=== PATIENT | female | born 1930 | race Caucasian/White ===

== ENCOUNTER → 2017-01-14 | Outpatient (CLI) | payer MEDICARE, OTHER ==
[~2017-01-14] MED LIST: AC500T; ASPI-84; BSC10SU; CALMOSEPTINE; CYCL5TAB; ENAL2.5T PO; ENAL5TAB PO; HYDR-3720; LEVO750T24 GT; LVT.025T PO; MAGN-47; METF500T; MTF500T; MTF500T PO; MTP25TSR; MTP25TSR PO; OMG1KC PO; ONDA8TAB9 PO; OXYC-12 PO; OXYC-199 PO; PGLT30T PO; PROP1TAB77; RNT150T PO; ROSI2TAB11; RSG4T PO; SENN1TAB76; SIMV40TA2 PO; TRAM50TA2 PO; TROS60CA4 PO; WRF2.5T
--- OUTSIDE RECORDS SUMMARY | 2017-01-14 09:54 | XMS REPORT | Continuity of Care Document ---
Author Author [facility] Organization [facility] Address Unknown Phone Unavailable Care Team Providers Care Health Teacher Name Role Phone PCP Unavailable Source Comments Some departments are not documenting in the electronic medical record. If you do not see the information that you expected, contact Release of Information in the Health Information Management department at [phone] for further assistance in locating additional records.[facility] Active Allergies and Adverse Reactions Not on File Current Medications Prescription Sig. Disp. Refills Start End Date Status Date metFORMIN (GLUCOPHAGE) Take 500 mg by mouth Active 500 mg tablet twice daily with meals. pioglitazone (ACTOS) 30 Take 30 mg by mouth Active mg tablet daily. enalapril (VASOTEC) 5 mg Take 5 mg by mouth daily. Active tablet metoprolol Take by mouth. Active guajardo-hydrochlorothiaz 25-12.5 mg Tb24 LEVOTHYROXINE SODIUM Take 0.025 mg by mouth Active (LEVOTHYROXINE PO) three times weekly. [place]-3 Fatty Take 1 Cap by mouth twice Active Acids-Vitamin E 1,000 mg daily. cap furosemide (LASIX) 40 mg Take 40 mg by mouth Active tablet daily. FLUTICASONE PROPIONATE Insert into nose as Active (FLONASE NA) directed as Needed. ACETAMINOPHEN (TYLENOL Take by mouth as Needed. Active PO) FEXOFENADINE HCL (MUCINEX Take by mouth as Needed. Active ALLERGY PO) SIMETHICONE (GAS-X PO) Take by mouth as Needed. Active NAPROXEN SODIUM/P-EPHED Take by mouth as Needed. Active HCL (SINUS AND COLD-D PO) trospium ER(+) (SAN[place]URA Take 1 Cap by mouth 60 Cap 3 03/14/20 Active XR) 60 mg capsule daily. Do not cut/ crush/ 16 chew Active Problems Problem Noted Date Mixed stress and urge urinary incontinence 03/14/2016 Overview: UUI>>CHRISTIANA requiring 3-4 thick pads/briefs per day. Urgency, frequency, nocturia 3-4x/night, weak stream, and sensation of incomplete emptying. Present since 2013 and worsening No prior treatments History of T2DM and multiple abdominal operations. 03/14/16: new patient; exam unremarkable PVR: 0 mls L ast Assessment & Plan: 85 year old female with history of T2DM and multiple abdominal operations who presents today for evaluation of TYSON (UUI>>CHRISTIANA) and other bothersome voiding symptoms such as urgency, frequency, nocturia 3-4x/night, weak stream, and sensation of incomplete emptying. She has had no prior treatment for this. Exam was largely unremarkable today. She emptied completely with a PVR of 0 mls today. - Urge suppression technique information provided. - Constipation treatment information provided today. - Decrease caffeine intake as able. - Referral to PFRT w/ biofeedback. - [place] XR 60 mg daily. Potential side effects discussed. - Return to clinic 6 months for symptom check. Social History Tobacco Use Types Packs/Day Years Used Date Never Smoker Smokeless Tobacco: Never Used Alcohol Use Drinks/Week oz/Week Comments Yes 2 Glasses of 1.2 wine Last Filed Vital Signs Vital Sign Reading Time Taken Blood Pressure 147/81 03/14/2016 10:22 AM CDT Pulse 76 03/14/2016 10:22 AM CDT Temperature - - Respiratory Rate - - Height 1.6 m (5' 3") 03/14/2016 10:22 AM CDT Weight 89.812 kg (198 lb) 03/14/2016 10:22 AM CDT Body Mass Index 35.08 03/14/2016 10:22 AM CDT Oxygen Saturation - - Plan of Care Health Maintenance Due Date Last Done Comments Physical (Comprehensive) 1937 Exam Pertussis Vaccine 1942 Tetanus Vaccine 1948 Shingles Vaccine 1991 Osteoporosis Screening 1996 Prevnar/Pneumovax (#1) 1996 Influenza Vaccine 06/28/2016 Results from Last 3 Months Not on file
--- NOTE | 2017-01-14 11:28 | Diagnostic Imaging Report ---
INDICATION: Pain in both hips. TECHNIQUE/COMPARISON: Two views of the right hip are compared to an exam from 03/28/2011. FINDINGS: The right total hip is unchanged from the previous exam. There is no evidence of hardware loosening or fracture present. There is a 2.7 cm calcific density just inferior and medial to the right sacroiliac joint. Degenerative changes of the sacroiliac joint have worsened. IMPRESSION: 1. Stable right total hip. 2. Increasing degenerative changes of the right sacroiliac joint. 3. There is a calcific density measuring 2.7 cm just inferior and medial to the sacroiliac joint. This measured 1.[address] scan. Consider CT scanning for further evaluation. Dictated by: Dictated on workstation # [id number]
== END ==
LOC: RAD 09:47
PROVIDERS: ATTEND Internal Medicine
DX: M25.551 Pain in right hip (principal); R53.1 Weakness
CPT/HCPCS: 73502

== ENCOUNTER 2017-04-17 09:30 | Outpatient (RCR) | payer MEDICARE, OTHER | END 2017-04-17 16:04 | disposition home or self-care (01) | PROVIDERS: ATTEND Orthopaedic Surgery | DX: M47.818 Spondylosis without myelopathy or radiculopathy, sacral and sacrococcygeal region (principal) ==

== ENCOUNTER → 2017-05-21 | Outpatient (CLI) | payer MEDICARE, OTHER ==
[~2017-05-21] MED LIST changes: +LEVO25TA5 PO; +METF500T4 PO; +METO-387 PO; +PIOG30TA26 PO; +SIMV40TA4 PO
--- NOTE | 2017-05-21 12:58 | Diagnostic Imaging Report ---
PROCEDURE: US Thyroid. TECHNIQUE: Multiple real-time grayscale images were obtained of the thyroid in various projections. INDICATION: Thyroid mass. FINDINGS: Ultrasonography of the remaining right lobe of the thyroid gland is performed. The right lobe measures 4.0 x 2.7 x 2.7 cm and contains an approximately 2 cm in diameter solid nodule in the midportion which is similar in appearance when compared to the exam of 07/19/2016. IMPRESSION: Persistent 2 cm solid nodule in the remaining right lobe of the thyroid gland. Left lobe was removed, surgically. Dictated by: Dictated on workstation # [id number]
== END ==
LOC: RAD 11:28
PROVIDERS: ATTEND Otolaryngology Otolaryngology/Facial Plastic Surgery
DX: E04.1 Nontoxic single thyroid nodule (principal)
CPT/HCPCS: 76536

== ENCOUNTER → 2017-08-13 | Outpatient (CLI) | payer MEDICARE, OTHER ==
[~2017-08-13] MED LIST changes: -LEVO25TA5 PO; -METF500T4 PO; -METO-387 PO; -PIOG30TA26 PO; -SIMV40TA4 PO
--- NOTE | 2017-08-14 08:20 | Diagnostic Imaging Report ---
Bilateral screening mammogram 2D views with tomosynthesis The current study was also evaluated with a Computer Aided Detection (CAD) system. INDICATION: Screening. No current complaints stated on the questionnaire. COMPARISON: 12/06/2015. FINDINGS: The breasts are composed of scattered fibroglandular densities. Benign-appearing calcifications are seen. Allowing for technique and positional differences, no suspicious change is seen. IMPRESSION: No significant change. ACR BI-RADS Category 2: Benign findings. Result letter will be mailed to the patient. Note: At least 10% of breast cancer is not imaged by mammography. Dictated by: Dictated on workstation # [id number]
== END ==
LOC: RAD 13:40
PROVIDERS: ATTEND Internal Medicine
DX: Z12.31 Encounter for screening mammogram for malignant neoplasm of breast (principal)
CPT/HCPCS: 77067

== ENCOUNTER 2017-08-19 05:36 | Outpatient (CLI) | payer MEDICARE, OTHER ==
[~2017-08-19] VITALS: Ht 160 cm; Wt 90.3 kg
[2017-08-19] MEDS ORDERED: METO-270 PO (10:56)
[2017-08-19] MEDS ORDERED: LEVO25TA5 PO (10:56)
[2017-08-19] MEDS ORDERED: SIMV40TA4 PO (10:56)
[2017-08-19] MEDS ORDERED: OMG1KC PO (10:56)
[2017-08-19] MEDS ORDERED: METF500T4 PO ×2 (10:56)
[2017-08-19] MEDS ORDERED: PIOG30TA26 PO (10:56)
== END 2017-08-19 10:57 ==
LOC: PREOP 05:36
PROVIDERS: ATTEND Surgery
DX: Z01.818 Encounter for other preprocedural examination (principal); Z85.038 Personal history of other malignant neoplasm of large intestine

== ENCOUNTER 2017-08-21 09:04 | Day surgery (SDC) | payer MEDICARE, OTHER ==
[~2017-08-21] VITALS: Ht 160 cm; Wt 90.3 kg
[~2017-08-21 09:04] MED LIST changes: +LEVO25TA5 PO; +METF500T4 PO; +METO-270 PO; +PIOG30TA26 PO; +SIMV40TA4 PO
--- OUTSIDE RECORDS SUMMARY | 2017-08-21 09:08 | XMS REPORT | Clinical Summary ---
Author Author [facility] Organization [facility] Address Unknown Phone Unavailable Care Team Providers Care Manager Automotive Name Role Phone PCP Unavailable Source Comments Some departments are not documenting in the electronic medical record. If you do not see the information that you expected, contact Release of Information in the Health Information Management department at [phone] for further assistance in locating additional records.[facility] Allergies Not on File Current Medications Prescription Sig. Disp. Refills Start End Date Status Date metFORMIN (GLUCOPHAGE) Take 500 mg by mouth Active 500 mg tablet twice daily with meals. pioglitazone (ACTOS) 30 Take 30 mg by mouth Active mg tablet daily. enalapril (VASOTEC) 5 mg Take 5 mg by mouth daily. Active tablet metoprolol Take by mouth. Active gujaardo-hydrochlorothiaz 25-12.5 mg Tb24 LEVOTHYROXINE SODIUM Take 0.025 mg by mouth Active (LEVOTHYROXINE PO) three times weekly. [place]-3 Fatty Take 1 Cap by mouth twice [...] to clinic 6 months for symptom check. Family History Medical History Relation Name Comments Cancer Other Diabetes Other Heart Attack Other Hypertension Other Relation Name Status Comments Other Social History Tobacco Use Types Packs/Day Years Used Date Never Smoker Smokeless Tobacco: Never Used Alcohol Use Drinks/Week oz/Week Comments Yes 2 Glasses of 1.2 wine Sex Assigned at Date Recorded Not on file Last Filed Vital Signs Vital Sign Reading Time Taken Blood Pressure 147/81 03/14/2016 10:22 AM CDT Pulse 76 03/14/2016 10:22 AM CDT Temperature - - Respiratory Rate - - Oxygen Saturation - - Inhaled Oxygen - - Concentration Weight 89.8 kg (198 lb) 03/14/2016 10:22 AM CDT Height 160 cm (5' 3") 03/14/2016 10:22 AM CDT Body Mass Index 35.07 03/14/2016 10:22 AM CDT Plan of Treatment Health Maintenance Due Date Last Done Comments PHYSICAL (COMPREHENSIVE) 1937 EXAM PERTUSSIS VACCINE 1942 TETANUS VACCINE 1948 SHINGLES VACCINE 1991 OSTEOPOROSIS SCREENING 1996 PREVNAR/PNEUMOVAX (#1) 1996 INFLUENZA VACCINE 05/28/2017 Results Not on filefrom Last 3 Months
[2017-08-21] MEDS ORDERED: NS IV 500 ML 500 ML IV PRN (09:37)
[2017-08-21] MEDS ORDERED: LIDOCAINE JELLY 2% (XYLOCAINE) 5 ML TUBE MM PRN (09:45)
[2017-08-21] MEDS ORDERED: NS IV 500 ML 500 ML ONE (09:46)
[2017-08-21 09:56] VITALS: BP 164/111
[2017-08-21] MEDS ORDERED: MIDAZOLAM 2 MG/2 ML (VERSED) VIAL ONE ×3 (10:59→11:17)
[2017-08-21] MEDS ORDERED: LIDOCAINE JELLY 2% (XYLOCAINE) 5 ML TUBE ONE (10:59)
[2017-08-21] MEDS ORDERED: fentaNYL INJECTION 100 MCG/2 ML AMP ONE (10:59)
--- NOTE | 2017-08-21 11:15 | Conscious Sedation/ASA ---
Conscious Sedation Pre-Proced Time Reviewed: 11:00 ASA Class: 2 Airway Mallampati Classification: ([place] appropriate class) I. II. III, IV Lungs Heart ASA score ASA 1: a normal healthy patient ASA 2: a patient with a mild systemic disease (mid diabetes, controlled hypertension, obesity ASA 3: a patient with a severe systemic disease that limits activity (angina , COPD, prior Myocardial infarction) ASA 4: a patient with an incapacitating disease that is a constant threat to life (CHF, renal failure) ASA 5: a moribund patient not expected to survive 24 hrs. (ruptured aneurysm) ASA 6: a declared brain patient whose organs are being harvested. For emergent operations, add the letter E after the classification Grade 3 Sedation Plan: Analgesia, Amnesia, Plan communicated to team members, Discussed options with patient/fam, Discussed risks with patient/fam Note The patient is an appropriate candidate to undergo the planned procedure, sedation, and anesthesia. The patient immediately re-assessed prior to indication. SHEREEN PRUETT MD Aug 21, 2017 11:15 am
[2017-08-21] MEDS: fentaNYL INJECTION 100 MCG/2 ML AMP IVP PRN ×2 (11:17→11:21)
--- NOTE | 2017-08-21 11:17 | Progress Note-Pre Operative ---
Pre-Operative Progress Note H&P Reviewed The H&P was reviewed, patient examined and no changes noted. Date Seen by Provider: Aug 21, 2017 Time Seen by Provider: 11:00 Date H&P Reviewed: Aug 21, 2017 Time H&P Reviewed: 11:00 Pre-Operative Diagnosis: hx colon polyp SHEREEN PRUETT MD Aug 21, 2017 11:17 am
[2017-08-21] MEDS: MIDAZOLAM 2 MG/2 ML (VERSED) VIAL IVP PRN ×3 (11:18→11:27)
[2017-08-21] MEDS ORDERED: ONDANSETRON 4 MG/2 ML (SDV) Z0FRAN IV PRN (11:30)
[2017-08-21] MEDS ORDERED: morphine INJ 10 MG/ML 1ML (SYR OR VIAL) IV PRN (11:30)
[2017-08-21] MEDS ORDERED: ACETAMINOPHEN 325 MG TABLET/CAPLET (TYLENOL) PO PRN (11:30)
[2017-08-21] MEDS ORDERED: HYDROcodone/APAP 5 MG/325 MG (LORTAB) TAB PO PRN (11:30)
--- NOTE | 2017-08-21 11:55 | Progress Note-Post Operative ---
Post-Operative Progess Note Surgeon (s)/Assembly Technician (s) Surgeon SHEREEN PRUETT MD Assembly Technician: none Pre-Operative Diagnosis hx colon cncer Post-Operative Diagnosis chronic stage 2-3 ext and int hemorrhoids, mod-severe sigmoid diverticulosis, normal ileocolonic anastomosis. Procedure & Operative Findings Date of Procedure 08/21/17 Procedure Performed/Findings Colonoscopy Anesthesia Type CS Estimated Blood Loss Estimated blood loss (mL): minimal Specimens/Packing Specimens Removed none SHEREEN PRUETT MD Aug 21, 2017 11:55 am
--- NOTE | 2017-08-21 11:56 | Discharge Inst-Surgical ---
D/C Lap Instructions-KIDO New, Converted, or Re-Newed RX: RX on Chart Follow Up 5 years. Activity as tolerated High Fiber Diet 25g or more per day Avoid Alcohol, Caffeine, Spicy [place] and Acid foods. Drink 64 fluid oz or more of fluids per day. Symptoms to Report: Fever over 101 degree F, Nausea/Vomiting If any problems/questions: Contact your physician or go to Emergency Room SHEREEN PRUETT MD Aug 21, 2017 11:56 am
[2017-08-21 12:00] VITALS: BP 142/96
[2017-08-21 12:25] VITALS: BP 140/90
[2017-08-21 12:30] VITALS: BP 140/90
--- NOTE | 2017-08-21 22:25 | OPERATIVE REPORT ---
DATE OF SERVICE: 08/21/2017 ATTENDING PRIMARY CARE PHYSICIAN: Dr. Puente. PREOPERATIVE DIAGNOSIS: History of colon cancer. POSTOPERATIVE DIAGNOSES: Chronic between stage II and III external and internal hemorrhoids, igjtynbp-cm-gdiryj sigmoid diverticulosis, normal ileocolonic anastomosis. No tumors identified. PROCEDURE: Colonoscopy. SURGEON: Shereen Pruett MD ANESTHESIA: Conscious sedation. ESTIMATED BLOOD LOSS: Minimal. FINDINGS: Chronic between stage II and III external and internal hemorrhoids, vkguodyn-fk-icamyt sigmoid diverticulosis. The remainder of the colon was normal and the ileocolonic anastomosis was normal with no recurrent tumors. DISPOSITION: The patient tolerated the procedure well. INDICATIONS FOR PROCEDURE: The patient is an 87-year-old female known to us. She underwent a colonoscopy on 05/12/2014. A large circumferential lesion was identified in the splenic flexure, which was suspicious for carcinoma. 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 On 06/12/2014, she underwent an extended right hemicolectomy as well as extensive lysis of adhesions from previous abdominal surgery. She had a followup colonoscopy on 07/13/2015, which did show tkmqufsy-kk-xkrerv sigmoid diverticulosis; however, no other abnormalities. She states that she is doing well and following a high-fiber diet and has bowel movements, which are normally soft. She does not report any red blood per rectum nor any dark, tarry stools. A CEA was recently drawn, which did show a slight elevation. She is otherwise doing well. DESCRIPTION OF PROCEDURE: The patient was brought to the endoscopy suite, laid in the left lateral decubitus position. After adequate IV pain and sedating medications and conscious sedation anesthesia, a digital rectal examination was performed. Chronic between stage II and III external and internal hemorrhoids were identified, which were not actively edematous nor inflamed and no bleeding. Normal sphincter tone was felt and there were no palpable masses. The endoscope was then intubated to the anus and rectum and gently insufflated. The endoscope was then advanced to the valves of [place] in the rectum with no polyps or any neoplasms identified. We then proceeded through the sigmoid and descending colon where jixmbtjf-gn-nxhvmx diverticulosis identified. There were no mucosal inflammatory changes to indicate any active diverticulitis. We then advanced the endoscope to the area of the ileo-descending colonic anastomosis was identified with no polyps or any recurrent neoplasms identified. The endoscope was then slowly withdrawn while taking a second look and suctioning residual air with no additional findings. The patient tolerated the procedure well. We will have her continue with medical management with high-fiber diet with at least 25 to 30 grams of fiber per day as well as at least 64 fluid ounces of water daily to promote soft stools on a daily basis. We feel that it would now be okay to proceed with colonoscopies on a 5-year basis; however, sooner if any problems arise. Job ID: [id number] DocumentID: [id number] Dictated Date: 08/21/2017 11:52:34 Costuming Supervisor Date: 08/21/2017 20:56:21 Dictated By: SHEREEN PRUETT MD
== END 2017-08-21 12:30 | disposition home or self-care (01) ==
LOC: ENDO 09:04
PROVIDERS: ATTEND Surgery
DX: Z08 Encounter for follow-up examination after completed treatment for malignant neoplasm (principal); Z85.038 Personal history of other malignant neoplasm of large intestine; K64.1 Second degree hemorrhoids; K57.32 Diverticulitis of large intestine without perforation or abscess without bleeding; R97.0 Elevated carcinoembryonic antigen [CEA]; Z98.0 Intestinal bypass and anastomosis status; E11.9 Type 2 diabetes mellitus without complications; I10 Essential (primary) hypertension; E78.00 Pure hypercholesterolemia, unspecified; E03.9 Hypothyroidism, unspecified; M19.91 Primary osteoarthritis, unspecified site; Z79.84 Long term (current) use of oral hypoglycemic drugs; Z79.899 Other long term (current) drug therapy

== ENCOUNTER → 2017-11-28 | Outpatient (CLI) | payer MEDICARE, OTHER ==
[~2017-11-28] MED LIST changes: +BARIUM SUSPENSION 2.1% (VANILLA SILQ) 450 ML PO ONE; +CATHETER FLUSH 10 ML SYR IV PRN; +IOHEXOL 350 MG/ML 100 ML (OMNIPAQUE 350) VIAL IV ONE; -METO-270 PO; +METO-387 PO; +NS 250 ML (IVPB) BAG IV ONE
--- NOTE | 2017-11-28 12:01 | Diagnostic Imaging Report ---
INDICATION: Colon carcinoma and partial colectomy. Study is performed for followup. TECHNIQUE: Axial imaging through the neck, chest, abdomen, and pelvis was performed after the administration of intravenous contrast. COMPARISON: No prior CT neck or chest study is available for comparison. Comparison is made with prior CT abdomen and pelvis from 09/16/2015. CT NECK: The visualized intracranial structures are unremarkable. The posterior nasopharynx and oropharynx are unremarkable. The larynx is unremarkable. Submandibular glands appear to be symmetric. There is a slightly lobulated mass located within the deep lobe of the right parotid gland measuring 2.6 x 1.8 cm. The left parotid gland is unremarkable. Low-density mass in the right lobe of the thyroid is noted and correlates to the known mass in the right lobe as seen with ultrasound. No cervical lymphadenopathy is identified. No fluid collections are seen. IMPRESSION: Solid appearing lobulated mass in the right parotid gland. 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 No other significant abnormality is seen apart from stable appearing right lobe thyroid mass described on recent ultrasound. CT CHEST: No axillary lymphadenopathy is detected. No definite hilar or mediastinal lymphadenopathy is identified. No pericardial or pleural fluid is detected. No pulmonary infiltrates are seen. There is a tiny 3 mm nodule in the left lower lobe, image 27. No other nodules or masses are seen. There are some interstitial changes in both lungs. IMPRESSION: No evidence of thoracic lymphadenopathy or effusion. There is a tiny left lower lobe nodule. The study is otherwise unremarkable. CT ABDOMEN AND PELVIS: No focal liver mass is identified. The gallbladder appears to be surgically absent. The pancreas and spleen are unremarkable. No adrenal mass is identified. The right kidney is unremarkable. Left kidney again contains a large cyst in the lower pole measuring 12.0 cm AP x 11.0 cm transverse. This compares with 11.5 x 9.2 cm when measured by the same technique. The aorta is calcified but nonaneurysmal. No central retroperitoneal or mesenteric lymphadenopathy is seen. Bowel loops appear to be normal in caliber. Previously noted peripherally calcified mass in the right lower quadrant appears stable. There is significant sigmoid diverticulosis, but no evidence of acute diverticulitis. There appear to be postsurgical changes of right hemicolectomy. A large amount of artifact is identified in the pelvis from patient's bilateral hip prostheses. No definite pelvic lymphadenopathy is identified. There is some sclerosis of the SI joints bilaterally, similar to prior exam. There is some mild sclerosis of the symphysis as well. IMPRESSION: Overall fairly stable appearance to the abdomen and pelvis when compared with prior CT from 09/16/2015 with the exception of mild enlargement of known large left lower pole renal mass. No abdominal or pelvic lymphadenopathy or evidence of metastatic disease is identified. There is significant uncomplicated diverticulosis. Dictated by: Dictated on workstation # [id number]
== END ==
LOC: RAD 07:52
PROVIDERS: ATTEND Internal Medicine
DX: Z08 Encounter for follow-up examination after completed treatment for malignant neoplasm (principal); K57.90 Diverticulosis of intestine, part unspecified, without perforation or abscess without bleeding; E07.89 Other specified disorders of thyroid; K11.8 Other diseases of salivary glands; E03.9 Hypothyroidism, unspecified; Z85.038 Personal history of other malignant neoplasm of large intestine; Z90.49 Acquired absence of other specified parts of digestive tract
CPT/HCPCS: 70491; 71260; 74176

== ENCOUNTER → 2017-11-28 | Outpatient (CLI) | payer MEDICARE, OTHER ==
[~2017-11-28] MED LIST changes: -BARIUM SUSPENSION 2.1% (VANILLA SILQ) 450 ML PO ONE; -CATHETER FLUSH 10 ML SYR IV PRN; -IOHEXOL 350 MG/ML 100 ML (OMNIPAQUE 350) VIAL IV ONE; -NS 250 ML (IVPB) BAG IV ONE
--- NOTE | 2017-11-28 08:31 | Diagnostic Imaging Report ---
INDICATION: Thyroid mass. Comparison is made with prior thyroid ultrasound from 05/21/2017. The right lobe of the thyroid measures 4.3 x 2.8 x 2.6 cm. The left lobe was not evaluated. There is a solid mass in the right lobe of the thyroid measuring 2.0 x 1.9 x 2.1 cm. This is stable compared with prior ultrasound. No new mass is seen. IMPRESSION: Stable solid mass right lobe of the thyroid when compared with exam from 05/21/2017. Dictated by: Dictated on workstation # [id number]
[2017-11-28 08:39] LABS: CREATININE SERUM 0.92 MG/DL (0.60-1.30)
== END ==
LOC: RAD 07:49
PROVIDERS: ATTEND Nurse Practitioner Family
DX: E07.9 Disorder of thyroid, unspecified (principal)
CPT/HCPCS: 36415; 76536; 82565; 84520

== ENCOUNTER 2017-12-25 12:14 | Outpatient (CLI) | payer MEDICARE, OTHER ==
[~2017-12-25] VITALS: Ht 160 cm; Wt 96.2 kg
[2017-12-25 12:39] VITALS: BP 131/91
[2017-12-25] MEDS ORDERED: TRIM100T PO (13:05)
[2017-12-25] MEDS ORDERED: CRAN1CAP9 PO (13:05)
[2017-12-25] MEDS ORDERED: ASCO500C17 PO (13:05)
[2017-12-25 13:25] LABS: BASOPHILS % (AUTO) 0 % (0-10); EOSINOPHILS # (AUTO) 0.1 10^3/uL (0.0-0.3); EOSINOPHILS % (AUTO) 1 % (0-10); HEMATOCRIT 39 % (35-52); HEMOGLOBIN 13.4 G/DL (11.5-16.0); LYMPHOCYTES # (AUTO) 1.5 X 10^3 (1.0-4.0); LYMPHOCYTES % (AUTO) 29 % (12-44); MEAN CORPUSCULAR HEMOGLOBIN 33 PG (25-34); MEAN CORPUSCULAR HGB CONC 34 G/DL (32-36); MEAN CORPUSCULAR VOLUME 96 FL (80-99); MEAN PLATELET VOLUME 10.9 FL (7.4-10.4); MONOCYTES # (AUTO) 0.4 X 10^3 (0.0-1.0); MONOCYTES % (AUTO) 8 % (0-12); NEUTROPHILS # (AUTO) 3.2 X 10^3 (1.8-7.8); NEUTROPHILS % (AUTO) 62 % (42-75); PLATELET COUNT 174 10^3/uL (130-400); RED BLOOD COUNT 4.07 10^6/uL (4.35-5.85); RED CELL DISTRIBUTION WIDTH 13.2 % (10.0-14.5); WHITE BLOOD COUNT 5.1 10^3/uL (4.3-11.0)
[2017-12-25 13:42] LABS: CALCIUM 8.8 MG/DL (8.5-10.1); CREATININE SERUM 0.91 MG/DL (0.60-1.30); POTASSIUM 4.4 MMOL/L (3.6-5.0)
== END 2017-12-25 15:00 ==
LOC: PREOP 12:14
PROVIDERS: ATTEND Otolaryngology Otolaryngology/Facial Plastic Surgery
DX: Z01.812 Encounter for preprocedural laboratory examination (principal); Z11.2 Encounter for screening for other bacterial diseases; L98.9 Disorder of the skin and subcutaneous tissue, unspecified
CPT/HCPCS: 36415; 80048; 85025; 87081

== ENCOUNTER 2017-12-27 07:08 | Day surgery (SDC) | payer MEDICARE, OTHER ==
[~2017-12-27] VITALS: Ht 160 cm; Wt 96.2 kg
[~2017-12-27 07:08] MED LIST changes: +ASCO500C17 PO; +CRAN1CAP9 PO; +TRIM100T PO
[2017-12-27] MEDS ORDERED: LACTATED RINGERS 1,000 ML IV PRN (07:29)
[2017-12-27 07:34] VITALS: BP 170/103
[2017-12-27] MEDS ORDERED: LIDOCAINE 1% INJ 20 ML (XYLOCAINE) VIAL ONE (07:49)
[2017-12-27] MEDS ORDERED: fentaNYL INJECTION 100 MCG/2 ML AMP ONE (07:58)
--- NOTE | 2017-12-27 08:08 | Progress Note-Pre Operative ---
Pre-Operative Progress Note H&P Reviewed The H&P was reviewed, patient examined and no changes noted. Date Seen by Provider: Dec 27, 2017 Time Seen by Provider: 07:45 Date H&P Reviewed: Dec 27, 2017 Time H&P Reviewed: 07:45 Pre-Operative Diagnosis: Nasal Tip Lesion, Rgith Forehead Lesion MELVA GREEN MD Dec 27, 2017 8:08 am
[2017-12-27] MEDS ORDERED: PHENYLEPHRINE 100 MCG/ML 10 ML (ANESTHESIA) SYR ONE (09:00)
[2017-12-27] MEDS ORDERED: LIDOCAINE PF 2% 5 ML (XYLOCAINE) VIAL ONE (09:00)
[2017-12-27] MEDS ORDERED: proPOfol 200 MG/20 ML (DIPRIVAN) VIAL IV ONE (09:00)
[2017-12-27] MEDS ORDERED: ONDANSETRON 4 MG/2 ML (SDV) Z0FRAN ONE (09:01)
[2017-12-27] MEDS ORDERED: MUPIROCIN 2% OINT 22 GM (BACTROBAN) TUBE ONE (09:01)
--- NOTE | 2017-12-27 09:07 | Progress Note-Post Operative ---
Post-Operative Progess Note Surgeon (s)/Director Of Field Service (s) Surgeon MELVA GREEN MD Director Of Field Service n/a Pre-Operative Diagnosis Nasal Tip Lesion, Rgith Forehead Lesion Post-Operative Diagnosis same Post-Op Procedure Note Date of Procedure: Dec 27, 2017 Name of Procedure Performed: Excision of Nasal Lesion with INterdeidate Repair, Excision of Forehead Lesion with INtermediate repair Description & Findings Description and Findings: n/a Anesthesia Type gen lma Estimated Blood Loss minimal Packing none. Specimen(s) collected/removed nasal tip lesion and forehead lesion-margins clear MELVA GREEN MD Dec 27, 2017 9:07 am
[2017-12-27] MEDS ORDERED: SEVOFLURANE (ULTANE) 15 ML INHAL SOLN ONE (09:14)
[2017-12-27] MEDS ORDERED: HYDROcodone/APAP 5 MG/325 MG (LORTAB) TAB PO PRN (09:15)
[2017-12-27] MEDS ORDERED: ACETAMINOPHEN 325 MG TABLET/CAPLET (TYLENOL) PO PRN (09:15)
[2017-12-27] MEDS: fentaNYL INJECTION 100 MCG/2 ML AMP ONE ×2 (09:35→10:28)
--- NOTE | 2017-12-27 09:50 | Anesthesia-General Post-Op ---
General Patient Condition Mental Status/LOC: Same as Preop Cardiovascular: Satisfactory Nausea/Vomiting: Absent Respiratory: Satisfactory Pain: Controlled Complications: Absent Post Op Complications Complications None Follow Up Care/Instructions Patient Instructions None needed. Anesthesia/Patient Condition Patient Condition Patient is doing well, no complaints, stable vital signs, no apparent adverse anesthesia problems. No complications reported per nursing. PJ KING CRNA Dec 27, 2017 09:50
[2017-12-27 10:10] VITALS: BP 126/94
[2017-12-27] MEDS ORDERED: HYDR-3812 PO (10:22)
[2017-12-27 10:40] VITALS: BP 141/85
[2017-12-27] MEDS ORDERED: HYDROcodone/APAP 5 MG/325 MG (LORTAB) TAB ONE (10:43)
[2017-12-27 11:01] VITALS: BP 141/85
== END 2017-12-27 10:56 | disposition home or self-care (01) ==
LOC: SDC 07:08
PROVIDERS: ATTEND Otolaryngology Otolaryngology/Facial Plastic Surgery
DX: C44.391 Other specified malignant neoplasm of skin of nose (principal); C44.399 Other specified malignant neoplasm of skin of other parts of face; I25.10 Atherosclerotic heart disease of native coronary artery without angina pectoris; I10 Essential (primary) hypertension; E11.9 Type 2 diabetes mellitus without complications; Z79.84 Long term (current) use of oral hypoglycemic drugs; Z79.899 Other long term (current) drug therapy
CPT/HCPCS: 82962

== ENCOUNTER → 2018-03-11 | Outpatient (CLI) | payer MEDICARE, OTHER ==
[~2018-03-11] MED LIST changes: +CATHETER FLUSH 10 ML SYR IV PRN; +HYDR-3812 PO; +IOHEXOL 350 MG/ML 100 ML (OMNIPAQUE 350) VIAL IV ONE; -METF500T4 PO; +METF500T5 PO; +NS 250 ML (IVPB) BAG IV ONE; +RECEIVED CONTRAST (Hold Metformin) IV SCH
[2018-03-11 08:29] LABS: BUN/CREATININE RATIO 23; CREATININE SERUM 0.83 MG/DL (0.60-1.30); GFR ESTIMATED > 60
--- NOTE | 2018-03-11 11:06 | Diagnostic Imaging Report ---
CLINICAL INDICATION: Checkup for nodule of neck. No complaints. Patient thinks some thyroid may be removed. Patient has history of colon cancer. EXAM: CT scan of the neck performed with 75 cc of Omnipaque 350 IV contrast. Coronal and sagittal reformatted images are created. COMPARISON: CT scan of the neck, chest, abdomen, and pelvis with contrast dated 11/28/2017. FINDINGS: There is interval decreased size of the lobulated mass in the region of the tail of the parotid gland which currently measures 2.3 cm x 1.5 cm compared to the prior study measured at 2.6 cm x 1.8 cm. There is no adjacent fat stranding. Otherwise, the salivary glands are unremarkable. Stable appearance of thyroid gland with heterogeneous low-density nodule measuring roughly 1.7 cm in greatest axial dimension. Clip seen inferior to the right thyroid gland. The left thyroid gland is predominantly resected with minimal stable tissue seen in the left thyroid bed. There is no neck lymphadenopathy seen. Visualized portions of the tongue, oral cavity, sublingual and submandibular regions are unremarkable. The neck vascular structures show no significant abnormality. Visualized upper lung hammond show mild dependent atelectasis posteriorly. There is small to moderate amount of fluid in the left mastoid air cells. Visualized portion of the paranasal sinuses, orbits, and intracranial regions are unremarkable. There are degenerative spurs involving the cervical spine. IMPRESSION: 1: There is interval slight decreased size of the lobulated mass in the tail of the right parotid gland. Considerations may include a primary salivary gland neoplasm such as pleomorphic adenoma. A lymphocele and a lymph node is suspected to be less likely. 2: Stable 1.7 cm right thyroid gland nodule. Stable postop changes to the thyroid gland, as described above. 3: The remainder of the neck CT scan shows no significant abnormality. Dictated by: Dictated on workstation # [id number]
== END ==
LOC: RAD 07:58
PROVIDERS: ATTEND Otolaryngology Otolaryngology/Facial Plastic Surgery
DX: E04.1 Nontoxic single thyroid nodule (principal); K11.8 Other diseases of salivary glands; E89.0 Postprocedural hypothyroidism; Z85.038 Personal history of other malignant neoplasm of large intestine
CPT/HCPCS: 36415; 70491; 82565; 84520

== ENCOUNTER → 2018-07-16 | Outpatient (CLI) | payer MEDICARE, OTHER ==
[~2018-07-16] MED LIST changes: -CATHETER FLUSH 10 ML SYR IV PRN; +METF-397 PO; -METF500T5 PO; -PIOG30TA26 PO; +PIOG30TA71 PO; -RECEIVED CONTRAST (Hold Metformin) IV SCH
[2018-07-16 10:41] LABS: BUN/CREATININE RATIO 20; CREATININE SERUM 0.86 MG/DL (0.60-1.30); GFR ESTIMATED > 60
--- NOTE | 2018-07-16 11:53 | Diagnostic Imaging Report ---
PROCEDURE: CT chest, abdomen, and pelvis with contrast. TECHNIQUE: Multiple contiguous axial images were obtained through the chest, abdomen, and pelvis after the administration of intravenous contrast. INDICATION: Colon carcinoma, followup. COMPARISON: Correlation is made with prior CT from 11/28/2017. FINDINGS: CT chest: No axillary, hilar or mediastinal lymphadenopathy is detected. Coronary arterial calcifications are present. No pericardial or pleural fluid is identified. There is a low density nodule on the right thyroid lobe, previously noted tiny nodule on left lower lobe appears stable. No new nodule is seen. IMPRESSION: Stable CT of the chest when compared with examination from 11/28/2017. No thoracic lymphadenopathy or evidence of pulmonary metastatic disease is seen. There is a low-density nodule in the right thyroid, seen previously by ultrasound. CT abdomen and pelvis: The liver is without discrete mass. The gallbladder appears to be absent. No biliary duct dilatation is seen. The pancreas and spleen are unremarkable. No adrenal mass is identified. The right kidney is unremarkable. A lobulated cystic mass involving the lower pole of the left kidney measures 12.3 x 11.5 cm compared with 12.0 x 11.0 cm. Aorta is heavily calcified but not aneurysmal. No central, retroperitoneal or mesenteric lymphadenopathy is seen. Postsurgical changes of right hemicolectomy are again noted. There is moderate stool in the colon. Significant diverticulosis of the sigmoid colon is again seen. No definite findings to suggest acute diverticulitis are identified. There is no ascites. The bladder appears decompressed. There is a large amount of streak artifact from patient's bilateral hip prostheses. No definite pelvic lymphadenopathy is identified. Sclerosis of bilateral SI joints is again seen. There is severe multilevel lumbar facet arthropathy. Previously noted calcified mass in the right lower quadrant appears stable. IMPRESSION: 1. Overall stable CT of the abdomen and pelvis when compared with exam from 11/28/2017. No abdominal or pelvic lymphadenopathy or evidence of metastatic disease is seen. 2. Uncomplicated diverticulosis. 3. Stable left renal cyst. Dictated by: Dictated on workstation # [id number]
== END ==
LOC: RAD 10:06
PROVIDERS: ATTEND Internal Medicine
DX: C18.3 Malignant neoplasm of hepatic flexure (principal); K57.30 Diverticulosis of large intestine without perforation or abscess without bleeding; D34 Benign neoplasm of thyroid gland; R97.0 Elevated carcinoembryonic antigen [CEA]; N28.1 Cyst of kidney, acquired
CPT/HCPCS: 36415; 71260; 74177; 82565; 84520

== ENCOUNTER → 2018-08-28 | Outpatient (CLI) | payer MEDICARE, OTHER ==
[~2018-08-28] MED LIST changes: +RECEIVED CONTRAST (Hold Metformin) IV SCH
[2018-08-28 09:27] LABS: BUN/CREATININE RATIO 19; CREATININE SERUM 0.81 MG/DL (0.60-1.30); GFR ESTIMATED > 60
--- NOTE | 2018-08-28 10:40 | Diagnostic Imaging Report ---
PROCEDURE: CT neck soft tissue with contrast. TECHNIQUE: Multiple contiguous axial images were obtained through the neck after the administration of contrast. INDICATION: Right parotid mass and thyroid nodule. Study is performed for followup. COMPARISON: Correlation is made with prior CT soft tissue neck study from 03/11/2018. FINDINGS: Visualized intracranial structures are unremarkable. Posterior nasopharynx, oropharynx and larynx are unremarkable. The low-density mass involving the right lobe of the thyroid gland appears similar at 17 cm. Left thyroid lobe appears surgically absent. The lobulated homogeneous mass involving the inferior right parotid gland measures 2.2 x 1.3 cm compared with 2.3 x 1.5 cm on prior exam. No new parotid mass is identified. The left parotid and submandibular glands are unremarkable. No cervical lymphadenopathy is seen. IMPRESSION: 1. Stable lobulated right parotid gland mass when compared with prior CT from 03/11/2018. 2. Stable low density mass right lobe of the thyroid when compared with prior examination. No new abnormality is seen. Dictated by: Dictated on workstation # [id number]
== END ==
LOC: RAD 08:28
PROVIDERS: ATTEND Otolaryngology Otolaryngology/Facial Plastic Surgery
DX: E04.1 Nontoxic single thyroid nodule (principal); K11.8 Other diseases of salivary glands
CPT/HCPCS: 36415; 70491; 82565; 84520

== ENCOUNTER 2018-08-31 14:48 | Emergency (ER) | payer MEDICARE, OTHER ==
[~2018-08-31] VITALS: Ht 160 cm; Wt 90.7 kg
[~2018-08-31 14:48] MED LIST changes: -IOHEXOL 350 MG/ML 100 ML (OMNIPAQUE 350) VIAL IV ONE; -NS 250 ML (IVPB) BAG IV ONE; -RECEIVED CONTRAST (Hold Metformin) IV SCH
--- OUTSIDE RECORDS SUMMARY | 2018-08-31 14:53 | XMS REPORT | Clinical Summary ---
Author Author [facility] Organization [facility] Address Unknown Phone Unavailable Care Team Providers Care Salesperson Fashion Accessories Name Role Phone Roberto Carlos Barrientos MD Unavailable Source Comments Some departments are not documenting in the electronic medical record. If you do not see the information that you expected, contact Release of Information in the Health Information Management department at [phone] for further assistance in locating additional records.[facility] Allergies Not on File Current Medications [...] mouth Active (LEVOTHYROXINE PO) three times weekly. [place]-3 Fatty Take 1 Cap by mouth twice [...] PERTUSSIS VACCINE 1942 TETANUS VACCINE 1948 SHINGLES RECOMBINANT 1981 VACCINE (1 of 2) OSTEOPOROSIS SCREENING 1996 PNEUMONIA (PCV13/PPSV23) 1996 VACCINES (1 of 2 - PCV13) INFLUENZA VACCINE 05/28/2018 Results Not on filefrom Last 3 Months
--- OUTSIDE RECORDS SUMMARY | 2018-08-31 14:55 | XMS REPORT | Continuity of Care Document ---
Author Author [facility] Organization [facility] Address Unknown Phone Unavailable Allergies Active Description Code Type Severity Reaction Onset Reported/Identified Relationship to Patient Clinical Status Yes NKDA NKDA Mild N/ A 02/16/2009 Yes warfarin [id number] Drug Allergy Unknown "SEVERE BLEEDIN 12/25/2017 Medications There is no data. 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 06/09/2014 SHEREEN PRUETT MD Ot 250.00 DIAB FADY WO COMPL, TYPE II OR UNSPEC TY 06/09/2014 SHEREEN PRUETT MD Ot 272.0 PURE HYPERCHOLESTEROLEM 06/09/2014 SHEREEN PRUETT MD Ot 285.1 AC POSTHEMORRHAG ANEMIA 06/09/2014 SHEREEN PRUETT MD Ot 401.9 HYPERTENSION NOS 06/09/2014 SHEREEN PRUETT MD Ot 578.1 BLOOD IN STOOL 06/09/2014 SHEREEN PRUETT MD Ot 593.9 RENAL URETERAL DIS NOS 06/09/2014 SHEREEN PRUETT MD Ot 716.90 ARTHROPATHY NOS-UNSPEC 06/09/2014 SHEREEN PRUETT MD Ot V12.69 PERSONAL HISTORY, OTHER DISEASES OF RESP 06/09/2014 SHEREEN PRUETT MD Ot V16.0 FAMILY HX-GI MALIGNANCY 06/09/2014 FLYNN PEREZ, SHEREEN Hernandez V43.64 HIP JOINT REPLACEMENT STATUS 09/09/2014 FLYNN PEREZ, SHEREEN Ot 153.9 09/09/2014 SHEREEN PRUETT MD Ot V72.63 09/09/2014 SHEREEN PRUETT MD Ot V72.83 09/09/2014 SHEREEN PRUETT MD Ot V74.8 03/04/2015 LAWSON PEREZ, CAESAR Pak Ot 272.4 03/04/2015 CAESAR PATHAK MD Ot 785.1 03/18/2015 CAESAR PATHAK MD Ot 272.4 03/18/2015 CAESAR PATHAK MD Ot 785.1 07/13/2015 SHEREEN PRUETT MD Ot 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 W/O COMPL 07/13/2015 SHEREEN PRUETT MD Ot 455.3 EXT HEMORRHOID W/O COMPL 07/13/2015 SHEREEN PRUETT MD Ot 562.10 DIVERTICULOSIS COLON (W/O MENT OF HEMORR 07/13/2015 SHEREEN PRUETT MD Ot V10.05 HX OF COLONIC MALIGNANCY 07/13/2015 SHEREEN PRUETT MD Ot V12.72 PERSONAL HISTORY OF COLONIC POLYPS 07/13/2015 SHEREEN PRUETT MD Ot V67.09 SURGERY FOLLOW-UP, OTHER SURGERY 09/16/2015 MICHAEL GIL MD Ot K57.90 DVRTCLOS OF INTEST, PART UNSP, W/O PERF 09/16/2015 MICHAEL GIL MD Ot R11.2 NAUSEA WITH VOMITING, UNSPECIFIED 09/16/2015 MICHAEL GIL MD Ot R19.7 DIARRHEA, UNSPECIFIED 09/16/2015 MICHAEL GIL MD Ot Z85.038 PERSONAL HISTORY OF MALIGNANT NEOPLASM O 09/16/2015 MICHAEL GIL MD Ot Z90.49 ACQUIRED ABSENCE OF OTHER SPECIFIED PART 12/06/2015 Ot V76.12 12/06/2015 Ot 211.3 12/06/2015 Ot 455.3 12/06/2015 Ot 562.10 12/06/2015 Ot V16.0 12/06/2015 Ot V67.09 12/06/2015 Ot 719.45 12/06/2015 Ot V43.64 12/06/2015 Ot V76.12 12/06/2015 Ot 726.10 12/06/2015 Ot V72.84 12/06/2015 Ot V74.8 12/06/2015 Ot 250.00 12/06/2015 Ot 401.9 12/06/2015 Ot 715.91 12/06/2015 Ot 726.10 12/06/2015 Ot 726.19 12/06/2015 Ot 726.2 12/06/2015 Ot V58.69 12/06/2015 Ot 250.00 12/06/2015 Ot 401.9 12/06/2015 Ot 426.11 12/06/2015 Ot 426.2 12/06/2015 Ot 727.61 12/06/2015 Ot V72.83 12/06/2015 Ot V74.8 12/06/2015 Ot V76.12 12/06/2015 CASI LOVE APRN Ot V76.12 12/06/2015 FLYNN PEREZ, SHEREEN Ot 211.3 12/06/2015 FLYNN PEREZ, SHEREEN Ot 244.9 12/06/2015 FLYNN PEREZ, SHEREEN Ot 250.00 12/06/2015 FLYNN PEREZ, ARYANKI Ot 272.0 12/06/2015 FLYNN PEREZ, MARCELAAAKI Ot 401.9 12/06/2015 FLYNN PEREZ, TAKAAKI Ot 455.0 12/06/2015 FLYNN PEREZ, TAKAAKI Ot 455.3 12/06/2015 FLYNN PEREZ, TAKAAKI Ot 562.10 12/06/2015 FLYNN PEREZ, TAKAAKI Ot 569.3 12/06/2015 FLYNN PEREZ, TAKAAKI Ot V16.0 12/06/2015 FLYNN PEREZ, MARCELAAAKI Ot V72.84 12/06/2015 FLYNN PEREZ, TAKAAKI Ot 153.9 12/06/2015 FLYNN PEREZ, TAKAAKI Ot 573.8 12/06/2015 FLYNN PEREZ, TAKAAKI Ot 793.4 12/06/2015 FLYNN PEREZ, TAKAAKI Ot 153.9 12/06/2015 FLYNN PEREZ, MARCELAAAKI Ot V72.63 12/06/2015 FLYNN PEREZ, MARCELAAAKI Ot V72.83 12/06/2015 FLYNN PEREZ, MARCELAAAKI Ot V74.8 12/06/2015 SHEREEN PREUTT MD Ot 153.9 12/06/2015 FLYNN PEREZ, SHEREEN Ot 791.9 12/06/2015 SHEREEN PRUETT MD Ot V45.89 12/06/2015 LAWSON PEREZ, CAESAR Pak Ot 272.4 12/06/2015 CAESAR PATHAK MD Ot 785.1 12/06/2015 FLYNN PEREZ, SHEREEN Ot V10.05 12/06/2015 SHEREEN PRUETT MD Ot V72.84 12/28/2015 TAZ PEREZ, WM Chou Ot Z12.31 07/20/2016 TAZ PEREZ, WM Chou Ot E04.2 NONTOXIC MULTINODULAR GOITER 07/20/2016 WM MCGHEE MD Ot E04.2 NONTOXIC MULTINODULAR GOITER 07/25/2016 WM MCGHEE MD Ot E04.2 NONTOXIC MULTINODULAR GOITER 08/06/2016 Ot 719.45 JOINT PAIN- PELVIS 08/06/2016 Ot V43.64 HIP JOINT REPLACEMENT STATUS 08/06/2016 Ot V76.12 OT SCREEN MAMMO-MALIGN NEOPLASM OF OMA 08/06/2016 Ot 726.10 BURSAE TENDONS DIS SHLDER NOS 08/06/2016 Ot V72.84 EXAM PRE- OPERATIVE NOS 08/06/2016 Ot V74.8 SCREEN- BACTERIAL DIS NEC 08/06/2016 Ot 250.00 DIAB FADY WO COMPL, TYPE II OR UNSPEC TY 08/06/2016 Ot 401.9 HYPERTENSION NOS 08/06/2016 Ot 715.91 OSTEOARTHROS NOS-SHLDER 08/06/2016 Ot 726.10 BURSAE TENDONS DIS SHLDER NOS 08/06/2016 Ot 726.19 ROTATOR CUFF DIS NEC 08/06/2016 Ot 726.2 SHOULDER REGION DIS NEC 08/06/2016 Ot V58.69 OTH MED,LT, CURRENT USE 08/06/2016 Ot 250.00 DIAB FADY WO COMPL, TYPE II OR UNSPEC TY 08/06/2016 Ot 401.9 HYPERTENSION NOS 08/06/2016 Ot 426.11 ATRIOVENT BLOCK-1ST DEGR 08/06/2016 Ot 426.2 LEFT BB HEMIBLOCK 08/06/2016 Ot 727.61 ROTATOR CUFF RUPTURE 08/06/2016 Ot V72.83 EXAM PRE- OPERATIVE NEC 08/06/2016 Ot V74.8 SCREEN- BACTERIAL DIS NEC 08/06/2016 Ot V76.12 OTH SCREEN MAMMO-MALIGN NEOPLASM OF OMA 08/06/2016 CASI LOVE [employer] MANAGER Ot V76.12 OTH SCREEN MAMMO-MALIGN NEOPLASM OF OMA 08/06/2016 SHEREEN PRUETT MD Ot 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 08/06/2016 SHEREEN PRUETT MD Ot 244.9 HYPOTHYROIDISM NOS 08/06/2016 SHEREEN PRUETT MD Ot 250.00 DIAB FADY WO COMPL, TYPE II OR UNSPEC TY 08/06/2016 SHEREEN PRUETT MD Ot 272.0 PURE HYPERCHOLESTEROLEM 08/06/2016 SHEREEN PRUETT MD Ot 401.9 HYPERTENSION NOS 08/06/2016 SHEREEN PRUETT MD Ot 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 W/O COMPL 08/06/2016 SHEREEN PRUETT MD Ot 455.3 EXT HEMORRHOID W/O COMPL 08/06/2016 SHEREEN PRUETT MD Ot 562.10 DIVERTICULOSIS COLON (W/O MENT OF HEMORR 08/06/2016 SHEREEN PRUETT MD Ot 569.3 RECTAL ANAL HEMORRHAGE 08/06/2016 SHEREEN PRUETT MD Ot V16.0 FAMILY HX-GI MALIGNANCY 08/06/2016 SHEREEN PRUETT MD Ot V72.84 EXAM PRE-OPERATIVE NOS 08/06/2016 SHEREEN PRUETT MD Ot 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 08/06/2016 SHEREEN PRUETT MD Ot 573.8 LIVER DISORDERS NEC 08/06/2016 SHEREEN PRUETT MD Ot 793.4 NOSP (ABN) FINDINGS ON RADIOLOGICAL OT 08/06/2016 SHEREEN PRUETT MD Ot 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 08/06/2016 SHEREEN PRUETT MD Ot V72.63 PRE-PROCEDURAL LABORATORY EXAMINATION 08/06/2016 SHEREEN PRUETT MD Ot V72.83 EXAM PRE-OPERATIVE NEC 08/06/2016 SHEREEN PRUETT MD Ot V74.8 SCREEN-BACTERIAL DIS NEC 08/06/2016 SHEREEN PRUETT MD Ot 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 08/06/2016 SHEREEN PRUETT MD Ot 791.9 ABN URINE FINDINGS NEC 08/06/2016 SHEREEN PRUETT MD Ot V45.89 POSTSURGICAL STATES NEC 08/06/2016 CAESAR PATHAK MD Ot 272.4 HYPERLIPIDEMIA NEC/NOS 08/06/2016 CAESAR PATHAK MD Ot 785.1 PALPITATIONS 08/06/2016 SHEREEN PRUETT MD Ot V10.05 HX OF COLONIC MALIGNANCY 08/06/2016 SHEREEN PRUETT MD Ot V72.84 EXAM PRE-OPERATIVE NOS 08/06/2016 TAZ PEREZ, WM Chou Ot Z12.31 ENCNTR SCREEN MAMMOGRAM FOR MALIGNANT NE 08/06/2016 WM MCGHEE MD Ot E04.2 NONTOXIC MULTINODULAR GOITER 08/09/2016 WM MCGHEE MD Ot E04.2 NONTOXIC MULTINODULAR GOITER 08/15/2016 WM MCGHEE MD Ot E04.2 NONTOXIC MULTINODULAR GOITER 08/16/2016 NORMA PEREZ, MELVA Hernandez Ot E04.1 NONTOXIC SINGLE THYROID NODULE 09/04/2016 NORMA PEREZ, MELVA P Ot E04.1 NONTOXIC SINGLE THYROID NODULE 09/10/2016 NORMA PEREZ, MELVA P Ot E04.1 NONTOXIC SINGLE THYROID NODULE 10/12/2016 MELVA GREEN MD P Ot E04.9 NONTOXIC GOITER, UNSPECIFIED 10/12/2016 MELVA GREEN MD P Ot Z01.812 ENCOUNTER FOR PREPROCEDURAL LABORATORY E 10/12/2016 MELVA GREEN MD P Ot Z01.818 ENCOUNTER FOR OTHER PREPROCEDURAL EXAMIN 10/12/2016 MELVA GREEN MD Ot Z11.2 ENCOUNTER FOR SCREENING FOR OTHER BACTER 10/15/2016 MELVA GREEN MD P Ot E04.9 NONTOXIC GOITER, UNSPECIFIED 10/15/2016 MELVA GREEN MD P Ot Z01.812 ENCOUNTER FOR PREPROCEDURAL LABORATORY E 10/15/2016 MELVA GREEN MD P Ot Z01.818 ENCOUNTER FOR OTHER PREPROCEDURAL EXAMIN 10/15/2016 MELVA GREEN MD P Ot Z11.2 ENCOUNTER FOR SCREENING FOR OTHER BACTER 10/16/2016 MELVA GREEN MD P Ot E04.9 NONTOXIC GOITER, UNSPECIFIED 10/16/2016 MELVA GREEN MD P Ot Z01.812 ENCOUNTER FOR PREPROCEDURAL LABORATORY E 10/16/2016 MELVA GREEN MD P Ot Z01.818 ENCOUNTER FOR OTHER PREPROCEDURAL EXAMIN 10/16/2016 MELVA GREEN MD P Ot Z11.2 ENCOUNTER FOR SCREENING FOR OTHER BACTER 10/20/2016 MELVA GREEN MD Ot D34 BENIGN NEOPLASM OF THYROID GLAND 10/20/2016 MELVA GREEN MD Ot R11.0 NAUSEA 10/24/2016 MELVA GREEN MD Ot D34 BENIGN NEOPLASM OF THYROID GLAND 10/24/2016 MELVA GREEN MD Ot R11.0 NAUSEA 10/26/2016 MELVA GREEN MD Ot D34 BENIGN NEOPLASM OF THYROID GLAND 10/26/2016 MELVA GREEN MD Ot R11.0 NAUSEA 11/27/2016 MELVA GREEN MD Ot E04.1 NONTOXIC SINGLE THYROID NODULE 02/06/2017 WM MCGHEE MD Ot M25.551 PAIN IN RIGHT HIP 02/06/2017 WM MCGHEE MD Ot R53.1 WEAKNESS 02/15/2017 WM MCGHEE MD Ot M25.551 PAIN IN RIGHT HIP 02/15/2017 WM MCGHEE MD Ot R53.1 WEAKNESS 03/08/2017 ASTRID MEYER DO Ot 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, 04/17/2017 ASTRID MEYER DO Ot 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, 05/21/2017 Ot 250.00 DIAB FADY WO COMPL, TYPE II OR UNSPEC TY 05/21/2017 Ot 401.9 HYPERTENSION NOS 05/21/2017 Ot 715.91 OSTEOARTHROS NOS-SHLDER 05/21/2017 Ot 726.10 BURSAE TENDONS DIS SHLDER NOS 05/21/2017 Ot 726.19 ROTATOR CUFF DIS NEC 05/21/2017 Ot 726.2 SHOULDER REGION DIS NEC 05/21/2017 Ot V58.69 OT MED,LT, CURRENT USE 05/21/2017 Ot 727.61 ROTATOR CUFF RUPTURE 05/21/2017 Ot V72.83 EXAM PRE- OPERATIVE NEC 05/21/2017 Ot V74.8 SCREEN- BACTERIAL DIS NEC 05/21/2017 Ot V76.12 OTH SCREEN MAMMO-MALIGN NEOPLASM OF OMA 05/21/2017 CASI LOVE APRN Ot V76.12 OTH SCREEN MAMMO-MALIGN NEOPLASM OF OMA 05/21/2017 SHEREEN PRUETT MD Ot 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 05/21/2017 SHEREEN PRUETT MD Ot 244.9 HYPOTHYROIDISM NOS 05/21/2017 SHEREEN PRUETT MD Ot 250.00 DIAB FADY WO COMPL, TYPE II OR UNSPEC TY 05/21/2017 SHEREEN PRUETT MD Ot 272.0 PURE HYPERCHOLESTEROLEM 05/21/2017 SHEREEN PRUETT MD Ot 401.9 HYPERTENSION NOS 05/21/2017 SHEREEN PRUETT MD Ot 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 W/O COMPL 05/21/2017 SHEREEN PRUETT MD Ot 455.3 EXT HEMORRHOID W/O COMPL 05/21/2017 SHEREEN PRUETT MD Ot 562.10 DIVERTICULOSIS COLON (W/O MENT OF HEMORR 05/21/2017 SHEREEN PRUETT MD Ot 569.3 RECTAL ANAL HEMORRHAGE 05/21/2017 SHEREEN PRUETT MD Ot V16.0 FAMILY HX-GI MALIGNANCY 05/21/2017 SHEREEN PRUETT MD Ot V72.84 EXAM PRE-OPERATIVE NOS 05/21/2017 SHEREEN PRUETT MD Ot 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 05/21/2017 SHEREEN PRUETT MD Ot 573.8 LIVER DISORDERS NEC 05/21/2017 SHEREEN PRUETT MD Ot 793.4 NOSP (ABN) FINDINGS ON RADIOLOGICAL OT 05/21/2017 SHEREEN PRUETT MD Ot 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 05/21/2017 SHEREEN PRUETT MD Ot V72.63 PRE-PROCEDURAL LABORATORY EXAMINATION 05/21/2017 SHEREEN PRUETT MD Ot V72.83 EXAM PRE-OPERATIVE NEC 05/21/2017 SHEREEN PRUETT MD Ot V74.8 SCREEN-BACTERIAL DIS NEC 05/21/2017 SHEREEN PRUETT MD Ot 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 05/21/2017 SHEREEN PRUETT MD Ot 791.9 ABN URINE FINDINGS NEC 05/21/2017 SHEREEN PRUETT MD Ot V45.89 POSTSURGICAL STATES NEC 05/21/2017 CAESAR PATHAK MD Ot 272.4 HYPERLIPIDEMIA NEC/NOS 05/21/2017 CAESAR PATHAK MD Ot 785.1 PALPITATIONS 05/21/2017 SHEREEN PRUETT MD Ot V10.05 HX OF COLONIC MALIGNANCY 05/21/2017 SHEREEN PRUETT MD Ot V72.84 EXAM PRE-OPERATIVE NOS 05/21/2017 TAZ PEREZ, WM Chou Ot Z12.31 ENCNTR SCREEN MAMMOGRAM FOR MALIGNANT NE 05/21/2017 TAZ PEREZ, WM Chou Ot E04.2 NONTOXIC MULTINODULAR GOITER 05/21/2017 MELVA GREEN MD Ot E04.1 NONTOXIC SINGLE THYROID NODULE 05/21/2017 WM MCGHEE MD, Ot M25.551 PAIN IN RIGHT HIP 05/21/2017 WM MCGHEE MD, Ot R53.1 WEAKNESS 05/22/2017 MELVA GREEN MD Ot E04.1 NONTOXIC SINGLE THYROID NODULE 05/22/2017 MELVA GREEN MD Ot E04.1 NONTOXIC SINGLE THYROID NODULE 05/22/2017 MELVA GREEN MD P Ot E04.1 NONTOXIC SINGLE THYROID NODULE 06/11/2017 MELVA GREEN MD Ot E04.1 NONTOXIC SINGLE THYROID NODULE 06/25/2017 MELVA GREEN MD Ot E04.1 NONTOXIC SINGLE THYROID NODULE 07/31/2017 YAN PEREZ, JOYCE Christiansen Ot Z12.31 ENCNTR SCREEN MAMMOGRAM FOR MALIGNANT NE 08/19/2017 SHEREEN PRUETT MD Ot Z01.818 ENCOUNTER FOR OTHER PREPROCEDURAL EXAMIN 08/19/2017 SHEREEN PRUETT MD Ot Z85.038 PERSONAL HISTORY OF MALIGNANT NEOPLASM O 08/19/2017 SHEREEN PRUETT MD Ot Z01.818 ENCOUNTER FOR OTHER PREPROCEDURAL EXAMIN 08/19/2017 SHEREEN PRUETT MD, Ot Z85.038 PERSONAL HISTORY OF MALIGNANT NEOPLASM O 08/20/2017 SHEREEN PRUETT MD Ot Z01.818 ENCOUNTER FOR OTHER PREPROCEDURAL EXAMIN 08/20/2017 SHEREEN PRUETT MD Ot Z85.038 PERSONAL HISTORY OF MALIGNANT NEOPLASM O 08/21/2017 SHEREEN PRUETT MD Ot E03.9 HYPOTHYROIDISM, UNSPECIFIED 08/21/2017 SHEREEN PRUETT MD Ot E11.9 TYPE 2 DIABETES MELLITUS WITHOUT COMPLIC 08/21/2017 SHEREEN PRUETT MD Ot E78.00 PURE HYPERCHOLESTEROLEMIA, UNSPECIFIED 08/21/2017 SHEREEN PRUETT MD Ot I10 ESSENTIAL (PRIMARY) HYPERTENSION 08/21/2017 SHEREEN PRUETT MD, Ot K57.32 DVTRCLI OF LG INT W/O PERFORATION OR ABS 08/21/2017 SHEREEN PRUETT MD, Ot K64.1 SECOND DEGREE HEMORRHOIDS 08/21/2017 SHEREEN PRUETT MD, Ot M19.91 PRIMARY OSTEOARTHRITIS, UNSPECIFIED SITE 08/21/2017 SHEREEN PRUETT MD, Ot R97.0 ELEVATED CARCINOEMBRYONIC ANTIGEN [CEA] 08/21/2017 SHEREEN PRUETT MD, Ot Z08 ENCNTR FOR FOLLOW-UP EXAM AFTER TRTMT FO 08/21/2017 SHEREEN PRUETT MD, Ot Z79.84 BUILDING CERTIFIER (CURRENT) USE OF ORAL HYPOGLYC 08/21/2017 SHEREEN PRUETT MD, Ot Z79.899 OTHER BUILDING CERTIFIER (CURRENT) DRUG THERAPY 08/21/2017 SHEREEN PRUETT MD, Ot Z85.038 PERSONAL HISTORY OF MALIGNANT NEOPLASM O 08/21/2017 SHEREEN PRUETT MD, Ot 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 08/22/2017 SHEREEN PRUETT MD, Ot E03.9 HYPOTHYROIDISM, UNSPECIFIED 08/22/2017 SHEREEN PRUETT MD, Ot E11.9 TYPE 2 DIABETES MELLITUS WITHOUT COMPLIC 08/22/2017 SHEREEN PRUETT MD, Ot E78.00 PURE HYPERCHOLESTEROLEMIA, UNSPECIFIED 08/22/2017 SHEREEN PRUETT MD, Ot I10 ESSENTIAL (PRIMARY) HYPERTENSION 08/22/2017 SHEREEN PRUETT MD, Ot K57.32 DVTRCLI OF LG INT W/O PERFORATION OR ABS 08/22/2017 SHEREEN PRUETT MD, Ot K64.1 SECOND DEGREE HEMORRHOIDS 08/22/2017 SHEREEN PRUETT MD, Ot M19.91 PRIMARY OSTEOARTHRITIS, UNSPECIFIED SITE 08/22/2017 SHEREEN PRUETT MD, Ot R97.0 ELEVATED CARCINOEMBRYONIC ANTIGEN [CEA] 08/22/2017 SHEREEN PRUETT MD, Ot Z08 ENCNTR FOR FOLLOW-UP EXAM AFTER TRTMT FO 08/22/2017 SHEREEN PRUETT MD, Ot Z79.84 BUILDING CERTIFIER (CURRENT) USE OF ORAL HYPOGLYC 08/22/2017 SHEREEN PRUETT MD, Ot Z79.899 OTHER BUILDING CERTIFIER (CURRENT) DRUG THERAPY 08/22/2017 SHEREEN PRUETT MD, Ot Z85.038 PERSONAL HISTORY OF MALIGNANT NEOPLASM O 08/22/2017 KIDO MD, TAKAAKI Ot 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 09/04/2017 YAN PEREZ, FLORENTINOSixto Kuldip Ot Z12.31 ENCNTR SCREEN MAMMOGRAM FOR MALIGNANT NE 09/09/2017 SHEREEN PRUETT MD, Ot E03.9 HYPOTHYROIDISM, UNSPECIFIED 09/09/2017 SHEREEN PRUETT MD, Ot E11.9 TYPE 2 DIABETES MELLITUS WITHOUT COMPLIC 09/09/2017 SHEREEN PRUETT MD, Ot E78.00 PURE HYPERCHOLESTEROLEMIA, UNSPECIFIED 09/09/2017 SHEREEN PRUETT MD, Ot I10 ESSENTIAL (PRIMARY) HYPERTENSION 09/09/2017 SHEREEN PRUETT MD, Ot K57.32 DVTRCLI OF LG INT W/O PERFORATION OR ABS 09/09/2017 SHEREEN PRUETT MD, Ot K64.1 SECOND DEGREE HEMORRHOIDS 09/09/2017 SHEREEN PRUETT MD, Ot M19.91 PRIMARY OSTEOARTHRITIS, UNSPECIFIED SITE 09/09/2017 SHEREEN PRUETT MD, Ot R97.0 ELEVATED CARCINOEMBRYONIC ANTIGEN [CEA] 09/09/2017 SHEREEN PRUETT MD, Ot Z08 ENCNTR FOR FOLLOW-UP EXAM AFTER TRTMT FO 09/09/2017 SHEREEN PRUETT MD Ot Z79.84 BUILDING CERTIFIER (CURRENT) USE OF ORAL HYPOGLYC 09/09/2017 SHEREEN PRUETT MD, Ot Z79.899 OTHER BUILDING CERTIFIER (CURRENT) DRUG THERAPY 09/09/2017 SHEREEN PRUETT MD, Ot Z85.038 PERSONAL HISTORY OF MALIGNANT NEOPLASM O 09/09/2017 SHEREEN PRUETT MD Ot 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 11/26/2017 Ot V76.12 OTH SCREEN MAMMO-MALIGN NEOPLASM OF OMA 11/26/2017 CASI LOVE APRN Ot V76.12 OTH SCREEN MAMMO-MALIGN NEOPLASM OF OMA 11/26/2017 SHEREEN PRUETT MD Ot 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 11/26/2017 SHEREEN PRUETT MD Ot 244.9 HYPOTHYROIDISM NOS 11/26/2017 SHEREEN PRUETT MD Ot 250.00 DIAB FADY WO COMPL, TYPE II OR UNSPEC TY 11/26/2017 SHEREEN PRUETT MD Ot 272.0 PURE HYPERCHOLESTEROLEM 11/26/2017 SHEREEN PRUETT MD Ot 401.9 HYPERTENSION NOS 11/26/2017 SHEREEN PRUETT MD Ot 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 W/O COMPL 11/26/2017 SHEREEN PRUETT MD Ot 455.3 EXT HEMORRHOID W/O COMPL 11/26/2017 SHEREEN PRUETT MD Ot 562.10 DIVERTICULOSIS COLON (W/O MENT OF HEMORR 11/26/2017 SHEREEN PRUETT MD Ot 569.3 RECTAL ANAL HEMORRHAGE 11/26/2017 SHEREEN PRUETT MD Ot V16.0 FAMILY HX-GI MALIGNANCY 11/26/2017 SHEREEN PRUETT MD Ot V72.84 EXAM PRE-OPERATIVE NOS 11/26/2017 SHEREEN PRUETT MD Ot 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 11/26/2017 SHEREEN PRUETT MD Ot 573.8 LIVER DISORDERS NEC 11/26/2017 SHEREEN PRUETT MD Ot 793.4 NOSP (ABN) FINDINGS ON RADIOLOGICAL OT 11/26/2017 SHEREEN PRUETT MD Ot 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 11/26/2017 SHEREEN PRUETT MD Ot V72.63 PRE-PROCEDURAL LABORATORY EXAMINATION 11/26/2017 SHEREEN PRUETT MD Ot V72.83 EXAM PRE-OPERATIVE NEC 11/26/2017 SHEREEN PRUETT MD Ot V74.8 SCREEN-BACTERIAL DIS NEC 11/26/2017 SHEREEN PREUTT MD Ot 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 11/26/2017 SHEREEN PRUETT MD Ot 791.9 ABN URINE FINDINGS NEC 11/26/2017 SHEREEN PRUETT MD Ot V45.89 POSTSURGICAL STATES NEC 11/26/2017 CAESAR PATHAK MD Ot 272.4 HYPERLIPIDEMIA NEC/NOS 11/26/2017 CAESAR PATHAK MD Ot 785.1 PALPITATIONS 11/26/2017 SHEREEN PRUETT MD Ot V10.05 HX OF COLONIC MALIGNANCY 11/26/2017 SHEREEN PRUETT MD Ot V72.84 EXAM PRE-OPERATIVE NOS 11/26/2017 WM MCGHEE MD Ot Z12.31 ENCNTR SCREEN MAMMOGRAM FOR MALIGNANT NE 11/26/2017 WM MCGHEE MD Ot E04.2 NONTOXIC MULTINODULAR GOITER 11/26/2017 NORMA PEREZ, MELVA Hernandez Ot E04.1 NONTOXIC SINGLE THYROID NODULE 11/26/2017 WM MCGHEE MD Ot M25.551 PAIN IN RIGHT HIP 11/26/2017 TAZ PEREZ, WM Chou Ot R53.1 WEAKNESS 11/26/2017 NORMA PEREZ, MELVA Hernandez Ot E04.1 NONTOXIC SINGLE THYROID NODULE 11/26/2017 YAN PEREZ, JOYCE Christiansen Ot Z12.31 ENCNTR SCREEN MAMMOGRAM FOR MALIGNANT NE 11/26/2017 Ot V76.12 OTH SCREEN MAMMO-MALIGN NEOPLASM OF OMA 11/26/2017 CASI LOVE APRN Ot V76.12 OTH SCREEN MAMMO-MALIGN NEOPLASM OF OMA 11/26/2017 SHEREEN PRUETT MD Ot 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 11/26/2017 SHEREEN PRUETT MD Ot 244.9 HYPOTHYROIDISM NOS 11/26/2017 SHEREEN PRUETT MD Ot 250.00 DIAB FADY WO COMPL, TYPE II OR UNSPEC TY 11/26/2017 SHEREEN PRUETT MD Ot 272.0 PURE HYPERCHOLESTEROLEM 11/26/2017 SHEREEN PRUETT MD Ot 401.9 HYPERTENSION NOS 11/26/2017 SHEREEN PRUETT MD Ot 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 W/O COMPL 11/26/2017 SHEREEN PRUETT MD Ot 455.3 EXT HEMORRHOID W/O COMPL 11/26/2017 SHEREEN PRUETT MD Ot 562.10 DIVERTICULOSIS COLON (W/O MENT OF HEMORR 11/26/2017 SHEREEN PRUETT MD Ot 569.3 RECTAL ANAL HEMORRHAGE 11/26/2017 SHEREEN PRUETT MD Ot V16.0 FAMILY HX-GI MALIGNANCY 11/26/2017 SHEREEN PRUETT MD Ot V72.84 EXAM PRE-OPERATIVE NOS 11/26/2017 SHEREEN PRUETT MD Ot 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 11/26/2017 SHEREEN PRUETT MD Ot 573.8 LIVER DISORDERS NEC 11/26/2017 SHEREEN PRUETT MD Ot 793.4 NOSP (ABN) FINDINGS ON RADIOLOGICAL OT 11/26/2017 SHEREEN PRUETT MD Ot 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 11/26/2017 SHEREEN PRUETT MD Ot V72.63 PRE-PROCEDURAL LABORATORY EXAMINATION 11/26/2017 SHEREEN PRUETT MD Ot V72.83 EXAM PRE-OPERATIVE NEC 11/26/2017 SHEREEN PRUETT MD, Ot V74.8 SCREEN-BACTERIAL DIS NEC 11/26/2017 SHEREEN PRUETT MD Ot 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 11/26/2017 SHEREEN PRUETT MD Ot 791.9 ABN URINE FINDINGS NEC 11/26/2017 SHEREEN PRUETT MD Ot V45.89 POSTSURGICAL STATES NEC 11/26/2017 CAESAR PATHAK MD Ot 272.4 HYPERLIPIDEMIA NEC/NOS 11/26/2017 CAESAR PATHAK MD Ot 785.1 PALPITATIONS 11/26/2017 SHEREEN PRUETT MD Ot V10.05 HX OF COLONIC MALIGNANCY 11/26/2017 SHEREEN PRUETT MD, Ot V72.84 EXAM PRE-OPERATIVE NOS 11/26/2017 WM MCGHEE MD Ot Z12.31 ENCNTR SCREEN MAMMOGRAM FOR MALIGNANT NE 11/26/2017 WM MCGHEE MD Ot E04.2 NONTOXIC MULTINODULAR GOITER 11/26/2017 MELVA GREEN MD Ot E04.1 NONTOXIC SINGLE THYROID NODULE 11/26/2017 WM MCGHEE MD Ot M25.551 PAIN IN RIGHT HIP 11/26/2017 WM MCGHEE MD Ot R53.1 WEAKNESS 11/26/2017 MELVA GREEN MD Ot E04.1 NONTOXIC SINGLE THYROID NODULE 11/26/2017 YAN PEREZ, JOYCE Christiansen Ot Z12.31 ENCNTR SCREEN MAMMOGRAM FOR MALIGNANT NE 11/28/2017 Ot V76.12 OTH SCREEN MAMMO-MALIGN NEOPLASM OF OMA 11/28/2017 CASI LOVE APRN Ot V76.12 OTH SCREEN MAMMO-MALIGN NEOPLASM OF OMA 11/28/2017 SHEREEN PRUETT MD Ot 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 11/28/2017 SHEREEN PRUETT MD Ot 244.9 HYPOTHYROIDISM NOS 11/28/2017 SHEREEN PRUETT MD Ot 250.00 DIAB FADY WO COMPL, TYPE II OR UNSPEC TY 11/28/2017 SHEREEN PRUETT MD Ot 272.0 PURE HYPERCHOLESTEROLEM 11/28/2017 SHEREEN PRUETT MD Ot 401.9 HYPERTENSION NOS 11/28/2017 SHEREEN PRUETT MD Ot 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 W/O COMPL 11/28/2017 SHEREEN PRUETT MD Ot 455.3 EXT HEMORRHOID W/O COMPL 11/28/2017 SHEREEN PRUETT MD Ot 562.10 DIVERTICULOSIS COLON (W/O MENT OF HEMORR 11/28/2017 SHEREEN PRUETT MD Ot 569.3 RECTAL ANAL HEMORRHAGE 11/28/2017 SHEREEN PRUETT MD Ot V16.0 FAMILY HX-GI MALIGNANCY 11/28/2017 SHEREEN PRUETT MD Ot V72.84 EXAM PRE-OPERATIVE NOS 11/28/2017 SHEREEN PRUETT MD Ot 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 11/28/2017 SHEREEN PRUETT MD Ot 573.8 LIVER DISORDERS NEC 11/28/2017 SHEREEN PRUETT MD Ot 793.4 NOSP (ABN) FINDINGS ON RADIOLOGICAL OT 11/28/2017 SHEREEN PRUETT MD Ot 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 11/28/2017 SHEREEN PRUETT MD Ot V72.63 PRE-PROCEDURAL LABORATORY EXAMINATION 11/28/2017 SHEREEN PRUETT MD Ot V72.83 EXAM PRE-OPERATIVE NEC 11/28/2017 SHEREEN PRUETT MD Ot V74.8 SCREEN-BACTERIAL DIS NEC 11/28/2017 SHEREEN PRUETT MD Ot 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 11/28/2017 SHEREEN PRUETT MD Ot 791.9 ABN URINE FINDINGS NEC 11/28/2017 SHEREEN PRUETT MD Ot V45.89 POSTSURGICAL STATES NEC 11/28/2017 CAESAR PATHAK MD Ot 272.4 HYPERLIPIDEMIA NEC/NOS 11/28/2017 CAESAR PATHAK MD Ot 785.1 PALPITATIONS 11/28/2017 SHEREEN PRUETT MD Ot V10.05 HX OF COLONIC MALIGNANCY 11/28/2017 SHEREEN PRUETT MD Ot V72.84 EXAM PRE-OPERATIVE NOS 11/28/2017 WM MCGHEE MD Ot Z12.31 ENCNTR SCREEN MAMMOGRAM FOR MALIGNANT NE 11/28/2017 WM MCGHEE MD Ot E04.2 NONTOXIC MULTINODULAR GOITER 11/28/2017 MELVA GREEN MD Ot E04.1 NONTOXIC SINGLE THYROID NODULE 11/28/2017 WM MCGHEE MD Ot M25.551 PAIN IN RIGHT HIP 11/28/2017 WM MCGHEE MD Ot R53.1 WEAKNESS 11/28/2017 MELVA GREEN MD Ot E04.1 NONTOXIC SINGLE THYROID NODULE 11/28/2017 JOYCE HEREDIA MD, Ot Z12.31 ENCNTR SCREEN MAMMOGRAM FOR MALIGNANT NE 11/29/2017 RUI ISLAS OYSTER SHIPPER Ot E07.9 DISORDER OF THYROID, UNSPECIFIED 12/25/2017 JOYCE HEREDIA MD, Ot E03.9 HYPOTHYROIDISM, UNSPECIFIED 12/25/2017 JOYCE HEREDIA MD Ot E07.89 OTHER SPECIFIED DISORDERS OF THYROID 12/25/2017 JOYCE HEREDIA MD Ot K11.8 OTHER DISEASES OF SALIVARY [place]S 12/25/2017 JOYCE HEREDIA MD, Ot K57.90 DVRTCLOS OF INTEST, PART UNSP, W/O PERF 12/25/2017 JOYCE HEREDIA MD, Ot Z08 ENCNTR FOR FOLLOW-UP EXAM AFTER TRTMT FO 12/25/2017 JOYCE HEREDIA MD Ot Z85.038 PERSONAL HISTORY OF MALIGNANT NEOPLASM O 12/25/2017 JOYCE HEREDIA MD Ot Z90.49 ACQUIRED ABSENCE OF OTHER SPECIFIED PART 12/25/2017 MELVA GREEN MD Ot L98.9 DISORDER OF THE SKIN AND SUBCUTANEOUS TI 12/25/2017 MELVA GREEN MD Ot Z01.812 ENCOUNTER FOR PREPROCEDURAL LABORATORY E 12/25/2017 MELVA GREEN MD Ot Z11.2 ENCOUNTER FOR SCREENING FOR OTHER BACTER 12/25/2017 Ot V76.12 OTH SCREEN MAMMO-MALIGN NEOPLASM OF OMA 12/25/2017 CASI LOVE APRN Ot V76.12 OTH SCREEN MAMMO-MALIGN NEOPLASM OF OMA 12/25/2017 SHEREEN PRUETT MD Ot 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 12/25/2017 SHEREEN PRUETT MD Ot 244.9 HYPOTHYROIDISM NOS 12/25/2017 SHEEREN PRUETT MD Ot 250.00 DIAB FADY WO COMPL, TYPE II OR UNSPEC TY 12/25/2017 SHEREEN PRUETT MD Ot 272.0 PURE HYPERCHOLESTEROLEM 12/25/2017 SHEREEN PRUETT MD Ot 401.9 HYPERTENSION NOS 12/25/2017 SHEREEN PRUETT MD Ot 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 W/O COMPL 12/25/2017 SHEREEN PRUETT MD Ot 455.3 EXT HEMORRHOID W/O COMPL 12/25/2017 SHEREEN PRUETT MD Ot 562.10 DIVERTICULOSIS COLON (W/O MENT OF HEMORR 12/25/2017 SHEREEN PRUETT MD Ot 569.3 RECTAL ANAL HEMORRHAGE 12/25/2017 SHEREEN PRUETT MD Ot V16.0 FAMILY HX-GI MALIGNANCY 12/25/2017 SHEREEN PRUETT MD Ot V72.84 EXAM PRE-OPERATIVE NOS 12/25/2017 SHEREEN PRUETT MD Ot 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 12/25/2017 SHEREEN PRUETT MD Ot 573.8 LIVER DISORDERS NEC 12/25/2017 SHEREEN PRUETT MD Ot 793.4 NOSP (ABN) FINDINGS ON RADIOLOGICAL OT 12/25/2017 SHEREEN PRUETT MD Ot 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 12/25/2017 SHEREEN PRUETT MD Ot V72.63 PRE-PROCEDURAL LABORATORY EXAMINATION 12/25/2017 SHEREEN PRUETT MD Ot V72.83 EXAM PRE-OPERATIVE NEC 12/25/2017 SHEREEN PRUETT MD Ot V74.8 SCREEN-BACTERIAL DIS NEC 12/25/2017 SHEREEN PRUETT MD Ot 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 12/25/2017 SHEREEN PRUETT MD Ot 791.9 ABN URINE FINDINGS NEC 12/25/2017 SHEREEN PRUETT MD Ot V45.89 POSTSURGICAL STATES NEC 12/25/2017 CAESAR PATHAK MD Ot 272.4 HYPERLIPIDEMIA NEC/NOS 12/25/2017 CAESAR PATHAK MD Ot 785.1 PALPITATIONS 12/25/2017 SHEREEN PRUETT MD Ot V10.05 HX OF COLONIC MALIGNANCY 12/25/2017 SHEREEN PRUETT MD Ot V72.84 EXAM PRE-OPERATIVE NOS 12/25/2017 WM MCGHEE MD Ot Z12.31 ENCNTR SCREEN MAMMOGRAM FOR MALIGNANT NE 12/25/2017 WM MCGHEE MD Ot E04.2 NONTOXIC MULTINODULAR GOITER 12/25/2017 MELVA GREEN MD Ot E04.1 NONTOXIC SINGLE THYROID NODULE 12/25/2017 WM MCGHEE MD Ot M25.551 PAIN IN RIGHT HIP 12/25/2017 WM MCGHEE MD Ot R53.1 WEAKNESS 12/25/2017 MELVA GREEN MD Ot E04.1 NONTOXIC SINGLE THYROID NODULE 12/25/2017 JOYCE HEREDIA MD, Ot Z12.31 ENCNTR SCREEN MAMMOGRAM FOR MALIGNANT NE 12/25/2017 JOYCE HEREDIA MD, Ot E03.9 HYPOTHYROIDISM, UNSPECIFIED 12/25/2017 JOYCE HEREDIA MD Ot E07.89 OTHER SPECIFIED DISORDERS OF THYROID 12/25/2017 JOYCE HEREDIA MD, Ot K11.8 OTHER DISEASES OF [place] 12/25/2017 JOYCE HEREDIA MD, Ot K57.90 DVRTCLOS OF INTEST, PART UNSP, W/O PERF 12/25/2017 JOYCE HEREIDA MD, Ot Z08 ENCNTR FOR FOLLOW-UP EXAM AFTER TRTMT FO 12/25/2017 JOYCE HEREDIA MD, Ot Z85.038 PERSONAL HISTORY OF MALIGNANT NEOPLASM O 12/25/2017 JOYCE HEREDIA MD, Ot Z90.49 ACQUIRED ABSENCE OF OTHER SPECIFIED PART 12/25/2017 RUI ISLAS OYSTER SHIPPER Ot E07.9 DISORDER OF THYROID, UNSPECIFIED 12/26/2017 MELVA GREEN MD Ot L98.9 DISORDER OF THE SKIN AND SUBCUTANEOUS TI 12/26/2017 MELVA GREEN MD Ot Z01.812 ENCOUNTER FOR PREPROCEDURAL LABORATORY E 12/26/2017 MELVA GREEN MD Ot Z11.2 ENCOUNTER FOR SCREENING FOR OTHER BACTER 12/27/2017 MELVA GREEN MD Ot 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 12/27/2017 MELVA GREEN MD Ot 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 12/27/2017 MELVA GREEN MD Ot E11.9 TYPE 2 DIABETES MELLITUS WITHOUT COMPLIC 12/27/2017 MELVA GREEN MD Ot I10 ESSENTIAL (PRIMARY) HYPERTENSION 12/27/2017 MELVA GREEN MD Ot I25.10 ATHSCL HEART DISEASE OF [place] CORONARY 12/27/2017 MELVA GREEN MD Ot Z79.84 ALF (CURRENT) USE OF ORAL HYPOGLYC 12/27/2017 MELVA GREEN MD Ot Z79.899 OTHER BUILDING CERTIFIER (CURRENT) DRUG THERAPY 12/31/2017 MELVA GREEN MD Ot 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 12/31/2017 MELVA GREEN MD Ot 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 12/31/2017 MELVA GREEN MD Ot E11.9 TYPE 2 DIABETES MELLITUS WITHOUT COMPLIC 12/31/2017 MELVA GREEN MD P Ot I10 ESSENTIAL (PRIMARY) HYPERTENSION 12/31/2017 MELVA GREEN MD Ot I25.10 ATHSCL HEART DISEASE OF [place] CORONARY 12/31/2017 MELVA GREEN MD Ot Z79.84 ALF (CURRENT) USE OF ORAL HYPOGLYC 12/31/2017 MELVA GREEN MD P Ot Z79.899 OTHER BUILDING CERTIFIER (CURRENT) DRUG THERAPY 12/31/2017 MELVA GREEN MD Ot 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 12/31/2017 MELVA GREEN MD Ot 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 12/31/2017 MELVA GREEN MD Ot E11.9 TYPE 2 DIABETES MELLITUS WITHOUT COMPLIC 12/31/2017 MELVA GREEN MD Ot I10 ESSENTIAL (PRIMARY) HYPERTENSION 12/31/2017 MELVA GREEN MD Ot I25.10 ATHSCL HEART DISEASE OF [place] CORONARY 12/31/2017 MELVA GREEN MD Ot Z79.84 BUILDING CERTIFIER (CURRENT) USE OF ORAL HYPOGLYC 12/31/2017 MELVA GREEN MD Ot Z79.899 OTHER ALF (CURRENT) DRUG THERAPY 01/03/2018 MELVA GREEN MD Ot 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 01/03/2018 MELVA GREEN MD Ot 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 01/03/2018 MELVA GREEN MD Ot E11.9 TYPE 2 DIABETES MELLITUS WITHOUT COMPLIC 01/03/2018 MELVA GREEN MD Ot I10 ESSENTIAL (PRIMARY) HYPERTENSION 01/03/2018 MELVA GREEN MD P Ot I25.10 ATHSCL HEART DISEASE OF [place] CORONARY 01/03/2018 MELVA GREEN MD Ot Z79.84 ALF (CURRENT) USE OF ORAL HYPOGLYC 01/03/2018 MELVA GREEN MD P Ot Z79.899 OTHER ALF (CURRENT) DRUG THERAPY 03/11/2018 CASI LOVE APRN Ot V76.12 OTH SCREEN MAMMO-MALIGN NEOPLASM OF OMA 03/11/2018 SHEREEN PRUETT MD Ot 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 03/11/2018 SHEREEN PRUETT MD Ot 244.9 HYPOTHYROIDISM NOS 03/11/2018 SHEREEN PRUETT MD Ot 250.00 DIAB FADY WO COMPL, TYPE II OR UNSPEC TY 03/11/2018 SHEREEN PRUETT MD Ot 272.0 PURE HYPERCHOLESTEROLEM 03/11/2018 SHEREEN PRUETT MD Ot 401.9 HYPERTENSION NOS 03/11/2018 SHEREEN PRUETT MD Ot 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 W/O COMPL 03/11/2018 SHEREEN PRUETT MD Ot 455.3 EXT HEMORRHOID W/O COMPL 03/11/2018 SHEREEN PRUETT MD Ot 562.10 DIVERTICULOSIS COLON (W/O MENT OF HEMORR 03/11/2018 SHEREEN PRUETT MD Ot 569.3 RECTAL ANAL HEMORRHAGE 03/11/2018 SHEREEN PRUETT MD Ot V16.0 FAMILY HX-GI MALIGNANCY 03/11/2018 SHEREEN PRUETT MD Ot V72.84 EXAM PRE-OPERATIVE NOS 03/11/2018 SHEREEN PRUETT MD Ot 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 03/11/2018 SHEREEN PRUETT MD Ot 573.8 LIVER DISORDERS NEC 03/11/2018 SHEREEN PRUETT MD Ot 793.4 NOSP (ABN) FINDINGS ON RADIOLOGICAL OT 03/11/2018 SHEREEN PRUETT MD Ot 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 03/11/2018 SHEREEN PRUETT MD Ot V72.63 PRE-PROCEDURAL LABORATORY EXAMINATION 03/11/2018 SHEREEN PRUETT MD Ot V72.83 EXAM PRE-OPERATIVE NEC 03/11/2018 SHEREEN PRUETT MD Ot V74.8 SCREEN-BACTERIAL DIS NEC 03/11/2018 SHEREEN PRUETT MD Ot 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 03/11/2018 SHEREEN PRUETT MD Ot 791.9 ABN URINE FINDINGS NEC 03/11/2018 SHEREEN PRUETT MD Ot V45.89 POSTSURGICAL STATES NEC 03/11/2018 CAESAR PATHAK MD Ot 272.4 HYPERLIPIDEMIA NEC/NOS 03/11/2018 CAESAR PATHAK MD Ot 785.1 PALPITATIONS 03/11/2018 SHEREEN PRUETT MD Ot V10.05 HX OF COLONIC MALIGNANCY 03/11/2018 SHEREEN PRUETT MD Ot V72.84 EXAM PRE-OPERATIVE NOS 03/11/2018 WM MCGHEE MD Ot Z12.31 ENCNTR SCREEN MAMMOGRAM FOR MALIGNANT NE 03/11/2018 WM MCGHEE MD Ot E04.2 NONTOXIC MULTINODULAR GOITER 03/11/2018 MELVA GREEN MD Ot E04.1 NONTOXIC SINGLE THYROID NODULE 03/11/2018 WM MCGHEE MD Ot M25.551 PAIN IN RIGHT HIP 03/11/2018 WM MCGHEE MD Ot R53.1 WEAKNESS 03/11/2018 MELVA GREEN MD Ot E04.1 NONTOXIC SINGLE THYROID NODULE 03/11/2018 JOYCE HEREDIA MD, Ot Z12.31 ENCNTR SCREEN MAMMOGRAM FOR MALIGNANT NE 03/11/2018 JOYCE HEREDIA MD Ot E03.9 HYPOTHYROIDISM, UNSPECIFIED 03/11/2018 JOYCE HEREDIA MD Ot E07.89 OTHER SPECIFIED DISORDERS OF THYROID 03/11/2018 JOYCE HEREDIA MD Ot K11.8 OTHER DISEASES OF [place] 03/11/2018 JOYCE HEREDIA MD Ot K57.90 DVRTCLOS OF INTEST, PART UNSP, W/O PERF 03/11/2018 JOYCE HEREDIA MD, Ot Z08 ENCNTR FOR FOLLOW-UP EXAM AFTER TRTMT FO 03/11/2018 JOYCE HEREDIA MD Ot Z85.038 PERSONAL HISTORY OF MALIGNANT NEOPLASM O 03/11/2018 JOYCE HEREDIA MD Ot Z90.49 ACQUIRED ABSENCE OF OTHER SPECIFIED PART 03/11/2018 RUI ISLAS OYSTER SHIPPER Ot E07.9 DISORDER OF THYROID, UNSPECIFIED 03/12/2018 MELVA GREEN MD Ot E04.1 NONTOXIC SINGLE THYROID NODULE 03/12/2018 MELVA GREEN MD Ot E89.0 POSTPROCEDURAL HYPOTHYROIDISM 03/12/2018 MELVA GREEN MD Ot K11.8 OTHER DISEASES OF [place] 03/12/2018 MELVA GREEN MD Ot Z85.038 PERSONAL HISTORY OF MALIGNANT NEOPLASM O 04/01/2018 MELVA GREEN MD Ot E04.1 NONTOXIC SINGLE THYROID NODULE 04/01/2018 MELVA GREEN MD Ot E89.0 POSTPROCEDURAL HYPOTHYROIDISM 04/01/2018 MELVA GREEN MD Ot K11.8 OTHER DISEASES OF [place] 04/01/2018 NORMA PEREZ, MELVA Hernandez Ot Z85.038 PERSONAL HISTORY OF MALIGNANT NEOPLASM O 07/16/2018 CASI LOVE APRN Ot V76.12 OTH SCREEN MAMMO-MALIGN NEOPLASM OF OMA 07/16/2018 SHEREEN PRUETT MD Ot 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 07/16/2018 SHEREEN PRUETT MD Ot 244.9 HYPOTHYROIDISM NOS 07/16/2018 SHEREEN PRUETT MD Ot 250.00 DIAB FADY WO COMPL, TYPE II OR UNSPEC TY 07/16/2018 SHEREEN PRUETT MD Ot 272.0 PURE HYPERCHOLESTEROLEM 07/16/2018 SHEREEN PRUETT MD Ot 401.9 HYPERTENSION NOS 07/16/2018 SHEREEN PRUETT MD Ot 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 W/O COMPL 07/16/2018 SHEREEN PRUETT MD Ot 455.3 EXT HEMORRHOID W/O COMPL 07/16/2018 SHEREEN PRUETT MD Ot 562.10 DIVERTICULOSIS COLON (W/O MENT OF HEMORR 07/16/2018 SHEREEN PRUETT MD Ot 569.3 RECTAL ANAL HEMORRHAGE 07/16/2018 SHEREEN PRUETT MD Ot V16.0 FAMILY HX-GI MALIGNANCY 07/16/2018 SHEREEN PRUETT MD Ot V72.84 EXAM PRE-OPERATIVE NOS 07/16/2018 SHEREEN PRUETT MD Ot 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 07/16/2018 SHEREEN PRUETT MD Ot 573.8 LIVER DISORDERS NEC 07/16/2018 SHEREEN PRUETT MD Ot 793.4 NOSP (ABN) FINDINGS ON RADIOLOGICAL OT 07/16/2018 SHEREEN PRUETT MD Ot 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 07/16/2018 SHEREEN PRUETT MD Ot V72.63 PRE-PROCEDURAL LABORATORY EXAMINATION 07/16/2018 SHEREEN PRUETT MD Ot V72.83 EXAM PRE-OPERATIVE NEC 07/16/2018 SHEREEN PRUETT MD Ot V74.8 SCREEN-BACTERIAL DIS NEC 07/16/2018 SHEREEN PRUETT MD Ot 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 07/16/2018 SHEREEN PRUETT MD Ot 791.9 ABN URINE FINDINGS NEC 07/16/2018 SHEREEN PRUETT MD Ot V45.89 POSTSURGICAL STATES NEC 07/16/2018 CAESAR PATHAK MD Ot 272.4 HYPERLIPIDEMIA NEC/NOS 07/16/2018 CAESAR PATHAK MD Ot 785.1 PALPITATIONS 07/16/2018 SHEREEN PRUETT MD Ot V10.05 HX OF COLONIC MALIGNANCY 07/16/2018 SHEREEN PRUETT MD Ot V72.84 EXAM PRE-OPERATIVE NOS 07/16/2018 WM MCGHEE MD Ot Z12.31 ENCNTR SCREEN MAMMOGRAM FOR MALIGNANT NE 07/16/2018 WM MCGHEE MD Ot E04.2 NONTOXIC MULTINODULAR GOITER 07/16/2018 MELVA GREEN MD Ot E04.1 NONTOXIC SINGLE THYROID NODULE 07/16/2018 WM MCGHEE MD Ot M25.551 PAIN IN RIGHT HIP 07/16/2018 WM MCGHEE MD Ot R53.1 WEAKNESS 07/16/2018 MELVA GREEN MD Ot E04.1 NONTOXIC SINGLE THYROID NODULE 07/16/2018 JOYCE HEREDIA MD Ot Z12.31 ENCNTR SCREEN MAMMOGRAM FOR MALIGNANT NE 07/16/2018 JOYCE HEREDIA MD Ot E03.9 HYPOTHYROIDISM, UNSPECIFIED 07/16/2018 JOYCE HEREDIA MD Ot E07.89 OTHER SPECIFIED DISORDERS OF THYROID 07/16/2018 JOYCE HEREDIA MD Ot K11.8 OTHER DISEASES OF [place] 07/16/2018 JOYCE HEREDIA MD Ot K57.90 DVRTCLOS OF INTEST, PART UNSP, W/O PERF 07/16/2018 JOYCE HEREDIA MD, Ot Z08 ENCNTR FOR FOLLOW-UP EXAM AFTER TRTMT FO 07/16/2018 JOYCE HEREDIA MD Ot Z85.038 PERSONAL HISTORY OF MALIGNANT NEOPLASM O 07/16/2018 JOYCE HEREDIA MD Ot Z90.49 ACQUIRED ABSENCE OF OTHER SPECIFIED PART 07/16/2018 RUI ISLAS OYSTER SHIPPER Ot E07.9 DISORDER OF THYROID, UNSPECIFIED 07/16/2018 MELVA GREEN MD Ot E04.1 NONTOXIC SINGLE THYROID NODULE 07/16/2018 MELVA GREEN MD Ot E89.0 POSTPROCEDURAL HYPOTHYROIDISM 07/16/2018 MELVA GREEN MD Ot K11.8 OTHER DISEASES OF [place] 07/16/2018 MELVA GREEN MD, Ot Z85.038 PERSONAL HISTORY OF MALIGNANT NEOPLASM O 07/17/2018 JOYCE HEREDIA MD Ot 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 07/17/2018 JOYCE HEREDIA MD Ot D34 BENIGN NEOPLASM OF THYROID GLAND 07/17/2018 JOYCE HEREDIA MD, Ot 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 LG INT W/O PERFORATION OR AB 07/17/2018 JOYCE HEREDIA MD Ot N28.1 CYST OF KIDNEY, ACQUIRED 07/17/2018 JOYCE HEREDIA MD Ot R97.0 ELEVATED CARCINOEMBRYONIC ANTIGEN [CEA] 08/06/2018 JOYCE HEREDIA MD, Ot 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 08/06/2018 JOYCE HEREDIA MD, Ot D34 BENIGN NEOPLASM OF THYROID GLAND 08/06/2018 JOYCE HEREDIA MD, Ot 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 LG INT W/O PERFORATION OR AB 08/06/2018 JOYCE HEREDIA MD, Ot N28.1 CYST OF KIDNEY, ACQUIRED 08/06/2018 JOYCE HEREDIA MD, Ot R97.0 ELEVATED CARCINOEMBRYONIC ANTIGEN [CEA] 08/29/2018 MELVA GREEN MD, Ot E04.1 NONTOXIC SINGLE THYROID NODULE 08/29/2018 MELVA GREEN MD, Ot K11.8 OTHER DISEASES OF [place] Procedures Code Description Performed By Performed On 38.93 VENOUS CATHETERIZATION NEC 06/03/2014 45.73 OPEN AND OTHER RIGHT HEMICOLECTOMY 06/03/2014 Results Test Result Range Complete blood count (CBC) with automated white blood cell (WBC) differential - 10/12/16 09:45 Blood leukocytes automated count (number/volume) 5.9 10*3/uL 4.3-11.0 Blood erythrocytes automated count (number/volume) 4.26 10*6/uL 4.35-5.85 Venous blood hemoglobin measurement (mass/volume) 13.5 g/dL 11.5-16.0 Blood hematocrit (volume fraction) 41 % 35-52 Automated erythrocyte mean corpuscular volume 97 [foz_us] 80-99 Automated erythrocyte mean corpuscular hemoglobin (mass per erythrocyte) 32 pg 25-34 Automated erythrocyte mean corpuscular hemoglobin concentration measurement ( mass/volume) 33 g/dL 32-36 Automated erythrocyte distribution width ratio 13.4 % 10.0-14.5 Automated blood platelet count (count/volume) 178 10*3/uL 130-400 Automated blood platelet mean volume measurement 10.6 [foz_us] 7.4-10.4 Automated blood neutrophils/100 leukocytes 68 % 42-75 Automated blood lymphocytes/100 leukocytes 23 % 12-44 Blood monocytes/100 leukocytes 8 % 0-12 Automated blood eosinophils/100 leukocytes 1 % 0-10 Automated blood basophils/100 leukocytes 0 % 0-10 Blood neutrophils automated count (number/volume) 4.0 10*3 1.8-7.8 Blood lymphocytes automated count (number/volume) 1.3 10*3 1.0-4.0 Blood monocytes automated count (number/volume) 0.5 10*3 0.0-1.0 Automated eosinophil count 0.1 10*3/uL 0.0-0.3 Automated blood basophil count (count/volume) 0.0 10*3/uL 0.0-0.1 Whole blood basic metabolic panel - 10/12/16 09:45 Serum or plasma sodium measurement (moles/volume) 137 mmol/L 135-145 Serum or plasma potassium measurement (moles/volume) 4.4 mmol/L 3.6-5.0 Serum or plasma chloride measurement (moles/volume) 104 mmol/L 98-107 Carbon dioxide 24 mmol/L 21-32 Serum or plasma anion gap determination (moles/volume) 9 mmol/L 5-14 Serum or plasma urea nitrogen measurement (mass/volume) 21 mg/dL 7-18 Serum or plasma creatinine measurement (mass/volume) 0.82 mg/dL 0.60-1.30 Serum or plasma urea nitrogen/creatinine mass ratio 26 NRG Serum or plasma creatinine measurement with calculation of estimated glomerular filtration rate > NRG Serum or plasma glucose measurement (mass/volume) 156 mg/dL 70-105 Serum or plasma calcium measurement (mass/volume) 8.8 mg/dL 8.5-10.1 Methicillin resistant Staphylococcus aureus (MRSA) screening culture - 09:45 Methicillin resistant Staphylococcus aureus (MRSA) screening culture NEG NRG Capillary blood glucose measurement by glucometer (mass/volume) - 10/19/16 08: 31 Capillary blood glucose measurement by glucometer (mass/volume) 142 mg/dL 70-110 Serum or plasma calcium measurement (mass/volume) - 10/19/16 15:07 Serum or plasma calcium measurement (mass/volume) 8.3 mg/dL 8.5-10.1 Serum or plasma calcium measurement (mass/volume) - 10/20/16 05:25 Serum or plasma calcium measurement (mass/volume) 7.9 mg/dL 8.5-10.1 [id number] - 11/28/17 08:17 Serum or plasma urea nitrogen measurement (mass/volume) 20 mg/dL 7-18 Serum or plasma creatinine measurement (mass/volume) 0.92 mg/dL 0.60-1.30 Serum or plasma urea nitrogen/creatinine mass ratio 22 NRG Serum or plasma creatinine measurement with calculation of estimated glomerular filtration rate 58 NRG Complete blood count (CBC) with automated white blood cell (WBC) differential - 12/25/17 13:10 Blood leukocytes automated count (number/volume) 5.1 10*3/uL 4.3-11.0 Blood erythrocytes automated count (number/volume) 4.07 10*6/uL 4.35-5.85 Venous blood hemoglobin measurement (mass/volume) 13.4 g/dL 11.5-16.0 Blood hematocrit (volume fraction) 39 % 35-52 Automated erythrocyte mean corpuscular volume 96 [foz_us] 80-99 Automated erythrocyte mean corpuscular hemoglobin (mass per erythrocyte) 33 pg 25-34 Automated erythrocyte mean corpuscular hemoglobin concentration measurement ( mass/volume) 34 g/dL 32-36 Automated erythrocyte distribution width ratio 13.2 % 10.0-14.5 Automated blood platelet count (count/volume) 174 10*3/uL 130-400 Automated blood platelet mean volume measurement 10.9 [foz_us] 7.4-10.4 Automated blood neutrophils/100 leukocytes 62 % 42-75 Automated blood lymphocytes/100 leukocytes 29 % 12-44 Blood monocytes/100 leukocytes 8 % 0-12 Automated blood eosinophils/100 leukocytes 1 % 0-10 Automated blood basophils/100 leukocytes 0 % 0-10 Blood neutrophils automated count (number/volume) 3.2 10*3 1.8-7.8 Blood lymphocytes automated count (number/volume) 1.5 10*3 1.0-4.0 Blood monocytes automated count (number/volume) 0.4 10*3 0.0-1.0 Automated eosinophil count 0.1 10*3/uL 0.0-0.3 Automated blood basophil count (count/volume) 0.0 10*3/uL 0.0-0.1 Whole blood basic metabolic panel - 12/25/17 13:10 Serum or plasma sodium measurement (moles/volume) 135 mmol/L 135-145 Serum or plasma potassium measurement (moles/volume) 4.4 mmol/L 3.6-5.0 Serum or plasma chloride measurement (moles/volume) 103 mmol/L 98-107 Carbon dioxide 23 mmol/L 21-32 Serum or plasma anion gap determination (moles/volume) 9 mmol/L 5-14 Serum or plasma urea nitrogen measurement (mass/volume) 19 mg/dL 7-18 Serum or plasma creatinine measurement (mass/volume) 0.91 mg/dL 0.60-1.30 Serum or plasma urea nitrogen/creatinine mass ratio 21 NRG Serum or plasma creatinine measurement with calculation of estimated glomerular filtration rate 59 NRG Serum or plasma glucose measurement (mass/volume) 138 mg/dL 70-105 Serum or plasma calcium measurement (mass/volume) 8.8 mg/dL 8.5-10.1 Methicillin resistant Staphylococcus aureus (MRSA) screening culture - 13:10 Methicillin resistant Staphylococcus aureus (MRSA) screening culture NEG NRG Capillary blood glucose measurement by glucometer (mass/volume) - 12/27/17 07: 20 Capillary blood glucose measurement by glucometer (mass/volume) 160 mg/dL 70-110 [id number] - 03/11/18 08:08 Serum or plasma urea nitrogen measurement (mass/volume) 19 mg/dL 7-18 Serum or plasma creatinine measurement (mass/volume) 0.83 mg/dL 0.60-1.30 Serum or plasma urea nitrogen/creatinine mass ratio 23 NRG Serum or plasma creatinine measurement with calculation of estimated glomerular filtration rate > NRG [id number] - 07/16/18 10:20 Serum or plasma urea nitrogen measurement (mass/volume) 17 mg/dL 7-18 Serum or plasma creatinine measurement (mass/volume) 0.86 mg/dL 0.60-1.30 Serum or plasma urea nitrogen/creatinine mass ratio 20 NRG Serum or plasma creatinine measurement with calculation of estimated glomerular filtration rate > NRG [id number] - 08/28/18 09:05 Serum or plasma urea nitrogen measurement (mass/volume) 15 mg/dL 7-18 Serum or plasma creatinine measurement (mass/volume) 0.81 mg/dL 0.60-1.30 Serum or plasma urea nitrogen/creatinine mass ratio 19 NRG Serum or plasma creatinine measurement with calculation of estimated glomerular filtration rate > NRG Encounters ACCT No. Visit Date/Time Discharge Status Pt. Type Provider Facility Loc./Unit Complaint [id number] 08/28/2018 08:28:00 08/28/2018 23:59:59 CLS Outpatient MELVA GREEN MD [facility] RAD DEEP LOBE PAROTID MASS/ THYROID NODULE [id number] 07/16/2018 10:06:00 07/16/2018 23:59:59 CLS Outpatient JOYCE HEREDIA MD [facility] RAD MALIGNANT NEOPLASM OF HEPATIC FLEXURE,ELEVATED CEA [id number] 03/11/2018 07:58:00 03/11/2018 23:59:59 CLS Outpatient MELVA GREEN MD [facility] RAD RT THYROID NODULE,HX OF LT THYROID LABECTOMY [id number] 02/04/2018 14:51:00 02/04/2018 23:59:59 CLS Preadmit JOYCE HEREDIA MD [facility] RAD MALIGNANT NEOPLASM OF HEPATIC FLEXURE [id number] 12/27/2017 07:08:00 12/27/2017 10:56:00 DIS Outpatient MELVA GREEN MD [facility] SDC NASAL TIP LESION, LESION RIGHT FOREHEAD [id number] 12/25/2017 12:14:00 12/25/2017 15:00:00 DIS Outpatient MELVA GREEN MD [facility] PREOP NASAL TIP LESION, LESION RIGHT FOREHEAD [id number] 11/28/2017 07:52:00 11/28/2017 23:59:59 CLS Outpatient JOYCE HEREDIA MD [facility] RAD MALIGNANT NEOPLASM OF HEPATIC FLEXURE [id number] 11/28/2017 07:49:00 11/28/2017 23:59:59 CLS Outpatient RUI ISLAS [facility] RAD THYROID MASS [id number] 08/21/2017 09:04:00 08/21/2017 12:30:00 DIS Outpatient SHEREEN PRUETT MD [facility] ENDO HX COLON [place] [id number] 08/19/2017 05:36:00 08/19/2017 10:57:00 DIS Outpatient SHEREEN PRUETT MD [facility] PREOP HX COLON CA [id number] 08/13/2017 13:40:00 08/13/2017 23:59:59 CLS Outpatient JOYCE HEREDIA MD [facility] RAD SCREENING [id number] 05/21/2017 11:28:00 05/21/2017 23:59:59 CLS Outpatient MELVA GREEN MD [facility] RAD THYROID MASS [id number] 04/17/2017 09:30:00 04/17/2017 16:04:00 DIS Outpatient ASTRID MEYER DO [facility] 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 [id number] 01/14/2017 09:47:00 01/14/2017 23:59:59 CLS Outpatient WM MCGHEE MD [facility] RAD RT HIP PAIN/WEAKNESS [id number] 10/19/2016 07:42:00 10/20/2016 07:45:00 DIS Outpatient MELVA GREEN MD [facility] SDC LEFT THYROID NODULE [id number] 10/12/2016 09:13:00 10/12/2016 10:05:00 DIS Outpatient MELVA GREEN MD [facility] PREOP LEFT THYROID NODULE [id number] 08/06/2016 09:09:00 08/06/2016 23:59:59 CLS Outpatient MELVA GREEN MD [facility] RAD THYROID NODULE LT [id number] 07/19/2016 13:52:00 07/19/2016 23:59:59 CLS Outpatient WM MCGHEE MD [facility] RAD LT THYROID MASS [id number] 12/06/2015 11:32:00 12/06/2015 23:59:59 CLS Outpatient WM MCGHEE MD [facility] RAD SCREENING [id number] 09/16/2015 07:53:00 09/16/2015 10:50:00 DIS Emergency MICHAEL GIL MD [facility] ER NAUSEA/VOMITING [id number] 07/13/2015 08:36:00 07/13/2015 12:20:00 DIS Outpatient SHEREEN PRUETT MD [facility] HX COLON CANCER [id number] 07/07/2015 05:42:00 07/07/2015 23:59:59 CLS Outpatient SHEREEN PRUETT MD [facility] PREOP HX COLON CANCER [id number] 01/24/2015 08:30:00 01/24/2015 23:59:59 CLS Outpatient CAESAR PATHAK MD [facility] CARD HYPERLIPADEMIA, PALPITATIONS [id number] 06/11/2014 09:00:00 06/11/2014 23:59:59 CLS Outpatient SHEREEN PRUETT MD [facility] HH R/O UTI [id number] 06/02/2014 22:45:00 06/09/2014 14:00:00 DIS Inpatient SHEREEN PRUETT MD [facility] SURGICAL GI BLEED,COLON CA [id number] 05/27/2014 11:34:00 05/27/2014 23:59:59 CLS Outpatient SHEREEN PRUETT MD [facility] PREOP COLON CANCER [id number] 05/27/2014 11:29:00 05/27/2014 23:59:59 CLS Outpatient SHEREEN PRUETT MD [facility] RAD COLON CANCER [id number] 05/12/2014 08:14:00 05/12/2014 23:59:59 CLS Outpatient SHEREEN PRUETT MD [facility] HX POLYPS [id number] 05/06/2014 07:33:00 05/06/2014 23:59:59 CLS Outpatient SHEREEN PRUETT MD [facility] PREOP HX POLYPS [id number] 04/26/2014 20:33:00 04/26/2014 22:25:00 DIS Emergency OMID VILCHIS [facility] ER R ANKLE PAIN [id number] 09/22/2013 10:55:00 09/22/2013 23:59:59 CLS Outpatient CASI LOVE APRN [facility] RAD ROUTINE [id number] 08/31/2018 14:49:00 ACT Emergency JENNIFER CASTELLANO MD [facility] ER L LEG PAIN [id number] 12/06/2015 11:33:00 Document Registration [id number] 07/13/2015 08:44:00 Document Registration [id number] 07/13/2015 08:44:00 Document Registration [id number] 08/05/2012 11:06:00 Document Registration [id number] 02/20/2012 05:38:00 Document Registration [id number] 02/14/2012 07:46:00 Document Registration [id number] 11/28/2011 08:10:00 Document Registration [id number] 11/21/2011 10:04:00 Document Registration [id number] 07/11/2011 13:21:00 Document Registration [id number] 06/20/2011 13:21:00 Document Registration [id number] 03/28/2011 09:24:00 Document Registration [id number] 01/31/2011 07:35:00 Document Registration [id number] 06/29/2010 10:56:00 Document Registration
[2018-08-31] MEDS ORDERED: ACETAMINOPHEN 500 MG TAB (TYLENOL) PO ONE (15:45)
[2018-08-31] MEDS ORDERED: KETOROLAC 30 MG/ML VIAL IM ONE (15:45)
--- NOTE | 2018-08-31 16:37 | ED Lower Extremity ---
General Chief Complaint: Lower Extremity Stated Complaint: L LEG PAIN Nursing Triage Note: PATIENT TO ER VIA WHEELCHAIR FROM HOME COMPLAINING OF LEFT KNEE PAIN. PATIENT DENIES ANY RECENT INJURIES AND STATES SHE WALKED AROUND [place] ALL DAY YESTERDAY. TODAY WHEN SHE GOT UP SHE WAS UNABLE TO WALK OR BEAR WEIGHT ON THE LEFT KNEE. SHE HAS PAIN AND INCREASED SWELLING TO THE LEFT KNEE. IT IS TENDER TO PALPATION. PATIENT DOES HAVE STRONG PEDAL PULSES PRESENT TO LEFT FOOT. PATIENT STATES POLICE OFFICES CAME TO HER RESIDENCE TODAY AND ASSISTED HER TO THE VEHICLE. Nursing Sepsis Screen: No Definite Risk Source: patient Exam Limitations: no limitations History of Present Illness Date Seen by Provider: Sep 01, 2018 Time Seen by Provider: 15:29 Initial Comments This 88-year-old woman presents to the emergency room with exacerbation of chronic pain and swelling in the left knee. She does have osteoarthritis and has had a knee replacement on the right. She walked around [place] all day yesterday and began having some trouble. She had to sit in the car for a while and rest due to the pain. Today she had to have police come to her home to help her up because she was unable to ambulate due to the pain. She is normally independently ambulatory with a walker. She sometimes takes Tylenol but has not taken any analgesics today. She did try ice which did not improve her function. She denies any injury. Allergies and Home Medications Allergies Coded Allergies: warfarin (Verified Allergy, Unknown, "SEVERE BLEEDING", 12/25/17) Home Medications Ascorbic Acid 500 Mg Capsule, 500 MG PO BID, (Reported) Cranberry Conc/Ascorbic Acid 1 Each Capsule, 1 EACH PO BID, (Reported) Enalapril Maleate 5 Mg Tablet, 5 MG PO DAILY, (Reported) Hydrocodone/Acetaminophen 1 Each Tablet, 1 EACH PO Q4H Prescribed by: TEREZA BENTON on 12/27/17 1022 Levothyroxine Sodium 25 Mcg Tablet, 25 MCG PO DAILY, (Reported) Metformin HCl 500 Mg Tablet, 500 MG PO DAILY, (Reported) Metformin HCl 500 Mg Tablet, 1,000 MG PO DAILY@1900, (Reported) take 2 (500mg) tabs Metoprolol Succinate 25 Mg Tab.er.24h, 12.5 MG PO HS, (Reported) take 1/2 of 25mg tab Baker 3 Polyunsat Fatty Acids 1,000 Mg Cap, 1,000 MG PO BID, (Reported) Pioglitazone HCl 30 Mg Tablet, 30 MG PO DAILY, (Reported) Simvastatin 40 Mg Tablet, 40 MG PO HS, (Reported) Trimethoprim 100 Mg Tablet, 100 MG PO HS, (Reported) Trospium Chloride 60 Mg Cap.er.24h, 60 MG PO DAILY, (Reported) Patient Home Medication List Home Medication List Reviewed: Yes Review of Systems Constitutional: no symptoms reported EENTM: no symptoms reported Respiratory: no symptoms reported Cardiovascular: no symptoms reported Gastrointestinal: no symptoms reported Genitourinary: no symptoms reported : No Musculoskeletal: see HPI Skin: no symptoms reported Psychiatric/Neurological: No Symptoms Reported Past Roqmsdm-Kuoefs-Nrewqm Hx Past Med/Social Hx: Reviewed and Corrections made Patient Social History Alcohol Use: Denies Use Recreational Drug Use: No Smoking Status: Never a Smoker 2nd Hand Smoke Exposure: No Recent Foreign Travel: No Contact w/Someone Who Travel: No Recent Infectious Disease Expo: No Recent Hopitalizations: No Immunizations Up To Date Tetanus Booster (TDap): Unknown PED Vaccines UTD: No Date of Pneumonia Vaccine: Jul 28, 2015 Date of Influenza Vaccine: Aug 13, 2018 Seasonal Allergies Seasonal Allergies: Yes (MILD) Past Medical History Surgeries: Yes (LAURIE TOTAL HIP,R TKR, BILAT SHOULDER, colon resectionX2, CTR, R thyroidectom) Gallbladder, Hysterectomy, Joint Replacement, Thyroidectomy Respiratory: No Currently Using CPAP: No Currently Using BIPAP: No Cardiac: Yes High Cholesterol, Hypertension, Palpitations Neurological: Yes Headaches /Migraines : No 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 Disorders: No 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 Sexually Transmitted Disease: No HIV/AIDS: No Gastrointestinal: Yes (GI BLEED IN 2008, colon resection x2, ) Diverticulosis, Polyps Musculoskeletal: Yes (general arthritis) Arthritis Endocrine: Yes (L THYROIDECTOMY) Hypothyroidsim, Diabetes, 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 Hearing Impairment: Denies Cancer: 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 2014) Colon Did You Recieve Any Treatments: No What Type of Treatment Did You: Surgical Intervention Psychosocial: No Integumentary: No Blood Disorders: No Adverse Reaction/Blood Tranf: No (HAS HAD BLOOD WITH NO REACTION) Family Medical History Reviewed Nursing Family Hx Cardiovascular disease 19 MOTHER G8 BROTHER Colon cancer 19 FATHER G8 SISTER Parkinson's disease G8 SISTER Psychosocial problem G8 BROTHER Respiratory disorder G8 BROTHER Physical Exam Vital Signs Vital Signs - First Documented 08/31/18 08/31/18 14:58 16:47 Temp 98.4 Pulse 106 Resp 16 B/P (MAP) 147/105 (119) Pulse Ox 96 O2 Delivery Room Air Capillary Refill : Less Than 3 Seconds Height, Weight, BMI Height: 5'3.00" Weight: 200lbs. 0.0oz. 90.755451ky; 37.6 BMI Method:Stated General Appearance: WD/WN, no apparent distress HEENT: normal ENT inspection Neck: normal inspection Respiratory: normal breath sounds, no respiratory distress Knees: right knee non-tender, right knee normal inspection; bilateral knee normal range of motion, bilateral knee no evidence of injury; left knee bone tenderness (along the joint line), left knee swelling, left knee other ( moderate tenderness around the joint line. Mildly warm when compared to the right. No erythema or obvious inflammation. 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, no motor/sensory deficits, alert, normal mood/affect, oriented x 3 Skin: normal color, warm/dry Progress/Results/Core Measures Results/Orders My Orders Orders - JENNIFER CASTELLANO MD Ketorolac Injection (Toradol Injection) (08/31/18 15:45) Acetaminophen Tablet (Tylenol Tablet) (08/31/18 15:45) Medications Given in ED Vital Signs/I&O 08/31/18 08/31/18 14:58 16:47 Temp 98.4 97.8 Pulse 106 87 Resp 16 16 B/P (MAP) 147/105 (119) 148/89 (108) Pulse Ox 96 O2 Delivery Room Air Room Air Blood Pressure Mean: 119 Progress Progress Note : Progress Note Patient had minimal swelling and mild warmth about the knee. There was no erythema. There is no significant increase in pain with passive range of motion. Pain was felt to be most likely from an arthritic flare. Patient had not taken any analgesics today. She was given Tylenol 1000 mg orally along with Toradol 15 mg by IM route. She was then able to ambulate without assistance. She was feeling improved and felt like she could function at home with her walker. Her knee was also wrapped with an Armen bandage for compression and stability. She was discharged into the care of her companions. Departure Impression Primary Impression: Left knee pain Qualified Codes: M25.562 - Pain in left knee; G89.29 - Other chronic pain Additional Impression: Arthritis of knee Disposition: HOME, SELF-CARE Condition: Improved Departure-Patient Inst. Decision time for Depature: 16:27 Referrals: WM MCGHEE MD (PCP/Family) Primary Care Physician Patient Instructions: Osteoarthritis Add. Discharge Instructions: Use Tylenol (acetaminophen) up to 1000 mg every 6 hours as needed for pain. For pain not controlled by Tylenol, add ibuprofen up to 400 mg 3 times a day. Take ibuprofen with food or milk to avoid irritation on your stomach. Ibuprofen should not be used for long-term treatment of pain but may be used for a week or two. Follow-up with your primary care provider or orthopedic provider soon as possible. You may use the Armen bandage as needed to help provide support and reduce swelling. Elevation and ice in 20 minute intervals may also help reduce pain and swelling. Continue to use your walker. Return to care if symptoms are worsening despite these treatments. All discharge instructions reviewed with patient and/or family. Voiced understanding. Copy Copies To 1: WM MCGHEE MD, JOSHUA T MD Aug 31, 2018 16:37
[2018-08-31 16:47] VITALS: BP 148/89
== END 2018-08-31 16:48 | disposition home or self-care (01) ==
LOC: EDUNIT# 14:48 → ER 14:49
DX: M17.12 Unilateral primary osteoarthritis, left knee (principal); E78.00 Pure hypercholesterolemia, unspecified; I10 Essential (primary) hypertension; G43.909 Migraine, unspecified, not intractable, without status migrainosus; E03.9 Hypothyroidism, unspecified; E11.9 Type 2 diabetes mellitus without complications; Z85.038 Personal history of other malignant neoplasm of large intestine; Z80.0 Family history of malignant neoplasm of digestive organs; Z96.651 Presence of right artificial knee joint; Z79.84 Long term (current) use of oral hypoglycemic drugs; Z90.710 Acquired absence of both cervix and uterus; Z88.8 Allergy status to other drugs, medicaments and biological substances
CPT/HCPCS: 96372; 99284

== ENCOUNTER → 2018-09-01 | Outpatient (CLI) | payer MEDICARE, OTHER ==
--- NOTE | 2018-09-01 15:58 | Diagnostic Imaging Report ---
INDICATION: Left knee pain and weakness. COMPARISON: None available. FINDINGS: Joint spaces are well preserved for patient's age. Small knee joint effusion. No fracture. Vascular calcifications are present. IMPRESSION: No acute osseous abnormality of the left knee. Dictated by: Dictated on workstation # [id number]
== END ==
LOC: RAD 10:41
PROVIDERS: ATTEND Nurse Practitioner
DX: M25.562 Pain in left knee (principal); R53.1 Weakness
CPT/HCPCS: 73562

== ENCOUNTER → 2018-10-14 | Outpatient (CLI) | payer MEDICARE, OTHER ==
--- NOTE | 2018-10-14 12:35 | Diagnostic Imaging Report ---
EXAMINATION: Magnetic resonance imaging of the left knee without intravenous contrast DATE: October 14, 2018. COMPARISON: Left knee radiographs September 01, 2018. INDICATION: 88-year-old female, left knee pain. Difficulty standing or walking. TECHNIQUE: Multiplanar, multisequence non contrast enhanced MR imaging was accomplished. FINDINGS: MENISCI: The medial meniscus is intact. There is extensive abnormal signal within the anterior horn of the lateral meniscus compatible with tear of the lateral meniscus at this location. There is also a longitudinal horizontal type tear involving the body and posterior horn of the lateral meniscus. There is extrusion of the lateral meniscus measuring 3.2 mm. LIGAMENTS AND TENDONS: The anterior and posterior cruciate ligaments are intact. The medial collateral ligament is intact. The iliotibial band, mid third lateral capsular ligament, fibular collateral ligament, biceps femoris tendon and conjoined tendon are intact. The quadriceps tendon and patella ligament are intact. JOINT: There are broad areas of full-thickness and near full-thickness patellofemoral compartment cartilage loss. There are broad areas of full-thickness cartilage loss of the weightbearing portions of the lateral femoral condyle and lateral tibial plateau. The medial compartment cartilage appears grossly intact. There is a moderate-sized knee joint effusion without identified intra-articular body or prominent synovitis. BONE: There is extensive edema-like signal within the lateral femoral condyle without identified fracture line. There is also prominent edema-like signal in the lateral tibial plateau with subchondral area of low signal in the lateral tibial plateau such as on sagittal PD sequence image 7. This potentially could relate to a nondisplaced subchondral fracture. There are no pathognomonic signal changes of osteonecrosis. The additional bone marrow signal is unremarkable. BURSAE AND SOFT TISSUES: There is a Umanzor's cyst measuring 2.7 x 2.1 x 5.5 cm in size. There is nonspecific prepatellar subcutaneous edema and very mild generalized subcutaneous edema. IMPRESSION: 1. Extensive tear involving the anterior horn of the lateral meniscus with additional longitudinal horizontal type tear involving the body and posterior horn of the lateral meniscus. Approximately 3.2 mm lateral meniscal extrusion. 2. Intact medial meniscus. 3. Intact anterior and posterior cruciate ligaments. Additional ligaments and tendons are intact. 4. Prominent marrow edema in the lateral femoral condyle and lateral tibial plateau with probable nondisplaced subchondral fracture of the lateral tibial plateau. This is likely stress or insufficiency related. 5. Severe patellofemoral and lateral compartment osteoarthritis. Moderate knee joint effusion without identified intraarticular body or prominent synovitis. Dictated by: Dictated on workstation # [id number]
== END ==
LOC: RAD 09:45
PROVIDERS: ATTEND Orthopaedic Surgery
DX: M23.242 Derangement of anterior horn of lateral meniscus due to old tear or injury, left knee (principal); M23.252 Derangement of posterior horn of lateral meniscus due to old tear or injury, left knee; M17.12 Unilateral primary osteoarthritis, left knee
CPT/HCPCS: 73721

== ENCOUNTER 2018-11-18 10:36 | Inpatient (IN) | payer MEDICARE, OTHER | END 2018-11-21 14:30 | disposition home or self-care (01) | LOC: ER 10:36 → 4TH 13:14 | DX: A41.9 Sepsis, unspecified organism (principal); N30.00 Acute cystitis without hematuria; B96.20 Unspecified Escherichia coli [E. coli] as the cause of diseases classified elsewhere; J06.9 Acute upper respiratory infection, unspecified; I10 Essential (primary) hypertension; E78.00 Pure hypercholesterolemia, unspecified; E89.0 Postprocedural hypothyroidism; E11.9 Type 2 diabetes mellitus without complications; J30.2 Other seasonal allergic rhinitis; G43.909 Migraine, unspecified, not intractable, without status migrainosus; M19.91 Primary osteoarthritis, unspecified site; Z79.84 Long term (current) use of oral hypoglycemic drugs; Z85.038 Personal history of other malignant neoplasm of large intestine; Z86.19 Personal history of other infectious and parasitic diseases; Z20.828 Contact with and (suspected) exposure to other viral communicable diseases; Z86.010 Personal history of colon polyps; Z87.19 Personal history of other diseases of the digestive system; Z90.49 Acquired absence of other specified parts of digestive tract; Z96.643 Presence of artificial hip joint, bilateral; Z96.611 Presence of right artificial shoulder joint; Z96.612 Presence of left artificial shoulder joint ==

== ENCOUNTER → 2018-11-26 | Outpatient (CLI) | payer MEDICARE, OTHER ==
[~2018-11-26] MED LIST changes: +ENAL10TA PO; +FURO20TA4 PO; +GABA-486 PO; +LEVO25TA2 PO; +METF-478 PO; +METF500T8 PO; +METO-333 PO; +NITR-65 PO; +POTA10TA10 PO; +SULF-222 PO
--- NOTE | 2018-11-26 14:27 | Diagnostic Imaging Report ---
EXAMINATION: PA and lateral chest at 1:59 p.m. INDICATION: Cough. FINDINGS: The mild cardiomegaly noted on the prior exam of 11/18/2018 is again evident and no different. The chronic pulmonary changes seen previously are also stable. There is no sign of failure, pneumonia, or pleural effusion to indicate an acute abnormality. The mediastinum is not widened. The osseous structures are intact. Surgical clips are evident overlying the right humeral head. IMPRESSION: Stable chest. There has been no adverse change since the prior exam. Dictated by: Dictated on workstation # [id number]
== END ==
LOC: RAD 13:50
PROVIDERS: ATTEND Internal Medicine
DX: R05 Cough (principal)
CPT/HCPCS: 71046

== ENCOUNTER → 2019-03-02 | Outpatient (CLI) | payer MEDICARE, OTHER ==
--- NOTE | 2019-03-02 14:26 | Diagnostic Imaging Report ---
INDICATION: Routine screening. COMPARISON: 08/13/2017 and 12/06/2015. TECHNIQUE: 2D and 3D bilateral screening mammography was performed with CAD. FINDINGS: Scattered fibroglandular densities are identified bilaterally. The parenchymal pattern is stable. No mass or malignant appearing microcalcifications are seen. There are occasional benign calcifications. The axillae are unremarkable. IMPRESSION: No mammographic features suspicious for malignancy are identified. ACR BI-RADS Category 2: Benign findings. Result letter will be mailed to the patient. Note: At least 10% of breast cancer is not imaged by mammography. Dictated by: Dictated on workstation # [id number]
== END ==
LOC: RAD 10:56
PROVIDERS: ATTEND Physician Assistant
DX: Z12.31 Encounter for screening mammogram for malignant neoplasm of breast (principal)
CPT/HCPCS: 77067

== ENCOUNTER 2019-03-08 00:56 | Inpatient (IN) | payer MEDICARE, OTHER | END 2019-03-10 14:35 | disposition home or self-care (01) | LOC: ER 00:56 → 4TH 02:12 | DX: A41.51 Sepsis due to Escherichia coli [E. coli] (principal); N30.00 Acute cystitis without hematuria; E87.1 Hypo-osmolality and hyponatremia; K57.90 Diverticulosis of intestine, part unspecified, without perforation or abscess without bleeding; E11.9 Type 2 diabetes mellitus without complications; I10 Essential (primary) hypertension; E78.00 Pure hypercholesterolemia, unspecified; J30.2 Other seasonal allergic rhinitis; M19.91 Primary osteoarthritis, unspecified site; Z90.49 Acquired absence of other specified parts of digestive tract; E89.0 Postprocedural hypothyroidism; G43.909 Migraine, unspecified, not intractable, without status migrainosus; Z79.84 Long term (current) use of oral hypoglycemic drugs; Z85.038 Personal history of other malignant neoplasm of large intestine; Z16.24 Resistance to multiple antibiotics; Z86.010 Personal history of colon polyps; Z96.643 Presence of artificial hip joint, bilateral ==

== ENCOUNTER 2019-05-18 21:01 | Emergency (ER) | payer MEDICARE, OTHER ==
[~2019-05-18] VITALS: Ht 160 cm; Wt 90.7 kg
[~2019-05-18 21:01] MED LIST changes: +GLUC-219 PO; +LEVO500T2 PO; +OMEG-105 PO
--- NOTE | 2019-05-18 21:08 | NUR ---
pt reports less pain while sitting up, requested to stay in wheelchair.
[2019-05-18] MEDS ORDERED: GABA-488 (21:17)
[2019-05-18] MEDS ORDERED: CYCL5TAB (21:17)
[2019-05-18] MEDS ORDERED: ACHD5005 PO (21:55)
--- NOTE | 2019-05-18 21:55 | ED Neck-Back Pain/Injury ---
General Chief Complaint: Head/Cervical Problems Stated Complaint: R SHOULDER PAIN Nursing Triage Note: right sided neck pain no injury Nursing Sepsis Screen: No Definite Risk Source of Information: Patient Exam Limitations: No Limitations History of Present Illness Date Seen by Provider: May 18, 2019 Time Seen by Provider: 21:40 Initial Comments This 88-year-old woman presents to the emergency room with complaints of right lateral neck pain. This started on May 15. She has been using hot and cold therapy with some improvement. On May 17 she went to urgent care and was prescribed muscle relaxers. She did have some improvement but today the pain intensified. She could not sleep. The pain is a sharp and hot feeling and sometimes itchy. She rates it as 10 out of 10. She took a muscle relaxer and Tylenol this afternoon followed by hydrocodone at 20:00. She had a similar episode in October. There was some suspicion that time that she had shingles. Allergies and Home Medications Allergies Coded Allergies: warfarin (Verified Allergy, Unknown, "SEVERE BLEEDING", 12/25/17) Home Medications Ascorbic Acid 500 Mg Capsule, 500 MG PO BID, (Reported) Cranberry Conc/Ascorbic Acid 1 Each Capsule, 1 CAP PO BID, (Reported) Enalapril Maleate 10 Mg Tablet, 10 MG PO BID, (Reported) Glucosamine/D3/Boswellia Ban 1 Each Tablet, 1 TAB PO BID, (Reported) Hydrocodone Bit/Acetaminophen 1 Tab Tab, 1 EACH PO Q6H PRN for PAIN-MODERATE TO SEVERE Prescribed by: JENNIFER ROBLES on 05/18/192154 Hydrocodone/Acetaminophen 1 Each Tablet, 1 TAB PO Q8H PRN for PAIN-MODERATE, (Reported) Levothyroxine Sodium 25 Mcg Tablet, 25 MCG PO DAILY, (Reported) Metformin HCl 500 Mg Tab.er.24h, 500 MG PO DAILY, (Reported) Metformin HCl 500 Mg Tab.er.24, 1,000 MG PO 1900, (Reported) TAKES 2 (500MG) TABLETS Metoprolol Succinate 25 Mg Tab.er.24h, 12.5 MG PO HS, (Reported) TAKES 1/2 (25MG) TABLET [place]-3 Acid Ethyl Esters 1 Gm Capsule, 1 GM PO BID, (Reported) Pioglitazone HCl 30 Mg Tablet, 30 MG PO DAILY, (Reported) Simvastatin 40 Mg Tablet, 40 MG PO HS, (Reported) Trospium Chloride 60 Mg Cap.er.24h, 60 MG PO DAILY, (Reported) Patient Home Medication List Home Medication List Reviewed: Yes Review of Systems Constitutional: no symptoms reported EENTM: no symptoms reported Respiratory: no symptoms reported Cardiovascular: no symptoms reported Gastrointestinal: no symptoms reported Genitourinary: no symptoms reported Musculoskeletal: see HPI Skin: no symptoms reported Psychiatric/Neurological: No Symptoms Reported Past Vjeuxkr-Wqtgcp-Zrfajz Hx Patient Social History Alcohol Use: Rarely Uses Alcohol Beverage of Choice: Wine Recreational Drug Use: No Smoking Status: Never a Smoker 2nd Hand Smoke Exposure: No Recent Foreign Travel: No Contact w/Someone Who Travel: No Recent Infectious Disease Expo: No Recent Hopitalizations: No Physical Abuse: No Sexual Abuse: No Mistreated: No Fear: No Immunizations Up To Date Tetanus Booster (TDap): Unknown PED Vaccines UTD: Yes Date of Pneumonia Vaccine: Jul 28, 2015 Date of Influenza Vaccine: Aug 28, 2018 Seasonal Allergies Seasonal Allergies: Yes Past Medical History Surgeries: Yes (LAURIE TOTAL HIP,R TKR, BILAT SHOULDER, colon resectionX2, CTR, R thyroidectom) Gallbladder, Hysterectomy, Joint Replacement, Thyroidectomy Respiratory: No Currently Using CPAP: No Currently Using BIPAP: No Cardiac: Yes High Cholesterol, Hypertension, Palpitations Neurological: Yes Headaches /Migraines : No 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 Disorders: No 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, 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 Sexually Transmitted Disease: No HIV/AIDS: No Genitourinary: Yes Bladder Infection, UTI-Chronic Gastrointestinal: Yes (GI BLEED IN 2008, colon resection x2, ) Diverticulosis, Polyps Musculoskeletal: Yes Arthritis Endocrine: Yes (L THYROIDECTOMY) Hypothyroidsim, Diabetes, 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 Hearing Impairment: Denies Cancer: 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 2014) Colon Did You Recieve Any Treatments: No What Type of Treatment Did You: Surgical Intervention Psychosocial: No Integumentary: No Blood Disorders: No Adverse Reaction/Blood Tranf: No Family Medical History Cardiovascular disease 19 MOTHER G8 BROTHER Colon cancer 19 FATHER G8 SISTER Parkinson's disease G8 SISTER Psychosocial problem G8 BROTHER Respiratory disorder G8 BROTHER Physical Exam Vital Signs Vital Signs - First Documented 05/18/19 21:08 Temp 98.4 Pulse 93 Resp 18 B/P (MAP) 161/101 (121) Pulse Ox 95 O2 Delivery Room Air Capillary Refill : Less Than 3 Seconds Height, Weight, BMI Height: 5'3.00" Weight: 200lbs. 0.0oz. 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 as Tested Skin: Normal Color, Warm/Dry, Erythema (mild around the area of concern, likely due to massage and lidocaine patch use) Progress/Results/Core Measures Results/Orders My Orders Orders - JENNIFER CASTELLANO MD Ketorolac Injection (Toradol Injection) (05/18/19 22:00) Medications Given in ED Current Medications Medications Dose Ordered Sig/Shadi Route Start Time Stop Time Status Last Admin Dose Admin Ketorolac Tromethamine 30 mg ONCE ONCE IM 05/18/19 22:00 05/18/19 22:00 DC 05/18/19 21:57 30 MG Vital Signs/I&O 05/18/19 05/18/19 21:08 21:58 Temp 98.4 98.4 Pulse 93 93 Resp 18 18 B/P (MAP) 161/101 (121) 161/101 (121) Pulse Ox 95 95 O2 Delivery Room Air Blood Pressure Mean: 121 Progress Progress Note : Progress Note Patient's tenderness seem to be in the deep muscles. She was not tender to light touch which makes shingles less likely. She is treated with a Toradol injection. See discharge instructions for discussion with patient. Departure Impression Primary Impression: Neck muscle strain Qualified Codes: S16.1XXA - Strain of muscle, fascia and tendon at neck level, initial encounter Disposition: 01 HOME, SELF-CARE Condition: Improved Departure-Patient Inst. Decision time for Depature: 21:52 Referrals: WM PUENTE MD (PCP/Family) Primary Care Physician Patient Instructions: Muscle Strain Add. Discharge Instructions: Your neck pain is likely due to muscle strain or spasm. You may continue using the muscle relaxers as prescribed. For primary pain control over the next 2 or 3 days try ibuprofen up to 400 mg every 6 hours. Take with food or milk to prevent stomach upset. Ibuprofen should only be used for short-term or occasional treatment of pain. You may add either Tylenol (acetaminophen) or hydrocodone for additional pain relief if needed. If you use hydrocodone, you may wish to use a stool softener as well as hydrocodone may sometimes cause constipation. Gentle heat and gentle massage may be helpful. If you develop a blistering rash over the painful area, please contact Dr. Puente and requests treatment for shingles. Return to care if you have worsening symptoms or your symptoms are not improving after a couple of days. All discharge instructions reviewed with patient and/or family. Voiced understanding. Scripts Hydrocodone Bit/Acetaminophen (Hydrocodone/Acetaminophen 5/325mg Tablet) 1 Tab Tab 1 EACH PO Q6H PRN for PAIN-MODERATE TO SEVERE MDD 10, #10 TAB Prov: JENNIFER CASTELLANO MD 05/18/19 Copy Copies To 1: WM PUENTE MD, JOSHUA T MD May 18, 2019 21:55
[2019-05-18 21:58] VITALS: BP 161/101
[2019-05-18] MEDS ORDERED: KETOROLAC 30 MG/ML VIAL IM ONE (22:00)
== END 2019-05-18 21:59 | disposition home or self-care (01) ==
LOC: EDUNIT# 21:01 → ER 21:02
DX: S16.1XXA Strain of muscle, fascia and tendon at neck level, initial encounter (principal); I10 Essential (primary) hypertension; E78.00 Pure hypercholesterolemia, unspecified; G43.909 Migraine, unspecified, not intractable, without status migrainosus; E03.9 Hypothyroidism, unspecified; E11.9 Type 2 diabetes mellitus without complications; Z85.038 Personal history of other malignant neoplasm of large intestine; Z86.010 Personal history of colon polyps; Z90.710 Acquired absence of both cervix and uterus; Z96.651 Presence of right artificial knee joint; Z79.84 Long term (current) use of oral hypoglycemic drugs; Z88.8 Allergy status to other drugs, medicaments and biological substances; Z82.49 Family history of ischemic heart disease and other diseases of the circulatory system; Z80.0 Family history of malignant neoplasm of digestive organs; X50.1XXA Overexertion from prolonged static or awkward postures, initial encounter
CPT/HCPCS: 96372; 99284

== ENCOUNTER 2020-05-10 10:09 | Inpatient (IN) | payer MEDICARE, OTHER ==
[~2020-05-10] VITALS: Ht 160 cm; Wt 89.9 kg
[~2020-05-10 10:09] MED LIST changes: +ACHD5005 PO; +ENLP5T PO; +GABA-488; -HYDR-3812 PO; +METF-865 PO; -METF500T8 PO; -METO-387 PO; +SIMV40TA25 PO; -SIMV40TA4 PO; +TROS60CA PO; -TROS60CA4 PO
[2020-05-10] MEDS ORDERED: LACTATED RINGERS 1,000 ML IV ONE ×3 (10:20→12:43)
--- NOTE | 2020-05-10 10:28 | ED GI ---
General Stated Complaint: VOMITING;WEAKNESS Source of Information: Patient Exam Limitations: No Limitations History of Present Illness Date Seen by Provider: May 10, 2020 Time Seen by Provider: 10:05 Initial Comments Patient presents ER by private conveyance from home with chief complaint that around midnight she woke up having some nausea and vomiting. She's had some acid reflux and had a long-standing history of GERD. She's had no fevers chills diarrhea. She had a normal sized bowel movement on Saturday and a small one on Saturday yesterday. She tried taking some baking soda for her acid reflux and vomited it up immediately. She's not having any chest pain shortness of breath cough. No sick contacts. She's had 2 bowel resections related to colon cancer, cholecystectomy, hysterectomy in the past. No blood in the vomit she says just liquid bile after the first episode of food. She's not having any abdominal pain but she does feel some acid reflux sensation in her epigastric region. Allergies and Home Medications Allergies Coded Allergies: warfarin (Verified Allergy, Unknown, "SEVERE BLEEDING", 12/25/17) Home Medications Ascorbic Acid 500 Mg Capsule, 500 MG PO BID, (Reported) Cranberry Conc/Ascorbic Acid 1 Each Capsule, 1 CAP PO BID, (Reported) Enalapril Maleate 10 Mg Tablet, 10 MG PO BID, (Reported) Glucosamine/D3/Boswellia Ban 1 Each Tablet, 1 TAB PO BID, (Reported) Hydrocodone Bit/Acetaminophen 1 Each Tablet, 1 TAB PO Q8H PRN for PAIN-MODERATE, (Reported) Hydrocodone Bit/Acetaminophen 1 Tab Tab, 1 EACH PO Q6H PRN for PAIN-MODERATE TO SEVERE Prescribed by: JENNIFER ROBLES on 05/18/192154 Levothyroxine Sodium 25 Mcg Tablet, 25 MCG PO DAILY, (Reported) Metformin HCl 500 Mg Tab.er.24h, 500 MG PO DAILY, (Reported) Metformin HCl 500 Mg Tab.er.24, 1,000 MG PO 1900, (Reported) TAKES 2 (500MG) TABLETS Metoprolol Succinate 25 Mg Tab.er.24h, 12.5 MG PO HS, (Reported) TAKES 1/2 (25MG) TABLET [place]-3 Acid Ethyl Esters 1 Gm Capsule, 1 GM PO BID, (Reported) Pioglitazone HCl 30 Mg Tablet, 30 MG PO DAILY, (Reported) Simvastatin 40 Mg Tablet, 40 MG PO HS, (Reported) Trospium Chloride 60 Mg Cap.er.24h, 60 MG PO DAILY, (Reported) Patient Home Medication List Home Medication List Reviewed: Yes Review of Systems Review of Systems Constitutional: No chills, No fever, No malaise EENTM: No Blurred Vision, No Double Vision Respiratory: Denies Cough, Denies Shortness of Air Cardiovascular: Denies Chest Pain, Denies Edema Gastrointestinal: See HPI; Denies Abdomen Distended, Denies Abdominal Pain, Denies Constipated, Denies Diarrhea; Nausea, Vomiting Genitourinary: Denies Burning, Denies Discharge Musculoskeletal: No back pain, No joint pain Skin: No pruritus, No rash All Other Systems Reviewed Negative Unless Noted: Yes Past Paayzgl-Iovphp-Smofpg Hx Patient Social History Alcohol Use: Occasionally Uses Alcohol Beverage of Choice: Wine Recreational Drug Use: No Smoking Status: Never a Smoker 2nd Hand Smoke Exposure: No Recent Hopitalizations: No Immunizations Up To Date Tetanus Booster (TDap): Unknown PED Vaccines UTD: Yes Date of Pneumonia Vaccine: Jul 28, 2015 Date of Influenza Vaccine: Aug 28, 2018 Seasonal Allergies Seasonal Allergies: Yes Past Medical History Surgeries: Yes (LAURIE TOTAL HIP,R TKR, BILAT SHOULDER, colon resectionX2, CTR, R thyroidectom) Gallbladder, Hysterectomy, Joint Replacement, Thyroidectomy Respiratory: No Currently Using CPAP: No Currently Using BIPAP: No Cardiac: Yes High Cholesterol, Hypertension, Palpitations Neurological: Yes Headaches /Migraines 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 Disorders: No 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 Disorders: Denies 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, Menopausal Sexually Transmitted Disease: No HIV/AIDS: No Genitourinary: Yes Bladder Infection, UTI-Chronic Gastrointestinal: Yes (GI BLEED IN 2008, colon resection x2, ) Diverticulosis, Polyps Musculoskeletal: Yes Arthritis Endocrine: Yes (L THYROIDECTOMY) Hypothyroidsim, Diabetes, 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 Hearing Impairment: Denies Cancer: 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 2014) Colon Did You Recieve Any Treatments: No What Type of Treatment Did You: Surgical Intervention Psychosocial: No Integumentary: No Blood Disorders: No Adverse Reaction/Blood Tranf: No Family Medical History Cardiovascular disease 19 MOTHER G8 BROTHER Colon cancer 19 FATHER G8 SISTER Parkinson's disease G8 SISTER Psychosocial problem G8 BROTHER Respiratory disorder G8 BROTHER Physical Exam Vital Signs Vital Signs - First Documented 7/14/20 10:11 Temp 36.9 Pulse 118 Resp 18 B/P (MAP) 151/94 (113) Pulse Ox 97 Capillary Refill : Height/Weight/BMI Height: 5'3.00" Weight: 200lbs. 0.0oz. 90.303108xf; 36.9 BMI Method:Stated General Appearance: WD/WN, no apparent distress HEENT: PERRL/EOMI, pharynx normal Neck: full range of motion, normal inspection Respiratory: lungs clear, normal breath sounds, no respiratory distress, no accessory muscle use Cardiovascular: normal peripheral pulses, regular rate, rhythm Peripheral Pulses: 2+ Radial Pulses (R), 2+ Radial Pulses (L) (quiescent) Gastrointestinal: non tender, soft, no organomegaly Extremities: normal range of motion, normal capillary refill Neurologic/Psychiatric: alert, normal mood/affect, oriented x 3 Skin: normal color, warm/dry (.) Progress/Results/Core Measures Results/Orders Lab Results Laboratory Tests Test 05/10/20 10:20 05/10/20 10:44 Range/Units White Blood Count 13.1 H 4.3-11.0 10^3/uL Red Blood Count 4.71 4.35-5.85 10^6/uL Hemoglobin 15.0 11.5-16.0 G/DL Hematocrit 45 35-52 % Mean Corpuscular Volume 95 80-99 FL Mean Corpuscular Hemoglobin 32 25-34 PG Mean Corpuscular Hemoglobin Concent 34 32-36 G/DL Red Cell Distribution Width 13.6 10.0-14.5 % Platelet Count 232 130-400 10^3/uL Mean Platelet Volume 10.3 7.4-10.4 FL Neutrophils (%) (Auto) 82 H 42-75 % Lymphocytes (%) (Auto) 12 12-44 % Monocytes (%) (Auto) 6 0-12 % Eosinophils (%) (Auto) 0 0-10 % Basophils (%) (Auto) 0 0-10 % Neutrophils # (Auto) 10.7 H 1.8-7.8 X 10^3 Lymphocytes # (Auto) 1.5 1.0-4.0 X 10^3 Monocytes # (Auto) 0.8 0.0-1.0 X 10^3 Eosinophils # (Auto) 0.1 0.0-0.3 10^3/uL Basophils # (Auto) 0.0 0.0-0.1 10^3/uL Prothrombin Time 13.4 12.2-14.7 SEC INR Comment 1.0 0.8-1.4 Activated Partial Thromboplast Time 28 24-35 SEC Sodium Level 134 L 135-145 MMOL/L Potassium Level 4.3 3.6-5.0 MMOL/L Chloride Level 94 L 98-107 MMOL/L Carbon Dioxide Level 24 21-32 MMOL/L Anion Gap 16 H 5-14 MMOL/L Blood Urea Nitrogen 36 H 7-18 MG/DL Creatinine 1.22 0.60-1.30 MG/DL Estimat Glomerular Filtration Rate 42 BUN/Creatinine Ratio 30 Glucose Level 192 H 70-105 MG/DL Calcium Level 9.8 8.5-10.1 MG/DL Corrected Calcium 9.5 8.5-10.1 MG/DL Total Bilirubin 0.9 0.1-1.0 MG/DL Aspartate Amino Transf (AST/SGOT) 18 5-34 U/L Alanine Aminotransferase (ALT/SGPT) 15 0-55 U/L Alkaline Phosphatase 55 40-136 U/L Troponin I < 0.028 <0.028 NG/ML Total Protein 7.5 6.4-8.2 GM/DL Albumin 4.4 3.2-4.5 GM/DL Urine Color YELLOW Urine Clarity CLEAR Urine pH 6.5 5-9 Urine Specific [place] 1.015 L 1.016-1.022 Urine Protein 1+ H NEGATIVE Urine Glucose (UA) NEGATIVE NEGATIVE Urine Ketones TRACE H NEGATIVE Urine Nitrite NEGATIVE NEGATIVE Urine Bilirubin NEGATIVE NEGATIVE Urine Urobilinogen 1.0 < = 1.0 MG/DL Urine Leukocyte Esterase 1+ H NEGATIVE Urine RBC (Auto) NEGATIVE NEGATIVE Urine RBC NONE /HPF Urine WBC 25-50 H /HPF Urine Squamous Epithelial Cells 10-25 H /HPF Urine Crystals NONE /LPF Urine Bacteria FEW H /HPF Urine Casts PRESENT /LPF Urine Hyaline Casts 2-5 H /LPF Urine Mucus SMALL H /LPF Urine Culture Indicated YES My Orders Orders - CHRISTINA HUSAIN Ondansetron Injection (Zofran Injectio (05/10/20 10:30) Ed Iv/Invasive Line Start (05/10/20 10:20) Lactated Ringers (Lr 1000 Ml Iv Solution (05/10/20 10:20) Cbc With Automated Diff (05/10/20 10:20) Comprehensive Metabolic Panel (05/10/20 10:20) Blood Culture (05/10/20 10:20) Urinalysis (05/10/20 10:20) Urine Culture (05/10/20 10:20) Protime With Inr (05/10/20 10:20) Partial Thromboplastin Time (05/10/20 10:20) Ed Iv/Invasive Line Start (05/10/20 10:20) Ed Iv/Invasive Line Start (05/10/20 10:20) Vital Signs Adult Sepsis Patie Q15M (05/10/20 10:20) Remove Rings In Anticipation O (05/10/20 10:20) Lactated Ringers (Lr 1000 Ml Iv Solution (05/10/20 10:20) Pantoprazole Injection (Protonix Injecti (05/10/20 10:30) Ct Abdomen/Pelvis W (05/10/20 10:20) Ekg Tracing (05/10/20 10:29) Continuous Ekg Monitoring (05/10/20 10:29) Chest 1 View, Ap/Pa Only (05/10/20 10:29) Troponin I (05/10/20 10:20) Aspirin Chewable Tablet (Baby Aspirin Ch (05/10/20 10:45) Ekg Tracing (05/10/20 10:52) Iohexol Injection (Omnipaque 350 Mg/Ml 1 (05/10/20 11:15) Received Contrast (Hold Metformin- Contr (05/10/20 11:15) Ns (Ivpb) (Sodium Chloride 0.9% Ivpb Bag (05/10/20 11:15) Medications Given in ED Current Medications Medications Dose Ordered Sig/Shadi Route Start Time Stop Time Status Last Admin Dose Admin Aspirin 81 mg STK-MED ONCE .ROUTE 05/10/20 10:45 05/10/20 10:48 DC 05/10/20 10:50 81 MG Iohexol 75 ml ONCE ONCE IV 05/10/20 11:15 05/10/20 11:16 DC 05/10/20 11:24 60 ML Lactated Ringer's 1,000 ml @ 0 mls/hr Q0M ONCE IV 7/14/20 10:20 05/10/20 10:25 DC 05/10/20 10:34 1,000 MLS/HR Ondansetron HCl 8 mg ONCE ONCE IVP 05/10/20 10:30 05/10/20 10:31 DC 05/10/20 10:34 8 MG Pantoprazole 40 mg ONCE ONCE IV 05/10/20 10:30 05/10/20 10:31 DC 05/10/20 10:34 40 MG Sodium Chloride 100 ml ONCE ONCE IV 05/10/20 11:15 05/10/20 11:16 DC 05/10/20 11:24 80 ML Vital Signs/I&O 05/10/20 10:11 Temp 36.9 Pulse 118 Resp 18 B/P (MAP) 151/94 (113) Pulse Ox 97 Progress Progress Note #1: Time: 10:26 Progress Note 2 L of lactated Ringer's, labs to include blood cultures. Could potentially be an atypical angina so we'll get an EKG troponin and chest x-ray. Urinalysis. Zofran for her nausea and pantoprazole for her GERD. Progress Note #2: Time: 10:53 Progress Note First EKG shows a little elevation in the right lead that's probably more from the right bundle-branch block however there is no significant reciprocal depression except for maybe V1 and V2. Since this is questionable we did for a copy over to Dr. Villafana and he will review the EKG and call us back. Patient's not having any chest pain right now. I do not strongly feel that this is a STEMI however we did give her some aspirin to chew and swallow. Delta EKG was obtained which demonstrated similar findings. Still probably not a STEMI. Progress Note #3: Time: 11:20 Progress Note After reviewing previous EKGs which are unchanged from 2019 as well as negative troponin, no chest pain and symptoms for 11 hours cardiology agrees that this does not represent a heart attack although they would be more than willing to consult on the patient if she goes in to the hospital. Initial ECG Impression Date: May 10, 2020 Initial ECG Impression Time: 10:41 Initial ECG Rate: 112 Initial ECG Rhythm: S.Tach Initial ECG Intervals: QT (545) Initial ECG Impression: Nonspecific Changes Comment ST depression in aVR with no concurrent bleed versus fascicular block. Perhaps one half block depression in the ST segment of V1 and V2. Sinus tachycardia. Unchanged compared to 2019 EKG. EKG : EKG Time: 10:42 Rate: 112 Rhythm: S.Tach Intervals: QT (545) ECG Comparisson: Unchanged ECG Impression: Nonspecific Changes Comment No ST elevation MA. Negative for the relevant ST elevation or depression. Sinus tachycardia. Diagnostic Imaging Diagonstic Imaging: Xray Plain Films/CT/US/NM/MRI: chest (1v) Reviewed: Reviewed by Me Diagonstic Imaging: CT (with IV contrast) Plain Films/CT/US/NM/MRI: abdomen, pelvis Comments NAME: KENNY GUTIERREZ MED REC#: [id number] PT STATUS: REG ER : 1930 PHYSICIAN: CHRISTINA HUSAIN MD ADMIT DATE: 05/10/20/ER Draft Date of Exam:05/10/20 CT ABDOMEN/PELVIS W PROCEDURE: CT abdomen and pelvis with contrast. TECHNIQUE: Multiple contiguous axial images were obtained through the abdomen and pelvis after administration of intravenous contrast. Auto Exposure Controls were utilized during the CT exam to meet ALARA standards for radiation dose reduction. INDICATION: History of colon cancer, now with diarrhea and weakness. Exam compared with the CT abdomen and pelvis performed 06/01/2009. FINDINGS: Postsurgical changes of a right hemicolectomy again noted. There is a mild fluid distention of the stomach and duodenum with mild to moderate dilatation of the proximal through mid small bowel. The most dilated small bowel loops show differential air-fluid levels with maximal transverse diameter of 3.8 cm. The distal small bowel is decompressed. The transition appears near the midline deep to the abdominal wall where there are matted loops of small bowel abutting the abdominal wall. There is a small fatty umbilical hernia. This does not appear to be itself contributing. Etiology of the suspected obstruction likely owing to adhesions. There is some mild rectal constipation with noninflamed colonic diverticulosis of the sigmoid. There are multiple renal cysts, the largest dominant cyst exophytic off the lower pole of the left kidney and measures 13 cm unchanged. There is no hydroureteronephrosis. The bilateral hips are replaced. There is degenerative change to the spine. 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 There are no pathological appearing lymph nodes and there is no evidence for liver mass. No bile duct dilatation. IMPRESSION: 1. Small bowel obstruction. Transition in the midline near the umbilicus where there is a noncontributing fatty umbilical hernia. There are matted loops of small bowel abutting the intra-abdominal wall and adhesions likely account for the transition with distal decompressed small bowel and mild rectosigmoidal constipation. 2. No findings suggestive of metastatic disease. 3. Chronic renal cysts. Dictated on workstation # [id number] Dict: 05/10/20 1138 Trans: 05/10/20 1150 [facility] [id number] Interpreted by: CAESAR FLORES Electronically signed by: Reviewed: Reviewed by Me Departure Communication (Admissions) Time/Spoke to Admitting Phy: 12:23 Dr. Marquez agrees take patient MedSurg with surgical consult. Time/Spoke to Consulting Phy: 12:14 Dr. Zamora agrees to consult. Impression Primary Impression: Bowel obstruction Qualified Codes: K56.601 - Complete intestinal obstruction, unspecified as to cause Additional Impression: Dehydration Disposition: 01 HOME, SELF-CARE Condition: Stable Admissions Decision to Admit Reason: Admit from ER (General) Decision to Admit/Date: May 10, 2020 Time/Decision to Admit Time: 12:00 Departure-Patient Inst. Referrals: WM MCGHEE MD (PCP/Family) Primary Care Physician CHRISTINA HUSAIN May 10, 2020 10:28
[2020-05-10 10:29] LABS: BASOPHILS % (AUTO) 0 % (0-10); EOSINOPHILS # (AUTO) 0.1 10^3/uL (0.0-0.3); EOSINOPHILS % (AUTO) 0 % (0-10); HEMATOCRIT 45 % (35-52); LYMPHOCYTES # (AUTO) 1.5 X 10^3 (1.0-4.0); LYMPHOCYTES % (AUTO) 12 % (12-44); MEAN CORPUSCULAR HEMOGLOBIN 32 PG (25-34); MEAN CORPUSCULAR HGB CONC 34 G/DL (32-36); MEAN CORPUSCULAR VOLUME 95 FL (80-99); MEAN PLATELET VOLUME 10.3 FL (7.4-10.4); MONOCYTES # (AUTO) 0.8 X 10^3 (0.0-1.0); MONOCYTES % (AUTO) 6 % (0-12); NEUTROPHILS # (AUTO) 10.7 X 10^3 (1.8-7.8); NEUTROPHILS % (AUTO) 82 % (42-75); PLATELET COUNT 232 10^3/uL (130-400); RED CELL DISTRIBUTION WIDTH 13.6 % (10.0-14.5); WHITE BLOOD COUNT 13.1 10^3/uL (4.3-11.0)
[2020-05-10] MEDS ORDERED: PANTOPRAZOLE 40 MG (PROTONIX) VIAL IV ONE (10:30)
[2020-05-10] MEDS ORDERED: ONDANSETRON 4 MG/2 ML (SDV) Z0FRAN IVP ONE (10:30)
[2020-05-10 10:42] LABS: ALBUMIN 4.4 GM/DL (3.2-4.5); CHLORIDE 94 MMOL/L (98-107); POTASSIUM 4.3 MMOL/L (3.6-5.0); SODIUM 134 MMOL/L (135-145)
[2020-05-10 10:43] LABS: CALCIUM 9.8 MG/DL (8.5-10.1); PROTHROMBIN TIME PATIENT 13.4 SEC (12.2-14.7)
[2020-05-10 10:44] LABS: GLUCOSE 192 MG/DL (70-105); TOTAL PROTEIN 7.5 GM/DL (6.4-8.2)
[2020-05-10 10:45] LABS: CARBON DIOXIDE 24 MMOL/L (21-32)
[2020-05-10] MEDS ORDERED: ASPIRIN 81 MG CHEW (CHILDREN'S ASA) ONE (10:45)
[2020-05-10 10:46] LABS: BILIRUBIN,TOTAL 0.9 MG/DL (0.1-1.0)
[2020-05-10 10:48] LABS: BILIRUBIN,URINE NEGATIVE (NEGATIVE); CLARITY,URINE CLEAR; COLOR,URINE YELLOW; GLUCOSE, URINE (UA) NEGATIVE (NEGATIVE); KETONES,URINE TRACE (NEGATIVE); LEUKOCYTE ESTERASE ,URINE 1+ (NEGATIVE); NITRITE,URINE NEGATIVE (NEGATIVE); PH,URINE 6.5 (5-9); PROTEIN,URINE 1+ (NEGATIVE)
[2020-05-10 10:48] LABS: ALKALINE PHOSPHATASE 55 U/L (40-136); CREATININE SERUM 1.22 MG/DL (0.60-1.30); GFR ESTIMATED 42
[2020-05-10 10:49] LABS: BUN/CREATININE RATIO 30
[2020-05-10 10:51] LABS: ALANINE AMINOTRANSFERASE 15 U/L (0-55)
[2020-05-10 10:58] LABS: BACTERIA,URINE FEW /HPF; WBC,URINE 25-50 /HPF
--- OUTSIDE RECORDS SUMMARY | 2020-05-10 11:02 | XMS REPORT | Clinical Summary ---
Author Author [facility] Organization [facility] Address Unknown Phone Unavailable Care Team Providers Care Five Piece Expansion Maker Hand Name Role Phone Roberto Carlos Barrientos MD Unavailable Source Comments Some departments are not documenting in the electronic medical record. If you d o not see the information that you expected, contact Release of Information in [facility] [employer] Information Management department at [phone] for further assistan ce in locating additional records.[facility] Allergies Not on File Medications End Date Status Medication Sig Dispensed Refills Start Date Active metFORMIN (GLUCOPHAGE) Take 500 mg 0 500 mg tablet by mouth twice daily with meals. Active pioglitazone (ACTOS) 30 Take 30 mg by 0 mg tablet mouth daily. Active enalapril (VASOTEC) 5 mg Take 5 mg by 0 tablet mouth daily. Active metoprolol Take by 0 guajardo-hydrochlorothiaz mouth. 25-12.5 mg Tb24 Active LEVOTHYROXINE SODIUM Take 0.025 mg 0 (LEVOTHYROXINE PO) by mouth three times weekly. Active [place]-3 Fatty Take 1 Cap by 0 Acids-Vitamin E 1,000 mg mouth twice cap daily. Active furosemide (LASIX) 40 mg Take 40 mg by 0 tablet mouth daily. Active FLUTICASONE PROPIONATE Insert into 0 (FLONASE NA) nose as directed as Needed. Active ACETAMINOPHEN (TYLENOL Take by 0 PO) mouth as Needed. Active FEXOFENADINE HCL (MUCINEX Take by 0 ALLERGY PO) mouth as Needed. Active SIMETHICONE (GAS-X PO) Take by 0 mouth as Needed. Active NAPROXEN SODIUM/P-EPHED Take by 0 HCL (SINUS AND COLD-D PO) mouth as Needed. Active trospium ER(+) (SANCTURA Take 1 Cap by 60 Cap 3 XR) 60 mg capsule mouth daily. 6 Do not cut/ crush/ chew Active Problems Problem Noted Date Mixed stress and urge urinary incontinence 6 Overview: UUI>>CHRISTIANA requiring 3-4 thick pads/brief s per day. Urgency, frequency, nocturia 3-4x/night , weak stream, and sensation of incomplete emptying. Present since 2013 and worsening No prior treatments History of T2DM and multiple abdominal operations. 03/14/16: new patient; exam unremarkable PVR: 0 mls L ast Assessment & Plan: 85 year old female with history of T2DM and multiple abdominal operations who presents today for evaluation of MU I (UUI>>CHRISTIANA) and other bothersome voiding symptoms such as urgency, frequ ency, nocturia 3-4x/night, weak stream, and sensation of incomplete emp tying. She has had no prior treatment for this . Exam was largely unremarkable today. She emptied completely with a PVR of 0 mls today. - Urge suppression technique informatio n provided. - Constipation treatment information pr ovided today. - Decrease caffeine intake as able. - Referral to PFRT w/ biofeedback. - [place] XR 60 mg daily. Potential s keny effects discussed. - Return to clinic 6 months for symptom check. Family History Medical History Relation Name Comments Cancer Other Diabetes Other Heart Attack Other Hypertension Other Relation Name Status Comments Other Social History Date Tobacco Use Types Packs/Day Years Used Never Smoker Smokeless Tobacco: Never Used Drinks/Week oz/Week Comments Alcohol Use 2 Glasses of wine 2.0 Yes Sex Assigned at Date Recorded Not on file Industry Job Start Date Occupation Not on file Not on file Not on file Travel End Travel History Travel Start No recent travel history available. Last Filed Vital Signs Reading Time Taken Comments Vital Sign 147/81 03/14/2016 10:22 AM CDT Blood Pressure 76 03/14/2016 10:22 AM CDT Pulse - - Temperature - - Respiratory Rate - - Oxygen Saturation - - Inhaled Oxygen Concentration 89.8 kg (198 lb) 03/14/2016 10:22 AM CDT Weight 160 cm (5' 3") 03/14/2016 10:22 AM CDT Height 35.07 03/14/2016 10:22 AM CDT Body Mass Index Plan of Treatment Health Maintenance Due Date Last Done Comments DTAP/TDAP VACCINES ( - 1948 Tdap) PHYSICAL (COMPREHENSIVE) 1948 EXAM SHINGLES RECOMBINANT 1981 VACCINE (1 of 2) OSTEOPOROSIS 1996 SCREENING/MONITORING PNEUMONIA (PPSV23) 1996 VACCINE (1 of 1 - PPSV23) INFLUENZA VACCINE 07/28/2020 Results Not on filefrom Last 3 Months
--- OUTSIDE RECORDS SUMMARY | 2020-05-10 11:03 | XMS REPORT | Continuity of Care Document ---
Author Organization Unknown Address Unknown Phone Unavailable Allergies Active Description Code Type Severity Reaction Onset Reported/Identified Relationship to Patient Clinical Status Yes NKDA NKDA Mild N/A 02/16/2009 Yes warfarin [id number] Drug Allergy Unknown "SEVERE BLEEDIN 12/25/2017 Medications There is no data. 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 4 03/04/2015 CAESAR PATHAK MD Ot 785. 1 03/18/2015 CAESAR PATHAK MD Ot 272. 4 03/18/2015 CAESAR PATHAK MD Ot 785. 1 07/13/2015 SHEREEN PRUETT MD Ot 455.0 INT [...] W/O PERF 09/16/2015 MICHAEL GIL MD Ot R11 .2 NAUSEA WITH VOMITING, UNSPECIFIED 09/16/2015 MICHAEL GIL MD Ot R19 .7 DIARRHEA, UNSPECIFIED 09/16/2015 MICHAEL GIL MD Ot [...] PEREZ, MARCELAAAKI Ot 401.9 12/06/2015 FLYNN PEREZ, MARCELAAAKI Ot 455.0 12/06/2015 FLYNN PEREZ, MARCELAAAKI Ot 455.3 12/06/2015 FLYNN PEREZ, MARCELAAAKI Ot 562.10 12/06/2015 FLYNN PEREZ, MARCELAAAKI Ot 569.3 12/06/2015 FLYNN PEREZ, MARCELAAAKI Ot V16.0 12/06/2015 FLYNN PEREZ, MARCELAAAKI Ot V72.84 12/06/2015 FLYNN PEREZ, MARCELAAAKI Ot 153.9 12/06/2015 FLYNN PEREZ, TAKAAKI Ot 573.8 12/06/2015 FLYNN PEREZ, MARCELAAAKI Ot 793.4 12/06/2015 FLYNN PEREZ, MARCELAAAKI Ot 153.9 12/06/2015 FLYNN PEREZ, MARCELAAAKI Ot V72.63 12/06/2015 FLYNN PEREZ, MARCELAAAKI Ot V72.83 12/06/2015 FLYNN PEREZ, MARCELAAAKI Ot V74.8 12/06/2015 FLYNN PEREZ, MARCELAAAKI Ot 153.9 12/06/2015 FLYNN PEREZ, SHEREEN Ot 791.9 12/06/2015 SHEREEN PRUETT MD Ot V45.89 12/06/2015 LAWSON PEREZ, CAESAR Pak Ot 272. 4 12/06/2015 CAESAR PATHAK MD Ot 785. 1 12/06/2015 FLYNN PEREZ, SHEREEN Ot V10.05 12/06/2015 SHEREEN PRUETT MD Ot V72.84 12/28/2015 TAZ PEREZ, WM Chou Ot Z12.3 1 07/20/2016 TAZ PEREZ, WM Chou Ot E04.2 NONTOXIC MULTINODULAR GOITER 07/20/2016 TAZ PEREZ, WM Chou Ot E04.2 NONTOXIC MULTINODULAR GOITER 07/25/2016 WM MCGHEE MD Ot E04.2 NONTOXIC MULTINODULAR GOITER 08/06/2016 Ot 719.45 JUVENTINO NT PAIN-PELVIS 08/06/2016 Ot V43.64 HIP JOINT REPLACEMENT STATUS 08/06/2016 Ot V76.12 OT SCREEN MAMMO- MALIGN NEOPLASM OF [place] 08/06/2016 Ot 726.10 BUR DAV TENDONS DIS SHLDER NOS 08/06/2016 Ot V72.84 EXA M PRE- OPERATIVE NOS 08/06/2016 Ot V74.8 SCRE EN-BACTERIAL DIS NEC 08/06/2016 Ot 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, TYPE II OR UNSPEC TY 08/06/2016 Ot 401.9 HYPE RTENSION NOS 08/06/2016 Ot 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 08/06/2016 Ot 726.10 BUR DAV TENDONS DIS SHLDER NOS 08/06/2016 Ot 726.19 ROT ATOR CUFF DIS NEC 08/06/2016 Ot 726.2 SHOU LDER REGION DIS NEC 08/06/2016 Ot V58.69 OT MED,LT,CURRENT USE 08/06/2016 Ot 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 4 HYPERLIPIDEMIA NEC/NOS 08/06/2016 CAESAR PATHAK MD Ot 785. 1 PALPITATIONS 08/06/2016 SHEREEN PRUETT MD Ot V10.05 HX OF COLONIC MALIGNANCY 08/06/2016 SHEREEN PRUETT MD Ot V72.84 EXAM PRE-OPERATIVE NOS 08/06/2016 WM MCGHEE MD Ot Z12.3 1 ENCNTR SCREEN MAMMOGRAM FOR MALIGNANT NE 08/06/2016 WM MCGHEE MD Ot E04.2 NONTOXIC MULTINODULAR GOITER 08/09/2016 WM MCGHEE MD Ot E04.2 NONTOXIC MULTINODULAR GOITER 08/15/2016 WM MCGHEE MD Ot E04.2 NONTOXIC MULTINODULAR GOITER 08/16/2016 NORMA PEREZ, MELVA P Ot E04 .1 NONTOXIC SINGLE THYROID NODULE 09/04/2016 MELVA GREEN MD P Ot E04 .1 NONTOXIC SINGLE THYROID NODULE 09/10/2016 MELVA GREEN MD P Ot E04 .1 NONTOXIC SINGLE THYROID NODULE 10/12/2016 MELVA GREEN MD P Ot E04 .9 NONTOXIC GOITER, UNSPECIFIED 10/12/2016 MELVA GREEN MD P Ot Z01.812 ENCOUNTER FOR PREPROCEDURAL LABORATORY E 10/12/2016 MELVA GREEN MD P Ot Z01.818 ENCOUNTER FOR OTHER PREPROCEDURAL EXAMIN 10/12/2016 MELVA GREEN MD P Ot Z11 .2 ENCOUNTER FOR SCREENING FOR OTHER BACTER 10/15/2016 MELVA GREEN MD P Ot E04 .9 NONTOXIC GOITER, UNSPECIFIED 10/15/2016 MELVA GREEN MD P Ot Z01.812 ENCOUNTER FOR PREPROCEDURAL LABORATORY E 10/15/2016 MELVA GREEN MD P Ot Z01.818 ENCOUNTER FOR OTHER PREPROCEDURAL EXAMIN 10/15/2016 MELVA GREEN MD P Ot Z11 .2 ENCOUNTER FOR SCREENING FOR OTHER BACTER 10/16/2016 MELVA GREEN MD P Ot E04 .9 NONTOXIC GOITER, UNSPECIFIED 10/16/2016 MELVA GREEN MD P Ot Z01.812 ENCOUNTER FOR PREPROCEDURAL LABORATORY E 10/16/2016 MELVA GREEN MD P Ot Z01.818 ENCOUNTER FOR OTHER PREPROCEDURAL EXAMIN 10/16/2016 MELAV GREEN MD Ot Z11 .2 ENCOUNTER FOR SCREENING FOR OTHER BACTER 10/20/2016 MELVA GREEN MD Ot 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 BENIGN NEOPLASM OF THYROID GLAND 10/20/2016 MELVA GREEN MD Ot R11 .0 NAUSEA 10/24/2016 MELVA GREEN MD Ot D34 BENIGN NEOPLASM OF THYROID GLAND 10/24/2016 MELVA GREEN MD Ot R11 .0 NAUSEA 10/26/2016 MELVA GREEN MD Ot D34 BENIGN NEOPLASM OF THYROID GLAND 10/26/2016 MELVA GREEN MD Ot R11 .0 NAUSEA 11/27/2016 MELVA GREEN MD Ot E04 .1 NONTOXIC SINGLE THYROID NODULE 02/06/2017 WM MCGHEE MD Ot M25.5 51 PAIN IN RIGHT HIP 02/06/2017 WM MCGHEE MD Ot R53.1 WEAKNESS 02/15/2017 WM MCGHEE MD Ot M25.5 51 PAIN IN RIGHT HIP 02/15/2017 WM MCGHEE MD Ot R53.1 WEAKNESS 03/08/2017 ASTRID MEYER DO Ot 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, 04/17/2017 ASTRID MEYER DO Ot 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, 05/21/2017 Ot 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 4 HYPERLIPIDEMIA NEC/NOS 05/21/2017 CAESAR PATHAK MD Ot 785. 1 PALPITATIONS 05/21/2017 SHEREEN PRUETT MD Ot V10.05 HX OF COLONIC MALIGNANCY 05/21/2017 SHEREEN PRUETT MD, Ot V72.84 EXAM PRE-OPERATIVE NOS 05/21/2017 TAZ PEREZ, WM Chou Ot Z12.3 1 ENCNTR SCREEN MAMMOGRAM FOR MALIGNANT NE 05/21/2017 WM MCGHEE MD Ot E04.2 NONTOXIC MULTINODULAR GOITER 05/21/2017 NORMA PEREZ, MELVA P Ot E04 .1 NONTOXIC SINGLE THYROID NODULE 05/21/2017 WM MCGHEE MD Ot M25.5 51 PAIN IN RIGHT HIP 05/21/2017 WM MCGHEE MD Ot R53.1 WEAKNESS 05/22/2017 NORMA PEREZ, MELVA P Ot E04 .1 NONTOXIC SINGLE THYROID NODULE 05/22/2017 MELVA GREEN MD P Ot E04 .1 NONTOXIC SINGLE THYROID NODULE 05/22/2017 NORMA PEREZ, MELVA P Ot E04 .1 NONTOXIC SINGLE THYROID NODULE 06/11/2017 MELVA GREEN MD P Ot E04 .1 NONTOXIC SINGLE THYROID NODULE 06/25/2017 MELVA GREEN MD P Ot E04 .1 NONTOXIC SINGLE THYROID NODULE 07/31/2017 YAN PEREZ, JOYCE Christiansen Ot Z12.31 ENCNTR SCREEN MAMMOGRAM FOR MALIGNANT NE 08/19/2017 SHEREEN PRUETT MD Ot Z01.81 8 ENCOUNTER FOR OTHER PREPROCEDURAL EXAMIN 08/19/2017 SHEREEN PRUETT MD Ot Z85.03 8 PERSONAL HISTORY OF MALIGNANT NEOPLASM O 08/19/2017 SHEREEN PRUETT MD Ot Z01.81 8 ENCOUNTER FOR OTHER PREPROCEDURAL EXAMIN 08/19/2017 SHEREEN PRUETT MD Ot Z85.03 8 PERSONAL HISTORY OF MALIGNANT NEOPLASM O 08/20/2017 SHEREEN PRUETT MD Ot Z01.81 8 ENCOUNTER FOR OTHER PREPROCEDURAL EXAMIN 08/20/2017 SHEREEN PRUETT MD Ot Z85.03 8 PERSONAL HISTORY OF MALIGNANT NEOPLASM O 08/21/2017 [...] FO 08/21/2017 SHEREEN PRUETT MD, Ot Z79.84 PAN HELPER (CURRENT) USE OF ORAL HYPOGLYC 08/21/2017 SHEREEN PRUETT MD, Ot Z79.89 9 OTHER PAN HELPER (CURRENT) DRUG THERAPY 08/21/2017 SHEREEN PRUETT MD, Ot Z85.03 8 PERSONAL HISTORY OF MALIGNANT NEOPLASM O 08/21/2017 SHEREEN PRUETT MD, Ot 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 08/22/2017 SHEREEN PRUETT MD, Ot E03.9 HYPOTHYROIDISM, UNSPECIFIED 08/22/2017 SHEREEN PRUETT MD Ot E11.9 TYPE 2 DIABETES MELLITUS WITHOUT COMPLIC 08/22/2017 SHEREEN PRUETT MD, Ot E78.00 PURE HYPERCHOLESTEROLEMIA, UNSPECIFIED 08/22/2017 SHEREEN PRUETT MD Ot I10 ESSENTIAL (PRIMARY) HYPERTENSION 08/22/2017 SHEREEN [...] FO 08/22/2017 SHEREEN PRUETT MD, Ot Z79.84 FDC (CURRENT) USE OF ORAL HYPOGLYC 08/22/2017 SHEREEN PRUETT MD, Ot Z79.89 9 OTHER FDC (CURRENT) DRUG THERAPY 08/22/2017 SHEREEN PRUETT MD, Ot Z85.03 8 PERSONAL HISTORY OF MALIGNANT NEOPLASM O 08/22/2017 SHEREEN PRUETT MD, Ot 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 09/04/2017 JOYCE HEREDIA MD Ot Z12.31 ENCNTR SCREEN [...] EXAM AFTER TRTMT FO 09/09/2017 SHEREEN PRUETT MD, Ot Z79.84 FDC (CURRENT) USE OF ORAL HYPOGLYC 09/09/2017 SHEREEN PRUETT MD, Ot Z79.89 9 OTHER FDC (CURRENT) DRUG THERAPY 09/09/2017 SHEREEN PRUETT MD, Ot Z85.03 8 PERSONAL HISTORY OF MALIGNANT NEOPLASM O 09/09/2017 SHEREEN PRUETT MD, Ot 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 4 HYPERLIPIDEMIA NEC/NOS 11/26/2017 CAESAR PATHAK MD Ot 785. 1 PALPITATIONS 11/26/2017 SHEREEN PRUETT MD Ot V10.05 HX OF COLONIC MALIGNANCY 11/26/2017 SHEREEN PRUETT MD Ot V72.84 EXAM PRE-OPERATIVE NOS 11/26/2017 WM MCGHEE MD Ot Z12.3 1 ENCNTR SCREEN MAMMOGRAM FOR MALIGNANT NE 11/26/2017 WM MCGHEE MD Ot E04.2 NONTOXIC MULTINODULAR GOITER 11/26/2017 NORMA PEREZ, MELVA Hernandez Ot E04 .1 NONTOXIC SINGLE THYROID NODULE 11/26/2017 TAZ PEREZ, WM Chou Ot M25.5 51 PAIN IN RIGHT HIP 11/26/2017 WM MCGHEE MD Ot R53.1 WEAKNESS 11/26/2017 MELVA GREEN MD Ot E04 .1 NONTOXIC SINGLE THYROID NODULE 11/26/2017 YAN PEREZ, JOYCE Christiansen Ot Z12.31 ENCNTR SCREEN MAMMOGRAM FOR MALIGNANT NE 11/26/2017 Ot V76.12 OTH SCREEN MAMMO- MALIGN NEOPLASM OF OMA 11/26/2017 CASI LOVE RN CIRCULATING Ot V76.12 OTH SCREEN MAMMO-MALIGN NEOPLASM OF [...] MD Ot V72.84 EXAM PRE-OPERATIVE NOS 11/26/2017 SHERENE PRUETT MD Ot 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 4 HYPERLIPIDEMIA NEC/NOS 11/26/2017 CAESAR PATHAK MD Ot 785. 1 PALPITATIONS 11/26/2017 SHEREEN PRUETT MD Ot V10.05 HX OF COLONIC MALIGNANCY 11/26/2017 SHEREEN PRUETT MD Ot V72.84 EXAM PRE-OPERATIVE NOS 11/26/2017 TAZ PEREZ, WM Chou Ot Z12.3 1 ENCNTR SCREEN MAMMOGRAM FOR MALIGNANT NE 11/26/2017 TAZ PEREZ, WM Chou Ot E04.2 NONTOXIC MULTINODULAR GOITER 11/26/2017 MELVA GREEN MD Ot E04 .1 NONTOXIC SINGLE THYROID NODULE 11/26/2017 WM MCGHEE MD Ot M25.5 51 PAIN IN RIGHT HIP 11/26/2017 WM MCGHEE MD Ot R53.1 WEAKNESS 11/26/2017 MELVA GREEN MD Ot E04 .1 NONTOXIC SINGLE THYROID NODULE 11/26/2017 YAN PEREZ, JOYCE Christiansen Ot Z12.31 ENCNTR SCREEN MAMMOGRAM FOR MALIGNANT NE 11/28/2017 Ot V76.12 OTH SCREEN MAMMO- MALIGN NEOPLASM OF OMA 11/28/2017 CASI LOVE APRN [...] MD Ot V45.89 POSTSURGICAL STATES NEC 11/28/2017 CAEASR PATHAK MD Ot 272. 4 HYPERLIPIDEMIA NEC/NOS 11/28/2017 CEASAR PATHAK MD Ot 785. 1 PALPITATIONS 11/28/2017 SHEREEN PRUTET MD Ot V10.05 HX OF COLONIC MALIGNANCY 11/28/2017 SHEREEN PRUETT MD Ot V72.84 EXAM PRE-OPERATIVE NOS 11/28/2017 WM MCGHEE MD Ot Z12.3 1 ENCNTR SCREEN MAMMOGRAM FOR MALIGNANT NE 11/28/2017 WM MCGHEE MD Ot E04.2 NONTOXIC MULTINODULAR GOITER 11/28/2017 NORMA PEREZ, MELVA Hernandez Ot E04 .1 NONTOXIC SINGLE THYROID NODULE 11/28/2017 WM MCGHEE MD Ot M25.5 51 PAIN IN RIGHT HIP 11/28/2017 WM MCGHEE MD Ot R53.1 WEAKNESS 11/28/2017 MELVA GREEN MD Ot E04 .1 NONTOXIC SINGLE THYROID NODULE 11/28/2017 JOYCE HEREDIA MD Ot Z12.31 ENCNTR SCREEN MAMMOGRAM FOR MALIGNANT NE 11/29/2017 RUI ISLAS LICENSED STAFF MFT Ot E07.9 DISORDER OF THYROID, UNSPECIFIED 12/25/2017 JOYCE HEREDIA MD Ot E03 .9 HYPOTHYROIDISM, UNSPECIFIED 12/25/2017 JOYCE HEREDIA MD Ot E07.89 OTHER SPECIFIED DISORDERS OF THYROID 12/25/2017 JOYCE HEREDIA MD Ot K11 .8 OTHER DISEASES OF SALIVARY [place]S 12/25/2017 JOYCE HEREDIA MD Ot K57.90 DVRTCLOS OF INTEST, PART UNSP, W/O PERF 12/25/2017 JOYCE HEREDIA MD, Ot Z08 ENCNTR FOR FOLLOW-UP EXAM AFTER TRTMT FO 12/25/2017 JOYCE HEREDIA MD Ot Z85.038 PERSONAL HISTORY OF MALIGNANT NEOPLASM O 12/25/2017 JOYCE HEREDIA MD Ot Z90.49 ACQUIRED ABSENCE OF OTHER SPECIFIED PART 12/25/2017 MELVA GREEN MD Ot L98 .9 DISORDER OF THE SKIN AND SUBCUTANEOUS TI 12/25/2017 MELVA GREEN MD Ot Z01.812 ENCOUNTER FOR PREPROCEDURAL LABORATORY E 12/25/2017 MELVA GREEN MD Ot Z11 .2 ENCOUNTER FOR SCREENING FOR OTHER BACTER 12/25/2017 Ot V76.12 OTH SCREEN MAMMO- MALIGN NEOPLASM OF OMA 12/25/2017 CASI LOVE APRN Ot V76.12 OTH SCREEN MAMMO-MALIGN NEOPLASM OF OMA 12/25/2017 SHEREEN PRUETT MD Ot 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 12/25/2017 SHEREEN PRUETT MD Ot 244.9 HYPOTHYROIDISM NOS 12/25/2017 SHEREEN PRUETT MD Ot 250.00 DIAB FADY [...] STATES NEC 12/25/2017 CAESAR PATHAK MD Ot 272. 4 HYPERLIPIDEMIA NEC/NOS 12/25/2017 CAESAR PATHAK MD Ot 785. 1 PALPITATIONS 12/25/2017 SHEREEN PRUETT MD Ot V10.05 HX OF COLONIC MALIGNANCY 12/25/2017 SHEREEN PRUETT MD Ot V72.84 EXAM PRE-OPERATIVE NOS 12/25/2017 TAZ PEREZ, WM Chou Ot Z12.3 1 ENCNTR SCREEN MAMMOGRAM FOR MALIGNANT NE 12/25/2017 WM MCGHEE MD Ot E04.2 NONTOXIC MULTINODULAR GOITER 12/25/2017 NORMA PEREZ, MELVA Hernandez Ot E04 .1 NONTOXIC SINGLE THYROID NODULE 12/25/2017 WM MCGHEE MD Ot M25.5 51 PAIN IN RIGHT HIP 12/25/2017 WM MCGHEE MD Ot R53.1 WEAKNESS 12/25/2017 MELVA GREEN MD, Ot E04 .1 NONTOXIC SINGLE THYROID NODULE 12/25/2017 JOYCE HEREDIA MD, Ot Z12.31 ENCNTR SCREEN MAMMOGRAM FOR MALIGNANT NE 12/25/2017 JOYCE HEREDIA MD, Ot E03 .9 HYPOTHYROIDISM, UNSPECIFIED 12/25/2017 JOYCE HEREDIA MD, Ot E07.89 OTHER SPECIFIED DISORDERS OF THYROID 12/25/2017 JOYCE HEREDIA MD, Ot K11 .8 OTHER DISEASES OF SALIVARY [place]ANDS 12/25/2017 JOYCE HEREDIA MD, Ot K57.90 DVRTCLOS OF INTEST, PART UNSP, W/O PERF 12/25/2017 JOYCE HEREDIA MD, Ot Z08 ENCNTR FOR FOLLOW-UP EXAM AFTER TRTMT FO 12/25/2017 JOYCE HEREDIA MD, Ot Z85.038 PERSONAL HISTORY OF MALIGNANT NEOPLASM O 12/25/2017 JOYCE HEREDIA MD, Ot Z90.49 ACQUIRED ABSENCE OF OTHER SPECIFIED PART 12/25/2017 RUI ISLAS LICENSED STAFF MFT Ot E07.9 DISORDER OF THYROID, UNSPECIFIED 12/26/2017 MELVA GREEN MD Ot L98 .9 DISORDER OF THE SKIN AND SUBCUTANEOUS TI 12/26/2017 MELVA GREEN MD Ot Z01.812 ENCOUNTER FOR PREPROCEDURAL LABORATORY E 12/26/2017 MELVA GREEN MD Ot Z11 .2 ENCOUNTER FOR SCREENING FOR OTHER BACTER 12/27/2017 MELVA GREEN MD Ot 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 12/27/2017 MELVA GREEN MD, Ot 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 12/27/2017 MELVA GREEN MD Ot E11 .9 TYPE 2 DIABETES MELLITUS WITHOUT COMPLIC 12/27/2017 MELVA GREEN MD Ot I10 ESSENTIAL (PRIMARY) HYPERTENSION 12/27/2017 MELVA GREEN MD Ot I25.10 ATHSCL HEART DISEASE OF [place] CORONARY 12/27/2017 MELVA GREEN MD Ot Z79.84 FDC (CURRENT) USE OF ORAL HYPOGLYC 12/27/2017 GREEN MD, MELVA P Ot Z79.899 OTHER PAN HELPER (CURRENT) DRUG THERAPY 12/31/2017 MELVA GREEN MD P Ot 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 12/31/2017 MELVA GREEN MD P Ot 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 12/31/2017 MELVA GREEN MD P Ot E11 .9 TYPE 2 DIABETES MELLITUS WITHOUT COMPLIC 12/31/2017 MELVA GREEN MD P Ot I10 ESSENTIAL (PRIMARY) HYPERTENSION 12/31/2017 MELVA GREEN MD P Ot I25.10 ATHSCL HEART DISEASE OF [place] CORONARY 12/31/2017 MELVA GREEN MD P Ot Z79.84 PAN HELPER (CURRENT) USE OF ORAL HYPOGLYC 12/31/2017 MELVA GREEN MD Ot Z79.899 OTHER PAN HELPER (CURRENT) DRUG THERAPY 12/31/2017 MELVA GREEN MD Ot 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 12/31/2017 MELVA GREEN MD Ot 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 12/31/2017 MELVA GREEN MD P Ot E11 .9 TYPE 2 DIABETES MELLITUS WITHOUT COMPLIC 12/31/2017 MELVA GREEN MD P Ot I10 ESSENTIAL (PRIMARY) HYPERTENSION 12/31/2017 MELVA GREEN MD P Ot I25.10 ATHSCL HEART DISEASE OF [place] CORONARY 12/31/2017 MELVA GREEN MD P Ot Z79.84 FDC (CURRENT) USE OF ORAL HYPOGLYC 12/31/2017 MELVA GREEN MD P Ot Z79.899 OTHER PAN HELPER (CURRENT) DRUG THERAPY 01/03/2018 MELVA GREEN MD Ot 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 4 HYPERLIPIDEMIA NEC/NOS 03/11/2018 CAESAR PATHAK MD Ot 785. 1 PALPITATIONS 03/11/2018 SHEREEN PRUETT MD Ot V10.05 HX OF COLONIC MALIGNANCY 03/11/2018 SHEREEN PRUETT MD Ot V72.84 EXAM PRE-OPERATIVE NOS 03/11/2018 WM MCGHEE MD Ot Z12.3 1 ENCNTR SCREEN MAMMOGRAM FOR MALIGNANT NE 03/11/2018 WM MCGHEE MD Ot E04.2 NONTOXIC MULTINODULAR GOITER 03/11/2018 MELVA GREEN MD Ot E04 .1 NONTOXIC SINGLE THYROID NODULE 03/11/2018 WM MCGHEE MD Ot M25.5 51 PAIN IN RIGHT HIP 03/11/2018 WM MCGHEE MD Ot R53.1 WEAKNESS 03/11/2018 MELVA GREEN MD Ot E04 .1 NONTOXIC SINGLE THYROID NODULE 03/11/2018 JOYCE HEREDIA MD, Ot Z12.31 ENCNTR SCREEN MAMMOGRAM FOR MALIGNANT NE 03/11/2018 JOYCE HEREDIA MD Ot E03 .9 HYPOTHYROIDISM, UNSPECIFIED 03/11/2018 JOYCE HEREDIA MD Ot E07.89 OTHER SPECIFIED DISORDERS OF THYROID 03/11/2018 JOYCE HEREDIA MD Ot K11 .8 OTHER DISEASES OF [place] 03/11/2018 JOYCE HEREDIA MD, Ot K57.90 DVRTCLOS OF INTEST, PART UNSP, W/O PERF 03/11/2018 JOYCE HEREDIA MD, Ot Z08 ENCNTR FOR FOLLOW-UP EXAM AFTER TRTMT FO 03/11/2018 JOYCE HEREDIA MD Ot Z85.038 PERSONAL HISTORY OF MALIGNANT NEOPLASM O 03/11/2018 JOYCE HEREDIA MD, Ot Z90.49 ACQUIRED ABSENCE OF OTHER SPECIFIED PART 03/11/2018 RUI ISLAS LICENSED STAFF MFT Ot E07.9 DISORDER OF THYROID, UNSPECIFIED 03/12/2018 MELVA GREEN MD Ot E04 .1 NONTOXIC SINGLE THYROID NODULE 03/12/2018 MELVA GREEN MD Ot E89 .0 POSTPROCEDURAL HYPOTHYROIDISM 03/12/2018 MELVA GREEN MD Ot K11 .8 OTHER DISEASES OF [place] 03/12/2018 MELVA GREEN MD Ot Z85.038 PERSONAL HISTORY OF MALIGNANT NEOPLASM O 04/01/2018 MELVA GREEN MD Ot E04 .1 NONTOXIC SINGLE THYROID NODULE 04/01/2018 MELVA GREEN MD Ot E89 .0 POSTPROCEDURAL HYPOTHYROIDISM 04/01/2018 MELVA GREEN MD Ot K11 .8 OTHER DISEASES OF [place] 04/01/2018 MELVA GREEN MD Ot Z85.038 PERSONAL HISTORY [...] STATES NEC 07/16/2018 CAESAR PATHAK MD Ot 272. 4 HYPERLIPIDEMIA NEC/NOS 07/16/2018 CAESAR PATHAK MD Ot 785. 1 PALPITATIONS 07/16/2018 SHEREEN PRUETT MD Ot V10.05 HX OF COLONIC MALIGNANCY 07/16/2018 SHEREEN PRUETT MD Ot V72.84 EXAM PRE-OPERATIVE NOS 07/16/2018 WM MCGHEE MD Ot Z12.3 1 ENCNTR SCREEN MAMMOGRAM FOR MALIGNANT NE 07/16/2018 WM MCGHEE MD Ot E04.2 NONTOXIC MULTINODULAR GOITER 07/16/2018 MELVA GREEN MD Ot E04 .1 NONTOXIC SINGLE THYROID NODULE 07/16/2018 WM MCGHEE MD Ot M25.5 51 PAIN IN RIGHT HIP 07/16/2018 WM MCGHEE MD Ot R53.1 WEAKNESS 07/16/2018 MELVA GREEN MD Ot E04 .1 NONTOXIC SINGLE THYROID NODULE 07/16/2018 JOYCE HEREDIA MD Ot Z12.31 ENCNTR SCREEN MAMMOGRAM FOR MALIGNANT NE 07/16/2018 JOYCE HEREDIA MD Ot E03 .9 HYPOTHYROIDISM, UNSPECIFIED 07/16/2018 JOYCE HEREDIA MD Ot E07.89 OTHER SPECIFIED DISORDERS OF THYROID 07/16/2018 JOYCE HEREDIA MD Ot K11 .8 OTHER DISEASES OF [place] 07/16/2018 JOYCE HEREDIA MD Ot K57.90 DVRTCLOS OF INTEST, PART UNSP, W/O PERF 07/16/2018 JOYCE HEREDIA MD Ot Z08 ENCNTR FOR FOLLOW-UP EXAM AFTER TRTMT FO 07/16/2018 JOYCE HEREDIA MD Ot Z85.038 PERSONAL HISTORY OF MALIGNANT NEOPLASM O 07/16/2018 JOYCE HEREDIA MD Ot Z90.49 ACQUIRED ABSENCE OF OTHER SPECIFIED PART 07/16/2018 RUI ISLAS LICENSED STAFF MFT Ot E07.9 DISORDER OF THYROID, UNSPECIFIED 07/16/2018 MELVA GREEN MD Ot E04 .1 NONTOXIC SINGLE THYROID NODULE 07/16/2018 MELVA GREEN MD Ot E89 .0 POSTPROCEDURAL HYPOTHYROIDISM 07/16/2018 MELVA GREEN MD Ot K11 .8 OTHER DISEASES OF [place] 07/16/2018 MELVA GREEN MD Ot Z85.038 PERSONAL HISTORY OF MALIGNANT NEOPLASM O 07/17/2018 JOYCE HEREDIA MD Ot 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 07/17/2018 JOYCE HEREDIA MD Ot D34 BENIGN NEOPLASM OF THYROID GLAND 07/17/2018 JOYCE HEREDIA MD F Ot 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 LG INT W/O PERFORATION OR AB 07/17/2018 JOYCE HEREDIA MD Ot N28 .1 CYST OF KIDNEY, ACQUIRED 07/17/2018 JOYCE HEREDIA MD F Ot R97 .0 ELEVATED CARCINOEMBRYONIC ANTIGEN [CEA] 08/06/2018 JOYCE HEREDIA MD Ot 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 08/06/2018 JOYCE HEREDIA MD F Ot D34 BENIGN NEOPLASM OF THYROID GLAND 08/06/2018 JOYCE HEREDIA MD F Ot 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 LG INT W/O PERFORATION OR AB 08/06/2018 JOYCE HEREDIA MD F Ot N28 .1 CYST OF KIDNEY, ACQUIRED 08/06/2018 JOYCE HEREDIA MD Ot R97 .0 ELEVATED CARCINOEMBRYONIC ANTIGEN [CEA] 08/29/2018 MELVA GREEN MD Ot E04 .1 NONTOXIC SINGLE THYROID NODULE 08/29/2018 MELVA GREEN MD Ot K11 .8 OTHER DISEASES OF [place] 09/02/2018 CASI LOVE RN CIRCULATING Ot M25.562 PAIN IN LEFT KNEE 09/02/2018 CASI LOVE RN CIRCULATING Ot R53.1 WEAKNESS 09/02/2018 JENNIFER CASTELLANO MD Ot E03.9 HYPOTHYROIDISM, UNSPECIFIED 09/02/2018 JENNIFER CASTELLANO MD Ot E11.9 TYPE 2 DIABETES MELLITUS WITHOUT COMPLIC 09/02/2018 JENNIFER CASTELLANO MD Ot E78.00 PURE HYPERCHOLESTEROLEMIA, UNSPECIFIED 09/02/2018 JENNIFER CASTELLANO MD Ot G43.909 MIGRAINE, UNSP, NOT INTRACTABLE, WITHOUT 09/02/2018 JENNIFER CASTELLANO MD Ot I10 ESSENTIAL (PRIMARY) HYPERTENSION 09/02/2018 JENNIFER CASTELLANO MD Ot M17.12 UNILATERAL PRIMARY OSTEOARTHRITIS, LEFT 09/02/2018 JENNIFER CASTELLANO MD, Ot M25.562 PAIN IN LEFT KNEE 09/02/2018 JENNIFER CASTELLANO MD Ot Z79.84 PAN HELPER (CURRENT) USE OF ORAL HYPOGLYC 09/02/2018 JENNIFER CASTELLANO MD Ot Z80.0 FAMILY HISTORY OF MALIGNANT NEOPLASM OF 09/02/2018 JENNIFER CASTELLANO MD Ot Z85.038 PERSONAL HISTORY OF MALIGNANT NEOPLASM O 09/02/2018 JENNIFER CASTELLANO MD Ot Z88.8 ALLERGY STATUS TO OTH DRUG/MEDS/BIOL SUB 09/02/2018 JENNIFER CASTELLANO MD Ot Z90.710 ACQUIRED ABSENCE OF BOTH CERVIX AND UTER 09/02/2018 JENNIFER CASTELLANO MD Ot Z96.651 PRESENCE OF RIGHT ARTIFICIAL KNEE JOINT 09/07/2018 JENNIFER CASTELLANO MD Ot E03.9 HYPOTHYROIDISM, UNSPECIFIED 09/07/2018 JENNIFER CASTELLANO MD Ot E11.9 TYPE 2 DIABETES MELLITUS WITHOUT COMPLIC 09/07/2018 JENNIFER CASTELLANO MD Ot E78.00 PURE HYPERCHOLESTEROLEMIA, UNSPECIFIED 09/07/2018 JENNIFER CASTELLANO MD Ot G43.909 MIGRAINE, UNSP, NOT INTRACTABLE, WITHOUT 09/07/2018 JENNIFER CASTELLANO MD Ot I10 ESSENTIAL (PRIMARY) HYPERTENSION 09/07/2018 JENNIFER CASTELLANO MD Ot M17.12 UNILATERAL PRIMARY OSTEOARTHRITIS, LEFT 09/07/2018 JENNIFER CASTELLANO MD Ot M25.562 PAIN IN LEFT KNEE 09/07/2018 JENNIFER CASTELLANO MD Ot Z79.84 PAN HELPER (CURRENT) USE OF ORAL HYPOGLYC 09/07/2018 JENNIFER CASTELLANO MD Ot Z80.0 FAMILY HISTORY OF MALIGNANT NEOPLASM OF 09/07/2018 JENNIFER CASTELLANO MD Ot Z85.038 PERSONAL HISTORY OF MALIGNANT NEOPLASM O 09/07/2018 NONA PEREZ, JENNIFER Douglas Ot Z88.8 ALLERGY STATUS TO OTH DRUG/MEDS/BIOL SUB 09/07/2018 NONA PEREZ, JENNIFER Douglas Ot Z90.710 ACQUIRED ABSENCE OF BOTH CERVIX AND UTER 09/07/2018 NONA PEREZ, JENNIFER Douglas Ot Z96.651 PRESENCE OF RIGHT ARTIFICIAL KNEE JOINT 09/22/2018 NORMA PEREZ, MELVA Hernandez Ot E04 .1 NONTOXIC SINGLE THYROID NODULE 09/22/2018 MELVA GREEN MD Ot K11 .8 OTHER DISEASES OF [place] 09/24/2018 CASI LOVE RN CIRCULATING Ot M25.562 PAIN IN LEFT KNEE 09/24/2018 CASI LOVE RN CIRCULATING Ot R53.1 WEAKNESS 10/15/2018 MITCH DO, ASTRID F Ot M17.12 UNILATERAL PRIMARY OSTEOARTHRITIS, LEFT 10/15/2018 MITCH DO, ASTRID F Ot M23.242 DERANG OF ANT HORN OF LAT MENSC DUE TO O 10/15/2018 MITCH DO, ASTRID F Ot M23.252 DERANG OF POST HORN OF LAT MENSC DUE TO 11/05/2018 MITCH DO, ASTRID F Ot M17.12 UNILATERAL PRIMARY OSTEOARTHRITIS, LEFT 11/05/2018 MITCH DO, ASTRID F Ot M23.242 DERANG OF ANT HORN OF LAT MENSC DUE TO O 11/05/2018 MITCH DO, ASTRID F Ot M23.252 DERANG OF POST HORN OF LAT MENSC DUE TO 11/21/2018 MICHAEL GIL MD Ot 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 11/21/2018 MICHAEL GIL MD Ot E11 .9 TYPE 2 DIABETES MELLITUS WITHOUT COMPLIC 11/21/2018 MICHAEL GIL MD Ot E78.00 PURE HYPERCHOLESTEROLEMIA, UNSPECIFIED 11/21/2018 MICHAEL GIL MD Ot E87.70 FLUID OVERLOAD, UNSPECIFIED 11/21/2018 MICHAEL GIL MD Ot E89 .0 POSTPROCEDURAL HYPOTHYROIDISM 11/21/2018 MICHAEL GIL MD Ot G43.909 MIGRAINE, UNSP, NOT INTRACTABLE, WITHOUT 11/21/2018 MICHAEL GIL MD Ot G47.30 SLEEP APNEA, UNSPECIFIED 11/21/2018 MICHAEL GIL MD Ot I10 ESSENTIAL (PRIMARY) HYPERTENSION 11/21/2018 MICHAEL GIL MD, Ot J06 .9 ACUTE UPPER RESPIRATORY INFECTION, UNSPE 11/21/2018 MICHAEL GIL MD, Ot J30 .2 OTHER SEASONAL ALLERGIC RHINITIS 11/21/2018 MICHAEL GIL MD, Ot M19.91 PRIMARY OSTEOARTHRITIS, UNSPECIFIED SITE 11/21/2018 MICHAEL GIL MD Ot N30.00 ACUTE CYSTITIS WITHOUT HEMATURIA 11/21/2018 MICHAEL GIL MD, Ot Z20.828 CONTACT W AND EXPOSURE TO OTH VIRAL COMM 11/21/2018 MICHAEL GIL MD Ot Z79.84 PAN HELPER (CURRENT) USE OF ORAL HYPOGLYC 11/21/2018 MICHAEL GIL MD, Ot Z85.038 PERSONAL HISTORY OF MALIGNANT NEOPLASM O 11/21/2018 MICHAEL GIL MD, Ot Z86.010 PERSONAL HISTORY OF COLONIC POLYPS 11/21/2018 MICHAEL GIL MD, Ot Z86.19 PERSONAL HISTORY OF OTHER INFECTIOUS AND 11/21/2018 MICHAEL GIL MD, Ot Z87.19 PERSONAL HISTORY OF OTHER DISEASES OF TH 11/21/2018 MICHAEL GLI MD, Ot Z90.49 ACQUIRED ABSENCE OF OTHER SPECIFIED PART 11/21/2018 MICHAEL GIL MD Ot Z96.611 PRESENCE OF RIGHT ARTIFICIAL SHOULDER DEJUAN 11/21/2018 MICHAEL GIL MD Ot Z96.612 PRESENCE OF LEFT ARTIFICIAL SHOULDER JUVENTINO 11/21/2018 MICHAEL GIL MD Ot Z96.643 PRESENCE OF ARTIFICIAL HIP JOINT, BILATE 12/17/2018 WM MCGHEE MD Ot R05 COUGH 03/02/2019 OMID VILCHIS Ot Z12.31 ENCNTR SCREEN MAMMOGRAM FOR MALIGNANT NE 03/03/2019 OMID VILCHIS Ot Z12.31 ENCNTR SCREEN MAMMOGRAM FOR MALIGNANT NE 03/08/2019 OMID VILCHIS Ot Z12.31 ENCNTR SCREEN MAMMOGRAM FOR MALIGNANT NE 03/10/2019 ANTONIETA SAHA MD Ot A41. 51 SEPSIS DUE TO ESCHERICHIA COLI [E. COLI] 03/10/2019 ANTONIETA SAHA MD Ot B96. 20 UNSP ESCHERICHIA COLI THE CAUSE OF DI 03/10/2019 ANTONIETA SAHA MD Ot E11. 9 TYPE 2 DIABETES MELLITUS WITHOUT COMPLIC 03/10/2019 ANTONIETA SAHA MD Ot E78. 00 PURE HYPERCHOLESTEROLEMIA, UNSPECIFIED 03/10/2019 ANTONIETA SAHA MD Ot E87. 1 HYPO-OSMOLALITY AND HYPONATREMIA 03/10/2019 ANTONIETA SAHA MD Ot E89. 0 POSTPROCEDURAL HYPOTHYROIDISM 03/10/2019 ANTONIETA ASHA MD Ot G43.909 MIGRAINE, UNSP, NOT INTRACTABLE, WITHOUT 03/10/2019 ANTONIETA SAHA MD Ot I10 ESSENTIAL (PRIMARY) HYPERTENSION 03/10/2019 ANTONIETA SAHA MD Ot J30. 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 91 PRIMARY OSTEOARTHRITIS, UNSPECIFIED SITE 03/10/2019 ANTONIETA SAHA MD Ot N30. 00 ACUTE CYSTITIS WITHOUT HEMATURIA 03/10/2019 ANTONIETA SAHA MD Ot Z16. 12 EXTENDED SPECTRUM BETA LACTAMASE (ESBL) 03/10/2019 ANTONIETA SAHA MD Ot Z16. 24 RESISTANCE TO MULTIPLE ANTIBIOTICS 03/10/2019 ANTONIETA SAHA MD Ot Z79. 84 FDC (CURRENT) USE OF ORAL HYPOGLYC 03/10/2019 ANTONIETA SAHA MD Ot Z85.038 PERSONAL HISTORY OF MALIGNANT NEOPLASM O 03/10/2019 ANTONIETA SAHA MD Ot Z86.010 PERSONAL HISTORY OF COLONIC POLYPS 03/10/2019 ANTONIETA SAHA MD Ot Z87.440 PERSONAL HISTORY OF URINARY (TRACT) INFE 03/10/2019 ANTONIETA SAHA MD Ot Z90. 49 ACQUIRED ABSENCE OF OTHER SPECIFIED PART 03/10/2019 ANTONIETA SAHA MD Ot Z96.643 PRESENCE OF ARTIFICIAL HIP JOINT, BILATE 03/25/2019 OMID VILCHIS Ot Z12.31 ENCNTR SCREEN MAMMOGRAM FOR MALIGNANT NE 05/18/2019 JENNIFER CASTELLANO MD Ot E03.9 HYPOTHYROIDISM, UNSPECIFIED 05/18/2019 JENNIFER CASTELLANO MD Ot E11.9 TYPE 2 DIABETES MELLITUS WITHOUT COMPLIC 05/18/2019 JENNIFER CASTELLANO MD Ot E78.00 PURE HYPERCHOLESTEROLEMIA, UNSPECIFIED 05/18/2019 JENNIFER CASTELLANO MD, Ot G43.909 MIGRAINE, UNSP, NOT INTRACTABLE, WITHOUT 05/18/2019 JENNIFER CASTELLANO MD, Ot I10 ESSENTIAL (PRIMARY) HYPERTENSION 05/18/2019 JENNIFER CASTELLANO MD, Ot M54.2 CERVICALGIA 05/18/2019 JENNIFER CASTELLANO MD, Ot S16.1XXA STRAIN OF MUSCLE, FASCIA AND TENDON AT N 05/18/2019 JENNIFER CASTELLANO MD, Ot X50.1XXA OVEREXERTION FROM PROLONGED STATIC OR AW 05/18/2019 JENNIFER CASTELLANO MD, Ot Z79.84 PAN HELPER (CURRENT) USE OF ORAL HYPOGLYC 05/18/2019 JENNIFER CASTELLANO MD, Ot Z80.0 FAMILY HISTORY OF MALIGNANT NEOPLASM OF 05/18/2019 JENNIFER CASTELLANO MD, Ot Z82.49 FAMILY HX OF ISCHEM HEART DIS AND OTH DI 05/18/2019 JENNIFER CASTELLANO MD, Ot Z85.038 PERSONAL HISTORY OF MALIGNANT NEOPLASM O 05/18/2019 JENNIFER CASTELLANO MD, Ot Z86.010 PERSONAL HISTORY OF COLONIC POLYPS 05/18/2019 JENNIFER CASTELLANO MD, Ot Z88.8 ALLERGY STATUS TO OT DRUG/MEDS/BIOL SUB 05/18/2019 JENNIFER CASTELLANO MD, Ot Z90.710 ACQUIRED ABSENCE OF BOTH CERVIX AND UTER 05/18/2019 JENNIFER CASTELLANO MD, Ot Z96.651 PRESENCE OF RIGHT ARTIFICIAL KNEE JOINT 05/25/2019 JENNIFER CASTELLANO MD, Ot E03.9 HYPOTHYROIDISM, UNSPECIFIED 05/25/2019 JENNIFER CASTELLANO MD, Ot E11.9 TYPE 2 DIABETES MELLITUS WITHOUT COMPLIC 05/25/2019 JENNIFER CASTELLANO MD, Ot E78.00 PURE HYPERCHOLESTEROLEMIA, UNSPECIFIED 05/25/2019 JENNIFER CASTELLANO MD, Ot G43.909 MIGRAINE, UNSP, NOT INTRACTABLE, WITHOUT 05/25/2019 JENNIFER CASTELLANO MD, Ot I10 ESSENTIAL (PRIMARY) HYPERTENSION 05/25/2019 JENNIFER CASTELLANO MD, Ot M54.2 CERVICALGIA 05/25/2019 JENNIFER CASTELLANO MD, Ot S16.1XXA STRAIN OF MUSCLE, FASCIA AND TENDON AT N 05/25/2019 JENNIFER CASTELLANO MD, Ot X50.1XXA OVEREXERTION FROM PROLONGED STATIC OR AW 05/25/2019 JENNIFER CASTELLANO MD, Ot Z79.84 PAN HELPER (CURRENT) USE OF ORAL HYPOGLYC 05/25/2019 JENNIFER CASTELLANO MD, Ot Z80.0 FAMILY HISTORY OF MALIGNANT NEOPLASM OF 05/25/2019 JENNIFER CASTELLANO MD, Ot Z82.49 FAMILY HX OF ISCHEM HEART DIS AND OTH DI 05/25/2019 JENNIFER CASTELLANO MD, Ot Z85.038 PERSONAL HISTORY OF MALIGNANT NEOPLASM O 05/25/2019 JENNIFER CASTELLANO MD, Ot Z86.010 PERSONAL HISTORY OF COLONIC POLYPS 05/25/2019 JENNIFER CASTELLANO MD, Ot Z88.8 ALLERGY STATUS TO OT DRUG/MEDS/BIOL SUB 05/25/2019 JENNIFER CASTELLANO MD, Ot Z90.710 ACQUIRED ABSENCE OF BOTH CERVIX AND UTER 05/25/2019 JENNIFER CASTELLANO MD, Ot Z96.651 PRESENCE OF RIGHT ARTIFICIAL KNEE JOINT 06/03/2019 JOYCE HEREDIA MD, Ot 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 06/03/2019 JOYCE HEREDIA MD, Ot D34 BENIGN NEOPLASM OF THYROID GLAND 06/03/2019 JOYCE HEREDIA MD, Ot 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 LG INT W/O PERFORATION OR AB 06/03/2019 JOYCE HEREDIA MD, Ot N28 .1 CYST OF KIDNEY, ACQUIRED 06/03/2019 JOYCE HEREDIA MD, Ot R97 .0 ELEVATED CARCINOEMBRYONIC ANTIGEN [CEA] 06/03/2019 MELVA GREEN MD, Ot E04 .1 NONTOXIC SINGLE THYROID NODULE 06/03/2019 MELVA GREEN MD, Ot K11 .8 OTHER DISEASES OF SALIVARY GLANDS 06/11/2019 JOYCE HEREDIA MD, Ot 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 06/11/2019 HAWAMDEH MD, RANA F Ot D34 BENIGN NEOPLASM OF THYROID GLAND 06/11/2019 JOYCE HEREDIA MD Ot E04 .1 NONTOXIC SINGLE THYROID NODULE 06/11/2019 JOYCE HEREDIA MD Ot K11 .8 OTHER DISEASES OF SALIVARY GLANDS 06/11/2019 JOYCE HEREDIA MD Ot 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 LG INT W/O PERFORATION OR AB 06/11/2019 JOYCE HEREDIA MD Ot N28 .1 CYST OF KIDNEY, ACQUIRED 06/11/2019 JOYCE HEREDIA MD Ot R97 .0 ELEVATED CARCINOEMBRYONIC ANTIGEN [CEA] 06/18/2019 JOYCE HEREDIA MD Ot 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 06/18/2019 JOYCE HEREDIA MD Ot D34 BENIGN NEOPLASM OF THYROID GLAND 06/18/2019 JOYCE HEREDIA MD Ot E04 .1 NONTOXIC SINGLE THYROID NODULE 06/18/2019 JOYCE HEREDIA MD Ot K11 .8 OTHER DISEASES OF SALIVARY GLANDS 06/18/2019 JOYCE HEREDIA MD Ot 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 LG INT W/O PERFORATION OR AB 06/18/2019 JOYCE HEREDIA MD Ot N28 .1 CYST OF KIDNEY, ACQUIRED 06/18/2019 JOYCE HEREDIA MD Ot R97 .0 ELEVATED CARCINOEMBRYONIC ANTIGEN [CEA] 06/24/2019 MELVA GREEN MD Ot E04 .1 NONTOXIC SINGLE THYROID NODULE 06/24/2019 MELVA GREEN MD Ot K11 .8 OTHER DISEASES OF SALIVARY GLANDS Procedures Code Description Performed By Per abbey On 38.93 VENO US CATHETERIZATION NEC 06/03/2014 45.73 OPEN AND OTHER RIGHT HEMICOLECTOMY 06/03/2014 Results Test Result Range Complete blood count (CBC) with automate d white blood cell (WBC) differential - 10/12/16 09:45 Blood leukocytes automated count (number/volume) 5.9 10*3/uL 4.3-11.0 Blood erythrocytes automated count (number/volume) 4.26 10*6/uL 4.35-5.85 Venous blood hemoglobin measurement (mass/volume) 13.5 g/dL 11.5-16.0 Blood hematocrit (volume fraction) 41 % 35-52 Automated erythrocyte mean corpuscular volume 97 [ foz_us] 80-99 Automated erythrocyte mean corpuscular h emoglobin (mass per erythrocyte) 32 pg 25-34 Automated erythrocyte mean corpuscular h emoglobin concentration measurement (mass/volume) 33 g/dL 32-36 Automated erythrocyte distribution width ratio 13. 4 % 10.0- 14.5 Automated blood platelet count (count/volume) 178 10*3/uL [...] 10*3 1.0-4.0 Blood monocytes automated count (number/volume) 0. 5 10*3 0.0-1.0 Automated eosinophil count 0.1 10*3/uL 0 .0-0.3 Automated blood basophil count (count/volume) 0.0 10*3/uL 0.0-0.1 Whole blood basic metabolic panel - 09/27 04/12 09:45 Serum or plasma sodium measurement (moles/volume) 137 mmol/L 135-145 Serum or plasma potassium measurement (moles/volume) 4.4 mmol/L 3.6-5.0 Serum or plasma chloride measurement (moles/volume) 104 mmol/L 98-107 Carbon dioxide 24 mmol/L 21-32 Serum or plasma anion gap determination (moles/volume) 9 mmol/L 5-14 Serum or plasma urea nitrogen measurement (mass/volume ) 21 mg/dL 7-18 Serum or plasma creatinine measurement (mass/volume) 0.82 mg/dL 0.60-1.30 Serum or plasma urea nitrogen/creatinine mass ratio 26 NRG Serum or plasma creatinine measurement w ith calculation of estimated glomerular filtration rate > NRG Serum or plasma glucose measurement (mass/volume) 156 mg/dL 70-105 Serum or plasma calcium measurement (mass/volume) 8.8 mg/dL 8.5-10.1 Methicillin resistant Staphylococcus aur eus (MRSA) screening culture - 10/12/16 09:45 Methicillin resistant Staphylococcus aureus (MRSA) scr eening culture NEG NRG Capillary blood glucose measurement by g lucometer (mass/volume) - 10/19/16 08:31 Capillary blood glucose measurement by glucometer (mas s/volume) 142 mg/dL 70-110 Serum or plasma calcium measurement (mas s/volume) - 10/19/16 15:07 Serum or plasma calcium measurement (mass/volume) 8.3 mg/dL 8.5-10.1 Serum or plasma calcium measurement (mas s/volume) - 10/20/16 05:25 Serum or plasma calcium measurement (mass/volume) 7.9 mg/dL 8.5-10.1 [id number] - 11/28/17 08:17 Serum or plasma urea nitrogen measurement (mass/volume ) 20 mg/dL 7-18 Serum or plasma creatinine measurement (mass/volume) 0.92 mg/dL 0.60-1.30 Serum or plasma urea nitrogen/creatinine mass ratio 22 NRG Serum or plasma creatinine measurement w ith calculation of estimated glomerular filtration rate 58 NRG Complete blood count (CBC) with automate d white blood cell (WBC) differential - 12/25/17 13:10 Blood leukocytes automated count (number/volume) 5.1 10*3/uL 4.3-11.0 Blood erythrocytes automated count (number/volume) 4.07 10*6/uL 4.35-5.85 Venous blood hemoglobin measurement (mass/volume) 13.4 g/dL 11.5-16.0 Blood hematocrit (volume fraction) 39 % 35-52 Automated erythrocyte mean corpuscular volume 96 [ foz_us] 80-99 Automated erythrocyte mean corpuscular h emoglobin (mass per erythrocyte) 33 pg 25-34 Automated erythrocyte mean corpuscular h emoglobin concentration measurement (mass/volume) 34 g/dL 32-36 Automated erythrocyte distribution width ratio 13. 2 % 10.0- 14.5 Automated blood platelet count (count/volume) 174 10*3/uL [...] 10*3 1.0-4.0 Blood monocytes automated count (number/volume) 0. 4 10*3 0.0-1.0 Automated eosinophil count 0.1 10*3/uL 0 .0-0.3 Automated blood basophil count (count/volume) 0.0 10*3/uL 0.0-0.1 Whole blood basic metabolic panel - 11/29 06/14 13:10 Serum or plasma sodium measurement (moles/volume) 135 mmol/L 135-145 Serum or plasma potassium measurement (moles/volume) 4.4 mmol/L 3.6-5.0 Serum or plasma chloride measurement (moles/volume) 103 mmol/L 98-107 Carbon dioxide 23 mmol/L 21-32 Serum or plasma anion gap determination (moles/volume) 9 mmol/L 5-14 Serum or plasma urea nitrogen measurement (mass/volume ) 19 mg/dL 7-18 Serum or plasma creatinine measurement (mass/volume) 0.91 mg/dL 0.60-1.30 Serum or plasma urea nitrogen/creatinine mass ratio 21 NRG Serum or plasma creatinine measurement w ith calculation of estimated glomerular filtration rate 59 NRG Serum or plasma glucose measurement (mass/volume) 138 mg/dL 70-105 Serum or plasma calcium measurement (mass/volume) 8.8 mg/dL 8.5-10.1 Methicillin resistant Staphylococcus aur eus (MRSA) screening culture - 12/25/17 13:10 Methicillin resistant Staphylococcus aureus (MRSA) scr eening culture NEG NRG Capillary blood glucose measurement by g lucometer (mass/volume) - 12/27/17 07:20 Capillary blood glucose measurement by glucometer (mas s/volume) 160 mg/dL 70-110 [id number] - 03/11/18 08:08 Serum or plasma urea nitrogen measurement (mass/volume ) 19 mg/dL 7-18 Serum or plasma creatinine measurement (mass/volume) 0.83 mg/dL 0.60-1.30 Serum or plasma urea nitrogen/creatinine mass ratio 23 NRG Serum or plasma creatinine measurement w ith calculation of estimated glomerular filtration rate > NRG [id number] - 07/16/18 10:20 Serum or plasma urea nitrogen measurement (mass/volume ) 17 mg/dL 7-18 Serum or plasma creatinine measurement (mass/volume) 0.86 mg/dL 0.60-1.30 Serum or plasma urea nitrogen/creatinine mass ratio 20 NRG Serum or plasma creatinine measurement w ith calculation of estimated glomerular filtration rate > NRG [id number] - 08/28/18 09:05 Serum or plasma urea nitrogen measurement (mass/volume ) 15 mg/dL 7-18 Serum or plasma creatinine measurement (mass/volume) 0.81 mg/dL 0.60-1.30 Serum or plasma urea nitrogen/creatinine mass ratio 19 NRG Serum or plasma creatinine measurement w ith calculation of estimated glomerular filtration rate > NRG Complete blood count (CBC) with automate d white blood cell (WBC) differential - 11/18/18 10:45 Blood leukocytes automated count (number/volume) 7.2 10*3/uL 4.3-11.0 Blood erythrocytes automated count (number/volume) 3.99 10*6/uL 4.35-5.85 Venous blood hemoglobin measurement (mass/volume) 12.9 g/dL 11.5-16.0 Blood hematocrit (volume fraction) 38 % 35-52 Automated erythrocyte mean corpuscular volume 95 [ foz_us] 80-99 Automated erythrocyte mean corpuscular h emoglobin (mass per erythrocyte) 32 pg 25-34 Automated erythrocyte mean corpuscular h emoglobin concentration measurement (mass/volume) 34 g/dL 32-36 Automated erythrocyte distribution width ratio 14. 1 % 10.0- 14.5 Automated blood platelet count (count/volume) 199 10*3/uL 130-400 Automated blood platelet mean volume measurement 9.8 [foz_us] 7.4-10.4 Automated blood neutrophils/100 leukocytes 68 % 42-75 Automated blood lymphocytes/100 leukocytes 14 % 12-44 Blood monocytes/100 leukocytes 17 % 0-12 Automated blood eosinophils/100 leukocytes 0 % 0-10 Automated blood basophils/100 leukocytes 0 % 0-10 Blood neutrophils automated count (number/volume) 4.9 10*3 1.8-7.8 Blood lymphocytes automated count (number/volume) 1.0 10*3 1.0-4.0 Blood monocytes automated count (number/volume) 1. 2 10*3 0.0-1.0 Automated eosinophil count 0.0 10*3/uL 0 .0-0.3 Automated blood basophil count (count/volume) 0.0 10*3/uL 0.0-0.1 Blood lactic acid measurement (moles/vol ume) - 11/18/18 10:45 Blood lactic acid measurement (moles/volume) 1.58 mmol/L 0.50-2.00 Comprehensive metabolic panel - 11/18/18 10:45 Serum or plasma sodium measurement (moles/volume) 126 mmol/L 135-145 Serum or plasma potassium measurement (moles/volume) 4.3 mmol/L 3.6-5.0 Serum or plasma chloride measurement (moles/volume) 91 mmol/L 98-107 Carbon dioxide 23 mmol/L 21-32 Serum or plasma anion gap determination (moles/volume) 12 mmol/L 5-14 Serum or plasma urea nitrogen measurement (mass/volume ) 10 mg/dL 7-18 Serum or plasma creatinine measurement (mass/volume) 0.95 mg/dL 0.60-1.30 Serum or plasma urea nitrogen/creatinine mass ratio 11 NRG Serum or plasma creatinine measurement w ith calculation of estimated glomerular filtration rate 56 NRG Serum or plasma glucose measurement (mass/volume) 174 mg/dL 70-105 Serum or plasma calcium measurement (mass/volume) 8.8 mg/dL 8.5-10.1 Serum or plasma total bilirubin measurement (mass/volu me) 0.5 mg/dL 0.1-1.0 Serum or plasma alkaline phosphatase sandee surement (enzymatic activity/volume) 49 U/L 40-136 Serum or plasma aspartate aminotransfera se measurement (enzymatic activity/volume) 20 U/L 5-34 Serum or plasma alanine aminotransferase measurement (enzymatic activity/volume) 11 U/L 0-55 Serum or plasma protein measurement (mass/volume) 6.9 g/dL 6.4-8.2 Serum or plasma albumin measurement (mass/volume) 4.0 g/dL 3.2-4.5 CALCIUM CORRECTED 8.8 mg/dL 8.5-10.1 Influenza virus A and B antigen detectio n - 11/18/18 10:45 FLU RESULT NEGATIVE FOR INFLUENZA A AND B ANTIGENS BY IA NRG Bacterial blood culture - 11/18/18 10:45 Bacterial blood culture NG NRG Complete urinalysis with reflex to cultu re - 11/18/18 10:55 Urine color determination YELLOW NRG Urine clarity determination SLIGHTLY CLOUDY NRG Urine pH measurement by test strip 6 5-9 Specific gravity of urine by test strip 1.020 1.016-1.022 Urine protein assay by test strip, semi-quantitative 3+ NEGATIVE Urine glucose detection by automated test strip NE GATIVE NEGATIVE Erythrocytes detection in urine sediment by light micr oscopy 2+ NEGATIVE Urine ketones detection by automated test strip 1+ NEGATIVE Urine nitrite detection by test strip POSITIVE NEGATIVE Urine total bilirubin detection by test strip NEGA TIVE NEGATIVE Urine urobilinogen measurement by automated test strip (mass/volume) NORMAL NORMAL Urine leukocyte esterase detection by dipstick 3+ NEGATIVE Automated urine sediment erythrocyte cou nt by microscopy (number/high power field) [HPF] NRG Automated urine sediment leukocyte count by microscopy (number/high power field) > [HPF] NRG Bacteria detection in urine sediment by light microsco py LARGE NRG Squamous epithelial cells detection in u rine sediment by light microscopy 0-2 NRG Crystals detection in urine sediment by light microsco py NONE NRG Casts detection in urine sediment by light microscopy NONE NRG Mucus detection in urine sediment by light microscopy NEGATIVE NRG Complete urinalysis with reflex to culture CULTURE PENDING NRG Bacterial urine culture - 11/18/18 10:55 Bacterial urine culture SEE COMMEN NRG COLONY COUNT . NRG FTX;REPORTABLE SUSCEPTIBILITY REPORTED 11-21-2018, 0905 NR FREE TEXT ENTRY 2 RESISTANT ORGANISM/CONTACT PRECA UTIONS NRG FREE TEXT ENTRY 3 ID REPORTED 11/19 11:05 NR RML Sensitivity Panel - 11/18/18 10:55 Gentamicin susceptibility test by minimum inhibitory c oncentration <= NRG Trimethoprim/sulfamethoxazole susceptibi lity test by minimum inhibitoryconcentration > NRG Levofloxacin susceptibility test by minimum inhibitory concentration <= NRG Ampicillin susceptibility test by minimum inhibitory c oncentration > NRG Cefazolin susceptibility test by minimum inhibitory co ncentration > NRG Ceftriaxone susceptibility test by minimum inhibitory concentration > NRG Ciprofloxacin susceptibility test by minimum inhibitor y concentration <= NRG Meropenem susceptibility test by minimum inhibitory co ncentration <= NRG Nitrofurantoin susceptibility test by mi nimum inhibitory concentration <= NRG Amoxicillin and clavulanate potassium susc CHRISTY > NRG PT panel in platelet poor plasma by coag ulation assay - 11/18/18 11:15 Prothrombin time (PT) in platelet poor plasma by coagu lation assay 14.7 s 12.2-14.7 INR in platelet poor plasma or blood by coagulation as say 1.2 0.8-1.4 Activated partial thromboplastin time (a PTT) in platelet poor plasma bycoagulation assay - 11/18/18 11:15 Activated partial thromboplastin time (a PTT) in platelet poor plasma bycoagulation assay 29 s 24-35 Serum or plasma troponin i.cardiac measu rement (mass/volume) - 11/18/18 11:15 Serum or plasma troponin i.cardiac measurement (mass/v olume) < ng/mL <0.028 THYROID STIMULATING HORMONE - 11/18/18 1 1:15 THYROID STIMULATING HORMONE 1.19 u[iU]/mL 0.35-4.94 Bacterial blood culture - 11/18/18 11:26 Bacterial blood culture NG NRG Complete blood count (CBC) with automate d white blood cell (WBC) differential - 11/19/18 06:15 Blood leukocytes automated count (number/volume) 3.9 10*3/uL 4.3-11.0 Blood erythrocytes automated count (number/volume) 3.44 10*6/uL 4.35-5.85 Venous blood hemoglobin measurement (mass/volume) 11.1 g/dL 11.5-16.0 Blood hematocrit (volume fraction) 34 % 35-52 Automated erythrocyte mean corpuscular volume 98 [ foz_us] 80-99 Automated erythrocyte mean corpuscular h emoglobin (mass per erythrocyte) 32 pg 25-34 Automated erythrocyte mean corpuscular h emoglobin concentration measurement (mass/volume) 33 g/dL 32-36 Automated erythrocyte distribution width ratio 14. 3 % 10.0- 14.5 Automated blood platelet count (count/volume) 157 10*3/uL 130-400 Automated blood platelet mean volume measurement 9.5 [foz_us] 7.4-10.4 Automated blood neutrophils/100 leukocytes 67 % 42-75 Automated blood lymphocytes/100 leukocytes 15 % 12-44 Blood monocytes/100 leukocytes 17 % 0-12 Automated blood eosinophils/100 leukocytes 1 % 0-10 Automated blood basophils/100 leukocytes 1 % 0-10 Blood neutrophils automated count (number/volume) 2.6 10*3 1.8-7.8 Blood lymphocytes automated count (number/volume) 0.6 10*3 1.0-4.0 Blood monocytes automated count (number/volume) 0. 7 10*3 0.0-1.0 Automated eosinophil count 0.0 10*3/uL 0 .0-0.3 Automated blood basophil count (count/volume) 0.0 10*3/uL 0.0-0.1 Comprehensive metabolic panel - 11/19/18 06:15 Serum or plasma sodium measurement (moles/volume) 127 mmol/L 135-145 Serum or plasma potassium measurement (moles/volume) 4.2 mmol/L 3.6-5.0 Serum or plasma chloride measurement (moles/volume) 98 mmol/L 98-107 Carbon dioxide 20 mmol/L 21-32 Serum or plasma anion gap determination (moles/volume) 9 mmol/L 5-14 Serum or plasma urea nitrogen measurement (mass/volume ) 11 mg/dL 7-18 Serum or plasma creatinine measurement (mass/volume) 0.83 mg/dL 0.60-1.30 Serum or plasma urea nitrogen/creatinine mass ratio 13 NRG Serum or plasma creatinine measurement w ith calculation of estimated glomerular filtration rate > NRG Serum or plasma glucose measurement (mass/volume) 162 mg/dL 70-105 Serum or plasma calcium measurement (mass/volume) 8.1 mg/dL 8.5-10.1 Serum or plasma total bilirubin measurement (mass/volu me) 0.2 mg/dL 0.1-1.0 Serum or plasma alkaline phosphatase sandee surement (enzymatic activity/volume) 39 U/L 40-136 Serum or plasma aspartate aminotransfera se measurement (enzymatic activity/volume) 24 U/L 5-34 Serum or plasma alanine aminotransferase measurement (enzymatic activity/volume) 11 U/L 0-55 Serum or plasma protein measurement (mass/volume) 5.6 g/dL 6.4-8.2 Serum or plasma albumin measurement (mass/volume) 3.3 g/dL 3.2-4.5 CALCIUM CORRECTED 8.7 mg/dL 8.5-10.1 Capillary blood glucose measurement by g lucometer (mass/volume) - 11/19/18 16:39 Capillary blood glucose measurement by glucometer (mas s/volume) 127 mg/dL 70-110 Capillary blood glucose measurement by g lucometer (mass/volume) - 11/19/18 21:07 Capillary blood glucose measurement by glucometer (mas s/volume) 149 mg/dL 70-110 Capillary blood glucose measurement by g lucometer (mass/volume) - 11/20/18 05:30 Capillary blood glucose measurement by glucometer (mas s/volume) 138 mg/dL 70-110 Complete blood count (CBC) with automate d white blood cell (WBC) differential - 11/20/18 09:25 Blood leukocytes automated count (number/volume) 3.8 10*3/uL 4.3-11.0 Blood erythrocytes automated count (number/volume) 3.51 10*6/uL 4.35-5.85 Venous blood hemoglobin measurement (mass/volume) 11.6 g/dL 11.5-16.0 Blood hematocrit (volume fraction) 34 % 35-52 Automated erythrocyte mean corpuscular volume 97 [ foz_us] 80-99 Automated erythrocyte mean corpuscular h emoglobin (mass per erythrocyte) 33 pg 25-34 Automated erythrocyte mean corpuscular h emoglobin concentration measurement (mass/volume) 34 g/dL 32-36 Automated erythrocyte distribution width ratio 14. 6 % 10.0- 14.5 Automated blood platelet count (count/volume) 178 10*3/uL 130-400 Automated blood platelet mean volume measurement 9.6 [foz_us] 7.4-10.4 Automated blood neutrophils/100 leukocytes 46 % 42-75 Automated blood lymphocytes/100 leukocytes 36 % 12-44 Blood monocytes/100 leukocytes 16 % 0-12 Automated blood eosinophils/100 leukocytes 1 % 0-10 Automated blood basophils/100 leukocytes 1 % 0-10 Blood neutrophils automated count (number/volume) 1.8 10*3 1.8-7.8 Blood lymphocytes automated count (number/volume) 1.4 10*3 1.0-4.0 Blood monocytes automated count (number/volume) 0. 6 10*3 0.0-1.0 Automated eosinophil count 0.0 10*3/uL 0 .0-0.3 Automated blood basophil count (count/volume) 0.0 10*3/uL 0.0-0.1 Comprehensive metabolic panel - 11/20/18 09:25 Serum or plasma sodium measurement (moles/volume) 133 mmol/L 135-145 Serum or plasma potassium measurement (moles/volume) 3.9 mmol/L 3.6-5.0 Serum or plasma chloride measurement (moles/volume) 100 mmol/L 98-107 Carbon dioxide 24 mmol/L 21-32 Serum or plasma anion gap determination (moles/volume) 9 mmol/L 5-14 Serum or plasma urea nitrogen measurement (mass/volume ) 10 mg/dL 7-18 Serum or plasma creatinine measurement (mass/volume) 0.75 mg/dL 0.60-1.30 Serum or plasma urea nitrogen/creatinine mass ratio 13 NRG Serum or plasma creatinine measurement w ith calculation of estimated glomerular filtration rate > NRG Serum or plasma glucose measurement (mass/volume) 166 mg/dL 70-105 Serum or plasma calcium measurement (mass/volume) 8.2 mg/dL 8.5-10.1 Serum or plasma total bilirubin measurement (mass/volu me) 0.2 mg/dL 0.1-1.0 Serum or plasma alkaline phosphatase sandee surement (enzymatic activity/volume) 46 U/L 40-136 Serum or plasma aspartate aminotransfera se measurement (enzymatic activity/volume) 22 U/L 5-34 Serum or plasma alanine aminotransferase measurement (enzymatic activity/volume) 14 U/L 0-55 Serum or plasma protein measurement (mass/volume) 6.0 g/dL 6.4-8.2 Serum or plasma albumin measurement (mass/volume) 3.6 g/dL 3.2-4.5 CALCIUM CORRECTED 8.5 mg/dL 8.5-10.1 Capillary blood glucose measurement by g lucometer (mass/volume) - 11/20/18 11:59 Capillary blood glucose measurement by glucometer (mas s/volume) 147 mg/dL 70-110 Capillary blood glucose measurement by g lucometer (mass/volume) - 11/20/18 16:00 Capillary blood glucose measurement by glucometer (mas s/volume) 160 mg/dL 70-110 Capillary blood glucose measurement by g lucometer (mass/volume) - 11/20/18 21:51 Capillary blood glucose measurement by glucometer (mas s/volume) 116 mg/dL 70-110 Complete blood count (CBC) with automate d white blood cell (WBC) differential - 11/21/18 05:36 Blood leukocytes automated count (number/volume) 2.8 10*3/uL 4.3-11.0 Blood erythrocytes automated count (number/volume) 3.45 10*6/uL 4.35-5.85 Venous blood hemoglobin measurement (mass/volume) 11.0 g/dL 11.5-16.0 Blood hematocrit (volume fraction) 34 % 35-52 Automated erythrocyte mean corpuscular volume 98 [ foz_us] 80-99 Automated erythrocyte mean corpuscular h emoglobin (mass per erythrocyte) 32 pg 25-34 Automated erythrocyte mean corpuscular h emoglobin concentration measurement (mass/volume) 32 g/dL 32-36 Automated erythrocyte distribution width ratio 14. 4 % 10.0- 14.5 Automated blood platelet count (count/volume) 163 10*3/uL 130-400 Automated blood platelet mean volume measurement 9.3 [foz_us] 7.4-10.4 Automated blood neutrophils/100 leukocytes 55 % 42-75 Automated blood lymphocytes/100 leukocytes 29 % 12-44 Blood monocytes/100 leukocytes 13 % 0-12 Automated blood eosinophils/100 leukocytes 2 % 0-10 Automated blood basophils/100 leukocytes 0 % 0-10 Blood neutrophils automated count (number/volume) 1.6 10*3 1.8-7.8 Blood lymphocytes automated count (number/volume) 0.8 10*3 1.0-4.0 Blood monocytes automated count (number/volume) 0. 4 10*3 0.0-1.0 Automated eosinophil count 0.1 10*3/uL 0 .0-0.3 Automated blood basophil count (count/volume) 0.0 10*3/uL 0.0-0.1 Comprehensive metabolic panel - 11/21/18 05:36 Serum or plasma sodium measurement (moles/volume) 131 mmol/L 135-145 Serum or plasma potassium measurement (moles/volume) 4.4 mmol/L 3.6-5.0 Serum or plasma chloride measurement (moles/volume) 97 mmol/L 98-107 Carbon dioxide 26 mmol/L 21-32 Serum or plasma anion gap determination (moles/volume) 8 mmol/L 5-14 Serum or plasma urea nitrogen measurement (mass/volume ) 12 mg/dL 7-18 Serum or plasma creatinine measurement (mass/volume) 0.70 mg/dL 0.60-1.30 Serum or plasma urea nitrogen/creatinine mass ratio 17 NRG Serum or plasma creatinine measurement w ith calculation of estimated glomerular filtration rate > NRG Serum or plasma glucose measurement (mass/volume) 114 mg/dL 70-105 Serum or plasma calcium measurement (mass/volume) 8.3 mg/dL 8.5-10.1 Serum or plasma total bilirubin measurement (mass/volu me) 0.2 mg/dL 0.1-1.0 Serum or plasma alkaline phosphatase sandee surement (enzymatic activity/volume) 46 U/L 40-136 Serum or plasma aspartate aminotransfera se measurement (enzymatic activity/volume) 22 U/L 5-34 Serum or plasma alanine aminotransferase measurement (enzymatic activity/volume) 13 U/L 0-55 Serum or plasma protein measurement (mass/volume) 5.7 g/dL 6.4-8.2 Serum or plasma albumin measurement (mass/volume) 3.4 g/dL 3.2-4.5 CALCIUM CORRECTED 8.8 mg/dL 8.5-10.1 Capillary blood glucose measurement by g lucometer (mass/volume) - 11/21/18 06:05 Capillary blood glucose measurement by glucometer (mas s/volume) 126 mg/dL 70-110 Capillary blood glucose measurement by g lucometer (mass/volume) - 11/21/18 10:56 Capillary blood glucose measurement by glucometer (mas s/volume) 139 mg/dL 70-110 Complete blood count (CBC) with automate d white blood cell (WBC) differential - 03/08/19 01:10 Blood leukocytes automated count (number/volume) 6.9 10*3/uL 4.3-11.0 Blood erythrocytes automated count (number/volume) 4.05 10*6/uL 4.35-5.85 Venous blood hemoglobin measurement (mass/volume) 13.2 g/dL 11.5-16.0 Blood hematocrit (volume fraction) 38 % 35-52 Automated erythrocyte mean corpuscular volume 94 [ foz_us] 80-99 Automated erythrocyte mean corpuscular h emoglobin (mass per erythrocyte) 33 pg 25-34 Automated erythrocyte mean corpuscular h emoglobin concentration measurement (mass/volume) 35 g/dL 32-36 Automated erythrocyte distribution width ratio 13. 5 % 10.0- 14.5 Automated blood platelet count (count/volume) 175 10*3/uL 130-400 Automated blood platelet mean volume measurement 9.9 [foz_us] 7.4-10.4 Automated blood neutrophils/100 leukocytes 82 % 42-75 Automated blood lymphocytes/100 leukocytes 9 % 12-44 Blood monocytes/100 leukocytes 9 % 0-12 Automated blood eosinophils/100 leukocytes 0 % 0-10 Automated blood basophils/100 leukocytes 0 % 0-10 Blood neutrophils automated count (number/volume) 5.7 10*3 1.8-7.8 Blood lymphocytes automated count (number/volume) 0.6 10*3 1.0-4.0 Blood monocytes automated count (number/volume) 0. 6 10*3 0.0-1.0 Automated eosinophil count 0.0 10*3/uL 0 .0-0.3 Automated blood basophil count (count/volume) 0.0 10*3/uL 0.0-0.1 Blood lactic acid measurement (moles/vol ume) - 03/08/19 01:10 Blood lactic acid measurement (moles/volume) 1.18 mmol/L 0.50-2.00 PT panel in platelet poor plasma by coag ulation assay - 03/08/19 01:10 Prothrombin time (PT) in platelet poor plasma by coagu lation assay 14.1 s 12.2-14.7 INR in platelet poor plasma or blood by coagulation as say 1.0 0.8-1.4 Activated partial thromboplastin time (a PTT) in platelet poor plasma bycoagulation assay - 03/08/19 01:10 Activated partial thromboplastin time (a PTT) in platelet poor plasma bycoagulation assay 32 s 24-35 Comprehensive metabolic panel - 03/08/19 01:10 Serum or plasma sodium measurement (moles/volume) 127 mmol/L 135-145 Serum or plasma potassium measurement (moles/volume) 4.4 mmol/L 3.6-5.0 Serum or plasma chloride measurement (moles/volume) 92 mmol/L 98-107 Carbon dioxide 20 mmol/L 21-32 Serum or plasma anion gap determination (moles/volume) 15 mmol/L 5-14 Serum or plasma urea nitrogen measurement (mass/volume ) 20 mg/dL 7-18 Serum or plasma creatinine measurement (mass/volume) 0.92 mg/dL 0.60-1.30 Serum or plasma urea nitrogen/creatinine mass ratio 22 NRG Serum or plasma creatinine measurement w ith calculation of estimated glomerular filtration rate 58 NRG Serum or plasma glucose measurement (mass/volume) 187 mg/dL 70-105 Serum or plasma calcium measurement (mass/volume) 9.6 mg/dL 8.5-10.1 Serum or plasma total bilirubin measurement (mass/volu me) 0.5 mg/dL 0.1-1.0 Serum or plasma alkaline phosphatase sandee surement (enzymatic activity/volume) 63 U/L 40-136 Serum or plasma aspartate aminotransfera se measurement (enzymatic activity/volume) 20 U/L 5-34 Serum or plasma alanine aminotransferase measurement (enzymatic activity/volume) 22 U/L 0-55 Serum or plasma protein measurement (mass/volume) 6.7 g/dL 6.4-8.2 Serum or plasma albumin measurement (mass/volume) 4.0 g/dL 3.2-4.5 CALCIUM CORRECTED 9.6 mg/dL 8.5-10.1 Bacterial blood culture - 03/08/19 01:10 Bacterial blood culture NG NRG Complete urinalysis with reflex to cultu re - 03/08/19 01:17 Urine color determination YELLOW NRG Urine clarity determination SLIGHTLY CLOUDY NRG Urine pH measurement by test strip 6 5-9 Specific gravity of urine by test strip 1.015 1.016-1.022 Urine protein assay by test strip, semi-quantitative 3+ NEGATIVE Urine glucose detection by automated test strip NE GATIVE NEGATIVE Erythrocytes detection in urine sediment by light micr oscopy 5+ NEGATIVE Urine ketones detection by automated test strip NE GATIVE NEGATIVE Urine nitrite detection by test strip POSITIVE NEGATIVE Urine total bilirubin detection by test strip NEGA TIVE NEGATIVE Urine urobilinogen measurement by automated test strip (mass/volume) NORMAL NORMAL Urine leukocyte esterase detection by dipstick 3+ NEGATIVE Automated urine sediment erythrocyte cou nt by microscopy (number/high power field) [HPF] NRG Automated urine sediment leukocyte count by microscopy (number/high power field) [HPF] NRG Bacteria detection in urine sediment by light microsco py LARGE NRG Squamous epithelial cells detection in u rine sediment by light microscopy 0-2 NRG Crystals detection in urine sediment by light microsco py NONE NRG Casts detection in urine sediment by light microscopy NONE NRG Mucus detection in urine sediment by light microscopy NEGATIVE NRG Complete urinalysis with reflex to culture CULTURE PENDING NRG Bacterial urine culture - 03/08/19 01:17 Bacterial urine culture [id number] NRG COLONY COUNT >100,000/ML NRG FTX;REPORTABLE SUSCEPTIBILITY REPORT [facility] 03/09 15:0 5 NRG FREE TEXT ENTRY 2 NOTE ESBL POSITIVE NR G FREE TEXT ENTRY 3 ORGANISM ID REPORT [facility] 03/09 06:0 5 NRG RML Sensitivity Panel - 03/08/19 01:17 Gentamicin susceptibility test by minimum inhibitory c oncentration <= NRG Trimethoprim/sulfamethoxazole susceptibi lity test by minimum inhibitoryconcentration > NRG Levofloxacin susceptibility test by minimum inhibitory concentration <= NRG Ampicillin susceptibility test by minimum inhibitory c oncentration > NRG Cefazolin susceptibility test by minimum inhibitory co ncentration > NRG Ceftriaxone susceptibility test by minimum inhibitory concentration > NRG Ciprofloxacin susceptibility test by minimum inhibitor y concentration <= NRG Meropenem susceptibility test by minimum inhibitory co ncentration <= NRG Nitrofurantoin susceptibility test by mi nimum inhibitory concentration <= NRG Amoxicillin and clavulanate potassium susc CHRISTY R NRG Bacterial blood culture - 03/08/19 01:24 Bacterial blood culture NG NRG Capillary blood glucose measurement by g lucometer (mass/volume) - 03/08/19 05:29 Capillary blood glucose measurement by glucometer (mas s/volume) 166 mg/dL 70-110 Complete blood count (CBC) with automate d white blood cell (WBC) differential - 03/08/19 05:39 Blood leukocytes automated count (number/volume) 5.7 10*3/uL 4.3-11.0 Blood erythrocytes automated count (number/volume) 3.71 10*6/uL 4.35-5.85 Venous blood hemoglobin measurement (mass/volume) 12.0 g/dL 11.5-16.0 Blood hematocrit (volume fraction) 36 % 35-52 Automated erythrocyte mean corpuscular volume 97 [ foz_us] 80-99 Automated erythrocyte mean corpuscular h emoglobin (mass per erythrocyte) 32 pg 25-34 Automated erythrocyte mean corpuscular h emoglobin concentration measurement (mass/volume) 34 g/dL 32-36 Automated erythrocyte distribution width ratio 13. 7 % 10.0- 14.5 Automated blood platelet count (count/volume) 156 10*3/uL 130-400 Automated blood platelet mean volume measurement 9.7 [foz_us] 7.4-10.4 Automated blood neutrophils/100 leukocytes 80 % 42-75 Automated blood lymphocytes/100 leukocytes 12 % 12-44 Blood monocytes/100 leukocytes 8 % 0-12 Automated blood eosinophils/100 leukocytes 0 % 0-10 Automated blood basophils/100 leukocytes 0 % 0-10 Blood neutrophils automated count (number/volume) 4.6 10*3 1.8-7.8 Blood lymphocytes automated count (number/volume) 0.7 10*3 1.0-4.0 Blood monocytes automated count (number/volume) 0. 5 10*3 0.0-1.0 Automated eosinophil count 0.0 10*3/uL 0 .0-0.3 Automated blood basophil count (count/volume) 0.0 10*3/uL 0.0-0.1 Comprehensive metabolic panel - 03/08/19 05:39 Serum or plasma sodium measurement (moles/volume) 129 mmol/L 135-145 Serum or plasma potassium measurement (moles/volume) 4.4 mmol/L 3.6-5.0 Serum or plasma chloride measurement (moles/volume) 97 mmol/L 98-107 Carbon dioxide 22 mmol/L 21-32 Serum or plasma anion gap determination (moles/volume) 10 mmol/L 5-14 Serum or plasma urea nitrogen measurement (mass/volume ) 17 mg/dL 7-18 Serum or plasma creatinine measurement (mass/volume) 0.85 mg/dL 0.60-1.30 Serum or plasma urea nitrogen/creatinine mass ratio 20 NRG Serum or plasma creatinine measurement w ith calculation of estimated glomerular filtration rate > NRG Serum or plasma glucose measurement (mass/volume) 172 mg/dL 70-105 Serum or plasma calcium measurement (mass/volume) 8.9 mg/dL 8.5-10.1 Serum or plasma total bilirubin measurement (mass/volu me) 0.5 mg/dL 0.1-1.0 Serum or plasma alkaline phosphatase sandee surement (enzymatic activity/volume) 52 U/L 40-136 Serum or plasma aspartate aminotransfera se measurement (enzymatic activity/volume) 17 U/L 5-34 Serum or plasma alanine aminotransferase measurement (enzymatic activity/volume) 18 U/L 0-55 Serum or plasma protein measurement (mass/volume) 5.9 g/dL 6.4-8.2 Serum or plasma albumin measurement (mass/volume) 3.6 g/dL 3.2-4.5 CALCIUM CORRECTED 9.2 mg/dL 8.5-10.1 Capillary blood glucose measurement by g lucometer (mass/volume) - 03/08/19 10:22 Capillary blood glucose measurement by glucometer (mas s/volume) 171 mg/dL 70-110 Capillary blood glucose measurement by g lucometer (mass/volume) - 03/08/19 15:31 Capillary blood glucose measurement by glucometer (mas s/volume) 171 mg/dL 70-110 Capillary blood glucose measurement by g lucometer (mass/volume) - 03/08/19 21:04 Capillary blood glucose measurement by glucometer (mas s/volume) 200 mg/dL 70-110 Capillary blood glucose measurement by g lucometer (mass/volume) - 03/09/19 05:27 Capillary blood glucose measurement by glucometer (mas s/volume) 148 mg/dL 70-110 Whole blood basic metabolic panel - 02/25 01/13 06:50 Serum or plasma sodium measurement (moles/volume) 134 mmol/L 135-145 Serum or plasma potassium measurement (moles/volume) 4.5 mmol/L 3.6-5.0 Serum or plasma chloride measurement (moles/volume) 98 mmol/L 98-107 Carbon dioxide 24 mmol/L 21-32 Serum or plasma anion gap determination (moles/volume) 12 mmol/L 5-14 Serum or plasma urea nitrogen measurement (mass/volume ) 10 mg/dL 7-18 Serum or plasma creatinine measurement (mass/volume) 0.77 mg/dL 0.60-1.30 Serum or plasma urea nitrogen/creatinine mass ratio 13 NRG Serum or plasma creatinine measurement w ith calculation of estimated glomerular filtration rate > NRG Serum or plasma glucose measurement (mass/volume) 151 mg/dL 70-105 Serum or plasma calcium measurement (mass/volume) 9.3 mg/dL 8.5-10.1 Capillary blood glucose measurement by g lucometer (mass/volume) - 03/09/19 09:31 Capillary blood glucose measurement by glucometer (mas s/volume) 164 mg/dL 70-110 Capillary blood glucose measurement by g lucometer (mass/volume) - 03/09/19 14:28 Capillary blood glucose measurement by glucometer (mas s/volume) 213 mg/dL 70-110 Capillary blood glucose measurement by g lucometer (mass/volume) - 03/09/19 22:01 Capillary blood glucose measurement by glucometer (mas s/volume) 133 mg/dL 70-110 Capillary blood glucose measurement by g lucometer (mass/volume) - 03/10/19 05:28 Capillary blood glucose measurement by glucometer (mas s/volume) 141 mg/dL 70-110 Capillary blood glucose measurement by g lucometer (mass/volume) - 03/10/19 10:26 Capillary blood glucose measurement by glucometer (mas s/volume) 133 mg/dL 70-110 Comprehensive metabolic panel - 06/01/19 11:28 Serum or plasma sodium measurement (moles/volume) 137 mmol/L 135-145 Serum or plasma potassium measurement (moles/volume) 4.2 mmol/L 3.6-5.0 Serum or plasma chloride measurement (moles/volume) 103 mmol/L 98-107 Carbon dioxide 24 mmol/L 21-32 Serum or plasma anion gap determination (moles/volume) 10 mmol/L 5-14 Serum or plasma urea nitrogen measurement (mass/volume ) 22 mg/dL 7-18 Serum or plasma creatinine measurement (mass/volume) 0.85 mg/dL 0.60-1.30 Serum or plasma urea nitrogen/creatinine mass ratio 26 NRG Serum or plasma creatinine measurement w ith calculation of estimated glomerular filtration rate > NRG Serum or plasma glucose measurement (mass/volume) 140 mg/dL 70-105 Serum or plasma calcium measurement (mass/volume) 9.5 mg/dL 8.5-10.1 Serum or plasma total bilirubin measurement (mass/volu me) 0.5 mg/dL 0.1-1.0 Serum or plasma alkaline phosphatase sandee surement (enzymatic activity/volume) 59 U/L 40-136 Serum or plasma aspartate aminotransfera se measurement (enzymatic activity/volume) 18 U/L 5-34 Serum or plasma alanine aminotransferase measurement (enzymatic activity/volume) 17 U/L 0-55 Serum or plasma protein measurement (mass/volume) 7.3 g/dL 6.4-8.2 Serum or plasma albumin measurement (mass/volume) 4.1 g/dL 3.2-4.5 CALCIUM CORRECTED 9.4 mg/dL 8.5-10.1 Encounters ACCT No. Visit Date/Time Discharge Status Pt. 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,ELEVATED CEA [id number] 06/01/2019 11:13:00 23:59:59 CLS Outpatient MELVA GREEN MD [facility] RAD DEEP LOB PAROTID MASS,R IGHT THYROID NODULE [id number] 05/18/2019 21:02:00 21:59:00 DIS Emergency NONA PEREZ, JENNIFER Douglas [facility] ER R SHOULDER PAIN [id number] 03/08/2019 02:12:00 14:35:00 DIS Inpatient YIFAN PEREZ, ANTONIETA Chou [facility] 4TH UTI [id number] 03/02/2019 10:56:00 23:59:59 CLS Outpatient OMID VILCHIS [facility] RAD SCREENING [id number] 11/26/2018 13:50:00 23:59:59 CLS Outpatient WM MCGHEE MD [facility] RAD R05 [id number] 11/18/2018 13:14:00 14:30:00 DIS Outpatient JEFFERY PEREZ, MICHAEL Enriquez [facility] 4TH UTI [id number] 10/14/2018 09:45:00 23:59:59 CLS Outpatient ASTRID MEYER DO [facility] RAD PAIN AND MMT [id number] 09/01/2018 10:41:00 23:59:59 CLS Outpatient CASI LOVE RN CIRCULATING [facility] RAD LT SIDED KNEE P AIN,WEAKNESS [id number] 08/31/2018 14:49:00 018 16:48:00 DIS Outpatient NONA PEREZ, JENNIFER Douglas [facility] ER L LEG PAIN [id number] 08/28/2018 08:28:00 018 23:59:59 CLS Outpatient MELVA GREEN MD [facility] RAD DEEP LOBE PAROTID MASS/ THYROID NODULE [id number] 07/16/2018 10:06:00 018 23:59:59 CLS Outpatient JOYCE HEREDIA MD [facility] 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,ELEVATED CEA [id number] 03/11/2018 07:58:00 018 23:59:59 CLS Outpatient MELVA GREEN MD [facility] RAD RT THYROID NODULE,HX OF LT THYROID LABECTOMY [id number] 02/04/2018 14:51:00 018 23:59:59 CLS Preadmit JOYCE HEREDIA MD [facility] 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 [id number] 12/27/2017 07:08:00 018 10:56:00 DIS Outpatient MELVA GREEN MD [facility] SDC NASAL TIP LESION, LESIO N RIGHT FOREHEAD [id number] 12/25/2017 12:14:00 018 15:00:00 DIS Outpatient MELVA GREEN MD [facility] PREOP NASAL TIP LESION,LESION RIGHT FOREHEAD [id number] 11/28/2017 07:52:00 018 23:59:59 CLS Outpatient JOYCE HEREDIA MD [facility] 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 [id number] 11/28/2017 07:49:00 018 23:59:59 CLS Outpatient RUI ISLAS LICENSED STAFF MFT [facility] RAD THYROID MASS [id number] 08/21/2017 09:04:00 017 12:30:00 DIS Outpatient SHEREEN PRUETT MD [facility] ENDO HX COLON CA [id number] 08/19/2017 05:36:00 017 10:57:00 DIS Outpatient SHEREEN PRUETT MD [facility] PREOP HX COLON CA [id number] 08/13/2017 13:40:00 23:59:59 CLS Outpatient JOYCE HEREDIA MD [facility] RAD SCREENING [id number] 05/21/2017 11:28:00 23:59:59 CLS Outpatient MELVA GREEN MD [facility] RAD THYROID MASS [id number] 04/17/2017 09:30:00 16:04:00 DIS Outpatient ASTRID MEYER DO [facility] 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 [id number] 01/14/2017 09:47:00 23:59:59 CLS Outpatient WM MCGHEE MD [facility] RAD RT HIP PAIN/WEAKNESS [id number] 10/19/2016 07:42:00 07:45:00 DIS Outpatient MELVA GREEN MD [facility] SDC LEFT THYROID NODULE [id number] 10/12/2016 09:13:00 016 10:05:00 DIS Outpatient MELVA GREEN MD [facility] PREOP LEFT THYROID NODULE [id number] 08/06/2016 09:09:00 016 23:59:59 CLS Outpatient MELVA GREEN MD [facility] RAD THYROID NODULE LT [id number] 07/19/2016 13:52:00 016 23:59:59 CLS Outpatient WM MCGHEE MD [facility] RAD LT THYROID MASS [id number] 12/06/2015 11:32:00 016 23:59:59 CLS Outpatient WM MCGHEE MD [facility] RAD SCREENING [id number] 09/16/2015 07:53:00 015 10:50:00 DIS Emergency MICHAEL GIL MD [facility] ER NAUSEA/VOMITING [id number] 07/13/2015 08:36:00 015 12:20:00 DIS Outpatient SHEREEN PRUETT MD [facility] HX COLON CANCER [id number] 07/07/2015 05:42:00 015 23:59:59 CLS Outpatient SHEREEN PRUETT MD [facility] PREOP HX COLON CANCER [id number] 01/24/2015 08:30:00 015 23:59:59 CLS Outpatient CAESAR PATHAK MD [facility] CARD HYPERLIPADEMIA,PALPITAT IONS [id number] 06/11/2014 09:00:00 23:59:59 CLS Outpatient SHEREEN PRUETT MD [facility] HH R/O UTI [id number] 06/02/2014 22:45:00 14:00:00 DIS Inpatient SHEREEN PRUETT MD, [facility] SURGICAL GI BLEED,COLON CA [id number] 05/27/2014 11:34:00 014 23:59:59 CLS Outpatient SHEREEN PRUETT MD [facility] PREOP COLON CANCER [id number] 05/27/2014 11:29:00 014 23:59:59 CLS Outpatient SHEREEN PRUETT MD [facility] RAD COLON CANCER [id number] 05/12/2014 08:14:00 014 23:59:59 CLS Outpatient SHEREEN PRUETT MD [facility] HX POLYPS [id number] 05/06/2014 07:33:00 014 23:59:59 CLS Outpatient SHEREEN PRUETT MD [facility] PREOP HX POLYPS [id number] 04/26/2014 20:33:00 014 22:25:00 DIS Emergency OMID VILCHIS [facility] ER R ANKLE PAIN [id number] 09/22/2013 10:55:00 013 23:59:59 CLS Outpatient CASI LOVE APRN [facility] RAD ROUTINE [id number] 05/10/2020 10:10:[address] Emergency RODRIGUE PEREZ, CHRISTINA Tolbert [facility] ER VOMITING;WEAKNESS [id number] 12/06/2015 11:33:00 Document Registration [id number] 07/13/2015 08:44:00 Document Registration [id number] 07/13/2015 08:44:00 Document Registration [id number] 08/05/2012 11:06:00 Document Registration [id number] 02/20/2012 05:38:00 Document Registration [id number] 02/14/2012 07:46:00 Document Registration [id number] 11/28/2011 08:10:00 Document Registration [id number] 11/21/2011 10:04:00 Document Registration [id number] 07/11/2011 13:21:00 Document Registration [id number] 06/20/2011 13:21:00 Document Registration [id number] 03/28/2011 09:24:00 Document Registration [id number] 01/31/2011 07:35:00 Document Registration [id number] 06/29/2010 10:56:00 Document Registration
--- NOTE | 2020-05-10 11:07 | NUR ---
Recieved report from RIGOBERTO Garzon to assume care of pt at this time.
[2020-05-10] MEDS ORDERED: NS 100 ML (IVPB) BAG IV ONE (11:15)
[2020-05-10] MEDS ORDERED: HOLD METFORMIN - RECEIVED CONTRAST 20 ML VIAL IV SCH (11:15)
[2020-05-10] MEDS ORDERED: IOHEXOL 350 MG/ML 100 ML (OMNIPAQUE 350) VIAL IV ONE (11:15)
--- NOTE | 2020-05-10 11:51 | Diagnostic Imaging Report ---
PROCEDURE: CT abdomen and pelvis with contrast. TECHNIQUE: Multiple contiguous axial images were obtained through the abdomen and pelvis after administration of intravenous contrast. Auto Exposure Controls were utilized during the CT exam to meet ALARA standards for radiation dose reduction. INDICATION: History of colon cancer, now with diarrhea and weakness. Exam compared with the CT abdomen and pelvis performed 06/01/2009. FINDINGS: Postsurgical changes of a right hemicolectomy again noted. There is a mild fluid distention of the stomach and duodenum with mild to moderate dilatation of the proximal through mid small bowel. The most dilated small bowel loops show differential air-fluid levels with maximal transverse diameter of 3.8 cm. The distal small bowel is decompressed. The transition appears near the midline deep to the abdominal wall where there are matted loops of small bowel abutting the abdominal wall. There is a small fatty umbilical hernia. This does not appear to be itself contributing. Etiology of the suspected obstruction likely owing to adhesions. There is some mild rectal constipation with noninflamed colonic diverticulosis of the sigmoid. There are multiple renal cysts, the largest dominant cyst exophytic off the lower pole of the left kidney and measures 13 cm unchanged. There is no hydroureteronephrosis. The bilateral hips are replaced. There is degenerative change to the spine. 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 There are no pathological appearing lymph nodes and there is no evidence for liver mass. No bile duct dilatation. IMPRESSION: 1. Small bowel obstruction. Transition in the midline near the umbilicus where there is a noncontributing fatty umbilical hernia. There are matted loops of small bowel abutting the intra-abdominal wall and adhesions likely account for the transition with distal decompressed small bowel and mild rectosigmoidal constipation. 2. No findings suggestive of metastatic disease. 3. Chronic renal cysts. Dictated by: Dictated on workstation # [id number]
--- NOTE | 2020-05-10 12:07 | NUR ---
TO ROOM PATIENT SITTING UP IN W/C FLUIDS CON'T TO INFUSE.
--- NOTE | 2020-05-10 12:19 | Diagnostic Imaging Report ---
INDICATION: Nausea and vomiting since midnight, dull pain across the epigastric area. TECHNIQUE: Single view chest 11:52 AM. CORRELATION STUDY: 03/08/2019 FINDINGS: Heart size and mediastinum generally stable. Calcification of the aortic arch. Vasculature appearing within normal limits. Likely largely chronic type change about lung parenchyma. No consolidating infiltrate. Prior right rotator cuff surgery. Advanced degenerative changes both shoulders. IMPRESSION: 1. Borderline cardiac enlargement without failure otherwise acute findings the chest. Dictated by: Dictated on workstation # [id number]
--- NOTE | 2020-05-10 12:54 | NUR ---
PATIENT REPORTS FEELING BETTER
--- NOTE | 2020-05-10 13:00 | NUR ---
RECEIVED REPORT FROM ASHKAN ENAMELER. PT IN ROOM RESTING NO PAIN
[2020-05-10] MEDS ORDERED: fentaNYL INJECTION 100 MCG/2 ML AMP IV PRN ×2 (13:30)
[2020-05-10] MEDS ORDERED: CATHETER FLUSH 10 ML SYR IV PRN (13:30)
[2020-05-10] MEDS ORDERED: ACETAMINOPHEN 325 MG TABLET PO PRN (13:30)
[2020-05-10] MEDS ORDERED: PROMETHAZINE INJ 25 MG/ML (PHENERGAN) AMP IM PRN (13:30)
[2020-05-10] MEDS ORDERED: ONDANSETRON 4 MG/2 ML (SDV) Z0FRAN IV PRN (13:30)
--- OUTSIDE RECORDS SUMMARY | 2020-05-10 14:07 | XMS REPORT | Clinical Summary ---
Author Author [facility] Organization [facility] Address Unknown Phone Unavailable Care Team Providers Care [employer] Inspector Name Role Phone Roberto Carlos Barrientos MD Unavailable Source Comments Some departments are not documenting in the electronic medical record. If you d o not see the information that you expected, contact Release of Information in [facility] [employer] Information Management department at [phone] for further assistan ce in locating additional records.[facility] Allergies Not on File Medications End Date [...] PO) by mouth three times weekly. Active [place]-3 Fatty Take 1 Cap by 0 Acids-Vitamin [...]
--- OUTSIDE RECORDS SUMMARY | 2020-05-10 14:09 | XMS REPORT | Continuity of Care Document ---
Author Organization Unknown Address Unknown Phone Unavailable Allergies Active Description Code Type Severity Reaction Onset Reported/Identified Relationship to Patient Clinical Status Yes NKDA NKDA Mild N/A 02/16/2009 Yes warfarin [id number] Drug Allergy Unknown "SEVERE BLEEDIN 12/25/2017 Medications [...] 09/09/2014 SHEREEN PRUETT MD Ot V72.83 09/09/2014 SHERENE PRUETT MD Ot V74.8 03/04/2015 LAWSON PEREZ, [...] E04 .1 NONTOXIC SINGLE THYROID NODULE 10/12/2016 MLEVA GREEN MD P Ot E04 .9 NONTOXIC [...] ENCOUNTER FOR PREPROCEDURAL LABORATORY E 10/16/2016 MELVA GRENE MD P Ot Z01.818 ENCOUNTER FOR OTHER PREPROCEDURAL EXAMIN 10/16/2016 MELVA GREEN MD Ot Z11 .2 ENCOUNTER FOR SCREENING FOR OTHER BACTER 10/20/2016 MELVA GREEN MD Ot D34 BENIGN NEOPLASM OF THYROID GLAND 10/20/2016 MELVA GREEN MD Ot R11 .0 NAUSEA 10/24/2016 MELVA GREEN MD Ot D34 BENIGN NEOPLASM OF THYROID GLAND 10/24/2016 MELAV GREEN MD Ot R11 .0 NAUSEA 10/26/2016 [...] MD Ot V45.89 POSTSURGICAL STATES NEC 05/21/2017 CAEASR PATHAK MD Ot 272. 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 08/22/2017 HSEREEN PRUETT MD, Ot E03.9 HYPOTHYROIDISM, UNSPECIFIED 08/22/2017 [...] FO 08/22/2017 SHEREEN PRUETT MD, Ot Z79.84 HALF-WAY (CURRENT) USE OF ORAL HYPOGLYC 08/22/2017 SHEREEN PRUETT MD, Ot Z79.89 9 OTHER HALF-WAY (CURRENT) DRUG THERAPY 08/22/2017 SHEREEN PRUETT MD, [...] FO 09/09/2017 SHEREEN PRUETT MD, Ot Z79.84 HALF-WAY (CURRENT) USE OF ORAL HYPOGLYC 09/09/2017 SHEREEN PRUETT MD, Ot Z79.89 9 OTHER HALF-WAY (CURRENT) DRUG THERAPY 09/09/2017 SHEREEN PRUETT MD, [...] MALIGN NEOPLASM OF OMA 11/26/2017 CASI LOVE BUSINESS ACCOUNT MANAGER Ot V76.12 OTH SCREEN MAMMO-MALIGN NEOPLASM [...] Ot V10.05 HX OF COLONIC MALIGNANCY 11/26/2017 SEHREEN PRUETT MD Ot V72.84 EXAM PRE-OPERATIVE NOS [...] STATES NEC 11/28/2017 CAESAR PATHAK MD Ot 272. 4 HYPERLIPIDEMIA NEC/NOS 11/28/2017 CAESAR PATHAK MD Ot 785. 1 PALPITATIONS 11/28/2017 SHEREEN PRUETT MD Ot V10.05 [...] MAMMOGRAM FOR MALIGNANT NE 11/29/2017 RUI ISLAS RUG DYER Ot E07.9 DISORDER OF THYROID, UNSPECIFIED 12/25/2017 [...] NONTOXIC MULTINODULAR GOITER 12/25/2017 NORMA PEREZ, MELVA Hernnadez Ot E04 .1 NONTOXIC SINGLE THYROID NODULE [...] OF OTHER SPECIFIED PART 12/25/2017 RUI ISLAS RUG DYER Ot E07.9 DISORDER OF THYROID, UNSPECIFIED 12/26/2017 [...] MD Ot I25.10 ATHSCL HEART DISEASE OF [place] CORONARY 12/27/2017 MELVA GREEN MD Ot Z79.84 HALF-WAY (CURRENT) USE OF ORAL HYPOGLYC 12/27/2017 GREEN MD, MELVA P Ot Z79.899 OTHER LABORATORY CUREMAN (CURRENT) DRUG THERAPY 12/31/2017 MELVA GREEN MD [...] P Ot I25.10 ATHSCL HEART DISEASE OF [place] CORONARY 12/31/2017 MELVA GREEN MD P Ot Z79.84 LABORATORY CUREMAN (CURRENT) USE OF ORAL HYPOGLYC 12/31/2017 MELVA GREEN MD Ot Z79.899 OTHER LABORATORY CUREMAN (CURRENT) DRUG THERAPY 12/31/2017 MELVA GREEN MD Ot 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 12/31/2017 MELVA GREEN MD Ot 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 12/31/2017 MELVA GREEN MD P Ot E11 .9 TYPE 2 DIABETES MELLITUS WITHOUT COMPLIC 12/31/2017 MELVA GREEN MD P Ot I10 ESSENTIAL (PRIMARY) HYPERTENSION 12/31/2017 MELVA GREEN MD P Ot I25.10 ATHSCL HEART DISEASE OF [place] CORONARY 12/31/2017 MELVA GREEN MD P Ot Z79.84 HALF-WAY (CURRENT) USE OF ORAL HYPOGLYC 12/31/2017 MELVA GREEN MD P Ot Z79.899 OTHER LABORATORY CUREMAN (CURRENT) DRUG THERAPY 01/03/2018 MELVA GREEN MD [...] P Ot I25.10 ATHSCL HEART DISEASE OF [place] CORONARY 01/03/2018 MELVA GREEN MD P Ot Z79.84 LABORATORY CUREMAN (CURRENT) USE OF ORAL HYPOGLYC 01/03/2018 MELVA GREEN MD P Ot Z79.899 OTHER HALF-WAY (CURRENT) DRUG THERAPY 03/11/2018 CASI LOVE APRN [...] MD Ot V74.8 SCREEN-BACTERIAL DIS NEC 03/11/2018 SEHREEN PRUETT MD Ot 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 COLON [...] OF OTHER SPECIFIED PART 03/11/2018 RUI ISLAS RUG DYER Ot E07.9 DISORDER OF THYROID, UNSPECIFIED 03/12/2018 [...] OF OTHER SPECIFIED PART 07/16/2018 RUI ISLAS RUG DYER Ot E07.9 DISORDER OF THYROID, UNSPECIFIED 07/16/2018 [...] D34 BENIGN NEOPLASM OF THYROID GLAND 07/17/2018 JOCYE HEREDIA MD F Ot 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 [...] DISEASES OF SALIVARY GLANDS 09/02/2018 CASI LOVE BUSINESS ACCOUNT MANAGER Ot M25.562 PAIN IN LEFT KNEE 09/02/2018 CASI LOVE BUSINESS ACCOUNT MANAGER Ot R53.1 WEAKNESS 09/02/2018 JENNIFER CASTELLANO MD [...] KNEE 09/02/2018 JENNIFER CASTELLANO MD Ot Z79.84 LABORATORY CUREMAN (CURRENT) USE OF ORAL HYPOGLYC 09/02/2018 JENNIFER [...] KNEE 09/07/2018 JENNIFER CASTELLANO MD Ot Z79.84 LABORATORY CUREMAN (CURRENT) USE OF ORAL HYPOGLYC 09/07/2018 JENNIFER [...] DISEASES OF SALIVARY [place]ANDS 09/24/2018 CASI LOVE BUSINESS ACCOUNT MANAGER Ot M25.562 PAIN IN LEFT KNEE 09/24/2018 CASI [employer] BUSINESS ACCOUNT MANAGER Ot R53.1 WEAKNESS 10/15/2018 MITCH DO, ASTRID [...] COMM 11/21/2018 MICHAEL GIL MD Ot Z79.84 LABORATORY CUREMAN (CURRENT) USE OF ORAL HYPOGLYC 11/21/2018 MICHAEL IGL MD, Ot Z85.038 PERSONAL HISTORY OF MALIGNANT NEOPLASM O 11/21/2018 MICHAEL GIL MD, Ot Z86.010 PERSONAL HISTORY OF COLONIC POLYPS 11/21/2018 MICHAEL GIL MD, Ot Z86.19 PERSONAL HISTORY OF OTHER INFECTIOUS AND 11/21/2018 MICHAEL GIL MD, Ot Z87.19 PERSONAL HISTORY OF OTHER DISEASES OF TH 11/21/2018 MICHAEL GIL MD, Ot Z90.49 ACQUIRED ABSENCE OF OTHER [...] Ot E89. 0 POSTPROCEDURAL HYPOTHYROIDISM 03/10/2019 ANTONIETA SAHA MD Ot G43.909 MIGRAINE, UNSP, NOT INTRACTABLE, [...] 03/10/2019 ANTONIETA SAHA MD Ot Z79. 84 HALF-WAY (CURRENT) USE OF ORAL HYPOGLYC 03/10/2019 ANTONIETA [...] AW 05/18/2019 JENNIFER CASTELLANO MD, Ot Z79.84 LABORATORY CUREMAN (CURRENT) USE OF ORAL HYPOGLYC 05/18/2019 JENNIFER [...] AW 05/25/2019 JENNIFER CASTELLANO MD, Ot Z79.84 LABORATORY CUREMAN (CURRENT) USE OF ORAL HYPOGLYC 05/25/2019 JENNIFER [...] plasma calcium measurement (mass/volume) 7.9 mg/dL 8.5-10.1 [id number] - 11/28/17 08:17 Serum or plasma urea [...] by glucometer (mas s/volume) 160 mg/dL 70-110 [id number] - 03/11/18 08:08 Serum or plasma urea nitrogen measurement (mass/volume ) 19 mg/dL 7-18 Serum or plasma creatinine measurement (mass/volume) 0.83 mg/dL 0.60-1.30 Serum or plasma urea nitrogen/creatinine mass ratio 23 NRG Serum or plasma creatinine measurement w ith calculation of estimated glomerular filtration rate > NRG [id number] - 07/16/18 10:20 Serum or plasma urea nitrogen measurement (mass/volume ) 17 mg/dL 7-18 Serum or plasma creatinine measurement (mass/volume) 0.86 mg/dL 0.60-1.30 Serum or plasma urea nitrogen/creatinine mass ratio 20 NRG Serum or plasma creatinine measurement w ith calculation of estimated glomerular filtration rate > NRG [id number] - 08/28/18 09:05 Serum or plasma urea [...] culture - 03/08/19 01:17 Bacterial urine culture [id number] NRG COLONY COUNT >100,000/ML NRG FTX;REPORTABLE SUSCEPTIBILITY REPORT [facility] 03/09 15:0 5 NRG FREE TEXT ENTRY 2 NOTE ESBL POSITIVE NR G FREE TEXT ENTRY 3 ORGANISM ID REPORT [facility] 03/09 06:0 5 NRG RML Sensitivity Panel [...] Status Pt. Type Provider Facility Loc./Unit Complaint [id number] 12/09/2019 13:00:00 12/09/2019 23:59: 59 CLS Outpatient ALEA PALM [facility] [id number] 06/01/2019 11:15:00 23:59:59 CLS Outpatient YAN PEREZ, JOYCE Christiansen [facility] 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,ELEVATED CEA [id number] 06/01/2019 11:13:00 23:59:59 CLS Outpatient MELVA GREEN MD [facility] RAD DEEP LOB PAROTID MASS,R IGHT THYROID NODULE [id number] 05/18/2019 21:02:00 21:59:00 DIS Emergency NONA PEREZ, JENNIFER Dougals [facility] ER R SHOULDER PAIN [id number] 03/08/2019 02:12:00 14:35:00 DIS Inpatient YIFAN PEREZ, ANTONIETA Chou [facility] 4TH UTI [id number] 03/02/2019 10:56:00 23:59:59 CLS Outpatient OMID VILCHIS [facility] RAD SCREENING [id number] 11/26/2018 13:50:00 23:59:59 CLS Outpatient WM MCGHEE MD [facility] RAD R05 [id number] 11/18/2018 13:14:00 14:30:00 DIS Outpatient JEFFERY PEREZ, MICHAEL Enriquez [facility] 4TH UTI [id number] 10/14/2018 09:45:00 23:59:59 CLS Outpatient ASTRID MEYER DO [facility] RAD PAIN AND MMT [id number] 09/01/2018 10:41:00 23:59:59 CLS Outpatient CASI LOVE BUSINESS ACCOUNT MANAGER [facility] RAD LT SIDED KNEE P AIN,WEAKNESS [id number] 08/31/2018 14:49:00 018 16:48:00 DIS Outpatient NONA PEREZ, JENNIFER Douglas [facility] ER L LEG PAIN [id number] 08/28/2018 08:28:00 018 23:59:59 CLS Outpatient MELVA GREEN MD [facility] RAD DEEP LOBE PAROTID MASS/ THYROID NODULE [id number] 07/16/2018 10:06:00 018 23:59:59 CLS Outpatient JOYCE HEREDIA MD [facility] 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,ELEVATED CEA [id number] 03/11/2018 07:58:00 018 23:59:59 CLS Outpatient MELVA GREEN MD [facility] RAD RT THYROID NODULE,HX OF LT THYROID LABECTOMY [id number] 02/04/2018 14:51:00 018 23:59:59 CLS Preadmit JOYCE HEREDIA MD [facility] 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 [id number] 12/27/2017 07:08:00 018 10:56:00 DIS Outpatient MELVA GREEN MD [facility] SDC NASAL TIP LESION, LESIO N RIGHT FOREHEAD [id number] 12/25/2017 12:14:00 018 15:00:00 DIS Outpatient MELVA GREEN MD [facility] PREOP NASAL TIP LESION,LESION RIGHT FOREHEAD [id number] 11/28/2017 07:52:00 018 23:59:59 CLS Outpatient JOYCE HEREDIA MD [facility] 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 [id number] 11/28/2017 07:49:00 018 23:59:59 CLS Outpatient RUI ISLAS RUG DYER [facility] RAD THYROID MASS [id number] 08/21/2017 09:04:00 017 12:30:00 DIS Outpatient SHEREEN PRUETT MD [facility] ENDO HX COLON [place] [id number] 08/19/2017 05:36:00 017 10:57:00 DIS Outpatient SHEREEN PRUETT MD [facility] PREOP HX COLON CA [id number] 08/13/2017 13:40:00 23:59:59 CLS Outpatient JOYCE HEREDIA MD [facility] RAD SCREENING [id number] 05/21/2017 11:28:00 23:59:59 CLS Outpatient MELVA GREEN MD [facility] RAD THYROID MASS [id number] 04/17/2017 09:30:00 16:04:00 DIS Outpatient ASTRID MEYER DO [facility] 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 [id number] 01/14/2017 09:47:00 23:59:59 CLS Outpatient WM MCGHEE MD [facility] RAD RT HIP PAIN/WEAKNESS [id number] 10/19/2016 07:42:00 07:45:00 DIS Outpatient MELVA GREEN MD [facility] SDC LEFT THYROID NODULE [id number] 10/12/2016 09:13:00 016 10:05:00 DIS Outpatient MELVA GREEN MD [facility] PREOP LEFT THYROID NODULE [id number] 08/06/2016 09:09:00 016 23:59:59 CLS Outpatient MELVA GREEN MD [facility] RAD THYROID NODULE LT [id number] 07/19/2016 13:52:00 016 23:59:59 CLS Outpatient WM MCGHEE MD [facility] RAD LT THYROID MASS [id number] 12/06/2015 11:32:00 016 23:59:59 CLS Outpatient WM MCGHEE MD [facility] RAD SCREENING [id number] 09/16/2015 07:53:00 015 10:50:00 DIS Emergency MICHAEL GIL MD [facility] ER NAUSEA/VOMITING [id number] 07/13/2015 08:36:00 015 12:20:00 DIS Outpatient SHEREEN PRUETT MD [facility] HX COLON CANCER [id number] 07/07/2015 05:42:00 015 23:59:59 CLS Outpatient SHEREEN PRUETT MD [facility] PREOP HX COLON CANCER [id number] 01/24/2015 08:30:00 015 23:59:59 CLS Outpatient CAESAR PATHAK MD [facility] CARD HYPERLIPADEMIA,PALPITAT IONS [id number] 06/11/2014 09:00:00 23:59:59 CLS Outpatient SHEREEN PRUETT MD [facility] HH R/O UTI [id number] 06/02/2014 22:45:00 14:00:00 DIS Inpatient SHEREEN PRUETT MD, [facility] SURGICAL GI BLEED,COLON CA [id number] 05/27/2014 11:34:00 014 23:59:59 CLS Outpatient SHEREEN PRUETT MD [facility] PREOP COLON CANCER [id number] 05/27/2014 11:29:00 014 23:59:59 CLS Outpatient SHEREEN PRUETT MD [facility] RAD COLON CANCER [id number] 05/12/2014 08:14:00 014 23:59:59 CLS Outpatient SHEREEN PRUETT MD [facility] HX POLYPS [id number] 05/06/2014 07:33:00 014 23:59:59 CLS Outpatient SHEREEN PRUETT MD [facility] PREOP HX POLYPS [id number] 04/26/2014 20:33:00 014 22:25:00 DIS Emergency OMID VILCHIS [facility] ER R ANKLE PAIN [id number] 09/22/2013 10:55:00 013 23:59:59 CLS Outpatient CASI LOVE APRN [facility] RAD ROUTINE [id number] 05/10/2020 12:36:[address] Inpatient TAMICA CUEAV MD [facility] 4TH BOWEL OBSTRUCTION [id number] 12/06/2015 11:33:00 Document Registration [id number] 07/13/2015 08:44:00 Document Registration [id number] 07/13/2015 08:44:00 Document Registration [id number] 08/05/2012 11:06:00 Document Registration [id number] 02/20/2012 05:38:00 Document Registration [id number] 02/14/2012 07:46:00 Document Registration [id number] 11/28/2011 08:10:00 Document Registration [id number] 11/21/2011 10:04:00 Document Registration [id number] 07/11/2011 13:21:00 Document Registration [id number] 06/20/2011 13:21:00 Document Registration [id number] 03/28/2011 09:24:00 Document Registration [id number] 01/31/2011 07:35:00 Document Registration [id number] 06/29/2010 10:56:00 Document Registration
[2020-05-10 14:21] VITALS: BP 131/81
[2020-05-10] MEDS: LACTATED RINGERS 1,000 ML IV SCH (14:42)
--- NOTE | 2020-05-10 15:26 | History & Physical-Hospitalist ---
History of Present Illness HPI/Chief Complaint Pt is an 89yoCF with a PMH of NIDDMII, HTN, Hypothyroidism, and colon cancer s/p resection who presented to the ER due to nausea and vomiting. She states it started around midnight today. She had a normal BM 2 days ago and a small one yesterday. She continued to vomit so she decided to seek care in the ER. CT Abdomen was done and reveal a small bowel obstruction. By the time she made it to the floor she states she is already feeling better and passed a small BM when she was giving a urine sample. She denies any pain still and now denies nausea. Source: patient Date Seen 05/10/20 Time Seen by a Provider: 15:20 Attending Physician Tamica Marquez MD PCP Kevin Puente MD Referring Physician Date of Admission May 10, 2020 at 12:36 Home Medications & Allergies Home Medications Reviewed patient Home Medication Reconciliation performed by pharmacy medication reconciliations breeder hen service technician and/or nursing. Patients Allergies have been reviewed. Allergies Allergies Coded Allergies warfarin (Verified Allergy, Unknown, "SEVERE BLEEDING", 12/25/17) Past Ccgzmmc-Scfxlb-Gwunmo Hx Past Med/Social Hx: Reviewed Nursing Past Med/Soc Hx Patient Social History Employed/Student: retired Alcohol Use: Occasionally Uses Alcohol Beverage of Choice: Wine Recreational Drug Use: No Smoking Status: Never a Smoker 2nd Hand Smoke Exposure: No Recent Foreign Travel: No Contact w/other who traveled: No Recent Hopitalizations: No Recent Infectious Disease Expo: No Immunizations Up To Date Tetanus Booster (TDap): Unknown Pediatric: Yes Date of Pneumonia Vaccine: Aug 10, 2018 Date of Influenza Vaccine: Aug 28, 2018 Seasonal Allergies Seasonal Allergies: Yes Past Medical History Surgeries: Gallbladder, Hysterectomy, Joint Replacement, Thyroidectomy Currently Using CPAP: No Currently Using BIPAP: No Cardiac: High Cholesterol, Hypertension, Palpitations Neurological: Headaches /Migraines 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: No Sexually Transmitted Disease: No HIV/AIDS: No 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 Disorders: Denies Hysterectomy, Menopausal Genitourinary: Bladder Infection, UTI-Chronic Gastrointestinal: Diverticulosis, Polyps Musculoskeletal: Arthritis Endocrine: Hypothyroidsim, Diabetes, Non-Insulin dep HEENT: Cataract Loss of Vision: Bilateral Hearing Impairment: Denies Cancer: Colon Did You Recieve Any Treatments: No What Type of Treatment Did You: Surgical Intervention History of Blood Disorders: No Adverse Reaction to Blood Acuna: No Family History Reviewed Nursing Family Hx Cardiovascular disease 19 MOTHER G8 BROTHER Colon cancer 19 FATHER G8 SISTER Parkinson's disease G8 SISTER Psychosocial problem G8 BROTHER Respiratory disorder G8 BROTHER Review of Systems Constitutional: No chills, No fever EENTM: no symptoms reported Respiratory: No cough, No short of breath Cardiovascular: No chest pain, No edema, No palpitations Gastrointestinal: see HPI, abdominal pain, nausea, vomiting Genitourinary: no symptoms reported Musculoskeletal: no symptoms reported Skin: no symptoms reported Psychiatric/Neurological: No Symptoms Reported Physical Exam Physical Exam Vital Signs Vital Signs - First Documented 05/10/20 05/10/20 10:11 13:00 Temp 36.9 Pulse 118 Resp 18 B/P (MAP) 151/94 (113) Pulse Ox 97 O2 Delivery Room Air Capillary Refill : Less Than 3 SecondsLess Than 3 Seconds Height, Weight, BMI Height: 5'3.00" Weight: 200lbs. 0.0oz. 90.778946mo; 35.11 BMI Method:Stated General Appearance: No Apparent Distress, WD/WN, Obese HEENT: PERRL/EOMI, Moist Mucous Membranes; No Scleral Icterus (L), No Scleral Icterus (R) Neck: Normal Inspection, Supple; No Thyromegaly Respiratory: Lungs Clear, No Accessory Muscle Use, No Respiratory Distress Cardiovascular: Regular Rate, Rhythm, No Murmur Gastrointestinal: Non Tender, Soft, Abnormal Bowel Sounds (quiet); No Distended, No Guarding Extremity: No Calf Tenderness, No Pedal Edema Neurologic/Psychiatric: Alert, Oriented x3, Normal Mood/Affect Skin: Normal Color, Warm/Dry Results Results/Procedures Labs Laboratory Tests 05/10/20 10:20 Patient resulted labs reviewed. Imaging: Reviewed Imaging Report Imaging [facility], [place] NAME: KENNY GUTIERREZ [facility] REC#: [id number] PT STATUS: REG ER : 1930 PHYSICIAN: CHRISTINA HUSAIN MD ADMIT DATE: 05/10/20/ER Draft Date of Exam:05/10/20 CT ABDOMEN/PELVIS W PROCEDURE: CT abdomen and pelvis with contrast. TECHNIQUE: Multiple contiguous axial images were obtained through the abdomen and pelvis after administration of intravenous contrast. Auto Exposure Controls were utilized during the CT exam to meet ALARA standards for radiation dose reduction. INDICATION: History of colon cancer, now with diarrhea and weakness. Exam compared with the CT abdomen and pelvis performed 06/01/2009. FINDINGS: Postsurgical changes of a right hemicolectomy again noted. There is a mild fluid distention of the stomach and duodenum with mild to moderate dilatation of the proximal through mid small bowel. The most dilated small bowel loops show differential air-fluid levels with maximal transverse diameter of 3.8 cm. The distal small bowel is decompressed. The transition appears near the midline deep to the abdominal wall where there are matted loops of small bowel abutting the abdominal wall. There is a small fatty umbilical hernia. This does not appear to be itself contributing. Etiology of the suspected obstruction likely owing to adhesions. There is some mild rectal constipation with noninflamed colonic diverticulosis of the sigmoid. There are multiple renal cysts, the largest dominant cyst exophytic off the lower pole of the left kidney and measures 13 cm unchanged. There is no hydroureteronephrosis. The bilateral hips are replaced. There is degenerative change to the spine. 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 There are no pathological appearing lymph nodes and there is no evidence for liver mass. No bile duct dilatation. IMPRESSION: 1. Small bowel obstruction. Transition in the midline near the umbilicus where there is a noncontributing fatty umbilical hernia. There are matted loops of small bowel abutting the intra-abdominal wall and adhesions likely account for the transition with distal decompressed small bowel and mild rectosigmoidal constipation. 2. No findings suggestive of metastatic disease. 3. Chronic renal cysts. Dictated on workstation # [id number] Dict: 05/10/20 1138 Trans: 05/10/20 1150 [facility] [id number] Interpreted by: CAESAR FLORES Electronically signed by: Assessment/Plan Admission Diagnosis SBO Admission Status: Inpatient Order (span 2 midnights) Reason for Inpatient Admission: see below Assessment and Plan SBO Await return of bowel function CLD ordered Surgery consulted, appreciate recs Zofran prn nausea Fentanyl for pain ? small bowel follow through in the AM JORY Creatinine 1.22 Baseline around 0.85 Continue IVF HTN BP well controlled, trend NIDDMII SSI Hold home meds Hypothyroidism Hold Synthroid while NPO Clinical Quality Measures DVT/VTE Risk/Contraindication: Risk Factor Score Per Nursin RFS Level Per Nursing on Admit: 4+=Very High TAMICA MARQUEZ MD May 10, 2020 15:26
[2020-05-10 15:40] VITALS: BP 121/86
[2020-05-10] MEDS ORDERED: DOCU-238 PO (15:49)
[2020-05-10] MEDS ORDERED: ACET325C7 PO (15:49)
[2020-05-10] MEDS ORDERED: METF-397 PO ×2 (15:49)
[2020-05-10] MEDS ORDERED: HYDR12.56 PO (15:49)
--- NOTE | 2020-05-10 15:51 | NUR ---
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
[2020-05-10] MEDS: inSUlin ASPART (NovoLOG) 1 UNIT/0.01 ML (CHARGE PER UNIT) SC SCH (16:29)
--- NOTE | 2020-05-10 18:23 | Consultation - Surgery ---
History of Present Illness History of Present Illness Patient Consulted On(gracia/time) 05/10/20 18:18 Date Seen by Provider: May 10, 2020 Time Seen by Provider: 15:50 History of Present Illness Consult requested by Dr. Marquez for small bowel obstruction. patient is an 89 year old female with history of colon resection x 2 and open cholecystectomy. Last night about midnight began having nausea and vomiting. Patient states nothing made worse or better. Continued today and was having epigastric abdominal pain that she states was like reflux. She had a normal bowel movement 2 days ago. Had a small bm today as well. She since coming to her room she states that she is feeling significantly better. She is not having any nausea or emesis currently. She is not having abdominal discomfort at this time. She is tolerating clear liquids at this time. She had a ct abd/pelvis done demonstrating: small bowel obstruction, umbilical hernia, left renal cyst. Allergies and Home Medications Allergies Coded Allergies: warfarin (Verified Allergy, Unknown, "SEVERE BLEEDING", 12/25/17) Home Medications Acetaminophen 325 Mg Capsule, 650 MG PO Q8H PRN for PAIN-MILD (1-4), (Reported) Ascorbic Acid 500 Mg Capsule, 500 MG PO BID, (Reported) Docusate Sodium 100 Mg Capsule, 100 MG PO DAILY PRN for CONSTIPATION-1ST LINE, (Reported) Enalapril Maleate 10 Mg Tablet, 10 MG PO BID, (Reported) Hydrochlorothiazide 12.5 Mg Tablet, 12.5 MG PO DAILY, (Reported) Levothyroxine Sodium 25 Mcg Tablet, 25 MCG PO DAILY, (Reported) Metformin HCl 500 Mg Tablet, 500 MG PO DAILY, (Reported) Metformin HCl 500 Mg Tablet, 1,000 MG PO HS, (Reported) TAKES 2 (500MG) TABS Metoprolol Succinate 25 Mg Tab.er.24h, 12.5 MG PO HS, (Reported) TAKES 1/2 (25MG) TABLET Hidalgo-3 Acid Ethyl Esters 1 Gm Capsule, 1 GM PO BID, (Reported) Pioglitazone HCl 30 Mg Tablet, 30 MG PO DAILY, (Reported) Simvastatin 40 Mg Tablet, 40 MG PO HS, (Reported) Trospium Chloride 60 Mg Cap.er.24h, 60 MG PO DAILY, (Reported) Patient Home Medication List Home Medication List Reviewed: Yes Past Vdlubpd-Wmxodw-Fvzkuq Hx Patient Social History Alcohol Use: Occasionally Uses Recreational Drug Use: No Smoking Status: Never a Smoker 2nd Hand Smoke Exposure: No Recent Foreign Travel: No Contact w/Someone Who Travel: No Recent Infectious Disease Expo: No Recent Hopitalizations: No Immunizations Up To Date Tetanus Booster (TDap): Unknown PED Vaccines UTD: Yes Date of Pneumonia Vaccine: Aug 10, 2018 Date of Influenza Vaccine: Aug 28, 2018 Seasonal Allergies Seasonal Allergies: Yes Surgeries History of Surgeries: Yes (LAURIE TOTAL HIP,R TKR, BILAT SHOULDER, colon resectionX2, CTR, R thyroidectom) Surgeries: Gallbladder, Hysterectomy, Joint Replacement, Thyroidectomy Respiratory History of Respiratory Disorde: No Cardiovascular History of Cardiac Disorders: Yes Cardiac Disorders: High Cholesterol, Hypertension, Palpitations Neurological History of Neurological Disord: Yes Neurological Disorders: Headaches /Migraines 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 System Hx 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 Disorders: No Sexually Transmitted Disease: No HIV/AIDS: No 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 Disorders: Denies 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, Menopausal Genitourinary History of Genitourinary Disor: Yes Genitourinary Disorders: Bladder Infection, UTI-Chronic Gastrointestinal History of Gastrointestinal Di: Yes (GI BLEED IN 2008, colon resection x2, ) Gastrointestinal Disorders: Diverticulosis, Polyps Musculoskeletal History of Musculoskeletal Dis: Yes Musculoskeletal Disorders: Arthritis Endocrine History of Endocrine Disorders: Yes (L THYROIDECTOMY) Endocrine Disorders: Hypothyroidsim, Diabetes, Non-Insulin dep HEENT HEENT Disorders: Cataract Loss of Vision: Bilateral Hearing Impairment: Denies Cancer History of Cancer: 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 2014) Cancer: Colon Psychosocial History of Psychiatric Problem: No Integumentary History of Skin or Integumenta: No Blood Transfusions History of Blood Disorders: No Adverse Reaction to a Blood Tr: No Reviewed Nursing Assessment Reviewed/Agree w Nursing PMH: Yes Family Medical History Significant Family History: No Pertinent Family Hx Family Medial History: Cardiovascular disease 19 MOTHER G8 BROTHER Colon cancer 19 FATHER G8 SISTER Parkinson's disease G8 SISTER Psychosocial problem G8 BROTHER Respiratory disorder G8 BROTHER Review of Systems-General Constitutional: No chills, No diaphoresis, No fever, No weakness EENTM: No hearing loss, No blurred vision Respiratory: No dyspnea on exertion, No short of breath Cardiovascular: No chest pain, No palpitations Gastrointestinal: abdominal pain (epigastric), nausea, vomiting Genitourinary: No decreased output, No hematuria Musculoskeletal: No back pain, No joint pain Skin: No change in color, No change in hair/nails Psychiatric/Neurological: Denies Anxiety, Denies Depressed, Denies Emotional Problems All Other Systems Reviewed Negative Unless Noted: Yes (Negative excepted noted.) Physical Exam-General Problems Physical Exam Vital Signs Vital Signs - First Documented 05/10/20 05/10/20 10:11 13:00 Temp 36.9 Pulse 118 Resp 18 B/P (MAP) 151/94 (113) Pulse Ox 97 O2 Delivery Room Air Capillary Refill : Less Than 3 SecondsLess Than 3 Seconds General Appearance: WD/WN, no apparent distress HEENT: PERRL/EOMI, normal ENT inspection Neck: non-tender, supple, normal inspection Respiratory: chest non-tender, no respiratory distress, no accessory muscle use Cardiovascular: regular rate, rhythm, no edema Gastrointestinal: non tender, soft, distended (minimal); No guarding, No rebound Rectal: deferred Back: no CVA tenderness, no vertebral tenderness Extremities: non-tender, normal inspection Neurologic/Psychiatric: line service attendant II-XII nml as tested, no motor/sensory deficits, al ert, normal mood/affect, oriented x 3 Skin: normal color, warm/dry Lymphatic: no adenopathy Data Review Labs Laboratory Tests 05/10/20 10:20: White Blood Count 13.1H, Red Blood Count 4.71, Hemoglobin 15.0, Hematocrit 45, Mean Corpuscular Volume 95, Mean Corpuscular Hemoglobin 32, Mean Corpuscular Hemoglobin Concent 34, Red Cell Distribution Width 13.6, Platelet Count 232, Mean Platelet Volume 10.3, Neutrophils (%) (Auto) 82H, Lymphocytes (%) (Auto) 12, Monocytes (%) (Auto) 6, Eosinophils (%) (Auto) 0, Basophils (%) (Auto) 0, Neutrophils # (Auto) 10.7H, Lymphocytes # (Auto) 1.5, Monocytes # (Auto) 0.8, Eosinophils # (Auto) 0.1, Basophils # (Auto) 0.0, Prothrombin Time 13.4, INR Comment 1.0, Activated Partial Thromboplast Time 28, Sodium Level 134L, Potassium Level 4.3, Chloride Level 94L, Carbon Dioxide Level 24, Anion Gap 16H, Blood Urea Nitrogen 36H, Creatinine 1.22, Estimat Glomerular Filtration Rate 42, BUN/Creatinine Ratio 30, Glucose Level 192H, Calcium Level 9.8, Corrected Calcium 9.5, Total Bilirubin 0.9, Aspartate Amino Transf (AST/SGOT) 18, Alanine Aminotransferase (ALT/SGPT) 15, Alkaline Phosphatase 55, Troponin I < 0.028, Total Protein 7.5, Albumin 4.4 05/10/20 10:44: Urine Color YELLOW, Urine Clarity CLEAR, Urine pH 6.5, Urine Specific Odd 1.015L, Urine Protein 1+H, Urine Glucose (UA) NEGATIVE, Urine Ketones TRACEH, Urine Nitrite NEGATIVE, Urine Bilirubin NEGATIVE, Urine Urobilinogen 1.0, Urine Leukocyte Esterase 1+H, Urine RBC (Auto) NEGATIVE, Urine RBC NONE, Urine WBC 25- 50H, Urine Squamous Epithelial Cells 10-25H, Urine Crystals NONE, Urine Bacteria FEWH, Urine Casts PRESENT, Urine Hyaline Casts 2-5H, Urine Mucus SMALLH, Urine Culture Indicated YES 05/10/20 16:13: Glucometer 161H Assessment/Plan Assessment/Plan Assessment/Plan small bowel obstruction nausea and vomiting patient ct consistent with small bowel obstruction, since coming to the floor, feeling better and tolerating clears. will keep on clears and get small bowel follow through in the morning if has nausea/emesis would place ng tube no surgical intervention at this time will follow. Clinical Quality Measures DVT/VTE Risk/Contraindication: Risk Factor Score Per Nursin RFS Level Per Nursing on Admit: 4+=Very High MARLIN JOHNSON DO May 10, 2020 18:23
[2020-05-10 20:12] VITALS: BP 121/69
[2020-05-11] VITALS: BP 124/71
[2020-05-11] MEDS: LACTATED RINGERS 1,000 ML IV SCH ×2 (00:29→09:34)
[2020-05-11 04:25] VITALS: BP 124/73
--- NOTE | 2020-05-11 05:49 | NUR ---
PT'S IV INFILTRATED THIS AM. PT REFUSES TO HAVE A NEW IV PLACED AND STATES, "I DON'T NEED ANOTHER IV BECAUSE I AM GOING HOME TODAY. I FEEL FINE."
[2020-05-11 06:17] LABS: BASOPHILS % (AUTO) 0 % (0-10); EOSINOPHILS # (AUTO) 0.2 10^3/uL (0.0-0.3); EOSINOPHILS % (AUTO) 2 % (0-10); HEMATOCRIT 37 % (35-52); HEMOGLOBIN 12.7 G/DL (11.5-16.0); LYMPHOCYTES # (AUTO) 1.6 X 10^3 (1.0-4.0); LYMPHOCYTES % (AUTO) 24 % (12-44); MEAN CORPUSCULAR HEMOGLOBIN 33 PG (25-34); MEAN CORPUSCULAR HGB CONC 34 G/DL (32-36); MEAN CORPUSCULAR VOLUME 96 FL (80-99); MONOCYTES # (AUTO) 0.6 X 10^3 (0.0-1.0); MONOCYTES % (AUTO) 9 % (0-12); NEUTROPHILS # (AUTO) 4.3 X 10^3 (1.8-7.8); NEUTROPHILS % (AUTO) 64 % (42-75); PLATELET COUNT 178 10^3/uL (130-400); RED CELL DISTRIBUTION WIDTH 13.8 % (10.0-14.5); WHITE BLOOD COUNT 6.6 10^3/uL (4.3-11.0)
[2020-05-11 06:33] LABS: ALBUMIN 3.7 GM/DL (3.2-4.5)
[2020-05-11 06:34] LABS: CHLORIDE 96 MMOL/L (98-107); POTASSIUM 3.7 MMOL/L (3.6-5.0); SODIUM 132 MMOL/L (135-145)
[2020-05-11 06:35] LABS: CALCIUM 8.4 MG/DL (8.5-10.1)
[2020-05-11 06:36] LABS: GLUCOSE 153 MG/DL (70-105)
[2020-05-11 06:37] LABS: CARBON DIOXIDE 24 MMOL/L (21-32)
[2020-05-11] MEDS: inSUlin ASPART (NovoLOG) 1 UNIT/0.01 ML (CHARGE PER UNIT) SC SCH ×3 (06:37→11:00)
[2020-05-11 06:38] LABS: BILIRUBIN,TOTAL 0.9 MG/DL (0.1-1.0)
[2020-05-11 06:39] LABS: ALKALINE PHOSPHATASE 50 U/L (40-136)
[2020-05-11 06:40] LABS: CREATININE SERUM 0.83 MG/DL (0.60-1.30); GFR ESTIMATED > 60
[2020-05-11 06:41] LABS: BUN/CREATININE RATIO 24
[2020-05-11 06:43] LABS: ALANINE AMINOTRANSFERASE 11 U/L (0-55)
[2020-05-11 07:58] VITALS: BP 128/69
[2020-05-11] MEDS ORDERED: PANTOPRAZOLE 40 MG (PROTONIX) VIAL IV SCH (09:00)
--- NOTE | 2020-05-11 09:00 | NUR ---
Patient taken by radiology for procedure at this time.
[2020-05-11] MEDS ORDERED: DIATRIZOATE MEGLUM/SODIUM 37% 120 ML (GASTROGRAFIN) PO ONE (09:15)
--- NOTE | 2020-05-11 11:00 | Discharge Inst-Simple/Standard ---
Discharge Inst-Standard Patient Instructions/Follow Up Plan of Care/Instructions/FU: Please continue to take your medications as written. Please follow up with your primary care doctor in the next week. Activity as Tolerated: Yes Discharge Diet: Eat Small Frequent Meals Return to The Hospital For: Chest pain, shortness of breath, abdominal pain, vomiting, no gas of BM for >24 hours, if you feel you are getting worse. TAMICA CUEVA MD May 11, 2020 11:00
--- NOTE | 2020-05-11 11:03 | Discharge Summary ---
Diagnosis/Chief Complaint Date of Admission May 10, 2020 at 12:36 Date of Discharge Discharge Date: May 11, 2020 Admission Diagnosis SBO Primary Care Kevin Puente MD Discharge Summary Discharge Physical Exam Allergies: Coded Allergies: warfarin (Verified Allergy, Unknown, "SEVERE BLEEDING", 12/25/17) Vitals & I&Os Vital Signs Date Time Temp Pulse Resp B/P (MAP) Pulse Ox O2 Delivery O2 Flow Rate FiO2 05/11/20 08:00 98 Room Air 05/11/20 07:58 36.5 99 20 128/69 (88) General Appearance: No Apparent Distress, WD/WN Respiratory: Lungs Clear, No Respiratory Distress Cardiovascular: Regular Rate, Rhythm, No Murmur Gastrointestinal: Normal Bowel Sounds, Soft Neurologic/Psychiatric: Alert, Oriented x3 Hospital Course Pt was admitted due to small bowel obstruction. She was treated conservatively with bowel rest and did not require decompression with NGT. She underwent small bowel follow through and started to have bowl movements. She had an uneventful hospital stay and was discharged home in stable condition. Labs (last 24 hrs) Laboratory Tests 05/10/20 16:13: Glucometer 161H 05/10/20 20:38: Glucometer 202H 05/11/20 05:52: White Blood Count 6.6, Red Blood Count 3.89L, Hemoglobin 12.7, Hematocrit 37, Mean Corpuscular Volume 96, Mean Corpuscular Hemoglobin 33, Mean Corpuscular Hemoglobin Concent 34, Red Cell Distribution Width 13.8, Platelet Count 178, Mean Platelet Volume 10.0, Neutrophils (%) (Auto) 64, Lymphocytes (%) (Auto) 24, Monocytes (%) (Auto) 9, Eosinophils (%) (Auto) 2, Basophils (%) (Auto) 0, Neutrophils # (Auto) 4.3, Lymphocytes # (Auto) 1.6, Monocytes # (Auto) 0.6, Eosinophils # (Auto) 0.2, Basophils # (Auto) 0.0, Sodium Level 132L, Potassium Level 3.7, Chloride Level 96L, Carbon Dioxide Level 24, Anion Gap 12, Blood Urea Nitrogen 20H, Creatinine 0.83, Estimat Glomerular Filtration Rate > 60, BUN/Creatinine Ratio 24, Glucose Level 153H, Calcium Level 8.4L, Corrected Calcium 8.6, Total Bilirubin 0.9, Aspartate Amino Transf (AST/SGOT) 19, Alanine Aminotransferase (ALT/SGPT) 11, Alkaline Phosphatase 50, Total Protein 6.0L, Albumin 3.7 05/11/20 05:54: Glucometer 161H Patient resulted labs reviewed. Pending Labs Laboratory Tests 05/11/20 05:52: White Blood Count 6.6, Red Blood Count 3.89, Hemoglobin 12.7, Hematocrit 37, Mean Corpuscular Volume 96, Mean Corpuscular Hemoglobin 33, Mean Corpuscular Hemoglobin Concent 34, Red Cell Distribution Width 13.8, Platelet Count 178, Mean Platelet Volume 10.0, Neutrophils (%) (Auto) 64, Lymphocytes (%) (Auto) 24, Monocytes (%) (Auto) 9, Eosinophils (%) (Auto) 2, Basophils (%) (Auto) 0, Neutrophils # (Auto) 4.3, Lymphocytes # (Auto) 1.6, Monocytes # (Auto) 0.6, Eosinophils # (Auto) 0.2, Basophils # (Auto) 0.0, Sodium Level 132, Potassium Level 3.7, Chloride Level 96, Carbon Dioxide Level 24, Anion Gap 12, Blood Urea Nitrogen 20, Creatinine 0.83, Estimat Glomerular Filtration Rate > 60, BUN/Cre atinine Ratio 24, Glucose Level 153, Calcium Level 8.4, Corrected Calcium 8.6, Total Bilirubin 0.9, Aspartate Amino Transf (AST/SGOT) 19, Alanine Aminotransferase (ALT/SGPT) 11, Alkaline Phosphatase 50, Total Protein 6.0, Albumin 3.7 05/11/20 05:54: Glucometer 161 Imaging: Reviewed Imaging Report Discussion & Recommendations Discharge Planning: >30 minutes discharge planning Discharge Home Medications: Active Scripts Active Reported Stool Softener (Docusate Sodium) 100 Mg Capsule 100 Mg PO DAILY PRN Tylenol (Acetaminophen) 325 Mg Capsule 650 Mg PO Q8H PRN Metformin HCl 500 Mg Tablet 1,000 Mg PO HS TAKES 2 (500MG) TABS Metformin HCl 500 Mg Tablet 500 Mg PO DAILY Hydrochlorothiazide 12.5 Mg Tablet 12.5 Mg PO DAILY Enloe-3 Acid Ethyl Esters 1 Gm Capsule 1 Gm PO BID Metoprolol Succinate 25 Mg Tab.er.24h 12.5 Mg PO HS TAKES 1/2 (25MG) TABLET Synthroid (Levothyroxine Sodium) 25 Mcg Tablet 25 Mcg PO DAILY Enalapril Maleate 10 Mg Tablet 10 Mg PO BID Vitamin C (Ascorbic Acid) 500 Mg Capsule 500 Mg PO BID Pioglitazone HCl 30 Mg Tablet 30 Mg PO DAILY Simvastatin 40 Mg Tablet 40 Mg PO HS Trospium Chloride ER (Trospium Chloride) 60 Mg Cap.er.24h 60 Mg PO DAILY Instructions to patient/family Please see electronic discharge instructions given to patient. Clinical Quality Measures DVT/VTE Risk/Contraindication: Risk Factor Score Per Nursin RFS Level Per Nursing on Admit: 4+=Very High TAMICA CUEVA MD May 11, 2020 11:03
[2020-05-11 11:37] VITALS: BP 126/82
--- NOTE | 2020-05-11 12:29 | Diagnostic Imaging Report ---
INDICATION: Bowel obstruction. TECHNIQUE: Patient ingested 120 mL of Gastrografin contrast mixed with 120 mL of water and serial radiographs of the abdomen were obtained. FINDINGS: Preliminary radiograph of the abdomen demonstrates an unremarkable bowel gas pattern. Postingestion films demonstrate contrast within the stomach. Contrast flows freely into the proximal small bowel loops. Small bowel loops appear to be normal in caliber. Mucosal fold pattern appears unremarkable. There appears to be normal progression of contrast to the large bowel loops. No obstruction is identified. IMPRESSION: Unremarkable small bowel study. Dictated by: Dictated on workstation # [id number]
--- NOTE | 2020-05-11 20:07 | Progress Note - Surgery ---
Subjective Date Seen by a Provider: May 11, 2020 Time Seen by a Provider: 08:21 Subjective/Events-last exam Patient tolerating clears. Not having any abdominal pain. Had a bm. No more nausea or vomiting. Denies fever sweats chills shortness of breath or chest pain. small bowel follow through planned for today. Patient wanting to go home. Objective Exam Vital Signs Date Time Temp Pulse Resp B/P (MAP) Pulse Ox O2 Delivery O2 Flow Rate FiO2 05/11/20 14:52 05/11/20 11:37 36.5 95 20 126/82 (97) 93 Room Air 05/11/20 08:00 98 Room Air 05/11/20 07:58 36.5 99 20 128/69 (88) 98 Room Air 05/11/20 04:25 36.3 102 18 124/73 (90) 95 Room Air 05/11/20 00:00 36.3 90 20 124/71 (88) 92 Room Air 05/10/20 20:12 36.1 93 18 121/69 (86) 96 Room Air I & O 05/11/20 07:00 Intake Total 2870 ml Output Total 4 ml Balance 2866 ml Capillary Refill : Less Than 3 SecondsLess Than 3 Seconds General Appearance: No Apparent Distress, WD/WN HEENT: PERRL/EOMI, Moist Mucous Membranes; No Scleral Icterus (L), No Scleral Icterus (R) Neck: Normal Inspection, Supple; No Thyromegaly Respiratory: Chest Non Tender, No Accessory Muscle Use, No Respiratory Distress Cardiovascular: Regular Rate, Rhythm, Normal Peripheral Pulses Peripheral Pulses: 2+ Radial Pulses (R), 2+ Radial Pulses (L) (quiescent) Gastrointestinal: non tender, soft, distended (minimal); No guarding, No rebound Extremity: Non Tender, No Calf Tenderness, No Pedal Edema Neurologic/Psychiatric: Alert, Oriented x3 Skin: Normal Color, Warm/Dry Lymphatic: No Adenopathy Results Lab Laboratory Tests 05/10/20 20:38: Glucometer 05/11/20 05:52: White Blood Count 6.6, Red Blood Count 3.89L, Hemoglobin 12.7, Hematocrit 37, Mean Corpuscular Volume 96, Mean Corpuscular Hemoglobin 33, Mean Corpuscular Hemoglobin Concent 34, Red Cell Distribution Width 13.8, Platelet Count 178, Mean Platelet Volume 10.0, Neutrophils (%) (Auto) 64, Lymphocytes (%) (Auto) 24, Monocytes (%) (Auto) 9, Eosinophils (%) (Auto) 2, Basophils (%) (Auto) 0, Neutrophils # (Auto) 4.3, Lymphocytes # (Auto) 1.6, Monocytes # (Auto) 0.6, Eosinophils # (Auto) 0.2, Basophils # (Auto) 0.0, Sodium Level 132L, Potassium Level 3.7, Chloride Level 96L, Carbon Dioxide Level 24, Anion Gap 12, Blood Urea Nitrogen 20H, Creatinine 0.83, Estimat Glomerular Filtration Rate > 60, BUN/Creatinine Ratio 24, Glucose Level 153H, Calcium Level 8.4L, Corrected Calcium 8.6, Total Bilirubin 0.9, Aspartate Amino Transf (AST/SGOT) 19, Alanine Aminotransferase (ALT/SGPT) 11, Alkaline Phosphatase 50, Total Protein 6.0L, Albumin 3.7 05/11/20 05:54: Glucometer 161H 05/11/20 11:36: Glucometer 144H Microbiology 05/10/20 Blood Culture - Preliminary, Resulted No growth 05/10/20 Urine Culture - Final, Complete 3 or more isolates Assessment/Plan Assessment/Plan Assessment/Plan small bowel obstruction nausea and vomiting patient ct consistent with small bowel obstruction, since coming to the floor, feeling better and tolerating clears. will keep on clears and get small bowel follow through today if small bowel follow through is normal patient is wanting to go home Clinical Quality Measures DVT/VTE Risk/Contraindication: Risk Factor Score Per Nursin RFS Level Per Nursing on Admit: 4+=Very High MARLIN JOHNSON DO May 11, 2020 20:07
--- NOTE | 2020-05-12 16:58 | Physician Query Clarification ---
"Physician Query-General Query to Physician: The medical record reflects the following clinical scenario: History/Risk factors: Bowel obstruction, N/V Clinical Findings: HR Consistently 90 to 100, WBC 13.1, Cr above baseline as 1.22 Treatment: IVF, Monitoring, Question: What condition best reflects the above clinical scenario? Please document response in the Progress notes or Discharge Summary. 1. Non infectious SIRS with organ Dysfunction - Acute Kidney Injury 2. JORY (as currently documented) 3. Other , with explanation of the clinical findings 4. Clinically undetermined, no explanation for the clinical findings Please remember a lack of response to the above will prompt a phone page by CDI/coding staff In responding to this query, please exercise your independent professional judgment. The purpose of this communication is to more accurately reflect the complexity of your patients condition. The fact that a question is asked does not imply that any particular answer is desired or expected. Thank you for timely response to this clarification. Natali Campbell, MSN, RN RN Specialist-Clinical Doc Improvement CD -Health Info [facility] [address] [facility] t: [phone] | f: [phone] If you are unable to reach me at my extension, I may be working from home. Please contact me at [phone] PHYSICIAN RESPONSE: Based on the clinical findings in the record, please respond to the query above on this document as an addendum. Physician Response: Physician Response 2 If you have questions please contact: Spa Host: Ext: Thank you for your time and cooperation. Clinical Porcelain Enamel Sprayer/Spa Host This is a permanent part of the medical record NATALI CAMPBELL May 12, 2020 16:58 TAMICA CUEVA MD May 14, 2020 11:33"
== END 2020-05-11 14:53 | disposition home or self-care (01) | DRG 389 ==
LOC: EDUNIT# 10:09 → ER 10:10 → 4TH 12:36
PROVIDERS: ADMIT Family Medicine; ATTEND Family Medicine
DX: K56.699 Other intestinal obstruction unspecified as to partial versus complete obstruction (principal); N17.9 Acute kidney failure, unspecified; E86.0 Dehydration; K21.9 Gastro-esophageal reflux disease without esophagitis; E11.9 Type 2 diabetes mellitus without complications; I10 Essential (primary) hypertension; E89.0 Postprocedural hypothyroidism; J30.2 Other seasonal allergic rhinitis; E78.00 Pure hypercholesterolemia, unspecified; G43.919 Migraine, unspecified, intractable, without status migrainosus; E66.9 Obesity, unspecified; M19.91 Primary osteoarthritis, unspecified site; K42.9 Umbilical hernia without obstruction or gangrene; N28.1 Cyst of kidney, acquired; Z85.038 Personal history of other malignant neoplasm of large intestine; Z90.49 Acquired absence of other specified parts of digestive tract; Z68.35 Body mass index [BMI] 35.0-35.9, adult; Z96.643 Presence of artificial hip joint, bilateral; Z96.651 Presence of right artificial knee joint; Z79.84 Long term (current) use of oral hypoglycemic drugs; Z87.19 Personal history of other diseases of the digestive system
CPT/HCPCS: 36415; 71045; 74177; 74250; 80053; 81000; 82962; 84484; 85025; 85610; 85730; 87040; 87088; 93005; 96361; 96374; 96375

== ENCOUNTER 2020-05-13 21:51 | Emergency (ER) | payer MEDICARE, OTHER ==
[~2020-05-13] VITALS: Ht 160 cm; Wt 90.0 kg
[~2020-05-13 21:51] MED LIST changes: +ACET325C7 PO; +DOCU-238 PO; +HYDR12.56 PO
[2020-05-13] MEDS ORDERED: ONDANSETRON 4 MG/2 ML (SDV) Z0FRAN IVP ONE (22:00)
[2020-05-13] MEDS ORDERED: NS IV 1000 ML 1,000 ML IV SCH (22:00)
--- NOTE | 2020-05-13 22:01 | ED GI ---
General Chief Complaint: Abdominal/GI Problems Stated Complaint: N/V,DIARRHEA Nursing Triage Note: Pt to RM 6 via WC with c/o N/V/D this evening. Sepsis Screen: No Definite Risk Source of Information: Patient Exam Limitations: No Limitations (JUDY ESTES APRN) History of Present Illness Date Seen by Provider: May 13, 2020 Time Seen by Provider: 21:59 Initial Comments To ER by private vehicle from home with reports of nausea vomiting diarrhea. She was admitted on Saturday of last week for small bowel obstruction, had a small bowel follow-through on Saturday and discharged home. The diarrhea that she noticed after the small bowel follow-through on Saturday has not stopped, vomiting returned tonight at 9 PM. She denies any abdominal pain. Timing/Duration: 1-2 Days Severity/Quality: Moderate Location: Generalized Abdomen Radiation: No Radiation Activities at Onset: None Associated Symptoms: Nausea/Vomiting (JUDY ESTES APRN) Allergies and Home Medications Allergies Coded Allergies: warfarin (Verified Allergy, Unknown, "SEVERE BLEEDING", 12/25/17) Home Medications Acetaminophen 325 Mg Capsule, 650 MG PO Q8H PRN for PAIN-MILD (1-4), (Reported) Ascorbic Acid 500 Mg Capsule, 500 MG PO BID, (Reported) Docusate Sodium 100 Mg Capsule, 100 MG PO DAILY PRN for CONSTIPATION-1ST LINE, (Reported) Enalapril Maleate 10 Mg Tablet, 10 MG PO BID, (Reported) Hydrochlorothiazide 12.5 Mg Tablet, 12.5 MG PO DAILY, (Reported) Levothyroxine Sodium 25 Mcg Tablet, 25 MCG PO DAILY, (Reported) Metformin HCl 500 Mg Tablet, 500 MG PO DAILY, (Reported) Metformin HCl 500 Mg Tablet, 1,000 MG PO HS, (Reported) TAKES 2 (500MG) TABS Metoprolol Succinate 25 Mg Tab.er.24h, 12.5 MG PO HS, (Reported) TAKES 1/2 (25MG) TABLET [place]-3 Acid Ethyl Esters 1 Gm Capsule, 1 GM PO BID, (Reported) Pioglitazone HCl 30 Mg Tablet, 30 MG PO DAILY, (Reported) Simvastatin 40 Mg Tablet, 40 MG PO HS, (Reported) Trospium Chloride 60 Mg Cap.er.24h, 60 MG PO DAILY, (Reported) Patient Home Medication List Home Medication List Reviewed: Yes (JUDY ESTES APRN) Review of Systems Review of Systems Constitutional: see HPI EENTM: No Symptoms Reported Respiratory: No Symptoms Reported Cardiovascular: No Symptoms Reported Gastrointestinal: See HPI, Diarrhea, Nausea, Vomiting Genitourinary: No Symptoms Reported Musculoskeletal: no symptoms reported Skin: no symptoms reported Psychiatric/Neurological: No Symptoms Reported Endocrine: No Symptoms Reported Hematologic/Lymphatic: No Symptoms Reported (JUDY ESTES APRN) Past Hyzxjwd-Jedlou-Hmqdgd Hx Patient Social History Alcohol Beverage of Choice: Wine 2nd Hand Smoke Exposure: No Recent Foreign Travel: No Contact w/Someone Who Travel: No Recent Infectious Disease Expo: No Recent Hopitalizations: No (JUDY ESTES APRN) Immunizations Up To Date Tetanus Booster (TDap): Unknown PED Vaccines UTD: Yes Date of Pneumonia Vaccine: Aug 10, 2018 Date of Influenza Vaccine: Aug 28, 2018 (JUDY ESTES APRN) Seasonal Allergies Seasonal Allergies: Yes (JUDY ESTES APRN) Past Medical History Surgeries: Yes (LAURIE TOTAL HIP,R TKR, BILAT SHOULDER, colon resectionX2, CTR, R thyroidectom) Gallbladder, Hysterectomy, Joint Replacement, Thyroidectomy Respiratory: No Currently Using CPAP: No Currently Using BIPAP: No Cardiac: Yes High Cholesterol, Hypertension, Palpitations Neurological: Yes Headaches /Migraines 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 Disorders: No 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 Disorders: Denies 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, 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 Sexually Transmitted Disease: No HIV/AIDS: No Genitourinary: Yes Bladder Infection, UTI-Chronic Gastrointestinal: Yes (GI BLEED IN 2008, colon resection x2, ) Diverticulosis, Polyps Musculoskeletal: Yes Arthritis Endocrine: Yes (L THYROIDECTOMY) Hypothyroidsim, Diabetes, 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 Hearing Impairment: Denies Cancer: 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 2014) Colon Did You Recieve Any Treatments: No What Type of Treatment Did You: Surgical Intervention Psychosocial: No Integumentary: No Blood Disorders: No Adverse Reaction/Blood Tranf: No (JUDY ESTES APRN) Family Medical History Cardiovascular disease 19 MOTHER G8 BROTHER Colon cancer 19 FATHER G8 SISTER Parkinson's disease G8 SISTER Psychosocial problem G8 BROTHER Respiratory disorder G8 BROTHER No Pertinent Family Hx (JUDY ESTES APRN) Physical Exam Vital Signs Vital Signs - First Documented 05/13/20 21:56 Temp 36.4 Pulse 121 Resp 19 B/P (MAP) 151/101 (118) Pulse Ox 97 O2 Delivery Room Air (EVELIA KWON MD) Vital Signs Capillary Refill : Less Than 3 Seconds (JUDY ESTES APRN) Height/Weight/BMI Height: 5'3.00" Weight: 200lbs. 0.0oz. 90.812086dn; 35.00 BMI Method:Stated General Appearance: WD/WN, no apparent distress HEENT: PERRL/EOMI, normal ENT inspection Respiratory: normal breath sounds, no respiratory distress, no accessory muscle use Gastrointestinal: normal bowel sounds, non tender, soft; No tenderness Extremities: normal range of motion, non-tender Neurologic/Psychiatric: alert, normal mood/affect, oriented x 3 Skin: normal color, warm/dry (JUDY ESTES APRN) Progress/Results/Core Measures Results/Orders Lab Results Laboratory Tests Test 05/13/20 22:03 Range/Units White Blood Count 12.3 H 4.3-11.0 10^3/uL Red Blood Count 4.41 4.35-5.85 10^6/uL Hemoglobin 14.3 11.5-16.0 G/DL Hematocrit 42 35-52 % Mean Corpuscular Volume 95 80-99 FL Mean Corpuscular Hemoglobin 32 25-34 PG Mean Corpuscular Hemoglobin Concent 34 32-36 G/DL Red Cell Distribution Width 13.6 10.0-14.5 % Platelet Count 198 130-400 10^3/uL Mean Platelet Volume 10.2 7.4-10.4 FL Neutrophils (%) (Auto) 86 H 42-75 % Lymphocytes (%) (Auto) 7 L 12-44 % Monocytes (%) (Auto) 6 0-12 % Eosinophils (%) (Auto) 1 0-10 % Basophils (%) (Auto) 0 0-10 % Neutrophils # (Auto) 10.6 H 1.8-7.8 X 10^3 Lymphocytes # (Auto) 0.9 L 1.0-4.0 X 10^3 Monocytes # (Auto) 0.7 0.0-1.0 X 10^3 Eosinophils # (Auto) 0.1 0.0-0.3 10^3/uL Basophils # (Auto) 0.0 0.0-0.1 10^3/uL Neutrophils % (Manual) 80 % Lymphocytes % (Manual) 11 % Monocytes % (Manual) 2 % Eosinophils % (Manual) 1 % Band Neutrophils 6 % Blood Morphology Comment NORMAL Sodium Level 135 135-145 MMOL/L Potassium Level 3.5 L 3.6-5.0 MMOL/L Chloride Level 97 L 98-107 MMOL/L Carbon Dioxide Level 22 21-32 MMOL/L Anion Gap 16 H 5-14 MMOL/L Blood Urea Nitrogen 22 H 7-18 MG/DL Creatinine 1.15 0.60-1.30 MG/DL Estimat Glomerular Filtration Rate 45 BUN/Creatinine Ratio 19 Glucose Level 159 H 70-105 MG/DL Calcium Level 9.1 8.5-10.1 MG/DL Corrected Calcium 9.0 8.5-10.1 MG/DL Total Bilirubin 0.8 0.1-1.0 MG/DL Aspartate Amino Transf (AST/SGOT) 19 5-34 U/L Alanine Aminotransferase (ALT/SGPT) 15 0-55 U/L Alkaline Phosphatase 72 40-136 U/L Total Protein 7.0 6.4-8.2 GM/DL Albumin 4.1 3.2-4.5 GM/DL Lipase 16 8-78 U/L (EVELIA KWON MD) My Orders Orders - EVELIA KWON MD Loperamide Tablet (Imodium Tablet) (05/14/20 00:04) (EVELIA KWON MD) Medications Given in ED Current Medications Medications Dose Ordered Sig/Shadi Route Start Time Stop Time Status Last Admin Dose Admin Ondansetron HCl 4 mg ONCE ONCE IVP 05/13/20 22:00 05/13/20 22:01 DC 05/13/20 22:05 4 MG (EVELIA KWON MD) Vital Signs/I&O 05/13/20 21:56 Temp 36.4 Pulse 121 Resp 19 B/P (MAP) 151/101 (118) Pulse Ox 97 O2 Delivery Room Air 05/14/20 00:00 Intake Total 1000 ml Balance 1000 ml (EVELIA KWON MD) Blood Pressure Mean: 118 Progress Progress Note : Progress Note Assumed care of the patient computer Silver APRN pending CT scan. 0002: CT complete. Patient is feeling much better after a liter of fluid and has tolerated sips. She had one small diarrheal stool but otherwise is been doing better. CT does not show obstruction or other significant abnormal findings. Imodium 2 mg by mouth given. Patient feels comfortable going home. Discharged home with return precautions. Patient verbalize understanding instructions and agreement with plan. (EVELIA KWON MD) Diagnostic Imaging Diagonstic Imaging: CT Plain Films/CT/US/NM/MRI: abdomen, pelvis Comments No evidence small bowel instruction. Moderate fluid throughout the colon and into the rectum consistent with a history of diarrheal state. There is diverticulosis with no convincing evidence of diverticulitis. Reviewed: Reviewed [place] Study (EVELIA KWON MD) Departure Impression Primary Impression: Diarrhea Qualified Codes: R19.7 - Diarrhea, unspecified Disposition: HOME, SELF-CARE Condition: Improved Departure-Patient Inst. Decision time for Depature: 00:07 (EVELIA KWON MD) Referrals: WM MCGHEE MD (PCP/Family) Primary Care Physician Patient Instructions: Diarrhea in Adolescents and Adults Add. Discharge Instructions: All discharge instructions reviewed with patient and/or family. Voiced understanding. Clear liquid or light diet for the next 24 hours and then advance as tolerated. Drink plenty of fluids and taking small sips frequently. Follow-up with your doctor early next week for recheck and further evaluation. Return for worse pain, fever, vomiting, unable to drink or eat, weakness, breathing problems or other concerns as needed. Continue other home medications as previously prescribed. JUDY ESTES APRN May 13, 2020 22:01 EVELIA KWON MD May 14, 2020 00:09
[2020-05-13 22:22] LABS: BASOPHILS % (AUTO) 0 % (0-10); EOSINOPHILS # (AUTO) 0.1 10^3/uL (0.0-0.3); EOSINOPHILS % (AUTO) 1 % (0-10); HEMATOCRIT 42 % (35-52); HEMOGLOBIN 14.3 G/DL (11.5-16.0); LYMPHOCYTES # (AUTO) 0.9 X 10^3 (1.0-4.0); LYMPHOCYTES % (AUTO) 7 % (12-44); MEAN CORPUSCULAR HEMOGLOBIN 32 PG (25-34); MEAN CORPUSCULAR HGB CONC 34 G/DL (32-36); MEAN CORPUSCULAR VOLUME 95 FL (80-99); MEAN PLATELET VOLUME 10.2 FL (7.4-10.4); MONOCYTES # (AUTO) 0.7 X 10^3 (0.0-1.0); MONOCYTES % (AUTO) 6 % (0-12); NEUTROPHILS # (AUTO) 10.6 X 10^3 (1.8-7.8); NEUTROPHILS % (AUTO) 86 % (42-75); PLATELET COUNT 198 10^3/uL (130-400); RED CELL DISTRIBUTION WIDTH 13.6 % (10.0-14.5); WHITE BLOOD COUNT 12.3 10^3/uL (4.3-11.0)
[2020-05-13 22:23] LABS: ALBUMIN 4.1 GM/DL (3.2-4.5); POTASSIUM 3.5 MMOL/L (3.6-5.0)
[2020-05-13 22:24] LABS: CALCIUM 9.1 MG/DL (8.5-10.1)
[2020-05-13 22:27] LABS: BILIRUBIN,TOTAL 0.8 MG/DL (0.1-1.0)
[2020-05-13 22:29] LABS: CREATININE SERUM 1.15 MG/DL (0.60-1.30)
[2020-05-13 22:44] LABS: BAND NEUTROPHILS 6 %; EOSINOPHILS % (MANUAL) 1 %; LYMPHOCYTES % (MANUAL) 11 %; MONOCYTES % (MANUAL) 2 %; NEUTROPHILS % (MANUAL) 80 %; RBC MORPH NORMAL
[2020-05-14] MEDS ORDERED: LOPERAMIDE 2 MG (IMODIUM) TABLET ONE (00:03)
[2020-05-14] MEDS ORDERED: LOPERAMIDE 2 MG (IMODIUM) TABLET PO STA (00:04)
[2020-05-14 00:11] VITALS: BP 132/85
--- NOTE | 2020-05-14 07:43 | Diagnostic Imaging Report ---
PROCEDURE: CT abdomen and pelvis without contrast. TECHNIQUE: Multiple contiguous axial images were obtained through the abdomen and pelvis without the use of intravenous contrast. Auto Exposure Controls were utilized during the CT exam to meet ALARA standards for radiation dose reduction. INDICATION: Nausea, vomiting and diarrhea, onset earlier in the evening. History of colon cancer. CORRELATION STUDY: 05/10/2020 FINDINGS: LOWER THORAX: Heart size enlarged with coronary artery and cardiac valvular calcification. No significant basilar infiltrate. LIVER: Unremarkable. GALLBLADDER: Not visualized likely absent. No bile duct dilatation. SPLEEN: Unremarkable. PANCREAS: Mildly atrophic. ADRENAL GLANDS: Unremarkable. KIDNEYS: Right kidney unremarkable. Left kidney contains multiple cysts. Largest measures approximately 12 to 13 cm off the inferior pole. ABDOMINAL AORTA: Moderate aortoiliac wall calcification, nonaneurysmal. GASTROINTESTINAL TRACT: Stomach mildly distended with fluid. A few fluid-filled loops of small bowel are present. Fluid within the colon to level of the rectum. A few scattered colonic diverticuli. No significant abdominal ascites and/or free air. The previously noted mild small bowel dilatation near the umbilicus is less prominent. URINARY BLADDER: Relatively decompressed. REPRODUCTIVE: Post hysterectomy. OSSEOUS STRUCTURES: Extensive metallic artifact from bilateral hip arthroplasties which obscures large portion of the pelvis. Grade 1 spondylolisthesis of L4 on L5. Lumbar spine degenerative change present. OTHER: None. IMPRESSION: 1. No evidence for small bowel obstruction at followup assessment. There is moderate fluid throughout the colon including to level the rectum. Likely reflective of underlying diarrheal state. Diverticulosis without findings to suggest acute diverticulitis. A preliminary report was provided by Merlin. Dictated by: Dictated on workstation # [id number]
== END 2020-05-14 00:16 | disposition home or self-care (01) ==
LOC: EDUNIT# 21:51 → ER 21:53
DX: R19.7 Diarrhea, unspecified (principal); I10 Essential (primary) hypertension; E03.9 Hypothyroidism, unspecified; E78.00 Pure hypercholesterolemia, unspecified; E11.9 Type 2 diabetes mellitus without complications; G43.909 Migraine, unspecified, not intractable, without status migrainosus; Z80.0 Family history of malignant neoplasm of digestive organs; Z96.651 Presence of right artificial knee joint; Z96.643 Presence of artificial hip joint, bilateral; Z82.49 Family history of ischemic heart disease and other diseases of the circulatory system; Z79.1 Long term (current) use of non-steroidal anti-inflammatories (NSAID); Z79.890 Hormone replacement therapy; Z88.8 Allergy status to other drugs, medicaments and biological substances
CPT/HCPCS: 36415; 74176; 80053; 83690; 85007; 85027

== ENCOUNTER → 2020-05-31 | Outpatient (CLI) | payer MEDICARE, OTHER ==
--- NOTE | 2020-05-31 12:54 | Diagnostic Imaging Report ---
INDICATION: Routine screening. COMPARISON: 03/02/2019 and 08/13/2017. TECHNIQUE: 2D and 3D bilateral screening mammography was performed with CAD. FINDINGS: Scattered fibroglandular densities are identified bilaterally. There are benign parenchymal and vascular calcifications bilaterally. No mass or malignant appearing microcalcifications are identified. The axillae are unremarkable. IMPRESSION: No mammographic features suspicious for malignancy are identified. ACR BI-RADS Category 2: Benign findings. Result letter will be mailed to the patient. Note: At least 10% of breast cancer is not imaged by mammography. Dictated by: Dictated on workstation # [id number]
== END ==
LOC: RAD 10:21
PROVIDERS: ATTEND Internal Medicine
DX: Z12.31 Encounter for screening mammogram for malignant neoplasm of breast (principal)
CPT/HCPCS: 77063; 77067

== ENCOUNTER → 2020-08-31 | Outpatient (CLI) | payer MEDICARE, OTHER ==
[~2020-08-31] MED LIST changes: +CATHETER FLUSH 10 ML SYR IV PRN; -ENAL10TA PO; +ENAL10TA16 PO; +HOLD METFORMIN - RECEIVED CONTRAST 20 ML VIAL IV SCH; +IOHEXOL 350 MG/ML 100 ML (OMNIPAQUE 350) VIAL IV ONE; +NS 100 ML (IVPB) BAG IV ONE
--- NOTE | 2020-08-31 09:17 | Diagnostic Imaging Report ---
PROCEDURE: CT chest, abdomen, and pelvis with contrast. TECHNIQUE: Multiple contiguous axial images were obtained through the chest, abdomen, and pelvis after the administration of intravenous contrast. Auto Exposure Controls were utilized during the CT exam to meet ALARA standards for radiation dose reduction. INDICATION: Colon carcinoma with rising CEA levels. COMPARISON: CT abdomen and pelvis study from 05/13/2020. FINDINGS: The lung bases are clear. No discrete liver mass is identified. The gallbladder appears to be surgically absent. No biliary ductal dilatation is seen. The pancreas and spleen are unremarkable. No adrenal mass is detected. The right kidney is unremarkable. There is a large cyst arising from the lower pole of the left kidney measuring approximately 13 cm compared with 12 cm on the prior exam. No hydronephrosis is identified. The aorta is non-aneurysmal. No definite central, retroperitoneal, or mesenteric lymphadenopathy is identified. There is extensive diverticulosis of the sigmoid colon and portions of the descending colon but no evidence of acute diverticulitis. The bowel loops are of normal caliber. No obstruction is identified. The bladder is obscured by beam hardening artifact from the patient's bilateral hip prostheses. No definite pelvic lymphadenopathy is identified. The bony structures are nonacute. IMPRESSION: 1. Uncomplicated diverticulosis. 2. No evidence of abdominal lymphadenopathy or metastatic disease. 3. Left renal cysts. Dictated by: Dictated on workstation # [id number]
== END ==
LOC: RAD 08:45
PROVIDERS: ATTEND Internal Medicine
DX: C18.3 Malignant neoplasm of hepatic flexure (principal); N28.1 Cyst of kidney, acquired; R97.0 Elevated carcinoembryonic antigen [CEA]
CPT/HCPCS: 71260; 74177

== ENCOUNTER → 2020-12-19 | Outpatient (CLI) | payer MEDICARE, OTHER ==
[~2020-12-19] MED LIST changes: -CATHETER FLUSH 10 ML SYR IV PRN; -HOLD METFORMIN - RECEIVED CONTRAST 20 ML VIAL IV SCH; -IOHEXOL 350 MG/ML 100 ML (OMNIPAQUE 350) VIAL IV ONE; -NS 100 ML (IVPB) BAG IV ONE; -OMEG-105 PO; +OMEG-218 PO
--- NOTE | 2020-12-19 15:42 | Diagnostic Imaging Report ---
INDICATION: Right ankle pain for 2 months. TIME OF EXAM: 12:39 PM Three views of the right ankle were obtained. Ankle alignment is normal. Ankle mortise is well maintained. Talar dome is smooth. No fracture or dislocation is identified. IMPRESSION: No acute bony abnormality is detected. Dictated by: Dictated on workstation # [id number]
== END ==
LOC: RAD 12:09
PROVIDERS: ATTEND Physician Assistant
DX: M25.571 Pain in right ankle and joints of right foot (principal)
CPT/HCPCS: 73610

== ENCOUNTER 2021-03-12 20:48 | Inpatient (IN) | payer MEDICARE, OTHER ==
[~2021-03-12] VITALS: Ht 165.1 cm; Wt 88.3 kg
[~2021-03-12 20:48] MED LIST changes: -DOCU-238 PO; +DOCU-241 PO
[2021-03-12] MEDS ORDERED: ASPIRIN 81 MG CHEW (CHILDREN'S ASA) ONE (21:00)
[2021-03-12 21:15] LABS: BASOPHILS % (AUTO) 0 % (0-10); EOSINOPHILS # (AUTO) 0.1 10^3/uL (0.0-0.3); EOSINOPHILS % (AUTO) 0 % (0-10); HEMATOCRIT 42 % (35-52); LYMPHOCYTES # (AUTO) 1.5 10^3/uL (1.0-4.0); LYMPHOCYTES % (AUTO) 13 % (12-44); MEAN CORPUSCULAR HEMOGLOBIN 33 pg (25-34); MEAN CORPUSCULAR HGB CONC 33 g/dL (32-36); MEAN CORPUSCULAR VOLUME 98 fL (80-99); MEAN PLATELET VOLUME 10.4 fL (9.0-12.2); MONOCYTES # (AUTO) 0.4 10^3/uL (0.0-1.0); MONOCYTES % (AUTO) 4 % (0-12); NEUTROPHILS # (AUTO) 9.2 10^3/uL (1.8-7.8); NEUTROPHILS % (AUTO) 82 % (42-75); PLATELET COUNT 201 10^3/uL (130-400); WHITE BLOOD COUNT 11.2 10^3/uL (4.3-11.0)
[2021-03-12] MEDS ORDERED: ASPIRIN 81 MG CHEW (CHILDREN'S ASA) PO ONE (21:15)
[2021-03-12] MEDS ORDERED: dilTIAZem DRIP PRE-MIX 125 ML IV SCH (21:15)
[2021-03-12] MEDS: dilTIAZem DRIP PRE-MIX 125 ML IV ONE ×2 (21:20→21:22)
[2021-03-12 21:29] LABS: ALANINE AMINOTRANSFERASE 12 U/L (0-55); ALBUMIN 4.1 GM/DL (3.2-4.5); ALKALINE PHOSPHATASE 61 U/L (40-136); BILIRUBIN,TOTAL 0.4 MG/DL (0.1-1.0); BUN/CREATININE RATIO 20; CALCIUM 9.4 MG/DL (8.5-10.1); CARBON DIOXIDE 24 MMOL/L (21-32); CHLORIDE 101 MMOL/L (98-107); CREATINE KINASE 54 U/L (29-168); GFR ESTIMATED 47; GLUCOSE 144 MG/DL (70-105); MAGNESIUM 4.7 MG/DL (1.6-2.4); POTASSIUM 3.9 MMOL/L (3.6-5.0); SODIUM 137 MMOL/L (135-145); TOTAL PROTEIN 6.9 GM/DL (6.4-8.2)
[2021-03-12] MEDS ORDERED: ENOXAPARIN 100 MG/1 ML (LOVENOX) SYR SC ONE (21:30)
[2021-03-12] MEDS ORDERED: NS IV 1000 ML 1,000 ML IV SCH (21:30)
[2021-03-12] MEDS ORDERED: ONDANSETRON 4 MG/2 ML (SDV) Z0FRAN IVP ONE (21:30)
--- NOTE | 2021-03-12 21:46 | Diagnostic Imaging Report ---
INDICATION: Tachycardia EXAMINATION: Chest 03/12/2021 FINDINGS: Heart is prominent. Pulmonary vasculature normal. Lungs and pleural spaces clear. There are no infiltrates or effusions. IMPRESSION: 1. Chronic findings as above. No acute cardiopulmonary process. Dictated by: Dictated on workstation # [id number]
[2021-03-12 21:49] LABS: CREATINE KINASE MB 1.7 NG/ML (<6.6); TSH (THYROID ANALYZER) 3.02 UIU/ML (0.35-4.94)
[2021-03-12 22:04] LABS: BILIRUBIN,URINE NEGATIVE (NEGATIVE); CLARITY,URINE SL CLOUDY; COLOR,URINE YELLOW; GLUCOSE, URINE (UA) NEGATIVE (NEGATIVE); KETONES,URINE NEGATIVE (NEGATIVE); LEUKOCYTE ESTERASE ,URINE NEGATIVE (NEGATIVE); NITRITE,URINE NEGATIVE (NEGATIVE); PH,URINE 5.5 (5-9); PROTEIN,URINE TRACE (NEGATIVE)
[2021-03-12 22:11] LABS: BACTERIA,URINE TRACE /HPF; HYALINE CASTS, URINE 0-2 /LPF; SQUAMOUS EPITHELIAL CELL,UR 0-2 /HPF; WBC,URINE RARE /HPF
[2021-03-12 22:55] LABS: INR 1.1 (0.8-1.4); PROTHROMBIN TIME PATIENT 14.4 SEC (12.2-14.7)
[2021-03-13] MEDS ORDERED: ONDANSETRON 4 MG/2 ML (SDV) Z0FRAN IV PRN (00:15)
[2021-03-13] MEDS ORDERED: dilTIAZem DRIP PRE-MIX 125 ML IV SCH (00:15)
[2021-03-13] MEDS: NS IV 1000 ML 1,000 ML IV SCH ×3 (00:39→18:32)
[2021-03-13] MEDS ORDERED: meTOprolol 5 MG/5 ML (LOPRESSOR) VIAL ONE (01:45)
[2021-03-13] MEDS ORDERED: meTOprolol 5 MG/5 ML (LOPRESSOR) VIAL IV PRN (01:45)
--- NOTE | 2021-03-13 02:47 | ED General ---
General Chief Complaint: Neurological Problems Stated Complaint: INTERMITTENT SVT ; NIDDM Nursing Triage Note: PT TO ED IN WHEELCHAIR ACCOMPANIED BY DAUGHTER. PT REPORTS FEELING IF SHE'S GOING TO PASS OUT. PT REPORTS PROFOUND WEAKNESS AT BOUT 1900 TONIGHT WHILE SITTING ON THE BACK PORCH. PT REPORTS FEELING PALPITATIONS AND C/O NAUSEA. AT TIME OF ARRIVAL TO ED, PT DID NOT FEEL IF SHE COULD TRANSFER FROM WHEELCHAIR TO BED. PT DENIES CHEST PAIN. Nursing Sepsis Screen: No Definite Risk Source of Information: Patient (VERY LIMITED/DIFFICULT HISTORIAN AND UNABLE TO GIVE ANY SIGNFICANT PAST MEDICAL HISTORY. DOES NOT KNOW MEDICATIONS OR WHAT SHE TAKES THEM FOR. ), Family (DAUGHTER UNABLE TO PROVIDE ANY INFORMATION ABOUT CURRENT PROBLEM OR PAST MEDICAL HISTORY OR MEDICATIONS), Old Records History of Present Illness Date Seen by Provider: March 12, 2021 Time Seen by Provider: 20:53 Initial Comments PT ARRIVES VIA POV FROM HOME, NEEDS WHEELCHAIR ON ARRIVAL STATES SINCE AROUND 1900 TONIGHT, SHE HAS FELT LIKE SHE IS GOING TO PASS OUT STATES SHE WAS SITTING ON THE BACK PORCH WHEN SYMPTOMS BEGAN, HAD FELT FINE ALL DAY NO CHEST PAIN + PALPITATIONS, STATES HER HEART WAS BEATING VERY FAST NO SHORTNESS OF BREATH + NAUSEA, NO VOMITING NO HEADACHE NO VISION CHANGES NO PARESTHESIAS OR MOTOR DEFICITS PT IS DIABETIC BUT HAS NOT CHECKED HER BLOOD SUGAR PT HAS NOT TAKEN HER EVENING MEDIATIONS, NO RECENT MEDICATION CHANGES. NO FEVER OR RECENT ILLNESS. 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 STATES YEARS AGO SHE SAW DR. Mariluz PATHAK IN [place], BUT HAS NO IDEA WHAT PROBLEMS SHE HAD THAT SHE WAS SEEING HIM FOR. HE RETIRED A FEW YEARS AGO. PT HAS NOT HAD ANY PRIOR CARDIAC PROCEDURES Allergies and Home Medications Allergies Coded Allergies: warfarin (Verified Allergy, Unknown, "SEVERE BLEEDING", 12/25/17) Home Medications Acetaminophen 325 Mg Capsule, 650 MG PO Q8H PRN for PAIN-MILD (1-4), (Reported) Ascorbic Acid 500 Mg Capsule, 500 MG PO BID, (Reported) Docusate Sodium 100 Mg Capsule, 100 MG PO DAILY PRN for CONSTIPATION-1ST LINE, (Reported) Enalapril Maleate 10 Mg Tablet, 10 MG PO BID, (Reported) Hydrochlorothiazide 12.5 Mg Tablet, 12.5 MG PO DAILY, (Reported) Levothyroxine Sodium 25 Mcg Tablet, 25 MCG PO DAILY, (Reported) Metformin HCl 500 Mg Tablet, 500 MG PO DAILY, (Reported) Metformin HCl 500 Mg Tablet, 1,000 MG PO HS, (Reported) TAKES 2 (500MG) TABS Metoprolol Succinate 25 Mg Tab.er.24h, 12.5 MG PO HS, (Reported) TAKES 1/2 (25MG) TABLET [place]-3 Acid Ethyl Esters 1 Gm Capsule, 1 GM PO BID, (Reported) Pioglitazone HCl 30 Mg Tablet, 30 MG PO DAILY, (Reported) Simvastatin 40 Mg Tablet, 40 MG PO HS, (Reported) Trospium Chloride 60 Mg Cap.er.24h, 60 MG PO DAILY, (Reported) Patient Home Medication List Home Medication List Reviewed: Yes Review of Systems Review of Systems Constitutional: see HPI, dizziness, weakness, other (FEELS LIKE SHE IS GOING TO PASS OUT) EENTM: no symptoms reported Respiratory: no symptoms reported; No cough, No short of breath Cardiovascular: see HPI, palpitations Gastrointestinal: see HPI, nausea; No vomiting Genitourinary: no symptoms reported Musculoskeletal: other (CHRONIC SHOULDER PAIN ) Skin: no symptoms reported Psychiatric/Neurological: Denies Headache, Denies Numbness, Denies Paresthesia, Denies Seizure, Denies Tingling, Denies Weakness Hematologic/Lymphatic: No Symptoms Reported Immunological/Allergic: no symptoms reported Past Vtamkxf-Skalqj-Pfdcwy Hx Past Med/Social Hx: Reviewed and Corrections made Patient Social History Alcohol Use: Rarely Uses Number of Drinks Today: Alcohol Beverage of Choice: Wine Smoking Status: Never a Smoker 2nd Hand Smoke Exposure: No Recent Infectious Disease Expo: No Recent Hopitalizations: No Have you traveled recently?: No Alcohol Use?: No Immunizations Up To Date Tetanus Booster (TDap): Unknown PED Vaccines UTD: Yes Date of Pneumonia Vaccine: Aug 10, 2018 Date of Influenza Vaccine: Aug 13, 2020 Seasonal Allergies Seasonal Allergies: Yes Past Medical History Surgeries: Yes (LAURIE TOTAL HIP,R TKR, BILAT SHOULDER, colon resectionX2, CTR, R thyroidectom) Bowel Surgery, Gallbladder, Hysterectomy, Joint Replacement, Orthopedic, Thyroidectomy Respiratory: No Currently Using CPAP: No Currently Using BIPAP: No Cardiac: Yes (RBBB/LAFB) High Cholesterol, Hypertension, Palpitations Neurological: Yes Headaches /Migraines 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 Disorders: No 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 Disorders: 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, 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 Sexually Transmitted Disease: No HIV/AIDS: No Genitourinary: Yes Bladder Infection, UTI-Chronic Gastrointestinal: Yes (GI BLEED IN 2008, colon resection x2, COLON CANCER DX 2013) Diverticulosis, Polyps Musculoskeletal: Yes (MULTIPLE ORTHO PROCEDURES) Arthritis Endocrine: Yes (L THYROIDECTOMY) Hypothyroidsim, Diabetes, Non-Insulin dep HEENT: Yes Cataract Loss of Vision: Bilateral Hearing Impairment: Denies Cancer: 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 2014) Colon Did You Recieve Any Treatments: Yes What Type of Treatment Did You: Surgical Intervention Psychosocial: No Integumentary: No Blood Disorders: No Adverse Reaction/Blood Tranf: No Family Medical History Cardiovascular disease 19 MOTHER G8 BROTHER Colon cancer 19 FATHER G8 SISTER Parkinson's disease G8 SISTER Psychosocial problem G8 BROTHER Respiratory disorder G8 BROTHER No Pertinent Family Hx PAST SURGICAL HISTORY: -PARTIAL COLECTOMY/COLON RESECTION FOR BENIGN TUMOR > 25 YEARS AGO -COLON RESECTION 2013 FOR COLON CANCER -OPEN CHOLECYSTECTOMY -HYSTERECTOMY -RIGHT THYROIDECTOMY -BILATERAL SHOULDER SURGERY -CARPAL TUNNEL RELEASE -BUNIONECTOMY -BILATERAL HIP REPLACEMENTS -RIGHT KNEE REPLACEMENT HAD SMALL BOWEL OBSTRUCTION 05/10/20--NO SURGERY/ SELF-RESOLVED. Physical Exam Vital Signs Vital Signs - First Documented 03/12/21 03/12/21 20:53 21:00 Temp 36.2 Pulse 102 Resp 25 B/P (MAP) 111/99 (103) Pulse Ox 96 O2 Delivery Room Air O2 Flow Rate 2.00 Capillary Refill : Less Than 3 Seconds Height, Weight, BMI Height: 5'3.00" Weight: 200lbs. 0.0oz. [id number]; 32.24 BMI Method:Stated General Appearance: WD/WN, Obese, Other (KEEPS EYES CLOSED. ) HEENT: PERRL/EOMI Neck: Normal Inspection; No Carotid Bruit, No JVD Respiratory: Normal Breath Sounds, No Accessory Muscle Use, No Respiratory Distress Cardiovascular: No JVD, No Murmur, Irregularly Irregular, Tachycardia Gastrointestinal: Non Tender, Soft Extremity: No Pedal Edema Neurologic/Psychiatric: Alert, Oriented x3, No Motor/Sensory Deficits Skin: Normal Color, Warm/Dry; No Rash Progress/Results/Core Measures Suspected Sepsis Recent Fever Within 48 Hours: No Infection Criteria Present: None New/Unexplained Altered Menta: No Sepsis Screen: No Definite Risk SIRS Temperature: Pulse: 90 Respiratory Rate: 25 Laboratory Tests 03/12/21 21:00: White Blood Count 11.2H Blood Pressure 135 /80 Mean: 83 Laboratory Tests 03/12/21 21:00: Creatinine 1.10, Platelet Count 201, Total Bilirubin 0.4 Results/Orders Lab Results Laboratory Tests Test 03/12/21 21:00 03/12/21 21:01 Range/Units White Blood Count 11.2 H 4.3-11.0 10^3/uL Red Blood Count 4.31 3.80-5.11 10^6/uL Hemoglobin 14.0 11.5-16.0 g/dL Hematocrit 42 35-52 % Mean Corpuscular Volume 98 80-99 fL Mean Corpuscular Hemoglobin 33 25-34 pg Mean Corpuscular Hemoglobin Concent 33 32-36 g/dL Red Cell Distribution Width 13.5 10.0-14.5 % Platelet Count 201 130-400 10^3/uL Mean Platelet Volume 10.4 9.0-12.2 fL Immature Granulocyte % (Auto) 0 % Neutrophils (%) (Auto) 82 H 42-75 % Lymphocytes (%) (Auto) 13 12-44 % Monocytes (%) (Auto) 4 0-12 % Eosinophils (%) (Auto) 0 0-10 % Basophils (%) (Auto) 0 0-10 % Neutrophils # (Auto) 9.2 H 1.8-7.8 10^3/uL Lymphocytes # (Auto) 1.5 1.0-4.0 10^3/uL Monocytes # (Auto) 0.4 0.0-1.0 10^3/uL Eosinophils # (Auto) 0.1 0.0-0.3 10^3/uL Basophils # (Auto) 0.0 0.0-0.1 10^3/uL Immature Granulocyte # (Auto) 0.0 0.0-0.1 10^3/uL Sodium Level 137 135-145 MMOL/L Potassium Level 3.9 3.6-5.0 MMOL/L Chloride Level 101 98-107 MMOL/L Carbon Dioxide Level 24 21-32 MMOL/L Anion Gap 12 5-14 MMOL/L Blood Urea Nitrogen 22 H 7-18 MG/DL Creatinine 1.10 0.60-1.30 MG/DL Estimat Glomerular Filtration Rate 47 BUN/Creatinine Ratio 20 Glucose Level 144 H 70-105 MG/DL Calcium Level 9.4 8.5-10.1 MG/DL Corrected Calcium 9.3 8.5-10.1 MG/DL Magnesium Level 4.7 H 1.6-2.4 MG/DL Total Bilirubin 0.4 0.1-1.0 MG/DL Aspartate Amino Transf (AST/SGOT) 17 5-34 U/L Alanine Aminotransferase (ALT/SGPT) 12 0-55 U/L Alkaline Phosphatase 61 40-136 U/L Total Creatine Kinase 54 29-168 U/L Creatine Kinase MB 1.7 <6.6 NG/ML Myoglobin 51.7 10.0-92.0 NG/ML Troponin I < 0.028 <0.028 NG/ML B-Type Natriuretic Peptide 89.6 <100.0 PG/ML Total Protein 6.9 6.4-8.2 GM/DL Albumin 4.1 3.2-4.5 GM/DL TSH [place] Testing 3.02 0.35-4.94 UIU/ML Glucometer 135 H 70-110 MG/DL My Orders Orders - ABIGAIL CAZARES DO Ed Iv/Invasive Line Start (03/12/21 21:06) Ekg Tracing (03/12/21 21:) Catheter(Urinary) Insert & Ass 03,15 (03/12/21 21:06) O2 (03/12/21 21:06) Monitor-Rhythm Ecg Trace Only (03/12/21 21:) BNP (03/12/21 21:06) Cbc With Automated Diff (03/12/21:) Comprehensive Metabolic Panel (03/12/21 21:) Creatine Kinase (03/12/21 21:) Creatine Kinase Mb (03/12/21 21:06) Magnesium (03/12/21 21:) Protime With Inr (03/12/21:) Partial Thromboplastin Time (03/12/21 21:) Thyroid Analyzer (03/12/21 21:) Ua Culture If Indicated (03/12/21 21:) Myoglobin Serum (03/12/21 21:06) Troponin I (03/12/21 21:06) Chest 1 View, Ap/Pa Only (03/12/21 21:06) Ekg Tracing (03/12/21 21:06) Aspirin Chewable Tablet (Baby Aspirin Ch (03/12/21 21:15) Diltiazem Drip Pre-Mix (Cardizem Drip Pr (03/12/21 21:15) Diltiazem Injection (Cardizem Injection) (03/12/21 21:15) Aspirin Chewable Tablet (Baby Aspirin Ch (03/12/21 21:00) Diltiazem Injection (Cardizem Injection) (03/12/21 21:00) Diltiazem Drip Pre-Mix (Cardizem Drip Pr (03/12/21 21:01) Medications Given in ED Current Medications Medications Dose Ordered Sig/Shadi Route Start Time Stop Time Status Last Admin Dose Admin Aspirin 324 mg ONCE ONCE PO 03/12/21 21:15 03/12/21 21:16 DC 03/12/21 21:12 324 MG Diltiazem HCl 20 mg ONCE ONCE IVP 03/12/21 21:15 03/12/21 21:16 DC 03/12/21 21:14 20 MG Vital Signs/I&O 03/12/21 03/12/21 20:53 21:00 Temp 36.2 Pulse 102 Resp 25 B/P (MAP) 111/99 (103) Pulse Ox 96 96 O2 Delivery Room Air Nasal Cannula O2 Flow Rate 2.00 Capillary Refill : Less Than 3 Seconds Blood Pressure Mean: 83 Progress Note : Progress Note PLACED ON MONITOR--PT HAVING VERY FREQUENT EPISODES/ RUNS OF SVT AND/OR A FIB/RVR--HEART RATE UP TO 180 DURING THESE EPISODES GAVE CARDIZEM BOLUS AND DRIP, PT DID HAVE INITIAL DROP IN BP, BUT RESOLVED WITH FLUIDS AT TIME OF ADMIT, PT REPORTS SHE IS FEELING SIGNIFICANTLY IMPROVED HR IN 80'S, BP 120'S/70'S O2 SATS UPPER 90'S ON 2L/NC GAVE ZOFRAN FOR NAUSEA WITH RELIEF ECG Initial ECG Impression Date: March 12, 2021 Initial ECG Impression Time: 21:00 Initial ECG Rate: 136 Comment SUPRAVENTRICULAR TACHYCARDIA, IRREGULAR RHYTHM, RBBB/LAFB EKG : EKG Time: 21:01 Rate: 163 Intervals SUPRAVENTRICULAR TACHYCARDIA WITH RBBB Comment EKG #3 AT 2135--NSR, RATE 62, 1ST DEGREE AV BLOCK, RBBB Diagnostic Imaging Comments CXR--NO ACUTE PROCESS, PER RADIOLOGIST REPORT AT 2148 Reviewed: Reviewed by Me Departure Communication (Admissions) 2117--SPOKE WITH DR. MILLER, HOSPITALIST, ACCEPTS PT FOR ADMIT. NO ADDITIONAL RECOMMENDATIONS AT THIS TIME 2209--REPORT GIVEN TO E-ICU PHYSICIAN. NO ADDITIONAL RECOMMENDATIONS AT THIS TIME 2213--SPOKE WITH DR. RADFORD, FILLING STATION LABORER, AGREES WITH PLAN OF CARE. DR. GRAVES WILL BE CONSULTED IN AM. Impression Primary Impression: INTERMITTENT SUPRAVENTRICULAR TACHYCARDIA Additional Impressions: Chronic bundle branch block NIDDM HTN (hypertension) Thyroid disease History of colon cancer Disposition: ADMITTED INPATIENT Condition: Improved Admissions Decision to Admit Reason: Admit from ER (General) Decision to Admit/Date: March 12, 2021 Time/Decision to Admit Time: 21:20 Departure-Patient Inst. Referrals: WM MCGHEE MD (PCP) Primary Care Physician ABIGAIL CAZARES DO March 13, 2021 02:47
[2021-03-13 04:11] LABS: BASOPHILS % (AUTO) 0 % (0-10); EOSINOPHILS # (AUTO) 0.1 10^3/uL (0.0-0.3); EOSINOPHILS % (AUTO) 1 % (0-10); HEMATOCRIT 36 % (35-52); HEMOGLOBIN 11.8 g/dL (11.5-16.0); LYMPHOCYTES # (AUTO) 0.9 10^3/uL (1.0-4.0); LYMPHOCYTES % (AUTO) 9 % (12-44); MEAN CORPUSCULAR HEMOGLOBIN 33 pg (25-34); MEAN CORPUSCULAR HGB CONC 33 g/dL (32-36); MEAN CORPUSCULAR VOLUME 99 fL (80-99); MEAN PLATELET VOLUME 10.5 fL (9.0-12.2); MONOCYTES # (AUTO) 0.7 10^3/uL (0.0-1.0); MONOCYTES % (AUTO) 7 % (0-12); NEUTROPHILS % (AUTO) 83 % (42-75); PLATELET COUNT 152 10^3/uL (130-400); WHITE BLOOD COUNT 9.7 10^3/uL (4.3-11.0)
[2021-03-13 04:24] LABS: ALBUMIN 3.3 GM/DL (3.2-4.5); CHLORIDE 104 MMOL/L (98-107); POTASSIUM 4.1 MMOL/L (3.6-5.0); SODIUM 137 MMOL/L (135-145)
[2021-03-13 04:26] LABS: GLUCOSE 173 MG/DL (70-105); TOTAL PROTEIN 5.4 GM/DL (6.4-8.2)
[2021-03-13 04:27] LABS: CARBON DIOXIDE 24 MMOL/L (21-32)
[2021-03-13 04:28] LABS: BILIRUBIN,TOTAL 0.5 MG/DL (0.1-1.0)
[2021-03-13] MEDS: inSUlin ASPART (NovoLOG) 1 UNIT/0.01 ML (CHARGE PER UNIT) SC SCH ×4 (04:28→21:23)
[2021-03-13 04:29] LABS: ALKALINE PHOSPHATASE 42 U/L (40-136); PHOSPHORUS 3.9 MG/DL (2.3-4.7)
[2021-03-13 04:30] LABS: GFR ESTIMATED > 60
[2021-03-13 04:31] LABS: BUN/CREATININE RATIO 24
[2021-03-13 04:33] LABS: ALANINE AMINOTRANSFERASE 12 U/L (0-55)
[2021-03-13 04:34] LABS: MAGNESIUM 1.5 MG/DL (1.6-2.4)
[2021-03-13] MEDS: MAGNESIUM 1 GM/100 ML IVPB 100 ML IV SCH ×2 (04:40→05:40)
--- NOTE | 2021-03-13 04:54 | Pulmonary Consultation ---
PERLA REYES MED STUDENT 03/13/21 0454: History of Present Illness History of Present Illness Date Seen by Provider: March 13, 2021 Time Seen by Provider: 04:45 Date of Admission History of Present Illness Patient states she started having palpitations at home around 1900 last night while she was sitting on the back porch. She denies SOB, chest pain, dizziness, nauseas, and vomiting. Reports a mild headache right now. Rates pain at a 3/10 and describes it as constant. Allergies and Home Medications Allergies Coded Allergies: warfarin (Verified Allergy, Unknown, "SEVERE BLEEDING", 12/25/17) Home Medications Acetaminophen 325 Mg Capsule, 650 MG PO Q8H PRN for PAIN-MILD (1-4), (Reported) Ascorbic Acid 500 Mg Capsule, 500 MG PO BID, (Reported) Docusate Sodium 100 Mg Capsule, 100 MG PO DAILY PRN for CONSTIPATION-1ST LINE, (Reported) Enalapril Maleate 10 Mg Tablet, 10 MG PO BID, (Reported) Hydrocodone/Acetaminophen 1 Each Tablet, 1 EA PO Q6H PRN for PAIN-MODERATE (5- 7), (Reported) Levothyroxine Sodium 25 Mcg Tablet, 25 MCG PO DAILY, (Reported) Metformin HCl 500 Mg Tablet, 500 MG PO DAILY, (Reported) Metformin HCl 500 Mg Tablet, 1,000 MG PO HS, (Reported) TAKES 2 (500MG) TABS Metoprolol Succinate 25 Mg Tab.er.24h, 12.5 MG PO HS, (Reported) TAKES 1/2 (25MG) TABLET [place]-3 Acid Ethyl Esters 1 Gm Capsule, 1 GM PO BID, (Reported) Pioglitazone HCl 30 Mg Tablet, 30 MG PO DAILY, (Reported) Simvastatin 40 Mg Tablet, 40 MG PO HS, (Reported) Triamcinolone Acet 15 Gm Cr, 1 APPLIC TOP BID PRN for RASH, (Reported) Trospium Chloride 60 Mg Cap.er.24h, 60 MG PO DAILY, (Reported) Past Sfocsqs-Ezdfrt-Ejehwa Hx Past Med/Social Hx: Reviewed and Corrections made Patient Social History Alcohol Use: Rarely Uses Number of Drinks Today: Alcohol Beverage of Choice: Wine Smoking Status: Never a Smoker 2nd Hand Smoke Exposure: No Recent Infectious Disease Expo: No Recent Hopitalizations: No Have you traveled recently?: No Alcohol Use?: No Immunizations Up To Date Tetanus Booster (TDap): Unknown PED Vaccines UTD: Yes Date of Pneumonia Vaccine: Aug 10, 2018 Date of Influenza Vaccine: Aug 13, 2020 Seasonal Allergies Seasonal Allergies: Yes Past Medical History Surgeries: Yes (LAURIE TOTAL HIP,R TKR, BILAT SHOULDER, colon resectionX2, CTR, R thyroidectom) Bowel Surgery, Gallbladder, Hysterectomy, Joint Replacement, Orthopedic, Thyroidectomy Respiratory: No Currently Using CPAP: No Currently Using BIPAP: No Cardiac: Yes (RBBB/LAFB) High Cholesterol, Hypertension, Palpitations Neurological: Yes Headaches /Migraines 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 Disorders: No 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, 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 Sexually Transmitted Disease: No HIV/AIDS: No Genitourinary: Yes Bladder Infection, UTI-Chronic Gastrointestinal: Yes (GI BLEED IN 2008, colon resection x2, COLON CANCER DX 2013) Diverticulosis, Polyps Musculoskeletal: Yes (MULTIPLE ORTHO PROCEDURES) Arthritis Endocrine: Yes (L THYROIDECTOMY) Hypothyroidsim, Diabetes, Non-Insulin dep HEENT: Yes Cataract Loss of Vision: Bilateral Hearing Impairment: Denies Cancer: 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 2014) Colon Did You Recieve Any Treatments: Yes What Type of Treatment Did You: Surgical Intervention Psychosocial: No Integumentary: No Blood Disorders: No Adverse Reaction/Blood Tranf: No Family Medical History Cardiovascular disease 19 MOTHER G8 BROTHER Colon cancer 19 FATHER G8 SISTER Parkinson's disease G8 SISTER Psychosocial problem G8 BROTHER Respiratory disorder G8 BROTHER No Pertinent Family Hx PAST SURGICAL HISTORY: -PARTIAL COLECTOMY/COLON RESECTION FOR BENIGN TUMOR > 25 YEARS AGO -COLON RESECTION 2013 FOR COLON CANCER -OPEN CHOLECYSTECTOMY -HYSTERECTOMY -RIGHT THYROIDECTOMY -BILATERAL SHOULDER SURGERY -CARPAL TUNNEL RELEASE -BUNIONECTOMY -BILATERAL HIP REPLACEMENTS -RIGHT KNEE REPLACEMENT HAD SMALL BOWEL OBSTRUCTION 05/10/20--NO SURGERY/ SELF-RESOLVED. Sepsis Event Evaluation Height, Weight, BMI Height: 5'3.00" Weight: 200lbs. 0.0oz. 90.074432zt; 32.24 BMI Method:Stated Exam Exam Vital Signs Date Time Temp Pulse Resp B/P (MAP) Pulse Ox O2 Delivery O2 Flow Rate FiO2 03/13/21 04:23 92 Nasal Cannula 2.00 03/13/21 04:22 36.2 Nasal Cannula 2.00 03/13/21 00:32 90 03/13/21 00:00 93 Nasal Cannula 3.00 03/13/21 00:00 93 24 101/74 (83) 89 Nasal Cannula 3.00 03/12/21 23:40 93 Nasal Cannula 3.00 03/12/21 23:40 36.4 93 14 129/81 (97) 93 Nasal Cannula 3.00 03/12/21 23:24 36.2 90 25 135/80 (103) 95 Nasal Cannula 2.00 03/12/21 21:00 96 Nasal Cannula 2.00 03/12/21 20:53 36.2 102 25 111/99 (103) 96 Room Air I & O 03/13/21 07:00 Intake Total 1000 ml Output Total 200 ml Balance 800 ml Height & Weight Height: 5'3.00" Weight: 200lbs. 0.0oz. 90.044909he; 32.24 BMI Method:Stated General Appearance: WD/WN, Obese, Other (KEEPS EYES CLOSED. ) HEENT: PERRL/EOMI Neck: Normal Inspection; No Carotid Bruit, No JVD Respiratory: Normal Breath Sounds, No Accessory Muscle Use, No Respiratory Dis tress Cardiovascular: No JVD, No Murmur, Irregularly Irregular, Tachycardia Capillary Refill: Less Than 3 Seconds Extremity: No Pedal Edema Neurologic/Psychiatric: Alert, Oriented x3, No Motor/Sensory Deficits Skin: Normal Color, Warm/Dry; No Rash Results Lab Laboratory Tests 03/12/21 21:00 03/13/21 04:00 ASHLEY CHACON DO 03/13/21 0513: Allergies and Home Medications Allergies Coded Allergies: warfarin (Verified Allergy, Unknown, "SEVERE BLEEDING", 12/25/17) Home Medications Acetaminophen 325 Mg Capsule, 650 MG PO Q8H PRN for PAIN-MILD (1-4), (Reported) Ascorbic Acid 500 Mg Capsule, 500 MG PO BID, (Reported) Docusate Sodium 100 Mg Capsule, 100 MG PO DAILY PRN for CONSTIPATION-1ST LINE, (Reported) Enalapril Maleate 10 Mg Tablet, 10 MG PO BID, (Reported) Hydrocodone/Acetaminophen 1 Each Tablet, 1 EA PO Q6H PRN for PAIN-MODERATE (5- 7), (Reported) Levothyroxine Sodium 25 Mcg Tablet, 25 MCG PO DAILY, (Reported) Metformin HCl 500 Mg Tablet, 500 MG PO DAILY, (Reported) Metformin HCl 500 Mg Tablet, 1,000 MG PO HS, (Reported) TAKES 2 (500MG) TABS Metoprolol Succinate 25 Mg Tab.er.24h, 12.5 MG PO HS, (Reported) TAKES 1/2 (25MG) TABLET [place]-3 Acid Ethyl Esters 1 Gm Capsule, 1 GM PO BID, (Reported) Pioglitazone HCl 30 Mg Tablet, 30 MG PO DAILY, (Reported) Simvastatin 40 Mg Tablet, 40 MG PO HS, (Reported) Triamcinolone Acet 15 Gm Cr, 1 APPLIC TOP BID PRN for RASH, (Reported) Trospium Chloride 60 Mg Cap.er.24h, 60 MG PO DAILY, (Reported) Past Ebdgnqx-Nxcstg-Jruowg Hx Family Medical History Cardiovascular disease 19 MOTHER G8 BROTHER Colon cancer 19 FATHER G8 SISTER Parkinson's disease G8 SISTER Psychosocial problem G8 BROTHER Respiratory disorder G8 BROTHER Review of Systems Time Seen by Provider: 05:15 Assessment/Plan Assessment/Plan s/p tachycardia -Cardiology following -Cardizem gtt is off -Lopressor restarted Chronic bundle branch block NIDDM HTN Thyroid disease History of colon cancer Pt appears to be doing better will transfer to 4th floor and sign off. Please call me with any questions or concerns. Supervisory-Addendum Brief Verification & Attestation Participated in pt care: history, MDM, physical Personally performed: exam, MDM, supervision of care Care discussed with: Medical Student Procedures: n/a Results interpretation: Verified all documentation Verification and Attestation of Medical Student E/M Service A medical student performed and documented this service in my presence. I reviewed and verified all information documented by the medical student and made modifications to such information, when appropriate. I personally performed the physical exam and medical decision making. Ashley Chacon, March 14, 2021,09:15 PERLA REYES MED STUDENT March 13, 2021 04:54 ASHLEY CHACON DO March 13, 2021 05:13
[2021-03-13] MEDS ORDERED: KCL 20 MEQ TAB (K-DUR) PO SCH (06:00)
[2021-03-13] MEDS ORDERED: MAGNESIUM 1 GM/100 ML IVPB 100 ML IV SCH (06:00)
[2021-03-13] MEDS ORDERED: POTASSIUM CL 10MEQ/50ML IVPB 50 ML IV SCH (06:00)
--- NOTE | 2021-03-13 08:12 | History & Physical-Hospitalist ---
History of Present Illness HPI/Chief Complaint Pt is an 89yoCF with a PMH of NIDDMII, HLD, HTN, hypothyroidism who presented to the ER due to heart palpitations. She states she has had intermittent episodes of this over the past few years but it has never lasted long enough to be evaluated. Last night she was sitting on her back porch and it abruptly started. She states it was worse than any previous episode and persisted so she decided to seek evaluation. She denies any chest pain or shortness of breath but did have some nausea. She was found to have intermittent SVT and pAF and was started on a cardizem gtt and admitted to the ICU. She reports feeling much better today and slept well. Source: patient Date Seen 03/13/21 Time Seen by a Provider: 08:08 Attending Physician Alexia Carranza MD PCP Kevin Puente MD Referring Physician Date of Admission March 12, 2021 at 21:20 Home Medications & Allergies Home Medications Reviewed patient Home Medication Reconciliation performed by pharmacy medication reconciliations electronic prepress technician and/or nursing. Patients Allergies have been reviewed. Allergies Allergies Coded Allergies warfarin (Verified Allergy, Unknown, "SEVERE BLEEDING", 12/25/17) Patient Social History Employed/Student: retired Tobacco Use?: No Smoking Status: Never a Smoker Smokeless Tobacco Frequency: Never a User Use of E-Cig and/or Vaping dev: No Substance use?: No Alcohol Use?: No Pt stated abuse/neglect: No Immunizations Up To Date Influenza Vaccine Up-to-Date: Yes; Up-to-Date Second COVID19 Vaccination [place]: JANUARY 2021 Tetanus Booster (TDap): Unknown Hepatitis A: No Hepatitis B: No TB Skin Test: None Date of Pneumonia Vaccine: Aug 10, 2018 Current Status status: No status: No Do you have an Advance Directi: Unable to obtain Communicates: Verbally Primary Language: Sinhala Preferred Spoken Language: Sinhala Is interpretation needed?: No Implanted or Applied Medical D: None Past Medical History NIDDMI, HTN, HLD, hypothyroidism Family Medical History Family Hx: PAST SURGICAL HISTORY: -PARTIAL COLECTOMY/COLON RESECTION FOR BENIGN TUMOR > 25 YEARS AGO -COLON RESECTION 2013 FOR COLON CANCER -OPEN CHOLECYSTECTOMY -HYSTERECTOMY -RIGHT THYROIDECTOMY -BILATERAL SHOULDER SURGERY -CARPAL TUNNEL RELEASE -BUNIONECTOMY -BILATERAL HIP REPLACEMENTS -RIGHT KNEE REPLACEMENT HAD SMALL BOWEL OBSTRUCTION 05/10/20--NO SURGERY/ SELF-RESOLVED. Review of Systems Constitutional: No chills, No fever EENTM: no symptoms reported Respiratory: No cough, No dyspnea on exertion, No orthopnea, No short of breath Cardiovascular: No chest pain, No edema, No Hx of Intervention; palpitations; No syncope Gastrointestinal: No abdominal pain; nausea; No vomiting Genitourinary: no symptoms reported Musculoskeletal: no symptoms reported Skin: no symptoms reported Psychiatric/Neurological: No Symptoms Reported Physical Exam Physical Exam Vital Signs Vital Signs - First Documented 03/12/21 03/12/21 03/14/21 20:53 21:00 03:54 Temp 36.2 Pulse 102 Resp 25 B/P (MAP) 111/99 (103) Pulse Ox 96 O2 Delivery Room Air O2 Flow Rate 2.00 FiO2 32 Capillary Refill : Less Than 3 Seconds Height, Weight, BMI Height: 5'3.00" Weight: 200lbs. 0.0oz. [id number]; 32.24 BMI Method:Stated General Appearance: No Apparent Distress, WD/WN, Obese HEENT: PERRL/EOMI, Moist Mucous Membranes; No Scleral Icterus (L), No Scleral I cterus (R) Neck: Full Range of Motion, Supple Cardiovascular: Regular Rate, Rhythm, No Edema, No JVD, No Murmur Gastrointestinal: Normal Bowel Sounds, Non Tender, Soft Extremity: Normal Capillary Refill, No Calf Tenderness, No Pedal Edema Neurologic/Psychiatric: Alert, Oriented x3, Normal Mood/Affect Skin: Normal Color, Warm/Dry Results Results/Procedures Labs Laboratory Tests 03/12/21 21:00 03/13/21 04:00 03/14/21 06:15 Patient resulted labs reviewed. Imaging: Reviewed Imaging Report Imaging [facility] [place] NAME: KENNY GUTIERREZ [facility] REC#: [id number] PT STATUS: REG ER : 1930 PHYSICIAN: ABIGAIL CAZARES DO ADMIT DATE: 03/12/21/ER Signed Date of Exam:03/12/21 CHEST 1 VIEW, AP/PA ONLY INDICATION: Tachycardia EXAMINATION: Chest 03/12/2021 FINDINGS: Heart is prominent. Pulmonary vasculature normal. Lungs and pleural spaces clear. There are no infiltrates or effusions. IMPRESSION: 1. Chronic findings as above. No acute cardiopulmonary process. Dictated by: Dictated on workstation # [id number] Dict: 03/12/212126 Trans: 03/12/212207 [facility] [id number] Interpreted by: NANCY DE LEON MD Electronically signed by: NANCY DE LEON MD 03/12/212207 Assessment/Plan Admission Diagnosis Intermittent SVT Admission Status: Observation Reason for Inpatient Admission: see below Assessment and Plan Intermittent SVT pAF HTN HLD Was on cardizem gtt and now off, heart rate controlled and back in sinus rhythm Continue metoprolol Monitor on telemetry Cardiology consulted, appreciate recs Continue Lovenox for stroke prophylaxis for now NIDDMII Random BS was 143 yesterday afternoon Trend Hold home metformin for now SSI Hypothyroidism TSH 0.92 Continue home synthroid Hypomagnesemia Replaced per protocol this AM Diagnosis/Problems Diagnosis/Problems (1) History of GI bleed (2) Hypomagnesemia (3) HLD (hyperlipidemia) (4) Thyroid disease Status: Acute (5) HTN (hypertension) Status: Acute (6) SVT (supraventricular tachycardia) (7) Diabetes TAMICA CUEVA MD March 13, 2021 08:12
[2021-03-13] MEDS: meTOprolol TARTRATE 25 MG (LOPRESSOR) TABLET PO SCH ×2 (08:20→21:06)
--- NOTE | 2021-03-13 08:49 | Consultation-Cardiology ---
HPI-Cardiology Cardiology Consultation: Date of Consultation 03/13/21 Time Seen by a Provider: 08:25 Date of Admission 03-12-2021 Attending Physician Alexia Carranza MD Admitting Physician Kevin Puente MD Consulting Physician Debora Riggs MD HPI: Chief Complaint: New onset a-fib Ms. Carrion is an 89 yr old female admitted to ICU 8 from the ED. She reports yesterday she was sitting on the porch watching her daughter mow the lawn when she a sudden onset of palpitations with associated gen weakness which persisted for several minutes. She reports she has had palpitations before, but they only lasted a short period of time and would resolve; she never felt bothered by them. She states she was able to get into the house and sit in her chair. She continued to feel weak and dizzy as though she could pass out. She states her other daughter brought her BP cuff over and her BP was "very high". She states she continued to feel unwell and was brought to the ED. She denies any c/o CP or SOB. No c/o LE swelling. She states she is feeling much better now. She previously followed with Dr. Joseph from [facility], but since his jail she has not seen cardiology services. Review of Systems-Cardiology Review of Systems Constitutional: No chills, No fever; lightheadedness Eyes: No vision change Ears/Nose/Throat: No epistaxis, No recent hearing loss Respiratory: As described under HPI Cardiovascular: As described under HPI Gastrointestinal: No constipation, No diarrhea, No nausea, No vomiting Genitourinary: No dysuria, No hematuria Skin: No rash on exposed areas, No ulcerations on exposed areas Psychiatric/Neurological: No anxiety, No depression, No seizure, No focal weakness, No syncope Hematologic: No bleeding abnormalities ZEP-Wzsghi-Pdyluy Hx Patient Social History Employed/Student: retired Smoking Status: Never a Smoker 2nd Hand Smoke Exposure: No Have you traveled recently?: No Alcohol Use?: No Pt feels they are or have been: No Immunizations Up To Date Tetanus Booster (TDap): Unknown Date of Pneumonia Vaccine: Aug 10, 2018 Date of Influenza Vaccine: Aug 13, 2020 Past Medical History PMH As described under Assessment. Family Medical History Family Medical History: She reports her mother had heart disease, but details are unknown. She reports her brother had CABG. She reports two children who have had strokes. Family History: 19 FATHER Colon cancer 19 MOTHER Cardiovascular disease G8 BROTHER Cardiovascular disease Psychosocial problem Respiratory disorder G8 SISTER Colon cancer Parkinson's disease Allergies and Home Medications Allergies Coded Allergies: warfarin (Verified Allergy, Unknown, "SEVERE BLEEDING", 12/25/17) Home Medications Acetaminophen 325 Mg Capsule, 650 MG PO Q8H PRN for PAIN-MILD (1-4), (Reported) Last Action: Reviewed Ascorbic Acid 500 Mg Capsule, 500 MG PO BID, (Reported) Last Action: Reviewed Docusate Sodium 100 Mg Capsule, 100 MG PO DAILY PRN for CONSTIPATION-1ST LINE, (Reported) Last Action: Reviewed Enalapril Maleate 10 Mg Tablet, 10 MG PO BID, (Reported) Last Action: Reviewed Hydrocodone/Acetaminophen 1 Each Tablet, 1 EA PO Q6H PRN for PAIN-MODERATE (5- 7), (Reported) Last Action: Reviewed Levothyroxine Sodium 25 Mcg Tablet, 25 MCG PO DAILY, (Reported) Last Action: Reviewed Metformin HCl 500 Mg Tablet, 500 MG PO DAILY, (Reported) Last Action: Reviewed Metformin HCl 500 Mg Tablet, 1,000 MG PO HS, (Reported) TAKES 2 (500MG) TABS Last Action: Reviewed Metoprolol Succinate 25 Mg Tab.er.24h, 12.5 MG PO HS, (Reported) TAKES 1/2 (25MG) TABLET Last Action: Reviewed [place]-3 Acid Ethyl Esters 1 Gm Capsule, 1 GM PO BID, (Reported) Last Action: Reviewed Pioglitazone HCl 30 Mg Tablet, 30 MG PO DAILY, (Reported) Last Action: Reviewed Simvastatin 40 Mg Tablet, 40 MG PO HS, (Reported) Last Action: Reviewed Triamcinolone Acet 15 Gm Cr, 1 APPLIC TOP BID PRN for RASH, (Reported) Last Action: Reviewed Trospium Chloride 60 Mg Cap.er.24h, 60 MG PO DAILY, (Reported) Last Action: Reviewed Physical Exam-Cardiology Physical Exam Vital Signs/I&O 03/15/21 03/15/21 03/15/21 03/15/21 00:10 01:00 04:47 06:45 Temp 36.6 36.4 Pulse 75 74 73 72 Resp 20 20 B/P (MAP) 153/90 (111) 156/89 (111) Pulse Ox 90 94 O2 Delivery Room Air Nasal Cannula O2 Flow Rate 1.00 03/15/21 00:00 Intake Total 1780 ml Output Total 3775 ml Balance -1995 ml Capillary Refill : Less Than 3 Seconds Constitutional: AAO x 3, well-developed, well-nourished HEENT: PERRL, hearing is well preserved, oral hygience is good Neck: No carotid bruit; carotid pulses are 2 + bilaterally Respiratory: No accessory muscle use, No respiratory distress; chest expansion is symmetric, chest is bilaterally symmetric, lungs clear to auscultation Cardiovascular: regular rate-rhythm; No JVD; S1 and S2 Gastrointestinal: No tender; soft, round, audible bowel sounds Extremities: no lower extremity edema bilateral Neurologic/Psychiatric: grossly intact (moves all extremities) Skin: No rash on exposed areas, No ulcerations on exposed areas Data Review Labs Laboratory Tests 03/14/21 11:03: Glucometer 178H 03/14/21 15:55: Glucometer 208H 03/14/21 21:13: Glucometer 199H 03/15/21 05:20: White Blood Count 8.0, Red Blood Count 3.68L, Hemoglobin 11.8, Hematocrit 36, Mean Corpuscular Volume 97, Mean Corpuscular Hemoglobin 32, Mean Corpuscular Hemoglobin Concent 33, Red Cell Distribution Width 13.4, Platelet Count 156, Mean Platelet Volume 10.4, Immature Granulocyte % (Auto) 0, Neutrophils (%) (Auto) 76H, Lymphocytes (%) (Auto) 14, Monocytes (%) (Auto) 9, Eosinophils (%) (Auto) 1, Basophils (%) (Auto) 0, Neutrophils # (Auto) 6.1, Lymphocytes # (Auto) 1.1, Monocytes # (Auto) 0.7, Eosinophils # (Auto) 0.1, Basophils # (Auto) 0.0, Immature Granulocyte # (Auto) 0.0, Sodium Level 131L, Potassium Level 3.5L, Chloride Level 96L, Carbon Dioxide Level 27, Anion Gap 8, Blood Urea Nitrogen 10, Creatinine 0.68, Estimat Glomerular Filtration Rate > 60, BUN/Creatinine Ratio 15, Glucose Level 206H, Calcium Level 8.5, Phosphorus Level 2.1L, Magnesium Level 1.6 Microbiology 03/12/21 MRSA Screen - Final, Complete MRSA not isolated Radiology NAME: KENNY CARRION [facility] REC#: [id number] PT STATUS: REG ER : 1930 PHYSICIAN: ABIGAIL CAZARES DO ADMIT DATE: 03/12/21/ER Signed Date of Exam:03/12/21 CHEST 1 VIEW, AP/PA ONLY INDICATION: Tachycardia EXAMINATION: Chest 03/12/2021 FINDINGS: Heart is prominent. Pulmonary vasculature normal. Lungs and pleural spaces clear. There are no infiltrates or effusions. IMPRESSION: 1. Chronic findings as above. No acute cardiopulmonary process. Dictated by: Dictated on workstation # [id number] Dict: 03/12/212126 Trans: 03/12/212207 [facility] [id number] Interpreted by: NANCY DE LEON MD Electronically signed by: NANCY DE LEON MD 03/12/212207 A/P-Cardiology Assessment/Admission Diagnosis New onset PAF per EKG of 03-12-21 - converted to SR with controlled rate H/O partial thyroidectomy H/O colon cancer with colon resection x 2 DM HTN H/O hip replacement bilat Family h/o CAD Discussion and Recomendations New onset PAF with RVR - converted to SR with Cardizem gtt with controlled rate Advise echocardiogram to eval structure and function Advise OAC with Eliquis for stroke prophylaxis Monitor lab Replace electrolytes as indicated Increase activity Start Cardizem CD Continue BB tx Check TSH Advise MPI to eval perfusion Further recs will be based on her hospital course We would like to thank medical services for this consult BIRGIT PLATT March 13, 2021 08:49
[2021-03-13] MEDS ORDERED: ENOXAPARIN 100 MG/1 ML (LOVENOX) SYR SC SCH (09:00)
[2021-03-13] MEDS ORDERED: REGADENOSON 0.4 MG/5 ML SYR (LEXISCAN) IV ONE (09:00)
[2021-03-13] MEDS ORDERED: PANTOPRAZOLE 40 MG (PROTONIX) VIAL IV SCH (09:00)
[2021-03-13] MEDS ORDERED: ENOXAPARIN 40 MG/0.4 ML (LOVENOX) SYR SQ SCH (09:15)
[2021-03-13] MEDS ORDERED: TR1C15 TOP (10:11)
[2021-03-13] MEDS ORDERED: ACHD5005 PO (10:11)
[2021-03-13] MEDS: dilTIAZem120 MG (CARDIZEM CD) CAP PO SCH (10:52)
--- NOTE | 2021-03-13 12:58 | Physical Therapy Evaluation ---
PT Evaluation-General Medical Diagnosis Admission Date March 12, 2021 at 21:20 Medical Diagnosis: intermittent SVT/NIDDM Onset Date: March 12, 2021 Therapy Diagnosis Therapy Diagnosis: debility Height/Weight Height (Feet): 5 Height (Inches): 3.00 Weight (Pounds): 200 Weight (Ounces): 0.0 Precautions Precautions/Isolations: Fall Prevention, Standard Precautions Referral Physician: Jimmy Reason for Referral: Evaluation/Treatment Medical History Pertinent Medical History: Arthritis, DM, HTN, Hypothroidism Current History ER secondary to weakness Reviewed History: Yes Social History Home: Single Level Current Living Status: Other Family Entry Into Home: Stairs With Railing PT Steps Into Home: 3 Prior Prior Level of Function SCALE: Activities may be completed with or without assistive devices. 4-Ltinnfojld-ghwrscn completes the activity by him/herself with no assistance from a helper. 5-Set-up or Clean-up Assistance-helper sets up or cleans up; patient completes activity. [place] assists only prior to or following the activity. 4-Supervision or Touching Assistance-helper provides verbal cues and/or touching/steadying and/or contact guard assistance as patient completes activity. Assistance may be provided throughout the activity or intermittently. 3-Partial/Moderate Assistance-helper does LESS THAN HALF the effort. [place] lifts, holds or supports trunk or limbs, but provides less than half the effort. 2-Substantial/Maximal Assistance-helper does MORE THAN HALF the effort. [place] lifts or holds trunk or limbs and provides more than half the effort. 3-[place]-brabqx does ALL the effort. Patient does none of the effort to complete the activity. Or, the assistance of 2 or more helpers is required for the patient to complete the activity. If activity was not attempted, code reason: 7-Patient Refused. 9-Not Applicable-not attempted and the patient did not perform the activity before the current illness, exacerbation or injury. 10-Not Attempted due to Environmental Limitations-(lack of equipment, weather restraints, etc.). 88-Not Attempted due to Medical Conditions or Safety Concerns. Bed Mobility: 6 Transfers (B,C,W/C): 6 Gait: 6 Stairs: 6 Indoor Mobility (Ambulation): Independent Stairs: Independent Prior Devices Use: Walker PT Evaluation-Current Subjective Patient agrees to PT. Objective Patient Orientation: Normal For Age Attachments: IV ROM/Strength ROM Lower Extremities bilateral LE WFL Strength Lower Extremities 3+/5 grossly bilateral LE Integumentary/Posture Integumentary refer to nursing notes Bowel Incontinence: No Bladder Incontinence: Yes Posture WFL Neuromuscular (Tone, Coordination, Reflexes) grossly intact Sensory Vision: Functional Hearing: Functional Transfers Roll Left to Right (QC): 4 (SBA) Sit to Lying (QC): 4 (SBA) Lying to Sitting/Side of Bed(Q: 4 (SBA) Sit to Stand (QC): 4 (SBA) Chair/Pqv-qn-Lvrym Xfer(QC): 4 (SBA) Gait Does the Patient Walk?: Yes Mode of Locomotion: Walk Anticipated Mode of Locomotion: Walk Walk 10 feet (QC): 4 (SBA) Walk 50 ft with 2 Turns(QC): 4 (SBA) Walk 150 ft (QC): 4 (SBA) Distance: 350' Gait Assistive Device: FWW Comments/Gait Description safe and functional with no deviation Balance Sitting Static: Normal Sitting Dynamic: Normal Standing Static: Normal Standing Dynamic: Normal Assessment/Needs 89 y.o. female, will be seen short term by skilled PT to address functional strength and mobility to improve current LOF to safely return to home at maximum LOF. Rehab Potential: Fair PT Fdc Goals Fdc Goals PT Fdc Goals Time Frame: March 25, 2021 Roll Left & Right (QC): 6 Sit to Lying (QC): 6 Lying-Sitting on Side/Bed(QC): 6 Sit to Stand (QC): 6 Chair/Qtk-kc-Vowbh Xfer(QC): 6 Toilet Transfer (QC): 6 Does the Patient Walk: Yes Walk 10 feet (QC): 6 Walk 50ft with 2 Turns (QC): 6 Walk 150 ft (QC): 6 PT Plan Treatment/Plan Treatment Plan: Continue Plan of Care Treatment Plan: Bed Mobility, Education, Functional Activity Diana, Functional Strength, Gait, Safety, Therapeutic Exercise, Transfers Treatment Duration: March 25, 2021 Frequency: 6 times per week Estimated Hrs Per Day: .25 hour per day Patient and/or Family Agrees t: Yes Discharge Recommendations Therapy Discharge Recommendati: Home & Family Time/GCodes Time In: 1127 Time Out: 1139 Total Billed Treatment Time: 12 Total Billed Treatment 1 visit [facility] 12 min CAROLIN KINSEY PT March 13, 2021 12:58
--- NOTE | 2021-03-13 16:38 | Consultation-Cardiology ---
HPI-Cardiology Cardiology Consultation: Date of Consultation 03/13/21 Time Seen by a Provider: 09:40 Date of Admission Attending Physician Alexia Carranza MD Admitting Physician Kevin Puente MD Consulting Physician TORIN GRAVES MD, MA, FACP, FACC, FSCAI, CCDS HPI: Chief Complaint: Reason for consultation: New onset a-fib HPI Ms. Carrion is an 89 yr old female admitted to ICU 8 from the ED. She reports yesterday she was sitting on the porch watching her daughter mow the lawn when she a sudden onset of palpitations with associated gen weakness which persisted for several minutes. She reports she has had palpitations before, but they only lasted a short period of time and would resolve; she never felt bothered by them. She states she was able to get into the house and sit in her chair. She continued to feel weak and dizzy as though she could pass out. She states her other daughter brought her BP cuff over and her BP was "very high". She states she continued to feel unwell and was brought to the ED. She denies any c/o CP or SOB. No c/o LE swelling. She states she is feeling much better now. She previously followed with Dr. Joseph from [facility], but since his mcc she has not seen cardiology services. Review of Systems-Cardiology Review of Systems Constitutional: No chills, No fever; lightheadedness Eyes: No vision change Ears/Nose/Throat: No epistaxis, No recent hearing loss Respiratory: As described under HPI Cardiovascular: As described under HPI Gastrointestinal: No constipation, No diarrhea, No nausea, No vomiting Genitourinary: No dysuria, No hematuria Skin: No rash on exposed areas, No ulcerations on exposed areas Psychiatric/Neurological: No anxiety, No depression, No seizure, No focal weakness, No syncope Hematologic: No bleeding abnormalities QKF-Rhlbif-Yzfdhs Hx Patient Social History Employed/Student: retired Smoking Status: Never a Smoker 2nd Hand Smoke Exposure: No Have you traveled recently?: No Alcohol Use?: No Pt feels they are or have been: No Immunizations Up To Date Tetanus Booster (TDap): Unknown Date of Pneumonia Vaccine: Aug 10, 2018 Date of Influenza Vaccine: Aug 13, 2020 Past Medical History PMH As described under Assessment. Family Medical History Family Medical History: She reports her mother had heart disease, but details are unknown. She reports her brother had CABG. She reports two children who have had strokes. Family History: Cardiovascular disease 19 MOTHER G8 BROTHER Colon cancer 19 FATHER G8 SISTER Parkinson's disease G8 SISTER Psychosocial problem G8 BROTHER Respiratory disorder G8 BROTHER Allergies and Home Medications Allergies Coded Allergies: warfarin (Verified Allergy, Unknown, "SEVERE BLEEDING", 12/25/17) Home Medications Acetaminophen 325 Mg Capsule, 650 MG PO Q8H PRN for PAIN-MILD (1-4), (Reported) Last Action: Reviewed Ascorbic Acid 500 Mg Capsule, 500 MG PO BID, (Reported) Last Action: Reviewed Docusate Sodium 100 Mg Capsule, 100 MG PO DAILY PRN for CONSTIPATION-1ST LINE, (Reported) Last Action: Reviewed Enalapril Maleate 10 Mg Tablet, 10 MG PO BID, (Reported) Last Action: Reviewed Hydrocodone/Acetaminophen 1 Each Tablet, 1 EA PO Q6H PRN for PAIN-MODERATE (5- 7), (Reported) Last Action: Reviewed Levothyroxine Sodium 25 Mcg Tablet, 25 MCG PO DAILY, (Reported) Last Action: Reviewed Metformin HCl 500 Mg Tablet, 500 MG PO DAILY, (Reported) Last Action: Reviewed Metformin HCl 500 Mg Tablet, 1,000 MG PO HS, (Reported) TAKES 2 (500MG) TABS Last Action: Reviewed Metoprolol Succinate 25 Mg Tab.er.24h, 12.5 MG PO HS, (Reported) TAKES 1/2 (25MG) TABLET Last Action: Reviewed [place]-3 Acid Ethyl Esters 1 Gm Capsule, 1 GM PO BID, (Reported) Last Action: Reviewed Pioglitazone HCl 30 Mg Tablet, 30 MG PO DAILY, (Reported) Last Action: Reviewed Simvastatin 40 Mg Tablet, 40 MG PO HS, (Reported) Last Action: Reviewed Triamcinolone Acet 15 Gm Cr, 1 APPLIC TOP BID PRN for RASH, (Reported) Last Action: Reviewed Trospium Chloride 60 Mg Cap.er.24h, 60 MG PO DAILY, (Reported) Last Action: Reviewed Patient Home Medication List Home Medication List Reviewed: Yes Physical Exam-Cardiology Physical Exam Vital Signs/I&O 03/13/21 03/13/21 03/13/21 03/13/21 04:42 05:00 06:00 06:50 Pulse 93 87 91 Resp 22 24 B/P (MAP) 113/76 (88) 116/82 (93) Pulse Ox 85 98 O2 Delivery Room Air Nasal Cannula Nasal Cannula O2 Flow Rate 2.00 2.00 03/13/21 03/13/21 03/13/21 03/13/21 07:00 08:00 08:00 09:00 Pulse 87 92 88 Resp 26 21 20 B/P (MAP) 135/73 (93) 132/94 (107) 120/75 (90) Pulse Ox 99 92 90 95 O2 Delivery Nasal Cannula Nasal Cannula Nasal Cannula Nasal Cannula O2 Flow Rate 2.00 2.00 2.00 2.00 03/13/21 03/13/21 03/13/21 03/13/21 09:50 10:00 10:32 11:00 Temp 36.8 Pulse 90 81 Resp 30 17 B/P (MAP) 126/86 (99) Pulse Ox 97 97 O2 Delivery Nasal Cannula Nasal Cannula Nasal Cannula O2 Flow Rate 2.00 2.00 2.00 03/13/21 03/13/21 12:01 12:49 Temp 37.0 Pulse 87 78 Resp 20 B/P (MAP) 138/79 (98) Pulse Ox 94 O2 Delivery Nasal Cannula O2 Flow Rate 2.00 03/13/21 00:00 Intake Total 1000 ml Balance 1000 ml Capillary Refill : Less Than 3 Seconds Constitutional: AAO x 3, well-developed, well-nourished HEENT: PERRL, hearing is well preserved, oral hygience is good Neck: No carotid bruit; carotid pulses are 2 + bilaterally Respiratory: No accessory muscle use, No respiratory distress; chest expansion is symmetric, chest is bilaterally symmetric, lungs clear to auscultation Cardiovascular: regular rate-rhythm; No JVD; S1 and S2 Gastrointestinal: No tender; soft, round, audible bowel sounds Extremities: no lower extremity edema bilateral Neurologic/Psychiatric: grossly intact (moves all extremities) Skin: No rash on exposed areas, No ulcerations on exposed areas Data Review Labs Laboratory Tests 03/12/21 21:00: White Blood Count 11.2H, Red Blood Count 4.31, Hemoglobin 14.0, Hematocrit 42, Mean Corpuscular Volume 98, Mean Corpuscular Hemoglobin 33, Mean Corpuscular Hemoglobin Concent 33, Red Cell Distribution Width 13.5, Platelet Count 201, Mean Platelet Volume 10.4, Immature Granulocyte % (Auto) 0, Neutrophils (%) (Auto) 82H, Lymphocytes (%) (Auto) 13, Monocytes (%) (Auto) 4, Eosinophils (%) (Auto) 0, Basophils (%) (Auto) 0, Neutrophils # (Auto) 9.2H, Lymphocytes # (Auto) 1.5, Monocytes # (Auto) 0.4, Eosinophils # (Auto) 0.1, Basophils # (Auto) 0.0, Immature Granulocyte # (Auto) 0.0, Sodium Level 137, Potassium Level 3.9, Chloride Level 101, Carbon Dioxide Level 24, Anion Gap 12, Blood Urea Nitrogen 22H, Creatinine 1.10, Estimat Glomerular Filtration Rate 47, BUN/Creatinine Ratio 20, Glucose Level 144H, Calcium Level 9.4, Corrected Calcium 9.3, Magnesium Level 4.7H, Total Bilirubin 0.4, Aspartate Amino Transf (AST/SGOT) 17, Alanine Aminotransferase (ALT/SGPT) 12, Alkaline Phosphatase 61, Total Creatine Kinase 54, Creatine Kinase MB 1.7, Myoglobin 51.7, Troponin I < 0.028, B-Type Natriuretic Peptide 89.6, Total Protein 6.9, Albumin 4.1, TSH [place] Testing 3.02 03/12/21 21:01: Glucometer 135H 03/12/21 21:55: Urine Color YELLOW, Urine Clarity SL CLOUDY, Urine pH 5.5, Urine Specific [place] >=1.030, Urine Protein TRACEH, Urine Glucose (UA) NEGATIVE, Urine Ketones NEGATIVE, Urine Nitrite NEGATIVE, Urine Bilirubin NEGATIVE, Urine Urobilinogen 0.2, Urine Leukocyte Esterase NEGATIVE, Urine RBC (Auto) NEGATIVE, Urine RBC NONE, Urine WBC RARE, Urine Squamous Epithelial Cells 0-2, Urine Crystals NONE, Urine Bacteria TRACE, Urine Casts PRESENT, Urine Hyaline Casts 0- 2H, Urine Mucus MODERATEH, Urine Culture Indicated NO 03/12/21 22:35: Prothrombin Time 14.4, INR Comment 1.1, Activated Partial Thromboplast Time 32 03/13/21 04:00: White Blood Count 9.7, Red Blood Count 3.59L, Hemoglobin 11.8, Hematocrit 36, Mean Corpuscular Volume 99, Mean Corpuscular Hemoglobin 33, Mean Corpuscular Hemoglobin Concent 33, Red Cell Distribution Width 13.5, Platelet Count 152, Mean Platelet Volume 10.5, Immature Granulocyte % (Auto) 0, Neutrophils (%) (Auto) 83H, Lymphocytes (%) (Auto) 9L, Monocytes (%) (Auto) 7, Eosinophils (%) (Auto) 1, Basophils (%) (Auto) 0, Neutrophils # (Auto) 8.0H, Lymphocytes # (Auto) 0.9L, Monocytes # (Auto) 0.7, Eosinophils # (Auto) 0.1, Basophils # (Auto) 0.0, Immature Granulocyte # (Auto) 0.0, Sodium Level 137, Potassium Level 4.1, Chloride Level 104, Carbon Dioxide Level 24, Anion Gap 9, Blood Urea Nitrogen 19H, Creatinine 0.80, Estimat Glomerular Filtration Rate > 60, BUN/Creatinine Ratio 24, Glucose Level 173H, Calcium Level 8.0L, Corrected Calcium 8.6, Phosphorus Level 3.9, Magnesium Level 1.5L, Total Bilirubin 0.5, Aspartate Amino Transf (AST/SGOT) 15, Alanine Aminotransferase (ALT/SGPT) 12, Alkaline Phosphatase 42, Troponin I < 0.028, Total Protein 5.4L, Albumin 3.3, Thyroid Stimulating Hormone (TSH) 0.92 03/13/21 16:07: Glucometer 158H A/P-Cardiology Assessment/Admission Diagnosis New onset PAF per EKG of 03-12-21 - converted to SR with controlled rate H/O partial thyroidectomy H/O colon cancer with colon resection x 2 DM HTN H/O hip replacement bilat Family h/o CAD Discussion and Recomendations Advise echocardiogram to eval structure and function Advise OAC with Eliquis for stroke prophylaxis Monitor lab Replace electrolytes as indicated Increase activity Start Cardizem CD Continue BB tx Check TSH Advise MPI to eval perfusion Further recs will be based on her hospital course We would like to thank Medical services for this consult TORIN GRAVES MD FACP FAC CCDS March 13, 2021 16:38
[2021-03-13] MEDS ORDERED: ACETAMINOPHEN 500 MG TAB (TYLENOL) PO PRN (18:45)
[2021-03-13] MEDS ORDERED: LIDOCAINE 4% (SALONPAS) PATCH ONE (20:42)
[2021-03-13] MEDS: ACETAMINOPHEN 500 MG TAB (TYLENOL) PO PRN (21:05)
[2021-03-13] MEDS: LIDOCAINE 4% (SALONPAS) PATCH TOP SCH (21:05)
[2021-03-13] MEDS: APIXABAN 5 MG (ELIQUIS) TABLET PO SCH (21:06)
[2021-03-14] MEDS ORDERED: RT-ALBUTEROL/IPRATROPIUM 3 ML (DUONEB) VIAL ONE (03:22)
[2021-03-14] MEDS: RT-ALBUTEROL/IPRATROPIUM 3 ML (DUONEB) VIAL INH SCH ×3 (03:32→10:17)
[2021-03-14] MEDS ORDERED: FUROSEMIDE 40 MG/4 ML INJ (LASIX) ONE (03:49)
[2021-03-14] MEDS ORDERED: FUROSEMIDE 40 MG/4 ML INJ (LASIX) IVP ONE (04:00)
[2021-03-14] MEDS ORDERED: RT-ALBUTEROL/IPRATROPIUM 3 ML (DUONEB) VIAL INH PRN (04:00)
[2021-03-14] MEDS: inSUlin ASPART (NovoLOG) 1 UNIT/0.01 ML (CHARGE PER UNIT) SC SCH ×4 (05:44→21:15)
[2021-03-14 06:23] LABS: BASOPHILS % (AUTO) 0 % (0-10); EOSINOPHILS # (AUTO) 0.1 10^3/uL (0.0-0.3); EOSINOPHILS % (AUTO) 1 % (0-10); HEMATOCRIT 37 % (35-52); LYMPHOCYTES # (AUTO) 1.2 10^3/uL (1.0-4.0); LYMPHOCYTES % (AUTO) 16 % (12-44); MEAN CORPUSCULAR HEMOGLOBIN 33 pg (25-34); MEAN CORPUSCULAR HGB CONC 32 g/dL (32-36); MEAN CORPUSCULAR VOLUME 101 fL (80-99); MEAN PLATELET VOLUME 10.2 fL (9.0-12.2); MONOCYTES # (AUTO) 0.4 10^3/uL (0.0-1.0); MONOCYTES % (AUTO) 6 % (0-12); NEUTROPHILS # (AUTO) 5.8 10^3/uL (1.8-7.8); NEUTROPHILS % (AUTO) 77 % (42-75); PLATELET COUNT 149 10^3/uL (130-400); WHITE BLOOD COUNT 7.5 10^3/uL (4.3-11.0)
[2021-03-14 06:38] LABS: PHOSPHORUS 2.6 MG/DL (2.3-4.7)
[2021-03-14 06:40] LABS: MAGNESIUM 1.5 MG/DL (1.6-2.4)
[2021-03-14 07:27] LABS: BUN/CREATININE RATIO 19; CALCIUM 7.8 MG/DL (8.5-10.1); CARBON DIOXIDE 21 MMOL/L (21-32); CHLORIDE 103 MMOL/L (98-107); GFR ESTIMATED > 60; GLUCOSE 193 MG/DL (70-105); POTASSIUM 3.8 MMOL/L (3.6-5.0); SODIUM 134 MMOL/L (135-145)
[2021-03-14] MEDS: MAGNESIUM 1 GM/100 ML IVPB 100 ML IV SCH ×3 (07:52→15:16)
[2021-03-14] MEDS: meTOprolol TARTRATE 25 MG (LOPRESSOR) TABLET PO SCH ×2 (10:37→20:37)
[2021-03-14] MEDS: APIXABAN 5 MG (ELIQUIS) TABLET PO SCH ×2 (10:37→20:37)
[2021-03-14] MEDS: dilTIAZem120 MG (CARDIZEM CD) CAP PO SCH (10:37)
[2021-03-14] MEDS: PANTOPRAZOLE 40 MG (PROTONIX) TAB PO SCH (10:37)
--- NOTE | 2021-03-14 10:55 | Progress Note - Hospitalist ---
Subjective HPI/CC On Admission Date Seen by Provider: March 14, 2021 Time Seen by Provider: 10:53 Pt is an 89yoCF with a PMH of NIDDMII, HLD, HTN, hypothyroidism who presented to the ER due to heart palpitations. She states she has had intermittent episodes of this over the past few years but it has never lasted long enough to be jos luated. Last night she was sitting on her back porch and it abruptly started. She states it was worse than any previous episode and persisted so she decided to seek evaluation. She denies any chest pain or shortness of breath but did have some nausea. She was found to have intermittent SVT and pAF and was started on a cardizem gtt and admitted to the ICU. She reports feeling much better today and slept well. Subjective/Events-last exam Pt reports doing better today. States she didnt sleep well because of the bed and would like to DC home. She did have acute worsening SOB overnight and responded well to lasix. She is currently satting 96%. Discussed plan for DC and that not medically ready to DC just yet. Objective Exam Vital Signs Vital Signs Date Time Temp Pulse Resp B/P (MAP) Pulse Ox O2 Delivery O2 Flow Rate FiO2 03/14/21 10:18 96 Nasal Cannula 2.00 03/14/21 07:00 76 03/14/21 04:34 37.1 22 158/90 (112) 03/14/21 03:54 32 Capillary Refill : Less Than 3 Seconds General Appearance: No Apparent Distress, WD/WN Respiratory: Lungs Clear, No Respiratory Distress Cardiovascular: Regular Rate, Rhythm, No Murmur Neurologic/Psychiatric: Alert, Oriented x3 Results/Procedures Lab Laboratory Tests 03/14/21 06:15 Patient resulted labs reviewed. Imaging: Reviewed Imaging Report Assessment/Plan Assessment and Plan Assess & Plan/Chief Complaint Intermittent SVT pAF HTN HLD Continue metoprolol and oral cardizem Monitor on telemetry Cardiology consulted, appreciate recs Continue Eliquis for stroke prophylaxis for now Stress test today NIDDMII Random BS was 143 yesterday afternoon Trend Hold home metformin for now SSI Hypothyroidism TSH 0.92 Continue home synthroid Hypomagnesemia Replacing per protocol today DVT ppx: Eliquis Diagnosis/Problems Diagnosis/Problems (1) History of GI bleed (2) Hypomagnesemia (3) HLD (hyperlipidemia) (4) Thyroid disease Status: Acute (5) HTN (hypertension) Status: Acute (6) SVT (supraventricular tachycardia) (7) Diabetes TAMICA CUEVA MD March 14, 2021 10:55
--- NOTE | 2021-03-14 11:09 | Progress Note - Cardiology ---
Cardiology SOAP Progress Note Subjective: Sitting up in recliner at the bedside States she had an episode of SOB last night SOB has improved No c/o CP or palpitations Objective: I&O/Vital Signs 03/15/21 03/15/21 03/15/21 03/15/21 00:10 01:00 04:47 06:45 Temp 36.6 36.4 Pulse 75 74 73 72 Resp 20 20 B/P (MAP) 153/90 (111) 156/89 (111) Pulse Ox 90 94 O2 Delivery Room Air Nasal Cannula O2 Flow Rate 1.00 03/15/21 00:00 Intake Total 1780 ml Output Total 3775 ml Balance -1995 ml Weight (Pounds): 200 Weight (Ounces): 0.0 Weight (Calculated Kilograms): [id number] Constitutional: AAO x 3, well-developed, well-nourished Respiratory: No accessory muscle use, No respiratory distress; chest expansion is symmetric, chest is bilaterally symmetric, lungs clear to auscultation Cardiovascular: regular rate-rhythm; No JVD; S1 and S2 Gastrointestional: No tender; soft, round, audible bowel sounds Extremities: no lower extremity edema bilateral Neurologic/Psychiatric: grossly intact (moves all extremities) Skin: No rash on exposed areas, No ulcerations on exposed areas Results/Procedures: Labs Laboratory Tests 03/14/21 11:03: Glucometer 178H 03/14/21 15:55: Glucometer 208H 03/14/21 21:13: Glucometer 199H 03/15/21 05:20: White Blood Count 8.0, Red Blood Count 3.68L, Hemoglobin 11.8, Hematocrit 36, Mean Corpuscular Volume 97, Mean Corpuscular Hemoglobin 32, Mean Corpuscular Hemoglobin Concent 33, Red Cell Distribution Width 13.4, Platelet Count 156, Mean Platelet Volume 10.4, Immature Granulocyte % (Auto) 0, Neutrophils (%) (Auto) 76H, Lymphocytes (%) (Auto) 14, Monocytes (%) (Auto) 9, Eosinophils (%) (Auto) 1, Basophils (%) (Auto) 0, Neutrophils # (Auto) 6.1, Lymphocytes # (Auto) 1.1, Monocytes # (Auto) 0.7, Eosinophils # (Auto) 0.1, Basophils # (Auto) 0.0, Immature Granulocyte # (Auto) 0.0, Sodium Level 131L, Potassium Level 3.5L, Chloride Level 96L, Carbon Dioxide Level 27, Anion Gap 8, Blood Urea Nitrogen 10, Creatinine 0.68, Estimat Glomerular Filtration Rate > 60, BUN/Creatinine Ratio 15, Glucose Level 206H, Calcium Level 8.5, Phosphorus Level 2.1L, Magnesium Level 1.6 Microbiology 03/12/21 MRSA Screen - Final, Complete MRSA not isolated A/P: Assessment: New onset PAF per EKG of 03-12-21 - converted to SR with controlled rate H/O partial thyroidectomy H/O colon cancer with colon resection x 2 DM HTN H/O hip replacement bilat Family h/o CAD Plan: Echocardiogram to eval structure and function Continue OAC with Eliquis for stroke prophylaxis Monitor lab Replace electrolytes as indicated Increase activity MPI to eval perfusion today Add diuretics to the regimen BIRGIT PLATT March 14, 2021 11:09
--- NOTE | 2021-03-14 11:22 | Physical Therapy Daily Note ---
PT Daily Note-Current Subjective Patient agrees to PT. Mental Status Patient Orientation: Normal For Age Attachments: Oxygen (2L), Ocasio Catheter, IV Transfers SCALE: Activities may be completed with or without assistive devices. 2-Gglwfqdkon-pdeinfi completes the activity by him/herself with no assistance from a helper. 5-Set-up or Clean-up Assistance-helper sets up or cleans up; patient completes activity. [place] assists only prior to or following the activity. 4-Supervision or Touching Assistance-helper provides verbal cues and/or touching/steadying and/or contact guard assistance as patient completes activity. Assistance may be provided throughout the activity or intermittently. 3-Partial/Moderate Assistance-helper does LESS THAN HALF the effort. [place] lifts, holds or supports trunk or limbs, but provides less than half the effort. 2-Substantial/Maximal Assistance-helper does MORE THAN HALF the effort. [place] lifts or holds trunk or limbs and provides more than half the effort. 2-Mfcapgrqk-brqltp does ALL the effort. Patient does none of the effort to complete the activity. Or, the assistance of 2 or more helpers is required for the patient to complete the activity. If activity was not attempted, code reason: 7-Patient Refused. 9-Not Applicable-not attempted and the patient did not perform the activity before the current illness, exacerbation or injury. 10-Not Attempted due to Environmental Limitations-(lack of equipment, weather restraints, etc.). 88-Not Attempted due to Medical Conditions or Safety Concerns. Lying to Sitting/Side of Bed(Q: 4 Sit to Stand (QC): 4 Chair/Bwa-ft-Mivbz Xfer(QC): 4 SBA for safety Gait Training Does the Patient Walk?: Yes Distance: 250' Walk 10 feet (QC): 4 Walk 50 ft with 2 Turns(QC): 4 Walk 150 ft (QC): 4 Gait Assistive Device: FWW slow, functional gait sequence Exercises Seated Therapy Exercises: Ankle pumps, Long arc quads, Hip flexion Seated Reps: 12 Assessment Patient is up in recliner with needs met. Patient tolerated treatment well. Increase c/o fatigue on this date. PT Railroad Car Checker Goals Railroad Car Checker Goals PT Custodial Goals Time Frame: March 25, 2021 Roll Left & Right (QC): 6 Sit to Lying (QC): 6 Lying-Sitting on Side/Bed(QC): 6 Sit to Stand (QC): 6 Chair/Yrh-qu-Ffcuf Xfer(QC): 6 Toilet Transfer (QC): 6 Does the Patient Walk: Yes Walk 10 feet (QC): 6 Walk 50ft with 2 Turns (QC): 6 Walk 150 ft (QC): 6 PT Plan Treatment/Plan Treatment Plan: Continue Plan of Care Treatment Plan: Bed Mobility, Education, Functional Activity Diana, Functional Strength, Gait, Safety, Therapeutic Exercise, Transfers Treatment Duration: March 25, 2021 Frequency: 6 times per week Estimated Hrs Per Day: .25 hour per day Patient and/or Family Agrees t: Yes Time/GCodes Time In: 1000 Time Out: 1014 Total Billed Treatment Time: 14 Total Billed Treatment 1 visit FA 14 min CAROLIN KINSEY PT March 14, 2021 11:22
[2021-03-14] MEDS ORDERED: CATHETER FLUSH 10 ML SYR IV PRN (11:45)
[2021-03-14 12:00] VITALS: BP 159/98
[2021-03-14] MEDS ORDERED: REGADENOSON 0.4 MG/5 ML SYR (LEXISCAN) IV ONE ×2 (12:45→13:15)
[2021-03-14 13:00] VITALS: BP 161/89
--- NOTE | 2021-03-14 16:07 | STRESS TEST ---
DATE OF SERVICE: 03/14/2021 RESTING AND POST REGADENOSON TECHNETIUM-99M TETROFOSMIN SPECT CT IMAGING ORDERING PHYSICIAN: Katlyn Dawson APRN PRIMARY PHYSICIAN: Dr. Kevin Puente. ATTENDING PHYSICIAN: Dr. Alexia Carranza. CLINICAL DIAGNOSIS: Palpitations. Baseline images were carried out after injection of 10.28 mCi of technetium-99m Tetrofosmin. This was followed by 0.4 mg Regadenoson and 31.7 mCi of technetium-99m Tetrofosmin for stress imaging. The study was technically difficult because the patient had left arm down for images. The electrocardiogram showed sinus rhythm with right bundle branch block and left anterior fascicular block throughout the study. The patient noted shortness of breath and headache following Regadenoson infusion, which resolved in a few minutes. Review of images at rest and following stress does not indicate any distinct perfusion defects consistent with significant myocardial ischemia or infarction. Gated images show normal global left ventricular systolic function with normal regional wall motion. Left ventricular ejection fraction is calculated to be 72%. Left ventricular end diastolic volume is 23 mL. TID is absent (0.98). CONCLUSIONS: 1. No evidence of any significant myocardial ischemia or infarction on this study. 2. Normal regional wall motion. 3. Normal global left ventricular systolic function with a calculated ejection fraction of 72%. Job ID: [id number] DocumentID: [id number] Dictated Date: 03/14/2021 15:23:37 Visual Inspector Date: 03/14/2021 16:05:30 Dictated By: TORIN GRAVES MD, MA, FACP, FACC,
[2021-03-14 16:09] VITALS: BP 151/91
--- NOTE | 2021-03-14 17:32 | Progress Note - Cardiology ---
Cardiology SOAP Progress Note Subjective: Was short of breath last night. Has improved with furosemide No cp or palp or syncope No n/v/d Gen weakness and malaise present Two of her daughters are by her bedside Objective: I&O/Vital Signs 03/14/21 03/14/21 03/14/21 03/14/21 07:00 07:39 08:00 09:00 Temp 35.9 Pulse 76 80 Resp 18 B/P (MAP) 151/88 (109) Pulse Ox 94 96 95 O2 Delivery Nasal Cannula Nasal Cannula Nasal Cannula O2 Flow Rate 2.00 3.00 3.00 03/14/21 03/14/21 03/14/21 03/14/21 10:18 12:00 12:00 12:50 Temp 36.0 36.0 Pulse 116 116 85 Resp 20 20 B/P (MAP) 159/98 (118) 159/98 (118) Pulse Ox 96 95 95 O2 Delivery Nasal Cannula Nasal Cannula Nasal Cannula O2 Flow Rate 2.00 3.00 3.00 03/14/21 03/14/21 03/14/21 13:00 13:13 16:09 Temp 36.8 Pulse 82 78 81 Resp 20 B/P (MAP) 161/89 (113) 151/91 (111) Pulse Ox 97 96 91 O2 Delivery Nasal Cannula O2 Flow Rate 3.00 FiO2 2 03/14/21 00:00 Intake Total 1080 ml Balance 1080 ml Weight (Pounds): 200 Weight (Ounces): 0.0 Weight (Calculated Kilograms): 90.537620 Constitutional: AAO x 3, well-developed, well-nourished Respiratory: No accessory muscle use, No respiratory distress; chest expansion is symmetric, chest is bilaterally symmetric, lungs clear to auscultation Cardiovascular: regular rate-rhythm; No JVD; S1 and S2 Gastrointestional: No tender; soft, round, audible bowel sounds Extremities: no lower extremity edema bilateral Neurologic/Psychiatric: grossly intact (moves all extremities) Skin: No rash on exposed areas, No ulcerations on exposed areas Results/Procedures: Labs Laboratory Tests 03/13/21 21:22: Glucometer 196H 03/14/21 05:36: Glucometer 175H 03/14/21 06:15: White Blood Count 7.5, Red Blood Count 3.67L, Hemoglobin 12.0, Hematocrit 37, Mean Corpuscular Volume 101H, Mean Corpuscular Hemoglobin 33, Mean Corpuscular Hemoglobin Concent 32, Red Cell Distribution Width 13.8, Platelet Count 149, Mean Platelet Volume 10.2, Immature Granulocyte % (Auto) 0, Neutrophils (%) (A uto) 77H, Lymphocytes (%) (Auto) 16, Monocytes (%) (Auto) 6, Eosinophils (%) (Auto) 1, Basophils (%) (Auto) 0, Neutrophils # (Auto) 5.8, Lymphocytes # (Auto) 1.2, Monocytes # (Auto) 0.4, Eosinophils # (Auto) 0.1, Basophils # (Auto) 0.0, Immature Granulocyte # (Auto) 0.0, Sodium Level 134L, Potassium Level 3.8, Chloride Level 103, Carbon Dioxide Level 21, Anion Gap 10, Blood Urea Nitrogen 15, Creatinine 0.80, Estimat Glomerular Filtration Rate > 60, BUN/Creatinine Ratio 19, Glucose Level 193H, Calcium Level 7.8L, Phosphorus Level 2.6, Magnesium Level 1.5L, B-Type Natriuretic Peptide 167.1H 03/14/21 11:03: Glucometer 178H 03/14/21 15:55: Glucometer 208H Microbiology 03/12/21 MRSA Screen - Final, Complete MRSA not isolated A/P: Assessment: New onset PAF per EKG of 03-12-21 - converted to SR with controlled rate Echo on 03/14/21: LVEF 60-65%, grade 1 gatica dysfunction, mild MR, PASP 25-30 mmHg MPI on 03/04/21: no ischemia or infarction, LVEF 72% H/O partial thyroidectomy H/O colon cancer with colon resection x 2 DM HTN H/O hip replacement bilat Family h/o CAD Plan: Continue diuretics Continue OAC with Eliquis for stroke prophylaxis Monitor lab Replace electrolytes as indicated Increase activity I discussed her CV issues in detail with her and two of her daughters who were by the bedside today and with whom the patient wanted us to discuss her medical condition TORIN GRAVES MD FACP [facility] March 14, 2021 17:32
[2021-03-14 20:35] VITALS: BP 180/103
[2021-03-14] MEDS: LIDOCAINE 4% (SALONPAS) PATCH TOP SCH (20:37)
[2021-03-14 20:41] VITALS: BP 161/75
[2021-03-14] MEDS: ACETAMINOPHEN 500 MG TAB (TYLENOL) PO PRN (20:43)
[2021-03-15 00:10] VITALS: BP 153/90
[2021-03-15 04:47] VITALS: BP 156/89
[2021-03-15 05:52] LABS: BASOPHILS % (AUTO) 0 % (0-10); EOSINOPHILS # (AUTO) 0.1 10^3/uL (0.0-0.3); EOSINOPHILS % (AUTO) 1 % (0-10); HEMATOCRIT 36 % (35-52); HEMOGLOBIN 11.8 g/dL (11.5-16.0); LYMPHOCYTES # (AUTO) 1.1 10^3/uL (1.0-4.0); LYMPHOCYTES % (AUTO) 14 % (12-44); MEAN CORPUSCULAR HEMOGLOBIN 32 pg (25-34); MEAN CORPUSCULAR HGB CONC 33 g/dL (32-36); MEAN CORPUSCULAR VOLUME 97 fL (80-99); MEAN PLATELET VOLUME 10.4 fL (9.0-12.2); MONOCYTES # (AUTO) 0.7 10^3/uL (0.0-1.0); MONOCYTES % (AUTO) 9 % (0-12); NEUTROPHILS # (AUTO) 6.1 10^3/uL (1.8-7.8); NEUTROPHILS % (AUTO) 76 % (42-75); PLATELET COUNT 156 10^3/uL (130-400)
[2021-03-15 06:02] LABS: CHLORIDE 96 MMOL/L (98-107); POTASSIUM 3.5 MMOL/L (3.6-5.0); SODIUM 131 MMOL/L (135-145)
[2021-03-15 06:03] LABS: CALCIUM 8.5 MG/DL (8.5-10.1)
[2021-03-15 06:04] LABS: GLUCOSE 206 MG/DL (70-105)
[2021-03-15 06:06] LABS: CARBON DIOXIDE 27 MMOL/L (21-32)
[2021-03-15 06:08] LABS: CREATININE SERUM 0.68 MG/DL (0.60-1.30); GFR ESTIMATED > 60; PHOSPHORUS 2.1 MG/DL (2.3-4.7)
[2021-03-15 06:09] LABS: BUN/CREATININE RATIO 15
[2021-03-15 06:10] LABS: MAGNESIUM 1.6 MG/DL (1.6-2.4)
[2021-03-15] MEDS: inSUlin ASPART (NovoLOG) 1 UNIT/0.01 ML (CHARGE PER UNIT) SC SCH ×3 (06:38→17:46)
[2021-03-15 08:00] VITALS: BP 170/84
--- NOTE | 2021-03-15 08:54 | Progress Note - Cardiology ---
Cardiology SOAP Progress Note Subjective: Sitting up in recliner at the bedside States she is feeling good this morning; had a good nights rest No c/o CP,SOB or palpitations Objective: I&O/Vital Signs 03/15/21 03/15/21 03/15/21 03/15/21 00:10 01:00 04:47 06:45 Temp 36.6 36.4 Pulse 75 74 73 72 Resp 20 20 B/P (MAP) 153/90 (111) 156/89 (111) Pulse Ox 90 94 O2 Delivery Room Air Nasal Cannula O2 Flow Rate 1.00 03/15/21 00:00 Intake Total 1780 ml Output Total 3775 ml Balance -1995 ml Weight (Pounds): 200 Weight (Ounces): 0.0 Weight (Calculated Kilograms): 90.648001 Constitutional: AAO x 3, well-developed, well-nourished Respiratory: No accessory muscle use, No respiratory distress; chest expansion is symmetric, chest is bilaterally symmetric, lungs clear to auscultation Cardiovascular: regular rate-rhythm; No JVD; S1 and S2 Gastrointestional: No tender; soft, round, audible bowel sounds Extremities: no lower extremity edema bilateral Neurologic/Psychiatric: grossly intact (moves all extremities) Skin: No rash on exposed areas, No ulcerations on exposed areas Results/Procedures: Labs Laboratory Tests 03/14/21 11:03: Glucometer 178H 03/14/21 15:55: Glucometer 208H 03/14/21 21:13: Glucometer 199H 03/15/21 05:20: White Blood Count 8.0, Red Blood Count 3.68L, Hemoglobin 11.8, Hematocrit 36, Mean Corpuscular Volume 97, Mean Corpuscular Hemoglobin 32, Mean Corpuscular Hemoglobin Concent 33, Red Cell Distribution Width 13.4, Platelet Count 156, Mean Platelet Volume 10.4, Immature Granulocyte % (Auto) 0, Neutrophils (%) (Auto) 76H, Lymphocytes (%) (Auto) 14, Monocytes (%) (Auto) 9, Eosinophils (%) (Auto) 1, Basophils (%) (Auto) 0, Neutrophils # (Auto) 6.1, Lymphocytes # (Auto) 1.1, Monocytes # (Auto) 0.7, Eosinophils # (Auto) 0.1, Basophils # (Auto) 0.0, Immature Granulocyte # (Auto) 0.0, Sodium Level 131L, Potassium Level 3.5L, Chlo ride Level 96L, Carbon Dioxide Level 27, Anion Gap 8, Blood Urea Nitrogen 10, Creatinine 0.68, Estimat Glomerular Filtration Rate > 60, BUN/Creatinine Ratio 15, Glucose Level 206H, Calcium Level 8.5, Phosphorus Level 2.1L, Magnesium Level 1.6 Microbiology 03/12/21 MRSA Screen - Final, Complete MRSA not isolated A/P: Assessment: New onset PAF per EKG of 03-12-21 - converted to SR with controlled rate Echo on 03/14/21: LVEF 60-65%, grade 1 gatica dysfunction, mild MR, PASP 25-30 mmHg MPI on 03/04/21: no ischemia or infarction, LVEF 72% H/O partial thyroidectomy H/O colon cancer with colon resection x 2 DM HTN - not well controlled H/O hip replacement bilat Family h/o CAD Plan: Continue diuretics Hyponatremia - likely secondary to diuretics - reduce dose Continue OAC with Eliquis for stroke prophylaxis Hypertension not well controlled - increase BB to 50mg BID Monitor lab Replace electrolytes as indicated Increase activity Spoke with Dr. Marquez today OK to discharge from cardiac stand point Continue current medication regimen Out pt f/u advised in 3-4 weeks BIRGIT PLATT March 15, 2021 08:54
[2021-03-15] MEDS ORDERED: FUROSEMIDE 40 MG (LASIX) TAB PO SCH (09:00)
[2021-03-15] MEDS: dilTIAZem120 MG (CARDIZEM CD) CAP PO SCH (09:06)
[2021-03-15] MEDS: PANTOPRAZOLE 40 MG (PROTONIX) TAB PO SCH (09:06)
[2021-03-15] MEDS: LIDOCAINE 4% (SALONPAS) PATCH TOP SCH (09:06)
[2021-03-15] MEDS: APIXABAN 5 MG (ELIQUIS) TABLET PO SCH (09:06)
[2021-03-15] MEDS: meTOprolol TARTRATE 25 MG (LOPRESSOR) TABLET PO SCH (09:06)
[2021-03-15] MEDS ORDERED: KCL 20 MEQ TAB (K-DUR) PO ONE (09:15)
[2021-03-15] MEDS ORDERED: METO-333 PO (09:19)
[2021-03-15] MEDS ORDERED: DILT-27 PO (09:19)
[2021-03-15] MEDS ORDERED: POTA10CA43 PO (09:19)
[2021-03-15] MEDS ORDERED: FURO40TA4 PO (09:19)
[2021-03-15] MEDS ORDERED: APIX5TAB PO (09:19)
[2021-03-15] MEDS ORDERED: METO-451 PO (09:22)
[2021-03-15] MEDS ORDERED: FURO-125 PO (09:22)
[2021-03-15] MEDS ORDERED: meTOprolol TARTRATE 25 MG (LOPRESSOR) TABLET PO ONE (09:30)
--- NOTE | 2021-03-15 09:39 | Discharge Summary ---
Diagnosis/Chief Complaint Date of Admission March 12, 2021 at 21:20 Date of Discharge Admission Diagnosis Intermittent SVT Primary Care Kevin Puente MD Discharge Diagnosis (1) History of GI bleed (2) Hypomagnesemia (3) HLD (hyperlipidemia) (4) Thyroid disease Status: Acute (5) HTN (hypertension) Status: Acute (6) SVT (supraventricular tachycardia) (7) Diabetes Discharge Summary Discharge Physical Exam Allergies: Coded Allergies: warfarin (Verified Allergy, Unknown, "SEVERE BLEEDING", 12/25/17) Vitals & I&Os Vital Signs Date Time Temp Pulse Resp B/P (MAP) Pulse Ox O2 Delivery O2 Flow Rate FiO2 03/15/21 14:07 69 96 2.00 90 03/15/21 12:00 37.6 18 156/95 (115) Nasal Cannula 03/14/21 13:13 2 General Appearance: No Apparent Distress, WD/WN Cardiovascular: Regular Rate, Rhythm, No Murmur Neurologic/Psychiatric: Alert, Oriented x3 Hospital Course Pt was admitted due to SVT and pAF. She was admitted to the ICU on a cardizem gtt and convert to sinus rhythm and did well. She was transition to oral cardizem and metoprolol. She was started on Eliquis for stroke prophylaxis and anticoagulation education was done by pharmacy. Home oxygen study was done and revealed no need. She worked with physical therapy and did well. She was discharged home in stable and improved condition to follow up with Dr Riggs and Dr Puente. Labs (last 24 hrs) Microbiology 03/12/21 MRSA Screen - Final, Complete MRSA not isolated Patient resulted labs reviewed. Pending Labs Imaging: Reviewed Imaging Report Discussion & Recommendations Discharge Planning: >30 minutes discharge planning Discharge Home Medications: Active Scripts Active Lopressor (Metoprolol Tartrate) 50 Mg Tablet 50 Mg PO BID Lasix (Furosemide) 20 Mg Tablet 20 Mg PO DAILY Potassium Chloride 10 Meq Capsule.er 10 Meq PO DAILY Diltiazem 24Hr ER (Diltiazem HCl) 120 Mg Cap.er.24h 120 Mg PO DAILY Metoprolol Tartrate 25 Mg Tablet 25 Mg PO BID Eliquis (Apixaban) 5 Mg Tablet 5 Mg PO BID Reported Triamcinolone Acetonide 0.1% Cream (Triamcinolone Acet) 15 Gm Cr 1 Applic TOP BID PRN Hydrocodone-Acetamin 5-325 mg (Hydrocodone/Acetaminophen) 1 Each Tablet 1 Ea PO Q6H PRN Stool Softener (Docusate Sodium) 100 Mg Capsule 100 Mg PO DAILY PRN Tylenol (Acetaminophen) 325 Mg Capsule 650 Mg PO Q8H PRN Metformin HCl 500 Mg Tablet 1,000 Mg PO HS TAKES 2 (500MG) TABS Metformin HCl 500 Mg Tablet 500 Mg PO DAILY [place]-3 Acid Ethyl Esters 1 Gm Capsule 1 Gm PO BID Synthroid (Levothyroxine Sodium) 25 Mcg Tablet 25 Mcg PO DAILY Enalapril Maleate 10 Mg Tablet 10 Mg PO BID Vitamin C (Ascorbic Acid) 500 Mg Capsule 500 Mg PO BID Pioglitazone HCl 30 Mg Tablet 30 Mg PO DAILY Trospium Chloride ER (Trospium Chloride) 60 Mg Cap.er.24h 60 Mg PO DAILY Instructions to patient/family Please see electronic discharge instructions given to patient. TAMICA CUEVA MD March 15, 2021 09:39
--- NOTE | 2021-03-15 09:45 | Discharge Inst-Simple/Standard ---
Discharge Inst-Standard Discharge Medications New, Converted or Re-Newed RX: Transmitted to Pharmacy Patient Instructions/Follow Up Plan of Care/Instructions/FU: Please continue to take your medications as written. Please follow up with your primary care doctor to follow up this hospital stasy. Activity as Tolerated: Yes Discharge Diet: Cardiac Diet Return to The Hospital For: Chest pain, shortness of breath, heart racing, weakness, fever, confusion, if you fall and hit your head, if you feel you are getting worse. TAMICA CUEVA MD March 15, 2021 09:45
[2021-03-15 12:00] VITALS: BP 156/95
--- NOTE | 2021-03-15 13:03 | Physical Therapy Daily Note ---
PT Daily Note-Current Subjective Pt up in recliner with daughter present in room upon arrival. Pt reports her (L) shoulder hurts but it is arthritis and says "It hurts all the time." Pt did not rate pain. Pt agreeable. Mental Status Attachments: Oxygen, Ocasio Catheter Transfers SCALE: Activities may be completed with or without assistive devices. 4-Wreuzdnfvh-yigzkhq completes the activity by him/herself with no assistance from a helper. 5-Set-up or Clean-up Assistance-helper sets up or cleans up; patient completes activity. [place] assists only prior to or following the activity. 4-Supervision or Touching Assistance-helper provides verbal cues and/or touching/steadying and/or contact guard assistance as patient completes activity. Assistance may be provided throughout the activity or intermittently. 3-Partial/Moderate Assistance-helper does LESS THAN HALF the effort. [place] lifts, holds or supports trunk or limbs, but provides less than half the effort. 2-Substantial/Maximal Assistance-helper does MORE THAN HALF the effort. [place] lifts or holds trunk or limbs and provides more than half the effort. 1-Aunruwsez-hxttkv does ALL the effort. Patient does none of the effort to complete the activity. Or, the assistance of 2 or more helpers is required for the patient to complete the activity. If activity was not attempted, code reason: 7-Patient Refused. 9-Not Applicable-not attempted and the patient did not perform the activity before the current illness, exacerbation or injury. 10-Not Attempted due to Environmental Limitations-(lack of equipment, weather restraints, etc.). 88-Not Attempted due to Medical Conditions or Safety Concerns. Gait Training Gait Assistive Device: FWW Pt amb with FWW, CGA, f/u O2 at 2L/min x 125ft slow but steady speed. Exercises Seated Therapy Exercises: Ankle pumps, Long arc quads, Hip flexion, Hip abd/add Seated Reps: 20 Assessment Current Status: Good Progress Pt chad above fair - well. Pt somewhat SOB with gait training, conversing throughout and recovered easily. Pt resting in recliner with call light and all needs met post therapy session. PT Long-Term Goals Long-Term Goals PT Long-Term Goals Time Frame: March 25, 2021 Roll Left & Right (QC): 6 Sit to Lying (QC): 6 Lying-Sitting on Side/Bed(QC): 6 Sit to Stand (QC): 6 Chair/Rpq-db-Axzpx Xfer(QC): 6 Toilet Transfer (QC): 6 Does the Patient Walk: Yes Walk 10 feet (QC): 6 Walk 50ft with 2 Turns (QC): 6 Walk 150 ft (QC): 6 PT Plan Treatment/Plan Treatment Plan: Continue Plan of Care Treatment Plan: Bed Mobility, Education, Functional Activity Diana, Functional Strength, Gait, Safety, Therapeutic Exercise, Transfers Treatment Duration: March 25, 2021 Frequency: 6 times per week Estimated Hrs Per Day: .25 hour per day Patient and/or Family Agrees t: Yes Time/GCodes Time In: 1110 Time Out: 1135 Total Billed Treatment Time: 25 Total Billed Treatment 1, ther ex 10', gait 15' MIRELLA LAMB CPTA March 15, 2021 13:03
[2021-03-15 14:07] VITALS: BP 156/95
--- NOTE | 2021-03-15 19:07 | Progress Note - Cardiology ---
Cardiology SOAP Progress Note Subjective: No shortness of breath No cp or palp or syncope No n/v/d Gen malaise, improving Wishes to go home Objective: I&O/Vital Signs 03/15/21 03/15/21 03/15/21 03/15/21 08:00 09:00 12:00 12:26 Temp 36.7 37.6 Pulse 74 69 68 Resp 18 18 B/P (MAP) 170/84 (112) 156/95 (115) Pulse Ox 90 96 O2 Delivery Nasal Cannula Nasal Cannula Nasal Cannula O2 Flow Rate 1.00 3.00 1.00 03/15/21 14:07 Pulse 69 Pulse Ox 96 90 O2 Flow Rate 2.00 03/15/21 00:00 Intake Total 1780 ml Output Total 3775 ml Balance -1995 ml Weight (Pounds): 200 Weight (Ounces): 0.0 Weight (Calculated Kilograms): 90.958443 Constitutional: AAO x 3, well-developed, well-nourished Respiratory: No accessory muscle use, No respiratory distress; chest expansion is symmetric, chest is bilaterally symmetric, lungs clear to auscultation Cardiovascular: regular rate-rhythm; No JVD; S1 and S2 Gastrointestional: No tender; soft, round, audible bowel sounds Extremities: no lower extremity edema bilateral Neurologic/Psychiatric: grossly intact (moves all extremities) Skin: No rash on exposed areas, No ulcerations on exposed areas Results/Procedures: Labs Laboratory Tests 03/14/21 21:13: Glucometer 199H 03/15/21 05:20: White Blood Count 8.0, Red Blood Count 3.68L, Hemoglobin 11.8, Hematocrit 36, Mean Corpuscular Volume 97, Mean Corpuscular Hemoglobin 32, Mean Corpuscular Hemoglobin Concent 33, Red Cell Distribution Width 13.4, Platelet Count 156, Mean Platelet Volume 10.4, Immature Granulocyte % (Auto) 0, Neutrophils (%) (Auto) 76H, Lymphocytes (%) (Auto) 14, Monocytes (%) (Auto) 9, Eosinophils (%) (Auto) 1, Basophils (%) (Auto) 0, Neutrophils # (Auto) 6.1, Lymphocytes # (Auto) 1.1, Monocytes # (Auto) 0.7, Eosinophils # (Auto) 0.1, Basophils # (Auto) 0.0, Immature Granulocyte # (Auto) 0.0, Sodium Level 131L, Potassium Level 3.5L, Chloride Level 96L, Carbon Dioxide Level 27, Anion Gap 8, Blood Urea Nitrogen 10, Creatinine 0.68, Estimat Glomerular Filtration Rate > 60, BUN/Creatinine Ratio 15, Glucose Level 206H, Calcium Level 8.5, Phosphorus Level 2.1L, Magnesium Level 1.6 03/15/21 11:13: Glucometer 174H Microbiology 03/12/21 MRSA Screen - Final, Complete MRSA not isolated Laboratory Tests 03/14/21 06:15 03/15/21 05:20 A/P: Assessment: New onset PAF per EKG of 03-12-21 - converted to SR with controlled rate Echo on 03/14/21: LVEF 60-65%, grade 1 gatica dysfunction, mild MR, PASP 25-30 mmHg MPI on 03/04/21: no ischemia or infarction, LVEF 72% H/O partial thyroidectomy H/O colon cancer with colon resection x 2 DM HTN - not well controlled H/O hip replacement bilat Family h/o CAD Plan: Hyponatremia - likely secondary to diuretics - reduce dose Continue OAC with Eliquis for stroke prophylaxis Hypertension not well controlled - increase BB to 50mg BID Monitor lab Replace electrolytes as indicated Increase activity Spoke with Dr. Marquez today OK to discharge from cardiac stand point Continue current medication regimen Out pt f/u advised in 2 weeks TORIN GRAVES MD FACP FAC CCDS March 15, 2021 19:07
[2021-03-15] MEDS ORDERED: meTOprolol TARTRATE 50 MG (LOPRESSOR) TAB PO SCH (21:00)
[2021-03-16] MEDS ORDERED: KCL 10 MEQ TAB (MICRO K) PO SCH (07:00)
== END 2021-03-15 18:10 | disposition home or self-care (01) | DRG 309 ==
LOC: EDUNIT# 20:48 → ER 20:49 → ICU 21:20 → 4TH 03-13 13:48
PROVIDERS: ADMIT Internal Medicine; ATTEND Internal Medicine
DX: I47.1 Supraventricular tachycardia (principal); E87.1 Hypo-osmolality and hyponatremia; I48.0 Paroxysmal atrial fibrillation; I45.4 Nonspecific intraventricular block; E11.9 Type 2 diabetes mellitus without complications; I11.9 Hypertensive heart disease without heart failure; E78.00 Pure hypercholesterolemia, unspecified; E78.5 Hyperlipidemia, unspecified; I34.0 Nonrheumatic mitral (valve) insufficiency; E89.0 Postprocedural hypothyroidism; E83.42 Hypomagnesemia; H54.3 Unqualified visual loss, both eyes; T50.2X5A Adverse effect of carbonic-anhydrase inhibitors, benzothiadiazides and other diuretics, initial encounter; Z85.038 Personal history of other malignant neoplasm of large intestine; Z79.01 Long term (current) use of anticoagulants; Z90.49 Acquired absence of other specified parts of digestive tract; Z79.84 Long term (current) use of oral hypoglycemic drugs; Z96.643 Presence of artificial hip joint, bilateral; Z82.49 Family history of ischemic heart disease and other diseases of the circulatory system; Z80.0 Family history of malignant neoplasm of digestive organs
CPT/HCPCS: 36415; 51702; 71045; 78452; 80048; 80053; 81000; 82550; 82553; 82947; 83735; 83874; 83880; 84100; 84443; 84484; 85025; 85610; 85730; 87081; 93005; 93017; 93041; 93306; 94640; 94760; 94761; 96361; 96372; 96374; 96375